=== PATIENT | female | born 1935 | race Caucasian/White ===

== ENCOUNTER 2019-07-27 13:36 | Inpatient (IN) | payer MEDICARE, SELFPAY ==
[2019-07-27] VITALS (12 sets, daily range): BP systolic 165–206; BP diastolic 65–132; PULSE 71–88; RESP 15–21; TEMP 36.8–37; O2SAT 92–98; BMI 25.7
--- NOTE | 2019-07-27 13:45 | ED_ITS ---
Entered by Chang Wells, acting as scribe for HPI - Syncope General: Chief Complaint: Syncope Stated Complaint: SYNCOPE/ FALL/ LEFT LEG PAIN Time Seen by Provider: 07/27/19 13:46 History of Present Illness: HPI narrative: 83 yo female presents with syncope and fall. Pt states that she doesn't remember what happened, just that she fell. Pt states that her left hip hurts. Pt denies neck pain. Pt states that she was getting dressed to go to her Dr's office and she passed out. Pt states that she has been having kidney issues, that is why she was going to see her PCP today. Pt states that she has some back pain, pt has a small abrasion on her mid back. Associated symptoms: Deny abdominal pain, chest pain, fever(s), headache(s), nausea or vertigo Review of Systems Const: Denies: fever, chills, body aches, fatigue, malaise or night sweats Eyes: Denies: change in vision or blurry vision ENMT: Denies: throat pain, oral sores/lesions, dental pain, nasal discharge or nasal congestion Card: Reports: syncope and shortness of breath on exertion; Denies: chest pain, palpitations, irregular heart rhythm, edema, shortness of breath when lying down or leg pain with exertion Resp: Denies: shortness of breath, productive cough, non-productive cough or wheezing GI: Denies: abdominal pain, nausea, vomiting, vomiting blood, coffee grounds in vomit, difficulty swallowing, heartburn/indigestion, diarrhea, constipation, cramping, blood in stool or black tarry stool : Denies: flank pain, painful urination, urinary frequency, urinary urgency, urinary incontinence or blood in urine Musc: Reports: back pain and extremity pain (left hip pain); Denies: neck pain, extremity swelling, joint pain or joint swelling Skin/Breast: Denies: rash, itching or redness Neuro: Denies: headache, numbness in extremities, weakness in extremities, changes in sensation, lack of coordination, difficulty walking, frequent falls, dizziness, vertigo or confusion Psych: Denies: anxiety, depression, loss of interest, visual hallucinations, auditory hallucinations, suicidal ideation or homicidal ideation Endo: Denies: excessive urination, excessive thirst, tired all the time or cold intolerance Ronnie/Lymph: Denies: easy bruising, easy bleeding, petechiae, enlarged lymph nodes or tender lymph nodes PFSH ED PFSH: Medical History Abnormal myocardial perfusion study Atypical chest pain CVA (cerebral vascular accident) Fracture of femoral neck, left GERD (gastroesophageal reflux disease) Hypertension Surgical History History of cholecystectomy Social History Smoking and tobacco status: never smoked Alcohol intake: never Substance/Drug Use: never Physical Exam Const: COMMON NORMALS: average body habitus, oriented x3 and alert GENERAL APPEARANCE: cooperative, comfortable, well kempt and well developed NUTRITIONAL APPEARANCE: not obese ORIENTATION/CONSCIOUSNESS: Yes awake, Yes oriented to person and Yes oriented to place HENMT: COMMON NORMALS: normocephalic, head/scalp atraumatic, EAC's normal, TM's normal bilaterally, external nose normal, moist oral mucous membranes and oropharynx normal HEAD & SCALP: normocephalic and atraumatic NOSE: external nose normal EXTERNAL AUDITORY CANAL: EAC's normal TYMPANIC MEMBRANE: TM's normal bilaterally MOUTH: oral and palatal mucosa normal, lip normal and tongue normal THROAT: posterior oropharynx normal and tonsils normal Eye: COMMON NORMALS: PERRL, EOMs intact bilaterally, conjunctivae normal and no scleral icterus CONJUNCTIVA: Yes conjunctivae normal PUPIL: Yes PERRL Neck/C-Spine: COMMON NORMALS: full ROM, no lymphadenopathy, supple, no meningeal signs and thyroid normal THYROID: thyroid normal and asymmetrical Lymph: LYMPHATIC: no lymphadenopathy noted Resp: COMMON NORMALS: normal respiratory effort, no retractions, no use of accessory muscles and clear to auscultation bilaterally AUSCULTATION: clear to auscultation bilaterally Cardio: COMMON NORMALS: regular rate and regular rhythm RATE: regular rate RHYTHM: regular rhythm HEART SOUNDS: no murmurs GI: COMMON NORMALS: normal to inspection, nondistended, normoactive bowel s ounds, soft to palpation and no hepatosplenomegaly PALPATION: Yes soft and Yes no hepatosplenomegaly : COMMON NORMALS: Yes no CVA tenderness BLADDER/KIDNEY EXAM: Yes no CVA tenderness Back/Pelvis: COMMON NORMALS: no CVA tenderness LUMBAR SPINE/LOWER BACK: Yes normal to inspection Extremity: NARRATIVE EXTREMITY EXAM: pt has left hip pain. Pts left leg is slightly rotated out. LEFT LOWER EXTREMITY: Yes hip joint Neuro: COMMON NORMALS: oriented x3 SENSORIUM/ORIENTATION: Yes alert, Yes oriented to person and Yes oriented to place MENINGEAL SIGNS: Yes no m eningeal signs Psych: APPEARANCE: Yes well kempt Skin: COMMON NORMALS: no rashes or lesions noted and skin turgor normal GENERAL SKIN EXAM: no rashes or lesions noted and turgor normal Course ED course: Left femoral neck fracture. In the presence of syncopal episode. We will go ahead and admit the patient is a history of diabetes hypertension. Dr. Wilder will see the patient. Vital Signs: Vital signs: Vital Signs Temperature 98 F 07/29/19 04:00 Pulse Rate 67 07/29/19 07:10 Respiratory Rate 13 07/29/19 07:10 Blood Pressure 135/62 07/29/19 08:11 Pulse Oximetry 95 07/29/19 07:10 MDM - Syncope Lab Data: Labs: Lab Results 07/27/19 07/27/19 Range/Units 14:08 14:08 WBC 15.6 H (4.0-10.0) 10^3/ uL RBC 4.28 (4.1-5.3) 10^6/u L Hgb 12.6 (11.5-15.3) g/dL Hct 39.7 (37.0-47.0) % MCV 92.8 (81-99) fL MCH 29.4 (28.0-34.0) pg MCHC 31.7 (30.0-36.0) g/dL RDW 12.5 (12.1-15.1) % Plt Count 248 (130-400) 10^3/c mm MPV 11.2 H (7.4-10.4) fL Neut % (Auto) 86.9 % Lymph % (Auto) 7.6 % Kings % (Auto) 4.0 % Eos % (Auto) 0.4 % Baso % (Auto) 0.3 % Neut # (Auto) 13.5 H (1.8-7.7) 10^3/u L Lymph # (Auto) 1.2 (0.8-4.8) 10^3/u L Kings # (Auto) 0.6 (0.2-0.9) 10^3/u L Eos # (Auto) 0.1 (0.0-0.8) 10^3/u L Baso # (Auto) 0.0 (0.0-0.1) 10^3/u L Nucleated RBC % (a uto) 0 % Nucleated RBCs # 0.0 /100WBC Sodium 138 (136-145) mmol/L Potassium 4.5 (3.5-5.1) mmol/L Chloride 103 (98-107) mmol/L Carbon Dioxide 24 (22-29) mmol/L Anion Gap 15.5 (5-19) BUN 19 (8-23) mg/dL Creatinine 1.0 H (0.5-0.9) mg/dL Glucose 186 H (65-115) mg/dL Calcium 9.5 (8.5-10.5) mg/dL Total Bilirubin 0.4 (0.15-1.2) mg/dL AST 24 (0-32) U/L ALT 21 (0-33) U/L Alkaline Phosphata se 72 (35-105) IU/L Total Protein 7.0 (6.6-8.7) g/dL Albumin 4.2 (3.5-5.2) g/dL Globulin 2.8 (1.3-4.6) g/dL Discharge Plan Discharge Patient Disposition: Admitted As Inpatient Admit Provider: Can Chowdhury Discharge Date/Time: 07/27/19 17:09 Coding Level of Care Code ED Sheet Sorter for Chg Fwd Exam Comprehensive The documentation recorded by the Russell vu Kialy, accurately reflects the service I personally performed and the decisions made by Lizbeth villavicencio Curtis L, DO Jul 27, 2019 13:36
--- NOTE | 2019-07-27 13:50 | XR_ITS ---
WS: [id number] Portable AP upright chest, 07/27/2019 Clinical Data: dyspnea/cough Comparison: None. Findings: No nodules, masses or effusions are seen. The heart is normal. The pulmonary vascularity is not increased. No pneumonia or pneumothorax is present. The aortic arch shows mild calcification. XR/XR chest 1V portable [id number] Impression: Atherosclerosis.
--- NOTE | 2019-07-27 13:51 | ECG_ITS ---
Measurements Intervals [place] Rate: 75 P: 96 CO: 176 QRS: 63 QRSD: 76 T: 70 QT: 376 QTc: 421 SINUS RHYTHM WARNING: DATA QUALITY MAY AFFECT INTERPRETATION No previous ECG available for comparison Electronically Signed On 07-27-2019 21:20:38 PUBLIC WORKS TECHNICIAN by Nilda Paez M.D. [email or web address]
--- NOTE | 2019-07-27 14:24 | XR_ITS ---
WS: [id number] Left hip, AP and frog leg, 07/27/2019 Clinical Data: pain, deformity Comparison: None. Findings: There is a fracture of the left femoral neck. The femoral head remains within the acetabulum. The left pelvis is intact. The soft tissues are nonremarkable. XR/XR hip LT 2-3V wo/w pel* [id number] Impression: Left femoral neck fracture.
[2019-07-27 14:28] LABS: Basophils % 0.3 %; Eosinophils # 0.1 10^3/uL (0.0-0.8); Eosinophils % 0.4 %; Hematocrit 39.7 % (37.0-47.0); Hemoglobin 12.6 g/dL (11.5-15.3); Lymphocytes # 1.2 10^3/uL (0.8-4.8); Lymphocytes % 7.6 %; Mean Corpuscular HGB Conc 31.7 g/dL (30.0-36.0); Mean Corpuscular Hemoglobin 29.4 pg (28.0-34.0); Mean Corpuscular Volume 92.8 fL (81-99); Mean Platelet Volume 11.2 fL (7.4-10.4); Monocytes # 0.6 10^3/uL (0.2-0.9); Neutrophils # 13.5 10^3/uL (1.8-7.7); Neutrophils % 86.9 %; Nucleated Red Blood Cells % 0 %; Platelet Count 248 10^3/cmm (130-400); Red Blood Count 4.28 10^6/uL (4.1-5.3); Red Cell Distribution Width 12.5 % (12.1-15.1); White Blood Count 15.6 10^3/uL (4.0-10.0)
--- NOTE | 2019-07-27 14:39 | PC.PHAR ---
pt states she takes a few over the counter items but doesnt remember the names or what they are for.
[2019-07-27 14:42] LABS: Alanine Aminotransferase 21 U/L (0-33); Albumin Level 4.2 g/dL (3.5-5.2); Alkaline Phosphatase 72 IU/L (35-105); Anion Gap 15.5 (5-19); Aspartate Amino Transferase 24 U/L (0-32); Blood Urea Nitrogen 19 mg/dL (8-23); Calcium 9.5 mg/dL (8.5-10.5); Carbon Dioxide 24 mmol/L (22-29); Chloride 103 mmol/L (98-107); Globulin 2.8 g/dL (1.3-4.6); Glucose 186 mg/dL (65-115); Potassium 4.5 mmol/L (3.5-5.1); Sodium 138 mmol/L (136-145); Total Bilirubin 0.4 mg/dL (0.15-1.2)
--- NOTE | 2019-07-27 16:25 | CTR_ITS ---
PROCEDURE INFORMATION: Exam: CT Head Without Contrast Exam date and time: 07/27/2019 4:48 PM Age: 83 years old Clinical indication: Syncope and collapse TECHNIQUE: Imaging protocol: Computed tomography of the head without contrast. Total DLP: 786.07 mGy-cm Radiation optimization: All CT scans at this facility use at least one of these dose optimization techniques: automated exposure control; mA and/or kV adjustment per patient size (includes targeted exams where dose is matched to clinical indication); or iterative reconstruction. COMPARISON: No relevant prior studies available. FINDINGS: Brain: Chronic infarct of the left basal ganglia. There are moderate periventricular and subcortical lucencies consistent with chronic microvascular ischemic changes. Ventricles: Normal. No ventriculomegaly. Bones/joints: Unremarkable. No acute fracture. Sinuses: Visualized sinuses are unremarkable. No fluid levels. Mastoid air cells: Visualized mastoid air cells are well aerated. Orbits: Bilateral cataract surgery. Soft tissues: Unremarkable. Vasculature: Vascular calcifications. CT/CT head wo con* [id number] IMPRESSION: No acute intracranial abnormality. Chronic microvascular ischemic changes. Radiation Dose CTDIVOL = (mGy): DLP = 786.07 (mGy-cm)
--- NOTE | 2019-07-27 16:32 | PM.HP ---
Providers/Chief Complaint Primary Care Provider: Jagjit Garcia Chief Complaint: SYNCOPE/ FALL/ LEFT LEG PAIN History of Present Illness Geneva Pizarro is a 83 year old female with a past medical history of CVA and TIAs, hypertension, hyperlipidemia, cle-lximbml-wszgnwezs type 2 diabetes mellitus, recurrent urinary tract infections, who presents to the emergency room due to syncope and fall and fracture. Patient states that she lives at [facility] by herself, is fairly independent, can perform activities of daily living on her own, states that this morning she was using the bathroom, she stated that she stooped forward, and thus the last thing she remembers, she is not sure how long she blacked out, but the next thing she remembers she was on the floor, her left hip hurt her, she crawled from the bathroom to the living room, and eventually called members, she was resting on the floor for about an hour. Patient states that 2 weeks ago she was in the bathtub, taking a shower, and again she blacked out, she is not sure how long she was in the bathtub floor, but she got up and carried on her usual business. Denies a previous history of blacking out, denies a previous history of falls, denies preceding chest pain, palpitations, lightheadedness, dizziness, nausea, vomiting, changes in her vision, headaches, blurry vision, slurring of her speech, facial droop, paralysis, paresthesias, confusion. Patient states that she has been having dysuria, she thought she might have a urinary tract infection, so she presented to her primary care physician's office this morning, was diagnosed with UTI, had not picking up the antibiotics yet, was at home, went to the bathroom and had her syncopal episode with her fall and fracture. Patient denies any significant cardiac history, denies any history of stents, he denies history of CABG, denies history of stress test, denies history of heart failure. When asked why she was on Plavix 75 mg once daily, patient is unsure she thinks she might be on it because of her history of TIAs, but her son seems to think it was due to her history of blood clot, but they are not sure where the blood clot was if it was in the legs or the lungs, but patient denies that she had a history of blood clots. She denies any stents placed in her heart. She denies any stents placed in her carotids. Denies any stents placed in her peripheral extremities. Patient family thinks she has had a blood clot, but she denies this. She does have a history of CVA and TIA, roughly 12 years ago, no residual deficits. Denies a history of lung disease, denies history of COPD, no smoking, no alcohol use, no drug use. Denies any history of issues with anesthesia was in the past. Denies any family history of hypercoagulability. Denies any significant cardiac history, no history of abnormal heart rhythms, no history of atrial fibrillation, does not have a heat transfer technician. No recent fever chills cough or URI symptoms. No recent hospitalizations. Review of Systems Const: Denies: fever, chills, fatigue or malaise Eyes: Denies: change in vision or blurry vision ENMT: Denies: nasal congestion Resp: Denies: shortness of breath, productive cough, non-productive cough or wheezing GI: Denies: abdominal pain, nausea, vomiting, vomiting blood, diarrhea, constipation, blood in stool or black tarry stool : Denies: flank pain, painful urination or urinary frequency Musc: Reports: extremity pain; Denies: neck pain or back pain Skin/Breast: Denies: rash Neuro: Denies: headache, dizziness or vertigo Psych: Denies: anxiety or depression Endo: Denies: excessive urination or excessive thirst Medications/Allergies Allergies Allergy/AdvReac Type Severity Reaction Status Date / Time Sulfa (Sulfonamide Allergy Unknown Verified 07/27/19 08:30 Antibiotics) Additional Medication Information Additional Medication Information: Amlodipine 5 mg once daily Plavix 75 mg once daily Donepezil 10 mg at bedtime Losartan 100 mg p.o. daily Metformin 500 twice daily Macrobid 100 twice daily PFSH Acute PFSH: Medical History (Updated 07/27/19 @ 16:59 by Can Chowdhury MD) CVA (cerebral vascular accident) GERD (gastroesophageal reflux disease) Hypertension Surgical History (Updated 07/27/19 @ 13:47 by Chang Wells) History of cholecystectomy Social History (Updated 07/27/19 @ 16:44 by Can Chowdhury MD) Smoking and tobacco status: never smoked Alcohol intake: never Substance/Drug Use: never Vitals/I&O/Wt Last Vital Signs Temp 98.6 F 07/27/19 13:45 Pulse 79 07/27/19 13:45 Resp 17 07/27/19 14:26 BP 168/128 07/27/19 14:25 Pulse Ox 94 07/27/19 14:25 Weight last 48 hrs Weight 74.389 kg Physical Exam Const: COMMON NORMALS: no apparent distress and oriented x3 GENERAL APPEARANCE: cooperative and comfortable HENMT: COMMON NORMALS: normocephalic HEAD & SCALP: normocephalic Eye: COMMON NORMALS: PERRL, EOMs intact bilaterally and no papilledema GENERAL EYE: normal appearance of both eyes PUPIL: Yes PERRL DIRECT OPHTHALMOSCOPY: Yes no papilledema Neck/C-Spine: COMMON NORMALS: full ROM, no lymphadenopathy, no JVD and thyroid normal THYROID: thyroid normal Lymph: LYMPHATIC: no lymphadenopathy noted Resp: COMMON NORMALS: normal respiratory effort, no retractions, no use of accessory muscles and clear to auscultation bilaterally AUSCULTATION: clear to auscultation bilaterally Cardio: COMMON NORMALS: no JVD, regular rate, regular rhythm, S1 normal heart sound, S2 normal heart sound, no gallops, no clicks and no murmurs RATE: regular rate RHYTHM: regular rhythm HEART SOUNDS: S1 normal and S2 normal GI: COMMON NORMALS: normal to inspection, nondistended, normoactive bowel sounds, soft to palpation, non-tender and no hepatosplenomegaly PALPATION: Yes soft and Yes no hepatosplenomegaly Extremity: COMMON NORMALS: normal to inspection, full ROM and no pedal edema OTHER: left hip pain, right elbow pain Neuro: COMMON NORMALS: oriented x3, CN's II-XII intact bilaterally, moves all extremities and no focal motor deficits Psych: COMMON NORMALS: mental status grossly normal, thought process normal and cooperative THOUGHT PROCESS: normal thought process Urinary Catheter Management^: Mckin[place]: Cath Placed During This Visit: yes Urethral Indwelling: Yes Reason for Continuing Indwelling Catheter: Required Immobilization for Trauma or Surgery or Anesthesia Urinary Catheter Date of Insertion: 07/27/19 Urinary Catheter Time of Insertion: 15:11 Data : 07/27/19 14:08 07/27/19 14:08 A&P Assessment and plan (1) Syncope: -Patient has had true episodes of syncope, does not seem like it is vasovagal or orthostatic -it will be difficult to assess orthostatic vitals given her left hip fracture -I am concerned for cardiac etiology -Plan is to do a cardiac echocardiogram, telemetry monitoring, serial EKGs, troponin evaluation -We will do a carotid ultrasound -We will do a CT of the head, currently neurologically intact, serial neuro exams -As for the reason why she is on Plavix, patient is unsure, possibly secondary to history of CVA? No history of stents in the heart, no history of stents in her legs or in her carotids, patient's family family thinks that she is on it because of her blood clots, but patient denies this, I have reached out to Dr. Mcneal's office to get clarity, I am waiting final operations technician back Status: Acute Code(s): R55 - Syncope and collapse (2) Chest pain: -Patient has had a couple of episodes of chest pain -Last episode was a month ago, right-sided, nonradiating, no shortness breath, no lightheaded, no dizziness, no orthostasis, no diaphoresis, lasting up to 5 minutes -Patient states that most of the episodes she feels are associated with acid reflux, she takes some baking soda and it usually resolves her acid reflux and her chest pain at times -Patient does have dementia, past patient's family have pulled me aside and advised me that she is forget more forgetful -Given her episodes of syncope I am quite concerned for cardiac etiology Plan: -We will do a cardiac stress test tomorrow morning Status: Acute Code(s): R07.9 - Chest pain, unspecified (3) Fracture of femoral neck, left: -Dr. 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 -Currently neurologic intact, no strokelike symptoms -We will do a CT of the head Status: Acute Code(s): I63.9 - Cerebral infarction, unspecified (5) Hypertension: -Hold labetalol in preparation for possible surgery -Continue Norvasc 10 mg once daily, losartan 100 mg once daily, hydralazine as needed Status: Acute Code(s): I10 - Essential (primary) hypertension (6) GERD (gastroesophageal reflux disease): Status: Acute Code(s): K21.9 - Gastro-esophageal reflux disease without esophagitis (7) UTI (urinary tract infection): Patient has frequent UTIs, has UTI symptoms burning with urination, continue Rocephin Status: Acute Code(s): N39.0 - Urinary tract infection, site not specified (8) Type 2 diabetes mellitus: -Check hemoglobin A1c, low-dose sliding scale Status: Acute Code(s): E11.9 - Type 2 diabetes mellitus without complications Attestations Medical Necessity Statement*: Patient requires inpatient admission, greater than 2 midnights, for syncope, chest pain, left hip fracture Coding Level of Care Code Acute Regional Transfer Liaison for [facility] Fwd Diagnoses Syncope R55 Chest pain R07.9 Fracture of femoral neck, left S72.002A CVA (cerebral vascular accident) I63.9 Hypertension I10 GERD (gastroesophageal reflux disease) K21.9 UTI (urinary tract infection) N39.0 Type 2 diabetes mellitus E11.9
[2019-07-27 16:58] LABS: Troponin(5th) Baseline 17 ng/mL (0-10)
--- NOTE | 2019-07-27 17:00 | ECG_ITS ---
NAME OF STUDY: LEXISCAN SESTAMIBI STRESS TEST INDICATION: Chest Pain, SYNCOPE, PROCEDURE: At the baseline, the EKG revealed normal sinus rhythm with some nonspecific T wave changes.. The baseline blood pressure was 169/62 mm Hg with a heart rate of 80 beats/min. Lexiscan was infused over a period of 20 seconds. A total of 0.4 milligrams of Lexiscan was infused. The stress phase was continued for a total of 5 minutes. Heart rate at the end of the stress phase was 90 with a blood pressure 169/58. The EKG at the peak infusion revealed nonspecific ST-T changes. Sestamibi was injected 20 seconds after the Lexiscan infusion. Blood pressure at the end of the recovery phase was 161/48 with a heart rate of 90 per minute. CONCLUSION: 1. Nonspecific EKG changes with the LexiScan infusion 2. No LexiScan induced chest pain or cardiac arrhythmia 3. Normal blood pressure and heart rate response 4. Sestamibi/sestamibi perfusion scan pending; see separate report. Electronically Signed On 07-28-2019 9:58:52 BACTERIOLOGY PROFESSOR by Nimisha Loera M.D. [email or web address]
[2019-07-27 17:05] LABS: NT Pro B Type Natriuretic Pept 1260 pg/mL (0-450)
--- NOTE | 2019-07-27 17:05 | PM.CONSULT ---
Providers/Reason For Consult Consulting Physican/Specialty*: Dr. Odilia Braswell?orthopedics Reason for Consult*: Left femoral neck fracture Requesting Physcian: Dr. Reyes to [facility]?ED, Dr. Can Chowdhury-hospitalist Attending Physician: Can Chowdhury MD Primary Care Provider: Jagjit Garcia History of Present Illness History of Present Illness Geneva Pizarro is a 83 year old female who was in her usual state of health when she suffered a fall at home resulting in a left femoral neck fracture. The patient notes that she lives alone, and she is fairly independent. This morning while using the bathroom, she leaned forward as the last thing she remembers. She feels that she blacked out and she was on the floor. She had left hip pain and crawled from the bathroom to the living room where she was on the floor for about an hour. Further history is significant and that approximately 2 weeks ago she had a similar event while in the shower and she blacked out as well. She denies any prior history of this. Additional pertinent information is that she was seen yesterday for a UTI. She had not begun her antibiotics at the point of her fall. The patient is also on Plavix. Review of Systems General: Reports: 10 or more systems reviewed and unremarkable except in HPI and below Narrative: The patient is alert and responsive. She is quite cooperative, but she is quite hard of hearing. Const: Denies: fever or chills Eyes: Denies: change in vision ENMT: Reports: change in hearing (Patient is very hard of hearing); Denies: throat pain or swelling of lips/tongue Card: Denies: chest pain or shortness of breath on exertion Resp: Denies: shortness of breath or productive cough GI: Denies: abdominal pain : Reports: other (Patient had diagnosis of a recent UTI for which she was given oral antibiotics. She had not started these at the time of her admission.) Musc: Reports: extremity pain (Left lower extremity at the hip) and limited range of motion Skin/Breast: Denies: redness or changes in skin color Neuro: Reports: other (Family notes some increase in forgetfulness recently); Denies: numbness in extremities Psych: Denies: anxiety or depression Ronnie/Lymph: Denies: easy bruising or easy bleeding Meds/Allergies Home Medications and Allergies Home Medications Medication Instructions Recorded Confirmed Type amlodipine 5 mg tablet 5 mg PO DAILY 07/27/19 07/27/19 History clopidogrel 75 mg tablet 75 mg PO DAILY 07/27/19 07/27/19 History donepezil 10 mg tablet 10 mg PO BEDTIME tab 07/27/19 07/27/19 History losartan 100 mg tablet 100 mg PO DAILY 07/27/19 07/27/19 History metformin 500 mg tablet 500 mg PO BID 07/27/19 07/27/19 History metoprolol tartrate 100 mg tablet 100 mg PO BID 07/27/19 07/27/19 History Allergies Allergy/AdvReac Type Severity Reaction Status Date / Time Sulfa (Sulfonamide Allergy Unknown Verified 07/27/19 08:30 Antibiotics) PFSH Acute PFSH: Medical History CVA (cerebral vascular accident) GERD (gastroesophageal reflux disease) Hypertension Surgical History History of cholecystectomy Social History Smoking and tobacco status: never smoked Alcohol intake: never Substance/Drug Use: never Vitals/I&O/Wt Last Vital Signs Temp 98.6 F 07/27/19 13:45 Pulse 79 07/27/19 13:45 Resp 17 07/27/19 14:26 BP 168/128 07/27/19 14:25 Pulse Ox 94 07/27/19 14:25 Weight last 48 hrs Weight 164 lb Physical Exam Narrative: EXAM NARRATIVE: Patient is quite cooperative. She has no current complaints of pain other than in her left lower extremity. Const: COMMON NORMALS: no apparent distress, average body habitus, oriented x3 and alert GENERAL APPEARANCE: cooperative and comfortable ORIENTATION/CONSCIOUSNESS: Yes awake HENMT: COMMON NORMALS: normocephalic and head/scalp atraumatic; hearing grossly not normal bilaterally (Patient is very hard of hearing) HEAD & SCALP: normocephalic and atraumatic Eye: GENERAL EYE: normal appearance of both eyes Chest: COMMONS NORMALS: inspection of chest normal Resp: COMMON NORMALS: normal respiratory effort EFFORT & INSPECTION: Yes able to speak in complete sentences and Yes symmetric chest movement Extremity: LEFT LOWER EXTREMITY: Yes hip joint Left hip: Yes inspection (No significant swelling.), Yes palpation (The leg is nontender to palpation, but there is some tenderness at the hip.), Yes ROM (Not performed secondary to hip fracture.) and Yes neurovascular exam (Intact motor and sensory function) Neuro: COMMON NORMALS: oriented x3 SENSORIUM/ORIENTATION: Yes alert Psych: COMMON NORMALS: mental status grossly normal APPEARANCE: Yes grossly normal ATTITUDE: Yes calm and Yes engaged ATTENTION/CONCENTRATION: Yes attention grossly intact Skin: COMMON NORMALS: no rashes or lesions noted GENERAL SKIN EXAM: no rashes or lesions noted Urinary Catheter Management^: Mckinley: Cath Placed During This Visit: yes Urethral Indwelling: Yes Reason for Continuing Indwelling Catheter: Required Immobilization for Trauma or Surgery or Anesthesia Urinary Catheter Date of Insertion: 07/27/19 Urinary Catheter Time of Insertion: 15:11 Data Imaging^: Left hip: I personally reviewed and interpreted this imaging study as follows: My impression: Patient has a left femoral neck fracture which is displaced. There is no evidence of other fracture or other injury. A&P Assessment and plan (1) Fracture of femoral neck, left: Discussion is undertaken with the patient that she will require a bipolar hip arthroplasty. Risks and complications are discussed. The patient understands. This will be scheduled for her tomorrow providing her studies including an echo and stress test do not preclude proceeding as soon as possible with surgery. Status: Acute Code(s): S72.002A - Fracture of unspecified part of neck of left femur, initial encounter for closed fracture (2) Type 2 diabetes mellitus: Status: Acute Code(s): E11.9 - Type 2 diabetes mellitus without complications (3) Hypertension: Status: Acute Code(s): I10 - Essential (primary) hypertension (4) UTI (urinary tract infection): Status: Acute Code(s): N39.0 - Urinary tract infection, site not specified (5) Syncope: Status: Acute Code(s): R55 - Syncope and collapse Consult Attestations Medical Necessity Statement: Patient will require inpatient services and cardiology work-up to determine appropriateness of proceeding with surgical intervention. 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
[2019-07-27 17:32] LABS: Glucose Point of Care 155 mg/dL (70-110)
--- NOTE | 2019-07-27 18:19 | ECG_ITS ---
Measurements Intervals [place] Rate: 68 P: 81 ME: 179 QRS: 44 QRSD: 84 T: 73 QT: 399 QTc: 427 SINUS RHYTHM POSSIBLE RIGHT VENTRICULAR CONDUCTION DELAY [RSR (QR) IN V1/V2] Compared to ECG 07/27/2019 18:05:01 No significant changes Electronically Signed On 07-28-2019 11:15:51 SHOE SPRAYER by Nilda Paez M.D. [id number]
[2019-07-27] MEDS: heparin 5,000 unit/mL INJ 1 mL 5000 UNIT SUBCUT (18:32)
[2019-07-27] MEDS: morphine 4 mg/mL SDV 1 mL 2 MG IVP ×2 (18:32→22:33)
[2019-07-27] MEDS: sodium chloride 0.9% 1,000 ML 75 ML IV (18:32)
[2019-07-27] MEDS: cefTRIAXone 1,000 MG in sodium chloride 0.9% (plus) 50 ML 100 MG IV (18:33)
[2019-07-27 19:13] LABS: Troponin 5 2HR 16.72 ng/mL (0-10)
[2019-07-27 19:19] LABS: Troponin 5 2HR Delta -0.28 ABS# (0-10)
[2019-07-27] MEDS: donepezil 5 MG Tablet 10 MG PO (20:48)
[2019-07-27] MEDS: acetaminophen 325 mg Tablet 650 MG PO (21:41)
--- NOTE | 2019-07-27 22:19 | ECG_ITS ---
Measurements Intervals [place] Rate: 78 P: 70 OR: 183 QRS: 42 QRSD: 81 T: 67 QT: 360 QTc: 410 SINUS RHYTHM POSSIBLE RIGHT VENTRICULAR CONDUCTION DELAY [RSR (QR) IN V1/V2] No previous ECG available for comparison Electronically Signed On 07-27-2019 21:23:54 INTEGRATION CONSULTANT by Nilda Paez M.D. [id number]
--- NOTE | 2019-07-27 22:35 | PC.NURSE ---
PT C/O 10/10 PAIN IN THE LEFT HIP. THIS NURSE GAVE THE PRN TYLENOL AND THE STOCK PATCHER NURSE GAVE 2MG MORPHINE IVP. WILL CONTINUE TO MONITOR.
[2019-07-28] VITALS (74 sets, daily range): BP systolic 139–170; BP diastolic 49–94; PULSE 67–107; RESP 10–29; TEMP 36.6; O2SAT 90–97
[2019-07-28 03:47] LABS: Basophils % 0.2 %; Eosinophils # 0.1 10^3/uL (0.0-0.8); Eosinophils % 0.8 %; Hematocrit 35.5 % (37.0-47.0); Hemoglobin 11.5 g/dL (11.5-15.3); Lymphocytes # 1.9 10^3/uL (0.8-4.8); Lymphocytes % 17.7 %; Mean Corpuscular HGB Conc 32.4 g/dL (30.0-36.0); Mean Corpuscular Hemoglobin 30.7 pg (28.0-34.0); Mean Corpuscular Volume 94.7 fL (81-99); Mean Platelet Volume 11.2 fL (7.4-10.4); Monocytes # 0.6 10^3/uL (0.2-0.9); Monocytes % 6.1 %; Neutrophils # 7.9 10^3/uL (1.8-7.7); Neutrophils % 74.9 %; Nucleated Red Blood Cells % 0 %; Platelet Count 211 10^3/cmm (130-400); Red Blood Count 3.75 10^6/uL (4.1-5.3); Red Cell Distribution Width 12.4 % (12.1-15.1); White Blood Count 10.5 10^3/uL (4.0-10.0)
[2019-07-28] MEDS: heparin 5,000 unit/mL INJ 1 mL 5000 UNIT SUBCUT (03:47)
[2019-07-28 04:08] LABS: Alanine Aminotransferase 15 U/L (0-33); Albumin Level 3.3 g/dL (3.5-5.2); Alkaline Phosphatase 56 IU/L (35-105); Anion Gap 13.1 (5-19); Aspartate Amino Transferase 18 U/L (0-32); Blood Urea Nitrogen 14 mg/dL (8-23); Calcium 8.8 mg/dL (8.5-10.5); Carbon Dioxide 24 mmol/L (22-29); Chloride 107 mmol/L (98-107); Chol HDL Ratio 4.31 mg/dL (0.0-4.40); Cholesterol 138 mg/dL (0-200); Globulin 2.9 g/dL (1.3-4.6); Glucose 113 mg/dL (65-115); HDL Cholesterol 32 mg/dL (60-100); LDL Cholesterol Calculated 63 mg/dL (50-129); LDL HDL Ratio 1.97 RATIO (0.00-3.22); Magnesium 2.1 mg/dL (1.7-2.3); Phosphorus 2.7 mg/dL (2.5-4.5); Potassium 4.1 mmol/L (3.5-5.1); Sodium 140 mmol/L (136-145); Total Bilirubin 0.5 mg/dL (0.15-1.2); Total Protein 6.2 g/dL (6.6-8.7); Triglycerides 214 mg/dL (0-150)
[2019-07-28 06:09] LABS: Estmated Average Glucose 105; Hemoglobin A1C 5.3 % (4.0-6.0)
[2019-07-28] MEDS: sodium chloride 0.9% 1,000 ML 75 ML IV (06:13)
[2019-07-28] MEDS: regadenoson 0.4 Mg/5 ml Syringe IVP (07:59)
[2019-07-28] MEDS: losartan 50 mg Tablet 100 MG PO (09:34)
[2019-07-28] MEDS: amlodipine 5 mg Tablet 10 MG PO (09:35)
[2019-07-28 09:42] LABS: Glucose Point of Care 147 mg/dL (70-110)
--- NOTE | 2019-07-28 10:15 | PC.CHAP ---
Pastoral Care Encounter/Spiritual Assessment Type of Contact [] Declined high lift mule operator visit [] Patient/Family/Request visit [] Outpatient visit [] Follow-up visit [] Physician referral [] Code/Alert [x] Routine visit [] Staff referral [] Actively dying [] Patient sleeping [x] Family support [] [] Out of room [] Palliative care [] [] Receiving care in room [] Pre-surgical visit [] Trauma [] Long length of stay [] ICU visit [] Other: Relational/Emotional Strength [] Patient feels connected with others/family/visitors/staff [] Distress [] Loneliness/isolation [] Abandonment Spirituality of Patient [x] Person of Janet [] Attends Pentecostalism of their Janet [x] Believes in Prayer [] Reads Bible or Evangelical materials [] There are Spiritual issues to be addressed Roller Mechanic Interventions [x] Prayer [] Active listening [] Non-anxious presence [] Spiritual/emotional support [] Crisis/trauma care [] Spiritual counseling [] Bereavement support [] Provided bereavement packet [] Provided Bible/devotional materials [] Provided toy/stuffed animal, coloring book to patient or family member [] Provided Communion [] Anointing/[place] [] Salvation [x] Completed spiritual assessment [] Other: Impact on Illness or Injury [] Angry [] Fearful [] Anxious [] Often cries [] Exhaustion [] Unable to work [] Unable to attend congregation [] Unable to walk/stand [] Unable to read [] Unable to drive [] Unable to eat/drink [] Unable to sleep [] Unable to be with family [] Patient intubated [] Other: Summary Patient preparing for hip surgery. Patients family present, all good spirits Time spent with patient 20min
--- NOTE | 2019-07-28 11:07 | PC.NURSE ---
pt had lexiscan this morning.concern for blockages.hip surgery postponed.possible cardiac angiogram later today
--- NOTE | 2019-07-28 11:21 | PM.CONSULT ---
Providers/Reason For Consult Consulting Physican/Specialty*: ANAHI Loera MD/cardiology Reason for Consult*: Abnormal myocardial perfusion imaging Attending Physician: Can Chowdhury MD Primary Care Provider: Jagjit Garcia History of Present Illness History of Present Illness Geneva Pizarro is a 83 year old female who is admitted to hospital with a right hip fracture that she sustained following a fall in the bathroom. She was found to have slightly elevated troponin T. She has a history of high blood pressure, diabetes, dyslipidemia and TIA. She had a myocardial perfusion imaging today which was found to be abnormal. Cardiology consult is requested for further cardiac evaluation recommendations. Patient denies any chest pain. However she has been having indigestion feeling off and on for the last several months. She has this discomfort in the epigastric area which may last for few minutes with no definite precipitating factors. Patient is somewhat vague about her complaints. She has a very poor memory. She is diagnosed with Alzheimer's disease. She has no documented history for coronary artery disease, myocardial infarction or congestive heart failure. Patient is not able to recall many of the events of the past. She had 2 episodes of passing out spell in the bathroom. She never had any warning symptoms for this. She is not able to recall the events surrounding these episodes. She has a history of recurrent UTI. History of possible TIA or than 5 years ago. Seems to be compliant with medications. She recently changed her primary care provider. Except for the right hip pain, she denies any other specific complaints at this time. Review of Systems Narrative: CONSTITUTIONAL: No fever or chills. EYES: No blurring of vision or other visual disturbances lately. ENT: No hoarseness of voice, auditory disturbances or sore throat. CARDIOVASCULAR: As mentioned above. RESPIRATORY: No significant cough. GASTROINTESTINAL: History of? GERD/heartburns GENITOURINARY: Recurrent UTI INTEGUMENTARY: No skin rashes or history of skin cancer. NEURO: History of dementia as mentioned above PSYCHIATRIC: No history of psychosis or major depression. HEMATOLOGIC: No bleeding disorders or significant anemia. ENDOCRINE: No history of polyuria or polydipsia. MUSCULOSKELETAL: As mentioned above ALLERGY/IMMUNOLOGY: As mentioned above. Meds/Allergies Home Medications and Allergies Home Medications Medication Instructions Recorded Confirmed Type amlodipine 5 mg tablet 5 mg PO DAILY 07/27/19 07/27/19 History clopidogrel 75 mg tablet 75 mg PO DAILY 07/27/19 07/27/19 History donepezil 10 mg tablet 10 mg PO BEDTIME tab 07/27/19 07/27/19 History losartan 100 mg tablet 100 mg PO DAILY 07/27/19 07/27/19 History metformin 500 mg tablet 500 mg PO BID 07/27/19 07/27/19 History metoprolol tartrate 100 mg tablet 100 mg PO BID 07/27/19 07/27/19 History Allergies Allergy/AdvReac Type Severity Reaction Status Date / Time Sulfa (Sulfonamide Allergy Unknown Verified 07/27/19 08:30 Antibiotics) Current Medications Current Medications Generic Name Dose Route Start Last Admin Trade Name Freq PRN Reason Stop Dose Admin Acetaminophen 650 mg 07/27/19 16:25 07/27/19 21:41 Tylenol PO 650 mg Q6H PRN Administration Mild/Mod Pain Or Temp >/= 101 Amlodipine Besylate 10 mg 07/28/19 09:00 07/28/19 09:35 Norvasc PO 10 mg DAILY ESTHER Administration Donepezil HCl 10 mg 07/27/19 21:00 07/27/19 20:48 Aricept PO 10 mg BEDTIME ESTHER Administration Heparin Sodium (Beef Lung) 5,000 unit 07/27/19 16:30 07/28/19 03:47 Heparin SUBCUT 5,000 unit Q12H ESTHER Administration Ceftriaxone Sodium 1,000 mg/ 50 mls @ 100 mls/hr 07/27/19 16:30 07/27/19 19:05 Sodium Chloride IV Infused Q24H ESTHER Infusion Protocol Sodium Chloride 1,000 mls @ 75 mls/hr 07/27/19 17:46 07/28/19 06:13 Sodium Chloride 0.9% IV 75 mls/hr .[id number] ESTHER Administration Insulin Aspart 0 unit 07/27/19 18:00 07/28/19 09:34 Novolog SUBCUT Not Given TIDWM ESTHER Protocol Losartan Potassium 100 mg 07/28/19 09:00 07/28/19 09:34 Cozaar PO 100 mg DAILY ESTHER Administration Morphine Sulfate 2 mg 07/27/19 16:25 07/27/19 22:33 Morphine IVP 2 mg Q4H PRN Administration SEVERE PAIN PFSH Acute PFSH: Medical History Abnormal myocardial perfusion study Atypical chest pain CVA (cerebral vascular accident) Fracture of femoral neck, left GERD (gastroesophageal reflux disease) Hypertension Surgical History History of cholecystectomy Social History Smoking and tobacco status: never smoked Alcohol intake: never Substance/Drug Use: never Vitals/I&O/Wt Last Vital Signs Temp 97.9 F 07/28/19 04:00 Pulse 91 07/28/19 08:24 Resp 23 H 07/28/19 04:00 BP 159/80 07/28/19 09:34 Pulse Ox 91 07/28/19 04:00 07/27/19 07/28/19 07/28/19 22:59 06:59 14:59 Intake Total 50 / 50 876.25 / 926.25 Output Total 1800 / 1800 Balance 50 / 50 -923.75 / -873.75 Weight last 48 hrs Weight 164 lb Physical Exam Narrative: EXAM NARRATIVE: GENERAL: The patient is alert and oriented times 3. Not in any acute distress. Seems very forgetful HEENT: No significant pallor, icterus or lymphadenopathy. The pupils are equal in size. Oral cavity: There are no mucous membrane lesions. Funduscopic examination: The disk margins appear to be sharp with no exudates or hemorrhages. NECK: Trachea appears to be central. No masses noted. No JVD or thyromegaly appreciated. No carotid bruit. RESPIRATORY: Chest is symmetrical. No intercostals muscle retraction or any accessory muscle activation. There is no chest wall tenderness. Breath sounds are heard bilaterally. No rales or rhonchi heard. No evidence of any consolidation. BREASTS: Deferred. HEART: The PMI is in the 5th left intercostals space just inside the midclavicular line. No palpable precordial events. S1 and S2 are normal. No S3 or S4 heard. No pericardial rub or any click heard. ABDOMEN: No vessel pulsations or distention. No tenderness. No organomegaly appreciated. No abdominal bruit. Bowel sounds are normally heard. : Deferred. RECTAL: Deferred. LYMPHATIC: No lymphadenopathy noted in the neck or groin. EXTREMITIES: No edema or cyanosis. No clubbing. The pulses are symmetrical bilaterally. The radial, femoral, dorsalis pedis and the posterior tibial pulses are palpated and found to be in good volume and amplitude. MUSCULOSKELETAL: The right hip is immobilized . SKIN: There are no significant scars or skin rash noted. NEUROPSYCHIATRIC: The patient is alert and oriented x3. Appears to be in a good mood. No focal motor deficits. Urinary Catheter Management^: Mckinley: Cath Placed During This Visit: yes Urethral Indwelling: Yes Reason for Continuing Indwelling Catheter: Required Immobilization for Trauma or Surgery or Anesthesia Urinary Catheter Date of Insertion: 07/27/19 Urinary Catheter Time of Insertion: 15:11 Data Labs: Other Labs: Abnormal lab results 07/27/19 07/27/19 07/27/19 Range/Units 14:08 14:08 16:33 WBC 15.6 H (4.0-10.0) 10^3/ uL RBC (4.1-5.3) 10^6/u L Hct (37.0-47.0) % MPV 11.2 H (7.4-10.4) fL Neut # (Auto) 13.5 H (1.8-7.7) 10^3/u L Creatinine 1.0 H (0.5-0.9) mg/dL Glucose 186 H (65-115) mg/dL Troponin I 6 Hour (0-10) ng/mL Troponin I Hi Sens Del (0-12) ng/L Troponin T Baselin e 17 H (0-10) ng/mL Troponin T 120 Min chicken ranch (0-10) ng/mL Delta Troponin T (0-10) ABS# NT-Pro-B Natriuret Pep (0-450) pg/mL Total Protein (6.6-8.7) g/dL Albumin (3.5-5.2) g/dL Triglycerides (0-150) mg/dL HDL Cholesterol (60-100) mg/dL 07/27/19 07/27/19 07/27/19 Range/Units 16:33 18:42 22:31 WBC (4.0-10.0) 10^3/ uL RBC (4.1-5.3) 10^6/u L Hct (37.0-47.0) % MPV (7.4-10.4) fL Neut # (Auto) (1.8-7.7) 10^3/u L Creatinine (0.5-0.9) mg/dL Glucose (65-115) mg/dL Troponin I 6 Hour 16.50 H (0-10) ng/mL Troponin I Hi Sens Del -0.50 L (0-12) ng/L Troponin T Baselin e (0-10) ng/mL Troponin T 120 Min chicken [place] 16.72 H (0-10) ng/mL Delta Troponin T -0.28 L (0-10) ABS# NT-Pro-B Natriuret Pep 1260 H (0-450) pg/mL Total Protein (6.6-8.7) g/dL Albumin (3.5-5.2) g/dL Triglycerides (0-150) mg/dL HDL Cholesterol (60-100) mg/dL 07/28/19 07/28/19 07/28/19 Range/Units 03:05 03:05 03:05 WBC 10.5 H (4.0-10.0) 10^3/ uL RBC 3.75 L (4.1-5.3) 10^6/u L Hct 35.5 L (37.0-47.0) % MPV 11.2 H (7.4-10.4) fL Neut # (Auto) 7.9 H (1.8-7.7) 10^3/u L Creatinine (0.5-0.9) mg/dL Glucose (65-115) mg/dL Troponin I 6 Hour (0-10) ng/mL Troponin I Hi Sens Del (0-12) ng/L Troponin T Baselin e (0-10) ng/mL Troponin T 120 Min chicken ranch (0-10) ng/mL Delta Troponin T (0-10) ABS# NT-Pro-B Natriuret Pep (0-450) pg/mL Total Protein 6.2 L (6.6-8.7) g/dL Albumin 3.3 L (3.5-5.2) g/dL Triglycerides 214 H (0-150) mg/dL HDL Cholesterol 32 L (60-100) mg/dL Imaging^: Myocardial perfusion imaging: My impression: #1. Myocardial perfusion imaging revealing a small area of reversible defect in the mid inferolateral region, suggestive of ischemia in the distribution of the left circumflex artery. Elevated transient ischemic dilatation index also is suggestive of endocardial ischemia. #2. Normal LV ejection fraction 76%. #3. LV wall motion analysis revealing no gross wall motion normalities. #4. Normal LV volume. CT Head: Radiologist's impression: Chronic microvascular changes. No acute intracranial pathology Xray Ortho: Radiologist's impression: X-ray of the hip/pelvis revealed fracture of the left femoral neck with no displacement. CXR: My impression: Normal cardiac silhouette with no lung infiltrate. No acute pathology noted EKG^: EKG 1: My Interpretation: The EKG revealed normal sinus rhythm with some nonspecific T wave changes. Right ventricular conduction delay. A&P Assessment and plan (1) Abnormal myocardial perfusion study: Patient's abnormal myocardial perfusion imaging is suggestive of ischemia in the distribution of the left circumflex artery.Because of her atypical chest symptoms and the dementia, it might be difficult to evaluate her symptoms. For further evaluation of her coronary status, she requires a cardiac catheterization. The risk of bleeding, hematoma, vascular injury, myocardial infarction, CVA, renal failure and other concomitant complications were explained in detail. Patient and the family understood this well and consented to proceed. Status: Acute Code(s): R94.39 - Abnormal result of other cardiovascular function study (2) Atypical chest pain: Her symptoms are atypical. She complains of indigestion/epigastric discomfort intermittently. The EKG changes are nonspecific. In view of her multiple risk factors, most likely the symptoms are related to underlying coronary ischemia, especially in view of the abnormal myocardial perfusion imaging. Based on the coronary angiogram findings, further recommendations will be made Status: Acute Code(s): R07.89 - Other chest pain (3) Hypertension: The blood pressure is a stage II at this time. The antihypertensive medications need to be optimized. Status: Acute Qualifiers: Hypertension type: essential hypertension Qualified Code(s): I10 - Essential (primary) hypertension Code(s): I10 - Essential (primary) hypertension (4) CVA (cerebral vascular accident): The CT scan of the head revealed a evidence of a chronic microvascular changes. No acute ischemic changes. Patient may continue on the current medications. If she has not had any recent carotid Doppler examination, it would be appropriate to do one Status: Acute Qualifiers: CVA mechanism: embolism Precerebral and cerebral artery: unspecified precerebral artery Qualified Code(s): I63.10 - Cerebral infarction due to embolism of unspecified precerebral artery Code(s): I63.9 - Cerebral infarction, unspecified Additional A&P Information Patient has a history of diabetes and dyslipidemia. I may hold off on the metformin today in view of the possible cardiac authorization. Patient may be carefully hydrated. She has a history of dyslipidemia. I may start her on Crestor 20 mg p.o. daily. Her anemia is unexplained. No evidence of any active bleed. She had a an echocardiogram and carotid duplex admission which will be reviewed. Based on the results of the above test and also the patient's clinical progress, further recommendations will be made. Thank you for the opportunity to evaluate this patient and make these recommendations Consult Attestations Medical Necessity Statement: Patient requires continued hospital stay for close monitoring and further management Coding Level of Care Code Acute Airport Representative for Britney Bailey Diagnoses Abnormal myocardial perfusion study R94.39 Atypical chest pain R07.89 Hypertension I10 Hypertension type: essential hypertension CVA (cerebral vascular accident) I63.10 CVA mechanism: embolism Precerebral and cerebral artery: unspecified precerebral artery
[2019-07-28 12:11] LABS: Glucose Point of Care 145 mg/dL (70-110)
--- NOTE | 2019-07-28 13:43 | XACV_ITS ---
Exam Room: [facility] Ht: 145 cm Wt: 74 kg BSA: 1.77 m2 Gender: Female : 1935 Any Known Allergies: Sulfa Exam Priority: Routine Procedure(s): Procedure Description: Diagnostic procedure Procedure Description: Left Heart Catheterization Procedure Description: Coronary Angiography Procedure Description: Pressure Wire Diagnostic Cath Status: Elective Diagnostic Findings LM is a medium caliber vessel with no significant stenotic lesion. Mid Right Coronary Artery: Moderate 50% stenosis, PAUL: 3 flow, FFR performed: ratio is 0.9. Coronary angiography shows right dominance. The left anterior descending artery is a medium caliber vessel which was found to have an eccentric narrowing of around 30% proximally. The mid artery was found to have mild diffuse disease. Minimal intimal irregularities are noted in the distal artery. The artery appears to wrap around the LV apex. The first diagonal branch was found to have around 40% tubular narrowing in the midsegment. Mild to moderate diffuse calcification was noted in the proximal segment of the arteries. The left circumflex artery was found to have mild diffuse intimal anxieties with no significant stenotic lesion. The right coronary artery was found to have around a 50 to 60% segmental narrowing in the mid segment. The PDA and the PLV branches also been found to have mild diffuse disease. Interventional Findings FFR of the mid right coronary artery is 0.9. Conclusions This is an 83-year-old white female with a multiple risk factors for coronary disease, is admitted to the hospital with a right hip fracture. She was complaining of some atypical chest symptoms. She had a myocardial perfusion imaging which revealed an area of ischemia in the distribution of the left circumflex artery. In order to further evaluate her coronary status, a cardiac catheterization was recommended. Patient underwent left heart catheterization with a left and right coronary angiogram today. She was found to have mild to moderate coronary artery disease. The right coronary artery was found to have around 50 to 60% narrowing in the midsegment. LV gram was not performed because of the frequent ventricular arrhythmia with the LV catheter. LVEDP was 9 mmHg. An FFR was done to further evaluate the functional significance of the RCA lesion. This was performed by Dr. Carranza. The FFR was 0.9. Based on this, it was decided to treat the patient medically. Recommendations Continue current medical management and risk factor modification. Diagnostic RX Recommendation: medical therapy and/or counseling LV EDP: 9 mmHg Pressures Phase:Rest AO : 111 mmHg / 54 mmHg ( 82 mmHg ) @ 10:18:00 AM 112 mmHg / 57 mmHg ( 82 mmHg ) @ 10:19:00 AM 116 mmHg / 56 mmHg ( 83 mmHg ) @ 10:25:00 AM / ( -6 mmHg ) @ 10:29:00 AM 159 mmHg / 17 mmHg ( 73 mmHg ) @ 10:31:00 AM 148 mmHg / 60 mmHg ( 86 mmHg ) @ 10:32:00 AM LV : 167 mmHg / -22 mmHg / @ 10:31:00 AM 167 mmHg / -22 mmHg / @ 10:31:00 AM Clinical Evaluation EBL: 5mL-10mL Procedural Details Procedure Consent Obtained. Pre-Procedure Time Out. Identified patient by full name and date of as verbalized by the patient/guarantor. Does the consent match the physician's order: Yes. Accurate & Complete Informed Consent: Yes. Inpatient/Outpatient History & Physical on Chart: Yes. If H&P is completed, is and addenduem needed: N/A; If yes, is the addendum complete: N/A. Visualize and Verify Site with Patient/Guarantor: N/A. Relevant Radiology Images available: Yes. Pre-op teaching completed and patient verbalized understanding. The risks, benefits, and alternatives of sedation and/or procedure were discussed by physician. The patient agrees to continue. Procedure started. PERRLA. Strong, equal hand handle finisher bilaterally. Lungs clear x 5 lobes. IV Site on Arrival: 20 gauge in the right forearm. Pre Procedural Pulses: bilateral dorsalis pedis was 2+. Pre Procedural Pulses: left posterior tibial was 2+. Pre Procedural Pulses: right posterior tibial was Doppled. Pre Procedural Pulses: bilateral radial was 2+. Oxygen started at 2liters/min via nasal canula. right groin was prepped with chloroprep then draped in the usual sterile fashion. right radial was prepped with chloroprep then draped in the usual sterile fashion. Baseline sample Acquired. HR: 89 BPM. Physician notified. Physician arrived. Physician scrubbed in. Immediate Pre-Procedure Time Out. Correct Patient: Yes; Correct Procedure: Yes; Correct Site: Yes; Correct Patient Position: Yes; Correct Supplies: Yes; Dried Flammable Prep: Yes; Blood Products Available: No;. Lidocaine 1% infiltrated to the right radial. Arterial access obtained. A 5 samoan Tj catheter in over wire. Multiple views taken of left coronary artery. Catheter redirected to the RCA. Catheter out. A 5 samoan JR4 catheter in over wire. Multiple views taken of right coronary artery. Dr. Carranza reviewing films. Catheter out. A 5 samoan Angled Pig catheter in over wire. EDP Sample taken: LV 167/-23,9; HR: 91 BPM; SpO2: 95%. Pullback taken: LV Off; AO Off; Mean: , Peak to Peak: , SEP: ; HR: 68 BPM; SpO2: 95%. Catheter out. Dr. Loera scrubbed out. Patient's family updated. Inventory is [employer] XT .[address] Guidewire. Dr. Carranza scrubbed in to perform intervention. [facility] [place] Clinical Fraility Score: 4: Vulnerable. Price Clerk Indications: Evaluation for Exercise Clearance. Price Clerk Indications: Syncope. Chest Pain Symptom Assessment: Atypical Angina. Cardiovascular Instability: No. 6 samoan JR 4 guide catheter was inserted over the wire. FFR wire inserted. An FFR value of 0.90 was obtained for a lesion located at Mid RCA. Guide catheter out. A TR Band was successful obtaining hemostatsis at the Right Radial artery insertion site. TR band placed. Hemostasis obtained. Post Procedure: Pulses reassessed and unchanged. PERRLA. Strong, equal hand handle finisher bilaterally. No VTE prophylaxis required. Medication's Wasted: Other = adenosine 68 mg. Medication's Wasted: Heparin = 1000 units. Medication's Wasted: Lidocaine 1% = 18 mL. Medication's Wasted: Nitro = 49.8 mg. Total IV fluids: 75 mL. Fractional flow reserve measurements obtained. Fluoro: 9:10. Contrast type used: Omnipaque 300 mgI/mL, 500 mL bottle. [id number]. Post-op diagnosis: chest pain. Complications: none. Estimated blood loss: 5mL-10mL. Procedure completed. Patient transferred by bed to 1st floor. Vital chart was stopped. Site: Right Radial artery Sheath Size: 6 Fr Hemostasis Method: TR Band Hemostasis Success: Successful Complication Findings: No complications occurred during the procedure. Intra/Post-Procedure Events Stroke - Undetermined: No Cardiac Arrest: No Procedure Medications Start: 4:03 PM Stop: 4:03 PM Medication: Versed Amount: 1 mg Route: I.V. Start: 4:03 PM Stop: 4:03 PM Medication: Fentanyl Amount: 50 mcg Route: I.V. Start: 4:08 PM Stop: 4:08 PM Medication: Versed Amount: 1 mg Route: I.V. Start: 4:12 PM Stop: 4:12 PM Medication: Verapamil Amount: 5 mg Route: I.A. Start: 4:12 PM Stop: 4:12 PM Medication: Nitrogylcerin Amount: 200 mcg Route: I.A. Start: 4:18 PM Stop: 4:18 PM Medication: Heparin Amount: 5000 units Route: I.V. Start: 4:46 PM Stop: 4:46 PM Medication: Fentanyl Amount: 50 mcg Route: I.V. I, the attending physician, have reviewed and verified all procedure medications. Yes, all medications given per verbal order History/Risk Factors Hypertension: Yes Dyslipidemia: Yes Diabetic Therapy: Oral Peripheral Arterial Disease (PAD): No Myocardial Infarction (IA): No Obesity: No Renal Disease: No Prior Interventions PCI: No CABG: No Valve Surgery: No Report Signatures Diagnostic Workflow - Finalized by:Dr Nimisha Loera MD [facility] on 07/28/2019 9:40:45 PM Interventional Workflow - Finalized by: Dr. Jaswinder Carranza MD on 07/28/2019 5:05:39 PM
--- NOTE | 2019-07-28 15:36 | PC.NURSE ---
pt to cardiac cathode builder via bed at this time
--- NOTE | 2019-07-28 15:58 | P.PN_ITS ---
Subjective Subjective: Interval history: Patient had no complaints overnight, no chest pain, no shortness of breath, is awaiting stress test Vitals/I&O/Wt Last Vital Signs Temp 97.9 F 07/28/19 04:00 Pulse 79 07/28/19 12:00 Resp 16 07/28/19 12:00 BP 147/69 07/28/19 12:00 Pulse Ox 91 07/28/19 12:00 07/28/19 07/28/19 07/28/19 06:59 14:59 22:59 Intake Total 876.25 / 926.25 Output Total 1800 / 1800 Balance -923.75 / -873.75 Weight last 48 hrs Weight 74.389 kg Physical Exam Const: COMMON NORMALS: no apparent distress and oriented x3 HENMT: COMMON NORMALS: normocephalic HEAD & SCALP: normocephalic Neck/C-Spine: COMMON NORMALS: no JVD Resp: COMMON NORMALS: normal respiratory effort, no retractions, no use of a ccessory muscles and clear to auscultation bilaterally AUSCULTATION: clear to auscultation bilaterally Cardio: COMMON NORMALS: no JVD, regular rate, regular rhythm, S1 normal heart sound and S2 normal heart sound RATE: regular rate RHYTHM: regular rhythm HEART SOUNDS: S1 normal and S2 normal GI: COMMON NORMALS: normal to inspection, nondistended, normoactive bowel sounds, soft to palpation, non-tender, no hepatosplenomegaly, no masses and no bruits PALPATION: Yes soft and Yes no hepatosplenomegaly Extremity: COMMON NORMALS: normal capillary refill, no clubbing, cyanosis or edema, no calf tenderness and no pedal edema Neuro: COMMON NORMALS: oriented x3 Psych: COMMON NORMALS: mental status grossly normal Urinary Catheter Management^: Mckinley: Cath Placed During This Visit: yes Urethral Indwelling: Yes Reason for Continuing Indwelling Catheter: Required Immobilization for Trauma or Surgery or Anesthesia Urinary Catheter Date of Insertion: 07/27/19 Urinary Catheter Time of Insertion: 15:11 Data : 07/28/19 03:05 07/28/19 03:05 A&P Assessment and plan (1) Syncope: -Patient has had true episodes of syncope, does not seem like it is vasovagal or orthostatic -it will be difficult to assess orthostatic vitals given her left hip fracture -I am concerned for cardiac etiology -Cardiac echocardiogram shows ejection fraction of 76%, grade 1 out of 4 diastolic dysfunction, -Carotid ultrasound shows no significant stenosis -CT shows chronic microvascular changes -I spoke to Dr. Mcneal's nurse, patient was on Plavix when she established with him many years ago, they are not sure why she is on it possibly secondary to her CVA stress test pending - Status: Acute Code(s): R55 - Syncope and collapse (2) Chest pain: -Patient has had a couple of episodes of chest pain -Last episode was a month ago, right-sided, nonradiating, no shortness breath, no lightheaded, no dizziness, no orthostasis, no diaphoresis, lasting up to 5 minutes -Patient states that most of the episodes she feels are associated with acid reflux, she takes some baking soda and it usually resolves her acid reflux and her chest pain at times -Patient does have dementia, past patient's family have pulled me aside and advised me that she is forget more forgetful -Given her episodes of syncope I am quite concerned for cardiac etiology Plan: -Cardiac stress test today Status: Acute Code(s): R07.9 - Chest pain, unspecified (3) Fracture of femoral neck, left: -Dr. 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 -Currently neurologic intact, no strokelike symptoms -We will do a CT of the head Status: Acute Qualifiers: CVA mechanism: embolism Precerebral and cerebral artery: unspecified precerebral artery Qualified Code(s): I63.10 - Cerebral infarction due to embolism of unspecified precerebral artery Code(s): I63.9 - Cerebral infarction, unspecified (5) Hypertension: -Hold labetalol in preparation for possible surgery -Continue Norvasc 10 mg once daily, losartan 100 mg once daily, hydralazine as needed Status: Acute Qualifiers: Hypertension type: essential hypertension Qualified Code(s): I10 - Essential (primary) hypertension Code(s): I10 - Essential (primary) hypertension (6) GERD (gastroesophageal reflux disease): Status: Acute Code(s): K21.9 - Gastro-esophageal reflux disease without esophagitis (7) UTI (urinary tract infection): Patient has frequent UTIs, has UTI symptoms burning with urination, contin ue Rocephin Status: Acute Code(s): N39.0 - Urinary tract infection, site not specified (8) Type 2 diabetes mellitus: -Check hemoglobin A1c, low-dose sliding scale Status: Acute Code(s): E11.9 - Type 2 diabetes mellitus without complications Attestations Medical Necessity Statement*: Cards continued hospitalization due to chest pain, syncope, left femoral neck fracture Coding Level of Care Code Acute Account Executive Sales Representative for [facility] Fwd Diagnoses Syncope R55 Chest pain R07.9 Fracture of femoral neck, left S72.002A CVA (cerebral vascular accident) I63.10 CVA mechanism: embolism Precerebral and cerebral artery: unspecified precerebral artery Hypertension I10 Hypertension type: essential hypertension GERD (gastroesophageal reflux disease) K21.9 UTI (urinary tract infection) N39.0 Type 2 diabetes mellitus E11.9
--- NOTE | 2019-07-28 16:25 | USCV_ITS ---
Geneva Pizarro Age: 83 Gender: F : 1935 Exam Date: 07/28/2019 10:16 Ordering Phys: Can Chowdhury MD Technologist: Estephania Kramer Exam Location: [facility] [place] Indication: SYNCOPE Risk Factors: Unknown Previous Vascular Surgery: Unknown Right Brachial BP: / Left Brachial BP: / Right Left Velocity (cm/s) Spectral Plaque Velocity (cm/s) Spectral Plaque Syst/Diast Broadening Syst/Diast Broadening 83.80/ 23.20 Prox CCA / 86.00/ 12.10 Mid CCA 78.90 / 7.90 56.70/ 14.00 Distal CCA 95.60 / 8.90 Hetro 73.30/ 13.00 Prox ICA 87.70 / 15.80 89.40/ 14.50 Mid ICA 70.00 / 12.80 71.80/ 18.30 Distal ICA 78.90 / 13.80 154.00 ECA 88.70 Hetro 1.04 ICA/CCA 1.11 Antegrade Vertebral Antegrade 32.30/ 7.10 cm/s 53.20/ 8.90 cm/s Bi Subclavian Bi 93.70 127.2 0 FINDINGS Mild diffuse plaques at the bifurcation and internal carotid arteries bilaterally Intimal thickening in the common carotid arteries bilaterally Antegrade flow in the vertebral arteries bilaterally Near normal Doppler flow velocities in the external carotid arteries bilaterally CONCLUSIONS Mild diffuse plaques at the bifurcation and internal carotid arteries bilaterally Intimal thickening in the common carotid arteries bilaterally. No significant stenosis, based on the above finding Dr Nimisha Loera MD [facility] (Electronically Signed) Final Date: 28 July 2019 12:59 S
--- NOTE | 2019-07-28 16:25 | USCV_ITS ---
Geneva Pizarro Age: 83 Gender: F : 1935 Exam Date: 07/28/2019 10:37 Ordering Phys: Can Chowdhury MD Technologist: Estephania Kramer Exam Location: [facility] [place] Indication: SYNCOPE BP: 159 / 80 HR: 81 Rhythm: Sinus Technical Quality: Adequate MEASUREMENTS (Male / Female) Normal Values 2D ECHO LV Diastolic Diameter PLAX 3.9 cm 4.2 - 5.9 / 3.9 - 5.3 cm LV Systolic Diameter PLAX 3.0 cm LV Chamber Size 3.5 cm IVS Diastolic Thickness 1.1 cm 0.6 - 1.0 / 0.6 - 0.9 cm IVS Systolic Thickness 1.3 cm LVPW Diastolic Thickness 1.2 cm 0.6 - 1.0 / 0.6 - 0.9 cm LVPW Systolic Thickness 1.6 cm RV Chamber Size 2.9 cm LVOT Diameter 2.0 cm LV Ejection Fraction 2D Teich 48.7 % LV Ejection Fraction MOD 2C 72.9 % LV Ejection Fraction 2C AL 73.6 % LA Diameter 4.6 cm LA Width 3.9 cm LA Height 2.8 cm RA Width 2.7 cm RA Height 3.4 cm Aorta at Sinotubular Diameter 3.2 cm M-MODE LV Diastolic Diameter MM 5.2 cm 4.2 - 5.9 / 3.9 - 5.3 cm LV Systolic Diameter MM 3.5 cm LV Ejection Fraction MM Teich 60.7 % IVS Diastolic Thickness MM 1.2 cm 0.6 - 1.0 / 0.6 - 0.9 cm IVS Systolic Thickness MM 1.6 cm LVPW Diastolic Thickness MM 0.9 cm 0.6 - 1.0 / 0.6 - 0.9 cm LVPW Systolic Thickness MM 1.4 cm RV Diastolic Diameter MM 1.2 cm Aortic Annulus Diameter 3.5 cm LA Ao Ratio MM 1.3 MV E Point Septal Separation 0.6 cm DOPPLER AV Peak Velocity 198.0 cm/s LVOT Peak Velocity 131.0 cm/s AV Area Cont Eq vti 2.3 cm squared AV Area Cont Eq pk 2.1 cm squared MV Area PHT 5.8 cm squared Mitral E to A Ratio 1.0 MV E' Velocity 10.0 cm/s Mitral E to MV E' Ratio 12.3 Mitral E to LV E' Lateral Ratio 10.9 Mitral E to LV E' Septal Ratio 14.2 TR Peak Velocity 179.8 cm/s TR Peak Gradient 12.9 mmHg TR Mean Velocity 140.0 cm/s TR Mean Gradient 8.4 mmHg TR Velocity Time Integral 43.2 cm TV Peak E Velocity 74.0 cm/s Right Atrial Pressure 3.0 mmHg Pulmonary Artery Systolic Pressu 15.9 mmHg PV Peak Velocity 111.0 cm/s RV Acceleration Time 0.2 s RV Ejection Time 0.4 s RV AcT/ET 0.6 FINDINGS Left Ventricle Normal left ventricular size and systolic function, EF 76 %. No regional wall motion abnormalities. Grade I/IV diastolic dysfunction (abnormal relaxation filling pattern), normal to mildly elevated filling pressures. Right Ventricle The right ventricle is normal in size and function. Right Atrium The right atrium is normal in size. Left Atrium Left atrium, upper limit of normal size Mitral Valve Thickened mitral valve. Aortic Valve Tricuspid valve with no significant abnormalities Tricuspid Valve Trace to mild tricuspid valve regurgitation. Estimated pulmonary artery peak systolic pressure of 16 mmHg Pulmonic Valve Trace pulmonary valve regurgitation. Pericardium Normal pericardium without effusion. Aorta Plaque seen in the ascending aorta. CONCLUSIONS Normal left ventricular size and systolic function, EF 76 %. No regional wall motion abnormalities. Grade I/IV diastolic dysfunction (abnormal relaxation filling pattern), normal to mildly elevated filling pressures. Left atrium, upper limit of normal size. Trace to mild tricuspid valve regurgitation. Estimated pulmonary artery peak systolic pressure of 16 mmHg. Trace pulmonary valve regurgitation. There is no pericardial effusion. There are no intracardiac masses. No previous study is available for comparison. Dr Nimisha Loera MD [facility]AC (Electronically Signed) Final Date: 28 July 2019 13:07 S
--- NOTE | 2019-07-28 17:04 | NMCV_ITS ---
NM marisa perf SPECT r/s* [id number] Geneva Pizarro Age: 83 Gender: F : 1935 Exam Date: 07/28/2019 06:35 Ordering Phys: Can Chowdhury MD Technologist: JIMENEZ Orourke Exam Location: [facility] Indications: Left Femoral Neck Fracture/ Chest Pain/ Syncope STRESS TEST Please see separate stress test report in [facility] for full findings IMAGE PROTOCOL Rest/Stress 1 Lexiscan Day Radiopharmaceutical Dose (mCi) Administration Site Administered by Rest: Tc-99m 10.8 IV JIMENEZ Granados Sestamibi Stress:Tc-99m 32.8 IV JIMENEZ Granados Sestamibi Rest: 28-Jul-2019 60 Discovery 630 Stress: 28-Jul-2019 30 Discovery 630 0.4mg Lexiscan. Supine position only as patient was unable to lay prone. SPECT RESULTS Technical Quality: Good Raw Data Analysis: Normal Image Corrections: No attenuation or motion correction applied Summed Stress Score: 2 Summed Rest Score: 0 Summed Difference Score: 2 PERFUSION FINDINGS There is a small area of decreased tracer uptake in the mid inferolateral region with some reversibility FUNCTIONAL RESULTS (calculated via Gated SPECT) Stress Image LV EF (%): 76 Stress EDV (mL):79 TID: 1.51 Stress ESV (mL):19 FUNCTIONAL FINDINGS: Segmental wall motion analysis revealing no gross wall motion normality IMPRESSIONS #1. Myocardial perfusion imaging revealing a small area of reversible defect in the mid inferolateral region, suggestive of ischemia in the distribution of the left circumflex artery. Elevated transient ischemic dilatation index also is suggestive of endocardial ischemia. #2. Normal LV ejection fraction 76%. #3. LV wall motion analysis revealing no gross wall motion normalities. #4. Normal LV volume. No similar previous studies are available for comparison Dr Nimisha Loera MD [facility] (Electronically Signed) Final Date: 28 July 2019 09:52 S
[2019-07-28 17:44] LABS: Glucose Point of Care 116 mg/dL (70-110)
[2019-07-28] MEDS: sodium chloride 0.9% 1,000 ML 100 ML IV (17:51)
[2019-07-28] MEDS: cefTRIAXone 1,000 MG in sodium chloride 0.9% (plus) 50 ML 100 MG IV (17:51)
--- NOTE | 2019-07-28 19:11 | PC.NURSE ---
received from cardiac clam bed laborer at 1710.report received .pt is awake but groggy.right wrist with tr band on and inflated.no hematoma noted.right hand is warm to touch and with brisk capillary refill.palpable radial pulse noted distal to tr band .instructed in activity restrictions s/p radial artery procedure...and instructed pt to notify staff for any bleeding,pain,or for any concerns at all.pt verb understanding of instructions
--- NOTE | 2019-07-28 19:18 | P.PN_ITS ---
Subjective Subjective: Interval history: The patient was initially scheduled for surgical intervention today, but secondary to her cardiac work-up, she required further cardiac services. After this was evaluated, I was advised that the patient was a candidate now for surgery. Her last Plavix was on the , and ideally, we would like a minimum of 3 days prior to proceeding with surgical intervention. Medications: Reviewed: Yes Medication Review Details: Amlodipine 5 mg once daily Plavix 75 mg once daily Donepezil 10 mg at bedtime Losartan 100 mg p.o. daily Metformin 500 twice daily Macrobid 100 twice daily Vitals/I&O/Wt Last Vital Signs Temp 97.9 F 07/28/19 04:00 Pulse 80 07/28/19 18:35 Resp 24 H 07/28/19 18:35 BP 149/74 07/28/19 18:35 Pulse Ox 97 07/28/19 17:20 07/28/19 07/28/19 07/28/19 06:59 14:59 22:59 Intake Total 876.25 / 926.25 240 / 240 Output Total 1800 / 1800 Balance -923.75 / -873.75 240 / 240 Weight last 48 hrs Weight 164 lb Physical Exam Narrative: EXAM NARRATIVE: Patient is quite cooperative. She has no current complaints of pain other than in her left lower extremity. She does seem slightly more confused today than she was yesterday at her initial evaluation. Const: COMMON NORMALS: no apparent distress, average body habitus, oriented x3 and alert GENERAL APPEARANCE: cooperative and comfortable ORIENTATION/CONSCIOUSNESS: Yes awake HENMT: COMMON NORMALS: normocephalic and head/scalp atraumatic; hearing grossly not normal bilaterally (Patient is very hard of hearing) HEAD & SCALP: normocephalic and atraumatic Eye: GENERAL EYE: normal appearance of both eyes Chest: COMMONS NORMALS: inspection of chest normal Resp: COMMON NORMALS: normal respiratory effort EFFORT & INSPECTION: Yes able to speak in complete sentences and Yes symmetric chest movement Extremity: LEFT LOWER EXTREMITY: Yes hip joint (Patient remains neurologically intact. Range of motion is not accomplished.) Neuro: COMMON NORMALS: oriented x3 SENSORIUM/ORIENTATION: Yes alert Psych: APPEARANCE: Yes grossly normal ATTITUDE: Yes calm and Yes engaged Skin: COMMON NORMALS: no rashes or lesions noted GENERAL SKIN EXAM: no rashes or lesions noted Urinary Catheter Management^: Mckinley: Cath Placed During This Visit: yes Urethral Indwelling: Yes Reason for Continuing Indwelling Catheter: Required Immobilization for Trauma or Surgery or Anesthesia Urinary Catheter Date of Insertion: 07/27/19 Urinary Catheter Time of Insertion: 15:11 Data : 07/28/19 03:05 07/28/19 03:05 A&P Assessment and plan (1) Fracture of femoral neck, left: Discussion is undertaken with the patient that she will require a bipolar hip arthroplasty. Risks and complications are discussed. The patient understands. Unfortunately, we were not able to proceed with surgical i ntervention today secondary to the patient's cardiac work-up. After discussion with the hospitalist service and anesthesia, we have elected to proceed with surgical intervention on July 29 which would give us 3 days from the patient's last Plavix dose. She has been evaluated from a cardiac perspective, and has been approved to proceed with surgery. Status: Acute Code(s): S72.002A - Fracture of unspecified part of neck of left femur, initial encounter for closed fracture (2) Type 2 diabetes mellitus: Status: Acute Code(s): E11.9 - Type 2 diabetes mellitus without complications (3) Hypertension: Status: Acute Qualifiers: Hypertension type: essential hypertension Qualified Code(s): I10 - Essential (primary) hypertension Code(s): I10 - Essential (primary) hypertension (4) UTI (urinary tract infection): Status: Acute Code(s): N39.0 - Urinary tract infection, site not specified (5) Syncope: Status: Acute Code(s): R55 - Syncope and collapse Attestations Medical Necessity Statement*: Per hospitalist service Coding Level of Care Code Acute Electronics Test Engineer for [facility] Diagnoses Fracture of femoral neck, left S72.002A Type 2 diabetes mellitus E11.9 Hypertension I10 Hypertension type: essential hypertension UTI (urinary tract infection) N39.0 Syncope R55
[2019-07-28 21:19] LABS: Glucose Point of Care 164 mg/dL (70-110)
[2019-07-28] MEDS: donepezil 5 MG Tablet 10 MG PO (21:22)
[2019-07-28] MEDS: acetaminophen 325 mg Tablet 650 MG PO (21:22)
[2019-07-29] VITALS (60 sets, daily range): BP systolic 133–166; BP diastolic 61–76; PULSE 67–91; RESP 13–33; TEMP 36.6–36.8; O2SAT 95–97
--- NOTE | 2019-07-29 04:53 | ECG_ITS ---
Measurements Intervals [place] Rate: 155 P: ME: 0 QRS: 28 QRSD: 74 T: 150 QT: 228 QTc: 366 ATRIAL FIBRILLATION WITH RAPID VENTRICULAR RESPONSE NONSPECIFIC ST & T-WAVE ABNORMALITY Compared to ECG 07/28/2019 00:10:48 T-wave abnormality now present Sinus rhythm no longer present Electronically Signed On 07-29-2019 20:24:01 STAFF ELECTRICAL ENGINEER by Nimisha Loera M.D. [id number]
--- NOTE | 2019-07-29 05:02 | PM.EVENT ---
Event Note Event Note: Called that patient had gone into A. fib with RVR. Review of home medication list shows that she has been on metoprolol 100 mg p.o. twice daily. I do not see beta-blockade ordered. It may not have been apparent at the time that the patient was admitted that she was on it given her dementia and challenging history. I have ordered 5 mg IV metoprolol now and will put on 50 mg p.o. twice daily of metoprolol. Hopefully her rate will get under control with this. Blood pressures are currently stable.
[2019-07-29] MEDS: metoprolol tartrate 1 mg/1 mL SDV 5 mL 5 MG IV ×2 (05:16→06:42)
[2019-07-29] MEDS: metoprolol tartrate 50 mg Tablet PO (05:16)
[2019-07-29 05:33] LABS: Basophils % 0.2 %; Eosinophils # 0.2 10^3/uL (0.0-0.8); Eosinophils % 2.2 %; Hematocrit 34.1 % (37.0-47.0); Hemoglobin 10.8 g/dL (11.5-15.3); Lymphocytes # 1.5 10^3/uL (0.8-4.8); Lymphocytes % 17.9 %; Mean Corpuscular HGB Conc 31.7 g/dL (30.0-36.0); Mean Corpuscular Hemoglobin 30.2 pg (28.0-34.0); Mean Corpuscular Volume 95.3 fL (81-99); Mean Platelet Volume 11.3 fL (7.4-10.4); Monocytes # 0.7 10^3/uL (0.2-0.9); Monocytes % 8.5 %; Neutrophils # 5.7 10^3/uL (1.8-7.7); Neutrophils % 70.6 %; Nucleated Red Blood Cells % 0 %; Platelet Count 197 10^3/cmm (130-400); Red Blood Count 3.58 10^6/uL (4.1-5.3); Red Cell Distribution Width 12.6 % (12.1-15.1); White Blood Count 8.1 10^3/uL (4.0-10.0)
[2019-07-29 05:44] LABS: Alanine Aminotransferase 14 U/L (0-33); Albumin Level 3.1 g/dL (3.5-5.2); Alkaline Phosphatase 52 IU/L (35-105); Anion Gap 12.6 (5-19); Aspartate Amino Transferase 15 U/L (0-32); Blood Urea Nitrogen 9 mg/dL (8-23); Calcium 8.6 mg/dL (8.5-10.5); Carbon Dioxide 24 mmol/L (22-29); Chloride 107 mmol/L (98-107); Globulin 2.8 g/dL (1.3-4.6); Glucose 110 mg/dL (65-115); Phosphorus 2.4 mg/dL (2.5-4.5); Potassium 3.6 mmol/L (3.5-5.1); Sodium 140 mmol/L (136-145); Total Bilirubin 0.5 mg/dL (0.15-1.2); Total Protein 5.9 g/dL (6.6-8.7)
[2019-07-29 06:02] LABS: Glucose Point of Care 133 mg/dL (70-110)
[2019-07-29] MEDS: losartan 50 mg Tablet 100 MG PO (08:11)
[2019-07-29] MEDS: acetaminophen 325 mg Tablet 650 MG PO ×2 (08:13→15:02)
[2019-07-29] MEDS: amlodipine 5 mg Tablet 10 MG PO (08:13)
--- NOTE | 2019-07-29 08:15 | PC.OT ---
OT Note: Patient was supposed to receive surgical services post femoral neck fx, however, due to cardiac episode, patient did not have scheduled surgery. OT evaluation order on hold until post surgical procedure.
[2019-07-29 11:20] LABS: Glucose Point of Care 242 mg/dL (70-110)
[2019-07-29] MEDS: sodium chloride 0.9% 1,000 ML 100 ML IV (11:41)
--- NOTE | 2019-07-29 13:16 | PM.PN ---
Subjective Subjective: Interval history: The patient seems improved in her mental status today. She is appropriate and alert. She is awaiting her surgical intervention tomorrow. I discussed this with the hospitalist service, and they are in agreement that we may proceed. Medications: Reviewed: Yes Medication Review Details: Amlodipine 5 mg once daily Plavix 75 mg once daily Donepezil 10 mg at bedtime Losartan 100 mg p.o. daily Metformin 500 twice daily Macrobid 100 twice daily Vitals/I&O/Wt Last Vital Signs Temp 98 F 07/29/19 04:00 Pulse 68 07/29/19 11:16 Resp 15 07/29/19 11:16 BP 151/74 07/29/19 11:16 Pulse Ox 95 07/29/19 11:16 07/28/19 07/29/19 07/29/19 22:59 06:59 14:59 Intake Total 300 / 300 1100 / 1400 360 / 360 Output Total 2300 / 2300 Balance 300 / 300 -1200 / -900 360 / 360 Weight last 48 hrs Weight 164 lb Physical Exam Narrative: EXAM NARRATIVE: Patient is quite cooperative. She has no current complaints of pain other than in her left lower extremity. Confusion has appeared to improve. She remains neurologically intact. Const: COMMON NORMALS: no apparent distress, average body habitus, oriented x3 and alert GENERAL APPEARANCE: cooperative and comfortable ORIENTATION/CONSCIOUSNESS: Yes awake HENMT: COMMON NORMALS: normocephalic and head/scalp atraumatic; hearing grossly not normal bilaterally (Patient is very hard of hearing) HEAD & SCALP: normocephalic and atraumatic Eye: GENERAL EYE: normal appearance of both eyes Chest: COMMONS NORMALS: inspection of chest normal Resp: COMMON NORMALS: normal respiratory effort EFFORT & INSPECTION: Yes able to speak in complete sentences and Yes symmetric chest movement Neuro: COMMON NORMALS: oriented x3 SENSORIUM/ORIENTATION: Yes alert Psych: COMMON NORMALS: mental status grossly normal APPEARANCE: Yes grossly normal ATTITUDE: Yes calm and Yes engaged ATTENTION/CONCENTRATION: Yes attention grossly intact Skin: COMMON NORMALS: no rashes or lesions noted GENERAL SKIN EXAM: no rashes or lesions noted Urinary Catheter Management^: Mckinley: Cath Placed During This Visit: yes Urethral Indwelling: Yes Reason for Continuing Indwelling Catheter: Accurate Measurement of Urinary Output in Critically Ill Patients Urinary Catheter Date of Insertion: 07/27/19 Urinary Catheter Time of Insertion: 15:11 Data : 07/29/19 04:20 07/29/19 04:20 A&P Assessment and plan (1) Fracture of femoral neck, left: Discussion is undertaken with the patient once again that she will require a bipolar hip arthroplasty. Risks and complications are discussed. The patient understands. I spoke with the hospitalist service today, and it appears that her syncopal episodes may be secondary to her atrial fibrillation. We will plan to proceed with surgery tomorrow morning as previously scheduled. Status: Acute Code(s): S72.002A - Fracture of unspecified part of neck of left femur, initial encounter for closed fracture (2) Type 2 diabetes mellitus: Status: Acute Code(s): E11.9 - Type 2 diabetes mellitus without complications (3) Hypertension: Status: Acute Qualifiers: Hypertension type: essential hypertension Qualified Code(s): I10 - Essential (primary) hypertension Code(s): I10 - Essential (primary) hypertension (4) UTI (urinary tract infection): Status: Acute Code(s): N39.0 - Urinary tract infection, site not specified (5) Syncope: Status: Acute Code(s): R55 - Syncope and collapse Attestations Medical Necessity Statement*: Patient will require continued inpatient status awaiting medical optimization for surgical intervention. Coding Level of Care Code Acute Firebrick Layer Helper for [facility] Diagnoses Fracture of femoral neck, left S72.002A Type 2 diabetes mellitus E11.9 Hypertension I10 Hypertension type: essential hypertension UTI (urinary tract infection) N39.0 Syncope R55
--- NOTE | 2019-07-29 14:16 | PM.PN ---
Subjective Subjective: Interval history: Patient underwent a left heart catheterization with left and right coronary angiogram yesterday. She was found to have around 50 to 60% segmental narrowing in the mid RCA. FFR of this lesion was 0.9. Based on this finding, it was decided to treat her medically. She was found to have mild diffuse disease in the other vessels. She is remaining stable with no chest pain. She was found to have episodes of atrial fibrillation with rapid ventricular rate on the telemetry. She is converted back into sinus rhythm at this point. Medications: Reviewed: Yes Medication Review Details: Current Medications Acetaminophen (Tylenol) 650 mg PO Q6H PRN PRN Reason: Mild/Mod Pain Or Temp >/= 101 Last Admin: 07/29/19 08:13 Dose: 650 mg Documented by: Amlodipine Besylate (Norvasc) 10 mg PO DAILY [facility] Last Admin: 07/29/19 08:13 Dose: 10 mg Documented by: Donepezil HCl (Aricept) 10 mg PO BEDTIME [facility] Last Admin: 07/28/19 21:22 Dose: 10 mg Documented by: Hydralazine HCl (Apresoline) 10 mg IVP Q4H PRN PRN Reason: for SBP>180, Ceftriaxone Sodium 1,000 mg/ (Sodium Chloride) 50 mls @ 100 mls/hr IV Q24H [facility]; Protocol Last Admin: 07/28/19 17:51 Dose: 100 mls/hr Documented by: Insulin Aspart (Novolog) 0 unit SUBCUT TIDWM [facility]; Protocol Last Admin: 07/29/19 11:42 Dose: 6 unit Documented by: Losartan Potassium (Cozaar) 100 mg PO DAILY [facility] Last Admin: 07/29/19 08:11 Dose: 100 mg Documented by: Metoprolol Tartrate (Lopressor) 50 mg PO Q12H [facility] Last Admin: 07/29/19 05:16 Dose: 50 mg Documented by: Morphine Sulfate (Morphine) 2 mg IVP Q4H PRN PRN Reason: SEVERE PAIN Last Admin: 07/27/19 22:33 Dose: 2 mg Documented by: Ondansetron HCl (Zofran) 4 mg IVP Q6H PRN PRN Reason: NAUSEA AND VOMITING Phenazopyridine HCl (Pyridium) 100 mg PO TID PRN PRN Reason: pain Vitals/I&O/Wt Last Vital Signs Temp 98 F 07/29/19 04:00 Pulse 68 07/29/19 11:16 Resp 15 07/29/19 11:16 BP 151/74 07/29/19 11:16 Pulse Ox 95 07/29/19 11:16 07/28/19 07/29/19 07/29/19 22:59 06:59 14:59 Intake Total 300 / 300 1100 / 1400 360 / 360 Output Total 2300 / 2300 Balance 300 / 300 -1200 / -900 360 / 360 Physical Exam Narrative: EXAM NARRATIVE: GENERAL: The patient is alert and oriented times 2. Not in any acute distress. Seems very forgetful HEENT: No significant pallor, icterus or lymphadenopathy. The pupils are equal in size. Oral cavity: There are no mucous membrane lesions. NECK: Trachea appears to be central. No masses noted. No JVD or thyromegaly appreciated. No carotid bruit. RESPIRATORY: Chest is symmetrical. No intercostals muscle retraction or any accessory muscle activation. There is no chest wall tenderness. Breath sounds are heard bilaterally. No rales or rhonchi heard. No evidence of any consolidation. BREASTS: Deferred. HEART: The PMI is in the 5th left intercostals space just inside the midclavicular line. No palpable precordial events. S1 and S2 are normal. No S3 or S4 heard. No pericardial rub or any click heard. ABDOMEN: No vessel pulsations or distention. No tenderness. No organomegaly appreciated. No abdominal bruit. Bowel sounds are normally heard. : Deferred. RECTAL: Deferred. LYMPHATIC: No lymphadenopathy noted in the neck or groin. EXTREMITIES: No edema or cyanosis. No clubbing. The pulses are symmetrical bilaterally. The radial, femoral, dorsalis pedis and the posterior tibial pulses are palpated and found to be in good volume and amplitude. MUSCULOSKELETAL: The right hip is immobilized . SKIN: There are no significant scars or skin rash noted. NEUROPSYCHIATRIC: The patient is alert and oriented x2. Appears to be in a good mood. No focal motor deficits. Urinary Catheter Management^: Mckinley: Cath Placed During This Visit: yes Urethral Indwelling: Yes Reason for Continuing Indwelling Catheter: Accurate Measurement of Urinary Output in Critically Ill Patients Urinary Catheter Date of Insertion: 07/27/19 Urinary Catheter Time of Insertion: 15:11 Data : 07/29/19 04:20 07/29/19 04:20 A&P Assessment and plan (1) Atherosclerotic heart disease of [place] coronary artery with other forms of angina pectoris: The cardiac authorization findings were once again discussed with the patient. Since she is remaining fairly stable, may not require any further interventions at this point. May continue on the current medications. Since she cannot be on Plavix, it may be appropriate to keep her on a baby aspirin. She also be started on a statin drug namely Crestor 10 mg p.o. daily, if there is no contraindication. Would be appropriate to do a lipid profile on the blood in the lab. Status: Acute Code(s): I25.118 - Atherosclerotic heart disease of [place] coronary artery with other forms of angina pectoris (2) Intermittent atrial fibrillation: It is possible that the patient may have intermittent atrial fibrillation causing TIA. She needs to be on a long-term oral anticoagulation. In anticipation of surgery, we may hold off on that. If she can be on a baby aspirin at least, would be appropriate. She is currently on a beta-christel namely metoprolol 50 mg p.o. twice daily. I may start her on Betapace 80 mg p.o. twice daily and cut back on the dose of metoprolol to 25 mg p.o. twice daily Status: Acute Code(s): I48.0 - Paroxysmal atrial fibrillation (3) CVA (cerebral vascular accident): The CT scan of the head revealed a evidence of a chronic microvascular changes. No acute ischemic changes. Patient may continue on the current medications. She has the carotid Doppler examination yesterday and was found to have mild to moderate plaques. No significant stenosis. Status: Acute Qualifiers: CVA mechanism: embolism Precerebral and cerebral artery: unspecified precerebral artery Qualified Code(s): I63.10 - Cerebral infarction due to embolism of unspecified precerebral artery Code(s): I63.9 - Cerebral infarction, unspecified (4) Hypertension: The blood pressure is a stage II at this time. The antihypertensive medications need to be optimized. Status: Acute Qualifiers: Hypertension type: essential hypertension Qualified Code(s): I10 - Essential (primary) hypertension Code(s): I10 - Essential (primary) hypertension Additional A&P Information Patient has a history of diabetes and dyslipidemia. May continue holding off on the metformin for a total of 3 days. Betapace 80 mg p.o. twice daily. Daily EKG x3. Baby aspirin daily May need to consider oral anticoagulation, once the hip surgery is finished Continue optimizing the antihypertensive medication Attestations Medical Necessity Statement*: Deferred to the primary Coding Level of Care Code Acute Inspector Optical Instrument for [facility] Diagnoses Atherosclerotic heart disease of [place] coronary artery with other forms of angina pectoris I25.118 Intermittent atrial fibrillation I48.0 CVA (cerebral vascular accident) I63.10 CVA mechanism: embolism Precerebral and cerebral artery: unspecified precerebral artery Hypertension I10 Hypertension type: essential hypertension
[2019-07-29 14:50] LABS: Chol HDL Ratio 3.91 mg/dL (0.0-4.40); Cholesterol 133 mg/dL (0-200); HDL Cholesterol 34 mg/dL (60-100); LDL Cholesterol Calculated 70 mg/dL (50-129); LDL HDL Ratio 2.06 RATIO (0.00-3.22); Triglycerides 146 mg/dL (0-150)
[2019-07-29] MEDS: heparin 5,000 unit/mL INJ 1 mL 5000 UNIT SUBCUT (15:03)
[2019-07-29 15:57] LABS: Glucose Point of Care 194 mg/dL (70-110)
--- NOTE | 2019-07-29 16:11 | PC.PT ---
PT note; patient still awaiting surgery; PT orders are for postop physical therapy
--- NOTE | 2019-07-29 16:55 | PM.PN ---
Subjective Subjective: Interval history: This morning patient was examined, family at bedside, no fevers, no chills chills, no nausea, no vomiting, no chest pain, patient did have an episode with a bit with RVR overnight, resolved with IV metoprolol, denies lightheadedness, dizziness, facial droop, slurring of her speech, left hip pain is minimal Vitals/I&O/Wt Last Vital Signs Temp 98 F 07/29/19 04:00 Pulse 76 07/29/19 15:41 Resp 20 H 07/29/19 15:41 BP 156/61 07/29/19 15:41 Pulse Ox 96 07/29/19 15:41 07/29/19 07/29/19 07/29/19 06:59 14:59 22:59 Intake Total 1100 / 1400 360 / 360 Output Total 2300 / 2300 925 / 925 Balance -1200 / -900 360 / 360 -925 / -565 Physical Exam Const: COMMON NORMALS: no apparent distress and oriented x3 HENMT: COMMON NORMALS: normocephalic HEAD & SCALP: normocephalic Neck/C-Spine: COMMON NORMALS: no JVD Resp: COMMON NORMALS: normal respiratory effort, no retractions, no use of accessory muscles and clear to auscultation bilaterally AUSCULTATION: clear to auscultation bilaterally Cardio: COMMON NORMALS: no JVD, regular rate, regular rhythm, S1 normal heart sound and S2 normal heart sound RATE: regular rate RHYTHM: regular rhythm HEART SOUNDS: S1 normal and S2 normal GI: COMMON NORMALS: normal to inspection, nondistended, normoactive bowel sounds, soft to palpation, non-tender, no hepatosplenomegaly, no masses and no bruits PALPATION: Yes soft and Yes no hepatosplenomegaly Extremity: COMMON NORMALS: normal capillary refill, no clubbing, cyanosis or edema, no calf tenderness and no pedal edema Neuro: COMMON NORMALS: oriented x3 Psych: COMMON NORMALS: mental status grossly normal Urinary Catheter Management^: Mckinley: Cath Placed During This Visit: yes Urethral Indwelling: Yes Reason for Continuing Indwelling Catheter: Accurate Measurement of Urinary Output in Critically Ill Patients Urinary Catheter Date of Insertion: 07/27/19 Urinary Catheter Time of Insertion: 15:11 Data : 07/29/19 04:20 07/29/19 04:20 A&P Assessment and plan (1) Syncope: -Patient has had true episodes of syncope, likely TIA episodes related to atrial fibrillation -Cardiac echocardiogram shows ejection fraction of 76%, grade 1 out of 4 diastolic dysfunction, -Carotid ultrasound shows no significant stenosis -CT shows chronic microvascular changes -I spoke to Dr. Mcneal's nurse, patient was on Plavix when she established with him many years ago, they are not sure why she is on it possibly secondary to her CVA -Patient had positive stress testing followed by coronary angiography yesterday by Dr. Loera which showed 50 to 60% segmental narrowing in the mid RCA, FFR of this lesion was 0.9, mild diffuse disease Status: Acute Code(s): R55 - Syncope and collapse (2) Chest pain: -Patient has had a couple of episodes of chest pain -Last episode was a month ago, right-sided, nonradiating, no shortness breath, no lightheaded, no dizziness, no orthostasis, no diaphoresis, lasting up to 5 minutes -Patient states that most of the episodes she feels are associated with acid reflux, she takes some baking soda and it usually resolves her acid reflux and her chest pain at times -Patient does have dementia, past patient's family have pulled me aside and advised me that she is forget more forgetful --Patient had positive stress testing followed by coronary angiography yesterday by Dr. Loera which showed 50 to 60% segmental narrowing in the mid RCA, FFR of this lesion was 0.9, mild diffuse disease PLAN: -Medically managed with aspirin, statin -Surgery okay with 1 dose of aspirin before surgery, will resume after Status: Acute Code(s): R07.9 - Chest pain, unspecified (3) Fracture of femoral neck, left: -Dr. Braswell has been consulted -N.p.o. 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 -Currently neurologic intact, no strokelike symptoms -Shows microvascular changes -Patient syncopal episode was likely TIA related to atrial fibrillation -Patient on aspirin, statin -Plavix is held Status: Acute Qualifiers: CVA mechanism: embolism Precerebral and cerebral artery: unspecified precerebral artery Qualified Code(s): I63.10 - Cerebral infarction due to embolism of unspecified precerebral artery Code(s): I63.9 - Cerebral infarction, unspecified (5) Hypertension: -Hold labetalol in preparation for possible surgery -Continue Norvasc 10 mg once daily, losartan 100 mg once daily, hydralazine as needed Status: Acute Qualifiers: Hypertension type: essential hypertension Qualified Code(s): I10 - Essential (primary) hypertension Code(s): I10 - Essential (primary) hypertension (6) GERD (gastroesophageal reflux disease): Status: Acute Code(s): K21.9 - Gastro-esophageal reflux disease without esophagitis (7) UTI (urinary tract infection): Patient has frequent UTIs, has UTI symptoms burning with urination, continue Rocephin Status: Acute Code(s): N39.0 - Urinary tract infection, site not specified (8) Type 2 diabetes mellitus: -Check hemoglobin A1c, low-dose sliding scale Status: Acute Code(s): E11.9 - Type 2 diabetes mellitus without complications (9) Intermittent atrial fibrillation: -Patient is on metoprolol 100 twice daily at home -I had held this medication as patient had soft blood pressures, and there was concern for possible TIA and stroke so I held the medication -Unfortunately patient overnight developed A. fib with RVR, -Patient denies a history of A. fib in the past, possibly that is why she is on metoprolol long-term -Patient's A. fib resolved with metoprolol push Plan -Continue Atripla 25 twice daily -On Betapace 80 twice daily as per cardiology -Orthopedics is okay with NOAC after surgery Status: Acute Code(s): I48.0 - Paroxysmal atrial fibrillation (10) Atherosclerotic heart disease of [place] coronary artery with other forms of angina pectoris: Status: Acute Code(s): I25.118 - Atherosclerotic heart disease of [place] coronary artery with other forms of angina pectoris Attestations Medical Necessity Statement*: Requires continued hospitalization due to left femoral neck fracture Coding Level of Care Code Acute Heater Operator Helper for [facility] Diagnoses Syncope R55 Chest pain R07.9 Fracture of femoral neck, left S72.002A CVA (cerebral vascular accident) I63.10 CVA mechanism: embolism Precerebral and cerebral artery: unspecified precerebral artery Hypertension I10 Hypertension type: essential hypertension GERD (gastroesophageal reflux disease) K21.9 UTI (urinary tract infection) N39.0 Type 2 diabetes mellitus E11.9 Intermittent atrial fibrillation I48.0 Atherosclerotic heart disease of [place] coronary artery with other forms of angina pectoris I25.118
[2019-07-29] MEDS: aspirin 81 mg EC Tablet PO (17:10)
[2019-07-29] MEDS: metoprolol tartrate 25 mg Tablet PO (17:10)
--- NOTE | 2019-07-29 19:59 | ECG_ITS ---
Measurements Intervals [place] Rate: 73 P: 78 MN: 162 QRS: 27 QRSD: 79 T: 77 QT: 371 QTc: 411 SINUS RHYTHM WITH OCCASIONAL SUPRAVENTRICULAR PREMATURE COMPLEXES NONSPECIFIC T-WAVE ABNORMALITY Compared to ECG 07/29/2019 05:03:04 Atrial fibrillation no longer present T-wave abnormality still present Electronically Signed On 07-30-2019 20:03:33 MERCHANDISE FLOW TEAM LEADER by Nimisha Loera M.D. [email or web address]
[2019-07-29 20:18] LABS: Glucose Point of Care 134 mg/dL (70-110)
[2019-07-29] MEDS: atorvastatin 40 mg Tablet 20 MG PO (21:20)
[2019-07-29] MEDS: sotalol 80 mg Tablet PO (21:20)
[2019-07-29] MEDS: donepezil 5 MG Tablet 10 MG PO (21:20)
[2019-07-30] VITALS (69 sets, daily range): BP systolic 124–181; BP diastolic 56–93; PULSE 56–70; RESP 11–185; TEMP 36.4–38.1; O2SAT 93–99
[2019-07-30] MEDS: acetaminophen 325 mg Tablet 650 MG PO (02:14)
--- NOTE | 2019-07-30 02:16 | PC.NURSE ---
Called Dr Izaguirre regarding patient's heparin ordered for 0230 and told him she had a hip repair at 0800. Asking for clarification if heparin needed to be given or not. Orders to hold this dose of heparin.
--- NOTE | 2019-07-30 04:22 | PC.NURSE ---
Clorhexidine wipe bath completed.
[2019-07-30 04:57] LABS: Basophils % 0.4 %; Eosinophils # 0.2 10^3/uL (0.0-0.8); Hematocrit 34.1 % (37.0-47.0); Hemoglobin 10.9 g/dL (11.5-15.3); Lymphocytes # 1.3 10^3/uL (0.8-4.8); Lymphocytes % 15.7 %; Mean Corpuscular Hemoglobin 29.9 pg (28.0-34.0); Mean Corpuscular Volume 93.4 fL (81-99); Mean Platelet Volume 11.8 fL (7.4-10.4); Monocytes # 0.7 10^3/uL (0.2-0.9); Monocytes % 7.9 %; Neutrophils # 6.3 10^3/uL (1.8-7.7); Neutrophils % 73.4 %; Nucleated Red Blood Cells % 0 %; Platelet Count 196 10^3/cmm (130-400); Red Blood Count 3.65 10^6/uL (4.1-5.3); Red Cell Distribution Width 12.6 % (12.1-15.1); White Blood Count 8.5 10^3/uL (4.0-10.0)
[2019-07-30 05:04] LABS: INR 1.04 (0.8-1.2)
[2019-07-30 05:20] LABS: Alanine Aminotransferase 66 U/L (0-33); Albumin Level 3.2 g/dL (3.5-5.2); Alkaline Phosphatase 55 IU/L (35-105); Anion Gap 11.8 (5-19); Aspartate Amino Transferase 66 U/L (0-32); Blood Urea Nitrogen 9 mg/dL (8-23); Calcium 8.7 mg/dL (8.5-10.5); Carbon Dioxide 25 mmol/L (22-29); Chloride 107 mmol/L (98-107); Globulin 2.8 g/dL (1.3-4.6); Glucose 151 mg/dL (65-115); Potassium 3.8 mmol/L (3.5-5.1); Sodium 140 mmol/L (136-145); Total Bilirubin 0.6 mg/dL (0.15-1.2)
[2019-07-30 05:21] LABS: Magnesium 2.1 mg/dL (1.7-2.3); Phosphorus 2.1 mg/dL (2.5-4.5)
[2019-07-30 06:05] LABS: Glucose Point of Care 139 mg/dL (70-110)
[2019-07-30] MEDS: losartan 50 mg Tablet 100 MG PO (09:48)
[2019-07-30] MEDS: metoprolol tartrate 25 mg Tablet PO ×2 (09:48→17:36)
[2019-07-30] MEDS: sotalol 80 mg Tablet PO ×2 (09:48→21:22)
[2019-07-30] MEDS: amlodipine 5 mg Tablet 10 MG PO (09:48)
--- NOTE | 2019-07-30 10:00 | ECG_ITS ---
Measurements Intervals [place] Rate: 62 P: 77 NH: 165 QRS: 27 QRSD: 84 T: 61 QT: 417 QTc: 426 SINUS RHYTHM POSSIBLE RIGHT VENTRICULAR CONDUCTION DELAY [RSR (QR) IN V1/V2] NONSPECIFIC T-WAVE ABNORMALITY Compared to ECG 07/29/2019 05:03:04 Atrial fibrillation no longer present T-wave abnormality still present Electronically Signed On 07-30-2019 20:05:32 MEDICARE COORDINATOR by Nimisha Loera M.D. [email or web address]
--- NOTE | 2019-07-30 10:01 | PC.SOCIAL ---
Pg 2 IMM Explained to pt Pg 2 IMM. Pt verbally understands & signed. Provided pt with a copy & left on pt's bedside table. Signed, dated, & timed, then placed in pt's chart.
--- NOTE | 2019-07-30 10:19 | P.PN_ITS ---
Subjective Subjective: Interval history: Patient is lying in bed this morning, has minimal pain, no chest pain overnight, no palpitations, no shortness of breath, is a bit anxious about her surgery, Vitals/I&O/Wt Last Vital Signs Temp 98.2 F 07/30/19 04:00 Pulse 68 07/30/19 07:17 Resp 17 07/30/19 07:17 BP 145/74 07/30/19 09:48 Pulse Ox 98 07/30/19 07:17 07/29/19 07/30/19 07/30/19 22:59 06:59 14:59 Intake Total 365 / 725 300 / 1025 Output Total 925 / 925 500 / 1425 Balance -560 / -200 -200 / -400 Physical Exam Const: COMMON NORMALS: no apparent distress and oriented x3 HENMT: COMMON NORMALS: normocephalic HEAD & SCALP: normocephalic Neck/C-Spine: COMMON NORMALS: no JVD Resp: COMMON NORMALS: normal respiratory effort, no retractions, no use of accessory muscles and clear to auscultation bilaterally AUSCULTATION: clear to auscultation bilaterally Cardio: COMMON NORMALS: no JVD, regular rate, regular rhythm, S1 normal heart sound and S2 normal heart sound RATE: regular rate RHYTHM: regular rhythm HEART SOUNDS: S1 normal and S2 normal GI: COMMON NORMALS: normal to inspection, nondistended, normoactive bowel sounds, soft to palpation, non-tender, no hepatosplenomegaly, no masses and no bruits PALPATION: Yes soft and Yes no hepatosplenomegaly Extremity: COMMON NORMALS: normal capillary refill, no clubbing, cyanosis or edema, no calf tenderness and no pedal edema Neuro: COMMON NORMALS: oriented x3 Psych: COMMON NORMALS: mental status grossly normal Urinary Catheter Management^: Mckinley: Cath Placed During This Visit: yes Urethral Indwelling: Yes Reason for Continuing Indwelling Catheter: Accurate Measurement of Urinary Output in Critically Ill Patients Urinary Catheter Date of Insertion: 07/27/19 Urinary Catheter Time of Insertion: 15:11 Data : 07/30/19 04:00 07/30/19 04:00 A&P Assessment and plan (1) Syncope: -Patient has had true episodes of syncope, likely TIA episodes related to atrial fibrillation -Cardiac echocardiogram shows ejection fraction of 76%, grade 1 out of 4 diastolic dysfunction, -Carotid ultrasound shows no significant stenosis -CT shows chronic microvascular changes -I spoke to Dr. Mcneal's nurse, patient was on Plavix when she established with him many years ago, they are not sure why she is on it possibly secondary to her CVA -Patient had positive stress testing followed by coronary angiography yesterday by Dr. Loera which showed 50 to 60% segmental narrowing in the mid RCA, FFR of this lesion was 0.9, mild diffuse disease Status: Acute Code(s): R55 - Syncope and collapse (2) Chest pain: -Patient has had a couple of episodes of chest pain -Last episode was a month ago, right-sided, nonradiating, no shortness breath, no lightheaded, no dizziness, no orthostasis, no diaphoresis, lasting up to 5 minutes -Patient states that most of the episodes she feels are associated with acid reflux, she takes some baking soda and it usually resolves her acid reflux and her chest pain at times -Patient does have dementia, past patient's family have pulled me aside and advised me that she is forget more forgetful --Patient had positive stress testing followed by coronary angiography yesterday by Dr. Loera which showed 50 to 60% segmental narrowing in the mid RCA, FFR of this lesion was 0.9, mild diffuse disease PLAN: -Medically managed with aspirin, statin -Surgery okay with 1 dose of aspirin before surgery, will resume after Status: Acute Code(s): R07.9 - Chest pain, unspecified (3) Fracture of femoral neck, left: -Dr. Braswell has been consulted -N.p.o. 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 -Currently neurologic intact, no strokelike symptoms -Shows microvascular changes -Patient syncopal episode was likely TIA related to atrial fibrillation -Patient on aspirin, statin -Plavix is held Status: Acute Qualifiers: CVA mechanism: embolism Precerebral and cerebral artery: unspecified precerebral artery Qualified Code(s): I63.10 - Cerebral infarction due to embolism of unspecified precerebral artery Code(s): I63.9 - Cerebral infarction, unspecified (5) Hypertension: -Hold labetalol in preparation for possible surgery -Continue Norvasc 10 mg once daily, losartan 100 mg once daily, hydralazine as needed Status: Acute Qualifiers: Hypertension type: essential hypertension Qualified Code(s): I10 - Essential (primary) hypertension Code(s): I10 - Essential (primary) hypertension (6) GERD (gastroesophageal reflux disease): Status: Acute Code(s): K21.9 - Gastro-esophageal reflux disease without esophagitis (7) UTI (urinary tract infection): Patient has frequent UTIs, has UTI symptoms burning with urination, continue Rocephin Status: Acute Code(s): N39.0 - Urinary tract infection, site not specified (8) Type 2 diabetes mellitus: -Check hemoglobin A1c, low-dose sliding scale Status: Acute Code(s): E11.9 - Type 2 diabetes mellitus without complications (9) Intermittent atrial fibrillation: -Patient is on metoprolol 100 twice daily at home -I had held this medication as patient had soft blood pressures, and there was concern for possible TIA and stroke so I held the medication -Unfortunately patient overnight developed A. fib with RVR, -Patient denies a history of A. fib in the past, possibly that is why she is on metoprolol long-term -Patient's A. fib resolved with metoprolol push Plan -Continue Atripla 25 twice daily -On Betapace 80 twice daily as per cardiology -Orthopedics is okay with NOAC after surgery Status: Acute Code(s): I48.0 - Paroxysmal atrial fibrillation (10) Atherosclerotic heart disease of [place] coronary artery with other forms of angina pectoris: Status: Acute Code(s): I25.118 - Atherosclerotic heart disease of [place] coronary artery with other forms of angina pectoris Attestations Medical Necessity Statement*: Patient requires hospitalization, for A. 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
--- NOTE | 2019-07-30 11:09 | P.ANESASSM_ITS ---
Pre-Anesthetic Assessment Pre-Anesthetic Assessment: Height/Weight: Height 1.7 m Weight 74.389 kg Temp Pulse Resp BP Pulse Ox 98.2 F 68 17 145/74 98 07/30/19 04:00 07/30/19 07:17 07/30/19 07:17 07/30/19 09:48 07/30/19 07:17 Preop Diagnosis: Left Femoral Neck Fracture Proposed Procedure: Operation Date: 07/30/19 08:00 Proposed Procedures p Hemiarthroplasty Hip(Left) - Odilia Braswell MD Operation Date: 08/01/19 09:40 Proposed Procedures p Hemiarthroplasty Hip(Left) - Odilia Braswell MD Last Intake: 23:59 Exam: Pre-Anes Outpt Exam: alert Additional Exam Findings (including area of procedure): date , [facility] CV/HEM: CV/HEM: Afib, Anemia, CAD and HTN Comments: abnormal stress, med ical mx determined p cath : : UTI Metabolic: Metabolic: DM Comments: rx'd x 12y Neuropsych: Neuropsych: CVA and TIA Comments: '08, memory difficulty Anesthetic Plan: ASA status: 3 Anesthesia: General Meds/Allergies Current Medications: Current Medications Generic Name Dose Route Start Last Admin Trade Name Freq PRN Reason Stop Dose Admin Acetaminophen 650 mg 07/27/19 16:25 07/30/19 02:14 Tylenol PO 650 mg Q6H PRN Administration Mild/Mod Pain Or Temp >/= 101 Amlodipine Besylat e 10 mg 07/28/19 09:00 07/30/19 09:48 Norvasc PO 10 mg DAILY ESTHER Administration Atorvastatin Calci um 20 mg 07/29/19 21:00 07/29/19 21:20 Lipitor PO 20 mg BEDTIME ESTHER Administration Donepezil HCl 10 mg 07/27/19 21:00 07/29/19 21:20 Aricept PO 10 mg BEDTIME ESTHER Administration Heparin Sodium (Be ef Lung) 5,000 unit 07/29/19 14:30 07/30/19 02:15 Heparin SUBCUT Not Given Q12H ESTHRE Ceftriaxone Sodium 1,000 mg/ 50 mls @ 100 mls/ hr 07/27/19 16:30 07/29/19 17:09 Sodium Chloride IV Infused Q24H ESTHER Infusion Protocol Insulin Aspart 0 unit 07/27/19 18:00 07/30/19 07:07 Novolog SUBCUT Not Given [facility] Protocol Losartan Potassium 100 mg 07/28/19 09:00 07/30/19 09:48 Cozaar PO 100 mg DAILY ESTHER Administration Metoprolol Tartrat e 25 mg 07/29/19 18:00 07/30/19 09:48 Lopressor PO 25 mg BID ESTHER Administration Morphine Sulfate 2 mg 07/27/19 16:25 07/27/19 22:33 Morphine IVP 2 mg Q4H PRN Administration SEVERE PAIN Sotalol HCl 80 mg 07/29/19 21:00 07/30/19 09:48 Betapace PO 80 mg BID@0900,2100 ESTHER Administration PFSH Anesthesia PFSH: Medical History (Updated 07/29/19 @ 14:26 by Nimisha Loera MD) Abnormal myocardial perfusion study Atherosclerotic heart disease of [place] coronary artery with other forms of angina pectoris Atypical chest pain CVA (cerebral vascular accident) Fracture of femoral neck, left GERD (gastroesophageal reflux disease) Hypertension Intermittent atrial fibrillation Surgical History History of cholecystectomy Social History Smoking and tobacco status: never smoked Alcohol intake: never Substance/Drug Use: never Data Anesthesia CBC & Chem 7: 07/30/19 04:00 07/30/19 04:00 Other Labs: Laboratory Results - last 48 hr 07/28/19 07/28/19 07/28/19 12:02 17:34 20:23 WBC RBC Hgb Hct MCV MCH MCHC RDW Plt Count MPV Neut % (Auto) Lymph % (Auto) [place] % (Auto) Eos % (Auto) Baso % (Auto) Neut # (Auto) Lymph # (Auto) [place] # (Auto) Eos # (Auto) Baso # (Auto) Nucleated RBC % (auto) Nucleated RBCs # PT INR Sodium Potassium Chloride Carbon Dioxide Anion Gap BUN Creatinine Glucose POC Glucose 145 116 164 Calcium Phosphorus Magnesium Total Bilirubin AST ALT Alkaline Phosphatase Total Protein Albumin Globulin Triglycerides Cholesterol LDL Cholesterol, Calc HDL Cholesterol LDL/HDL Ratio Cholesterol/HDL Ratio 07/29/19 07/29/19 07/29/19 04:20 04:20 04:20 WBC 8.1 RBC 3.58 L Hgb 10.8 L Hct 34.1 L MCV 95.3 MCH 30.2 MCHC 31.7 RDW 12.6 Plt Count 197 MPV 11.3 H Neut % (Auto) 70.6 Lymph % (Auto) 17.9 [place] % (Auto) 8.5 Eos % (Auto) 2.2 Baso % (Auto) 0.2 Neut # (Auto) 5.7 Lymph # (Auto) 1.5 [place] # (Auto) 0.7 Eos # (Auto) 0.2 Baso # (Auto) 0.0 Nucleated RBC % (auto) 0 Nucleated RBCs # 0.0 PT INR Sodium 140 Potassium 3.6 Chloride 107 Carbon Dioxide 24 Anion Gap 12.6 BUN 9 Creatinine 0.6 Glucose 110 POC Glucose Calcium 8.6 Phosphorus 2.4 L Magnesium 2.0 Total Bilirubin 0.5 AST 15 ALT 14 Alkaline Phosphatase 52 Total Protein 5.9 L Albumin 3.1 L Globulin 2.8 Triglycerides Cholesterol LDL Cholesterol, Calc HDL Cholesterol LDL/HDL Ratio Cholesterol/HDL Ratio 07/29/19 07/29/19 07/29/19 04:20 05:57 11:15 WBC RBC Hgb Hct MCV MCH MCHC RDW Plt Count MPV Neut % (Auto) Lymph % (Auto) [place] % (Auto) Eos % (Auto) Baso % (Auto) Neut # (Auto) Lymph # (Auto) [place] # (Auto) Eos # (Auto) Baso # (Auto) Nucleated RBC % (auto) Nucleated RBCs # PT INR Sodium Potassium Chloride Carbon Dioxide Anion Gap BUN Creatinine Glucose POC Glucose 133 242 Calcium Phosphorus Magnesium Total Bilirubin AST ALT Alkaline Phosphatase Total Protein Albumin Globulin Triglycerides 146 Cholesterol 133 LDL Cholesterol, Calc 70 HDL Cholesterol 34 L LDL/HDL Ratio 2.06 Cholesterol/HDL Ratio 3.91 07/29/19 07/29/19 07/30/19 15:40 19:47 04:00 WBC 8.5 RBC 3.65 L Hgb 10.9 L Hct 34.1 L MCV 93.4 MCH 29.9 MCHC 32.0 RDW 12.6 Plt Count 196 MPV 11.8 H Neut % (Auto) 73.4 Lymph % (Auto) 15.7 [place] % (Auto) 7.9 Eos % (Auto) 2.0 Baso % (Auto) 0.4 Neut # (Auto) 6.3 Lymph # (Auto) 1.3 [place] # (Auto) 0.7 Eos # (Auto) 0.2 Baso # (Auto) 0.0 Nucleated RBC % (auto) 0 Nucleated RBCs # 0.0 PT INR Sodium Potassium Chloride Carbon Dioxide Anion Gap BUN Creatinine Glucose POC Glucose 194 134 Calcium Phosphorus Magnesium Total Bilirubin AST ALT Alkaline Phosphatase Total Protein Albumin Globulin Triglycerides Cholesterol LDL Cholesterol, Calc HDL Cholesterol LDL/HDL Ratio Cholesterol/HDL Ratio 07/30/19 07/30/19 07/30/19 04:00 04:00 04:00 WBC RBC Hgb Hct MCV MCH MCHC RDW Plt Count MPV Neut % (Auto) Lymph % (Auto) [place] % (Auto) Eos % (Auto) Baso % (Auto) Neut # (Auto) Lymph # (Auto) [place] # (Auto) Eos # (Auto) Baso # (Auto) Nucleated RBC % (auto) Nucleated RBCs # PT 13.90 H INR 1.04 Sodium 140 Potassium 3.8 Chloride 107 Carbon Dioxide 25 Anion Gap 11.8 BUN 9 Creatinine 0.6 Glucose 151 H POC Glucose Calcium 8.7 Phosphorus 2.1 L Magnesium 2.1 Total Bilirubin 0.6 AST 66 H ALT 66 H Alkaline Phosphatase 55 Total Protein 6.0 L Albumin 3.2 L Globulin 2.8 Triglycerides Cholesterol LDL Cholesterol, Calc HDL Cholesterol LDL/HDL Ratio Cholesterol/HDL Ratio 07/30/19 06:02 WBC RBC Hgb Hct MCV MCH MCHC RDW Plt Count MPV Neut % (Auto) Lymph % (Auto) [place] % (Auto) Eos % (Auto) Baso % (Auto) Neut # (Auto) Lymph # (Auto) [place] # (Auto) Eos # (Auto) Baso # (Auto) Nucleated RBC % (auto) Nucleated RBCs # PT INR Sodium Potassium Chloride Carbon Dioxide Anion Gap BUN Creatinine Glucose POC Glucose 139 Calcium Phosphorus Magnesium Total Bilirubin AST ALT Alkaline Phosphatase Total Protein Albumin Globulin Triglycerides Cholesterol LDL Cholesterol, Calc HDL Cholesterol LDL/HDL Ratio Cholesterol/HDL Ratio Cardiac Studies: No Data to Display
[2019-07-30 11:24] LABS: Glucose Point of Care 122 mg/dL (70-110)
--- NOTE | 2019-07-30 11:27 | PC.NURSE ---
to or at this time via bed.
[2019-07-30] MEDS: sodium chloride 0.9% 1,000 ML 30 ML IV (11:50)
[2019-07-30] MEDS: ceFAZolin 1,000 mg SDV 1000 MG IRRIGATION (12:46)
[2019-07-30] MEDS: vancomycin 1,000 MG SDV 1000 MG XX (12:46)
--- NOTE | 2019-07-30 13:50 | PC.NURSE ---
pt to transfer to room 276 after surgery.report given to janice,rn
--- NOTE | 2019-07-30 14:09 | XR_ITS ---
WS: [id number] XR pelvis 1-2V* [id number] REASON FOR EXAM: Status post bipolar hip arthroplasty FINDINGS: Comparison to July 22, 2019 the basicervical fracture is been replaced with a arthropla sty satisfactory alignment. This is seen on the left side. There is no dysfunction of the stem of the prosthesis the alignment is satisfactory. XR/XR pelvis 1-2V* [id number] IMPRESSION: Left hip arthroplasty satisfactory alignment..
--- NOTE | 2019-07-30 14:29 | SUR.PHASEI ---
1404 PT TO PACU AWAKE KNOWS NAME, FOLLOWS COMMANDS, GOOD RESP NOTED PT COUGHS OCC, VSS LT HIP DRESSING D/I PULSE NOTED TO LT FOOT MARKED BILAT FOOT PUMPS ON , FIRST ICE TO LT HIP SITE ABD PILLOW IN PLACE LA TO DD STATL OCK TO RT THIGH YELLOW UINE NOTED TO TUBING, PT ON 8 L MASK 1408 PT ON 3LNC FOR COMFORT, VSS PT DENIES PAIN TAKING ICE CHIPS X RAY HERE 1430 PT RESTINE QUIETLY VSS FAMILY UPDATED BY DR RICHEY , REPORT CALLED AND FAMILY TO ROOM WAITING.
--- NOTE | 2019-07-30 14:30 | P.OP_ITS ---
Operative Report Date of procedure: July 30, 2019 Pre-op Diagnosis: Left displaced subcapital femoral neck fracture Post-op diagnosis: same Procedure Done: Leftt bipolar hip arthroplasty utilizing the [place] Accolade II hip system with a size 5 x 127 degree neck angle hip stem with a 46 mm universal bipolar head component size 48 mm outer diameter by 28 mm inner diameter and an LFIT V40 femoral head sized 28 mm with a +0 mm offset Specimens removed/disposition: Femoral head, disposed of Pathology: none sent Surgeon: Odilia [employer] Salesperson: [facility] OR technicians Anesthesia: General (Intubated) Estimated blood loss (mL): 100 IV fluids (mL): 1,000 Urine output (mL): 300 Complications: None Findings: Displaced subcapital left femoral neck fracture Condition: stable Disposition: floor Brief History: This 83-year-old woman was in her usual state of health when she had a syncopal episode and fell. The patient lives alone, but she does have family support nearby. The patient was brought to the emergency department and upon admission through department, she was found to have a displaced subcapital left femoral neck fracture, but additionally, she required cardiology work-up prior to proceeding with surgical intervention. Once we had her optimized for surgery, consents were signed. The patient was scheduled for the above procedure. The patient was seen with her family in the preop holding area. Procedure: The patient was brought to the operating theater, and after undergoing adequate general anesthesia, intubated, she was transferred to the operating room table. The patient was placed in the full lateral position and held in place with the pegboard. Patient's left lower extremity was draped free and was subsequently prepped and further draped free. A surgical pause was performed prior to commencement of the surgical procedure. During the surgical pause, we confirmed the site and side of surgery as well as availability of equipment. Additionally, we confirmed preoperative surgical markings and administration of 2 g of Ancef prophylactically. X-rays are also reviewed during this time. Following the surgical pause, an incision was made centering over the greater trochanter continuing proximally and distally as necessary to allow access to the hip joint. Dissection continues to skin and soft tissue using scalpel. Incision was obtained using electrocautery. Tensor fascia sruthi was identified and incised longitudinally. Sciatic nerve was identified and protected throughout the surgical procedure. A [place] U retractor was placed with care being taken to protect the sciatic nerve during placement. The hip was internally rotated. Piriformis muscle was then identified, tagged, and subsequently incised from the posterior aspect of the hip joint. The remaining short external rotators were also incised. These were then elevated off the capsule and the capsule was entered in a T-type fashion. Each side of the capsule was then tagged. The proximal femur was brought into an appropriate position of the femoral neck osteotomy was accomplished. This was in appropriate position for placement of the prosthetic component. Femoral head was then removed from the acetabulum utilizing a corkscrew. It was subsequently measured. The appropriate size trial was chosen. This was a size 46 mm. Size 47 mm trial was also placed into the acetabulum, but this was felt to be too large. Therefore size 46 mm was the chosen size for final implantation. Femoral burn crew member was then placed and attention was directed to the proximal femur. Initially, the proximal femur was addressed with a box chisel, and this was followed by a canal finder and subsequently broaches. The hip was broached to a size 5. Size 5 broach was noted to fit nicely and have good fit and fill. Therefore this was to be the chosen component. Trial reduction was accomplished with a 46 mm outer diameter by 28 mm inner diameter universal head bipolar component and a 28 mm femoral head with a +0 mm offset. With this, stability to external rotation as well as internal rotation with 90 degrees of flexion and 30 degrees of adduction and toe hang was accomplished. This was felt to be appropriate and therefore trial components were removed and the hip was irrigated. Acetabulum was evaluated for any loose bodies or other soft tissues requiring resection. We then prepared for implantation. The size 5 Accolade II 127 degree femoral stem was impacted into position. This was placed without difficulty. Onto this was placed the construct of the 46 mm universal bipolar head component with a 28 mm femoral head with +0 mm offset. This was placed onto the trunnion of the femoral component. It was impacted into position and pulled upon to assure that there was no dissociation. Once again the hip was irrigated and suctioned dry and was reduced. We then irrigated the hip further with 20 mL of Betadine mixed into 500 mL of normal saline. This was allowed to remain in the wound for approximately 3 minutes. It was then suctioned dry and irrigated with normal saline. This was suctioned dry again and closure was accomplished with 0 Vicryl in the capsular tissues followed by reattachment of the piriformis with 0 Vicryl. Additionally, the tensor was closed with 0 Vicryl in an interrupted fashion. Subcutaneous tissues were closed with 2-0 Monocryl. Skin was closed with 3-0 Monocryl. This was followed by Dermabond and Steri-Strips. A sterile dressing was placed consisting of Telfa and Tegaderm. An abduction pillow was placed. The patient was returned the Recovery Room in satisfactory condition. There were no complications. The patient will be discharged to the floor for postoperative rehabilitation and pain management.
--- NOTE | 2019-07-30 14:32 | PM.OP ---
Operative Report Date of procedure: July 30, 2019 Pre-op Diagnosis: Left femoral neck fracture
--- NOTE | 2019-07-30 14:37 | SUR.PHASEI ---
PT TO FLOOR PER BED ON NASAL CANNULA FROM FLOOR PT ALERT DENIES PAIN TAKING ICE CHIPS
--- NOTE | 2019-07-30 14:41 | PM.MISC ---
Miscellaneous Note Purpose of Documentation: Documentation of immediate preop evaluation Note: Patient was seen in the preop holding area with her family. The planned procedure as well as risks and complications were reviewed with the family. The patient's leg was marked. The patient was prepared for surgery. Questions were answered as appropriate.
--- NOTE | 2019-07-30 14:43 | PM.MISC ---
Miscellaneous Note Purpose of Documentation: Documentation of immediate preop visit Note: Patient was seen in the preop holding area. Her family was there and the planned procedure was gone over with the family as well as with the patient. The patient's leg was marked. Questions were answered. All agreed to the planned procedure.
--- NOTE | 2019-07-30 15:05 | SUR.PHASEI ---
1445 PT TO 2 NORTH PER BED FAMILY TO ROOM LT HIP DRESSING D/I FIRST ICE IN PLACE. JENY RN IN ROOM. BP 181/90, HR 60, RESP 22, SATS ON 3LNC 97%
[2019-07-30] MEDS: acetaminophen 500 mg Tablet 1000 MG PO ×2 (15:50→23:43)
[2019-07-30] MEDS: TRAMadol 50 mg Tablet PO (15:50)
[2019-07-30] MEDS: cefTRIAXone 1,000 MG in sodium chloride 0.9% (plus) 50 ML 100 MG IV (15:51)
--- NOTE | 2019-07-30 16:57 | PC.PT ---
PT note; patient declined attempted physical therapy evaluation per nursing at this time, states not today, will reattempt tomorrow
[2019-07-30 17:35] LABS: Glucose Point of Care 150 mg/dL (70-110)
[2019-07-30] MEDS: iron polysaccharide complex 150 mg Capsule PO (17:35)
[2019-07-30] MEDS: sennosides-docusate Tablet 2 TAB PO (17:36)
[2019-07-30] MEDS: aspirin 81 mg EC Tablet PO (17:39)
[2019-07-30] MEDS: chlorhexidine gluconate 0.12% Btl 473 mL 30 ML MUCOUS MEM ×2 (17:40→21:22)
[2019-07-30] MEDS: calcium carbonate 500 mg Chew Tablet 1000 MG PO (17:40)
[2019-07-30] MEDS: mupirocin oint 22 gm 1 APPLIC NASAL (17:41)
--- NOTE | 2019-07-30 18:36 | P.PN_ITS ---
Subjective Subjective: Interval history: Patient has intermittent atrial fibrillation. Currently remaining in sinus rhythm. She was started on Betapace. No medication side effects so far. Her QTC today is within normal limits. Had the hip surgery today. Seems to be doing okay. Medications: Reviewed: Yes Medication Review Details: Current Medications Acetaminophen (Tylenol) 1,000 mg PO Q8H [facility] Last Admin: 07/30/19 15:50 Dose: 1,000 mg Documented by: Amlodipine Besylate (Norvasc) 10 mg PO DAILY [facility] Last Admin: 07/30/19 09:48 Dose: 10 mg Documented by: Apixaban (Eliquis) 5 mg PO BID [facility] Aspirin (Aspirin Ec) 81 mg PO DAILY [facility] Last Admin: 07/30/19 17:39 Dose: 81 mg Documented by: Atorvastatin Calcium (Lipitor) 20 mg PO BEDTIME [facility] Last Admin: 07/29/19 21:20 Dose: 20 mg Documented by: Calcium Carbonate (Tums) 1,000 mg PO BID [facility] Last Admin: 07/30/19 17:40 Dose: 1,000 mg Documented by: Chlorhexidine Gluconate (Perigard) 30 ml MUCOUS MEM QID [facility] Last Admin: 07/30/19 17:40 Dose: 30 ml Documented by: Donepezil HCl (Aricept) 10 mg PO BEDTIME [facility] Last Admin: 07/29/19 21:20 Dose: 10 mg Documented by: Hydralazine HCl (Apresoline) 10 mg IVP Q4H PRN PRN Reason: for SBP>180, Ceftriaxone Sodium 1,000 mg/ (Sodium Chloride) 50 mls @ 100 mls/hr IV Q24H [facility]; Protocol Last Admin: 07/30/19 15:51 Dose: 100 mls/hr Documented by: Cefazolin Sodium/Dextrose (Kefzol) 2 gm in 50 mls @ 100 mls/hr IV Q8H [facility]; Protocol Stop: 07/31/19 12:29 Insulin Aspart (Novolog) 0 unit SUBCUT TIDWM [facility]; Protocol Last Admin: 07/30/19 11:28 Dose: Not Given Documented by: Losartan Potassium (Cozaar) 100 mg PO DAILY [facility] Last Admin: 07/30/19 09:48 Dose: 100 mg Documented by: Metoprolol Tartrate (Lopressor) 25 mg PO BID [facility] Last Admin: 07/30/19 17:36 Dose: 25 mg Documented by: Multivitamins Therapeutic (Multivitamin Tab) 1 tab PO DAILY [facility] Mupirocin (Bactroban) 1 applic NASAL BID [facility] Stop: 08/04/19 17:59 Last Admin: 07/30/19 17:41 Dose: 1 applic Documented by: Naloxone HCl (Narcan) 0.1 mg IVP Q2M PRN PRN Reason: Respiratory rate less than 8. Ondansetron HCl (Zofran) 4 mg IVP Q6H PRN PRN Reason: NAUSEA AND VOMITING Phenazopyridine HCl (Pyridium) 100 mg PO TID PRN PRN Reason: pain Polysaccharide Iron Complex (Ferrex) 150 mg PO BIDWM [facility] Last Admin: 07/30/19 17:35 Dose: 150 mg Documented by: Senna/Docusate Sodium (Senna-S) 2 tab PO BID [facility] Last Admin: 07/30/19 17:36 Dose: 2 tab Documented by: Sotalol HCl (Betapace) 80 mg PO BID@0900,2100 [facility] Last Admin: 07/30/19 09:48 Dose: 80 mg Documented by: Tramadol HCl (Ultram) 50 mg PO Q4H PRN PRN Reason: MILD TO MODERATE PAIN Last Admin: 07/30/19 15:50 Dose: 50 mg Documented by: Vitamin D (Vitamin D3) 1,000 unit PO DAILY [facility] Vitals/I&O/Wt Last Vital Signs Temp 98.1 F 07/30/19 17:45 Pulse 65 07/30/19 18:25 Resp 20 H 07/30/19 17:45 BP 124/71 07/30/19 17:45 Pulse Ox 96 07/30/19 18:25 07/30/19 07/30/19 07/30/19 06:59 14:59 22:59 Intake Total 300 / 1025 200 / 200 240 / 440 Output Total 500 / 1425 700 / 700 200 / 900 Balance -200 / -400 -500 / -500 40 / -460 Physical Exam Narrative: EXAM NARRATIVE: GENERAL: The patient is alert and oriented times 2. Not in any acute distress. Seems very forgetful HEENT: No significant pallor, icterus or lymphadenopathy. The pupils are equal in size. Oral cavity: There are no mucous membrane lesions. NECK: Trachea appears to be central. No masses noted. No JVD or thyromegaly appreciated. No carotid bruit. RESPIRATORY: Chest is symmetrical. No intercostals muscle retraction or any accessory muscle activation. There is no chest wall tenderness. Breath sounds are heard bilaterally. No rales or rhonchi heard. No evidence of any consolidation. BREASTS: Deferred. HEART: The PMI is in the 5th left intercostals space just inside the midclavicular line. No palpable precordial events. S1 and S2 are normal. No S3 or S4 heard. No pericardial rub or any click heard. ABDOMEN: No vessel pulsations or distention. No tenderness. No organomegaly appreciated. No abdominal bruit. Bowel sounds are normally heard. : Deferred. RECTAL: Deferred. LYMPHATIC: No lymphadenopathy noted in the neck or groin. EXTREMITIES: No edema or cyanosis. No clubbing. The pulses are symmetrical bilaterally. The radial, femoral, dorsalis pedis and the posterior tibial pulses are palpated and found to be in good volume and amplitude. MUSCULOSKELETAL: The right hip is immobilized . SKIN: There are no significant scars or skin rash noted. NEUROPSYCHIATRIC: The patient is alert and oriented x2. Appears to be in a good mood. No focal motor deficits. Urinary Catheter Management^: Mckinley: Cath Placed During This Visit: yes Urethral Indwelling: Yes Reason for Continuing Indwelling Catheter: Accurate Measurement of Urinary Output in Critically Ill Patients Urinary Catheter Date of Insertion: 07/27/19 Urinary Catheter Time of Insertion: 15:11 Data : 07/30/19 04:00 07/30/19 04:00 EKG 1: My Interpretation: EKG showed a normal sinus rhythm with features of right ventricular conduction delay. QTC of 417. Some nonspecific T wave changes. O therwise unremarkable. A&P Assessment and plan (1) Atherosclerotic heart disease of [place] coronary artery with other forms of angina pectoris: Mild to moderate coronary disease by angiogram. Clinically seems to be stable. Status: Acute Code(s): I25.118 - Atherosclerotic heart disease of [place] coronary artery with other forms of angina pectoris (2) Intermittent atrial fibrillation: Continue the Betapace and the metoprolol as prescribed. Repeat EKG in the morning. Status: Acute Code(s): I48.0 - Paroxysmal atrial fibrillation (3) CVA (cerebral vascular accident): The CT scan of the head revealed a evidence of a chronic microvascular changes. No acute ischemic changes. Patient may continue on the current medications. She has the carotid Doppler examination yesterday and was found to have mild to moderate plaques. No significant stenosis. Status: Acute Qualifiers: CVA mechanism: embolism Precerebral and cerebral artery: unspecified precerebral artery Qualified Code(s): I63.10 - Cerebral infarction due to embolism of unspecified precerebral artery Code(s): I63.9 - Cerebral infarction, unspecified (4) Hypertension: The blood pressure is a stage II at this time. The antihypertensive medications need to be optimized. Status: Acute Qualifiers: Hypertension type: essential hypertension Qualified Code(s): I10 - Essential (primary) hypertension Code(s): I10 - Essential (primary) hypertension Additional A&P Information May restart the metformin tomorrow. Oral anticoagulant, need to be discussed Continue on your current medications. Attestations Medical Necessity Statement*: Patient requires continued hospital stay for close monitoring and further management Coding Level of Care Code Acute [place] for Britney Bailey Diagnoses Atherosclerotic heart disease of [place] coronary artery with other forms of angina pectoris I25.118 Intermittent atrial fibrillation I48.0 CVA (cerebral vascular accident) I63.10 CVA mechanism: embolism Precerebral and cerebral artery: unspecified precerebral artery Hypertension I10 Hypertension type: essential hypertension
[2019-07-30 20:09] LABS: Glucose Point of Care 196 mg/dL (70-110)
[2019-07-30] MEDS: atorvastatin 40 mg Tablet 20 MG PO (21:23)
[2019-07-30] MEDS: donepezil 5 MG Tablet 10 MG PO (21:23)
--- NOTE | 2019-07-30 23:30 | ECG_ITS ---
Measurements Intervals [place] Rate: 65 P: 88 AK: 171 QRS: 26 QRSD: 78 T: 94 QT: 378 QTc: 394 SINUS RHYTHM WITH OCCASIONAL SUPRAVENTRICULAR PREMATURE COMPLEXES POSSIBLE RIGHT VENTRICULAR CONDUCTION DELAY [RSR (QR) IN V1/V2] ST DEVIATION AND MODERATE T-WAVE ABNORMALITY, CONSIDER ANTERIOR ISCHEMIA [-0.1+ Compared to ECG 07/30/2019 10:27:18 Possible ischemia now present T-wave abnormality still present Electronically Signed On 07-31-2019 20:21:34 GRAIN MILLER HELPER by Nimisha Loera M.D. [email or web address]
[2019-07-31] VITALS (8 sets, daily range): BP systolic 108–149; BP diastolic 50–78; PULSE 52–68; RESP 14–18; TEMP 36.4–37.3; O2SAT 93–98
--- NOTE | 2019-07-31 01:49 | PC.NURSE ---
noted patient taking sotolol as newer medication, had ekg ran q 2 hours after administration. QT 378 QTc 394. patient resting comfortably this night after her hip fx surgery but complained earlier this evening for couple hours that her eye hurt. yonis casas washed her eye out at shift change but patient still complains of it, thinks she scratched it.
[2019-07-31] MEDS: apixaban 5 mg Tablet PO ×3 (02:21→18:07)
[2019-07-31 06:07] LABS: Basophils % 0.2 %; Eosinophils # 0.1 10^3/uL (0.0-0.8); Eosinophils % 0.9 %; Hematocrit 34.4 % (37.0-47.0); Hemoglobin 10.5 g/dL (11.5-15.3); Lymphocytes # 1.5 10^3/uL (0.8-4.8); Lymphocytes % 15.4 %; Mean Corpuscular HGB Conc 30.5 g/dL (30.0-36.0); Mean Corpuscular Hemoglobin 30.8 pg (28.0-34.0); Mean Corpuscular Volume 100.9 fL (81-99); Mean Platelet Volume 11.6 fL (7.4-10.4); Monocytes # 1.1 10^3/uL (0.2-0.9); Monocytes % 11.1 %; Neutrophils # 6.9 10^3/uL (1.8-7.7); Neutrophils % 71.9 %; Nucleated Red Blood Cells % 0 %; Platelet Count 190 10^3/cmm (130-400); Red Blood Count 3.41 10^6/uL (4.1-5.3); Red Cell Distribution Width 12.7 % (12.1-15.1); White Blood Count 9.6 10^3/uL (4.0-10.0)
[2019-07-31 06:37] LABS: Glucose Point of Care 133 mg/dL (70-110)
[2019-07-31] MEDS: acetaminophen 500 mg Tablet 1000 MG PO ×2 (07:57→18:06)
[2019-07-31] MEDS: iron polysaccharide complex 150 mg Capsule PO ×2 (07:58→18:06)
[2019-07-31 08:07] LABS: Alanine Aminotransferase 36 U/L (0-33); Albumin Level 2.7 g/dL (3.5-5.2); Alkaline Phosphatase 49 IU/L (35-105); Aspartate Amino Transferase 26 U/L (0-32); Blood Urea Nitrogen 16 mg/dL (8-23); Calcium 8.5 mg/dL (8.5-10.5); Carbon Dioxide 24 mmol/L (22-29); Chloride 108 mmol/L (98-107); Globulin 2.6 g/dL (1.3-4.6); Glucose 143 mg/dL (65-115); Magnesium 2.1 mg/dL (1.7-2.3); Phosphorus 2.1 mg/dL (2.5-4.5); Sodium 141 mmol/L (136-145); Total Bilirubin 0.3 mg/dL (0.15-1.2); Total Protein 5.3 g/dL (6.6-8.7)
--- NOTE | 2019-07-31 08:16 | ANE.PACU2 ---
 Inpatient post-anesthesia follow up: Airway intact: Yes Vital signs: Temperature 97.6 F Pulse Rate [Apical ] 79 Pulse Rate 61 Respiratory Rate 16 Blood Pressure [Ri ght Arm] 133/68 Blood Pressure 149/62 Pulse Oximetry 96 Oxygen Delivery Me thod [ Nasal Cannula Current Rate & Del dillan] Oxygen Delivery Me thod Nasal Cannula Oxygen Flow Rate [ Current Rate 2 & Delivery] Oxygen Flow Rate 3 Fraction of Inspir ed Oxygen Hydration adequate: Yes Nausea and vomiting: No Pain level: 2 Mental status: Baseline
[2019-07-31] MEDS: chlorhexidine gluconate 0.12% Btl 473 mL 30 ML MUCOUS MEM ×4 (08:56→21:25)
[2019-07-31] MEDS: mupirocin oint 22 gm 1 APPLIC NASAL ×2 (08:56→18:07)
[2019-07-31] MEDS: cholecalciferol (vitamin D3) 1,000 unit Tablet 1000 UNIT PO (08:56)
[2019-07-31] MEDS: multivitamin therapeutic Tablet 1 TAB PO (08:56)
[2019-07-31] MEDS: losartan 50 mg Tablet 100 MG PO (08:57)
[2019-07-31] MEDS: aspirin 81 mg EC Tablet PO (08:57)
[2019-07-31] MEDS: sennosides-docusate Tablet 2 TAB PO ×2 (08:57→18:06)
[2019-07-31] MEDS: metoprolol tartrate 25 mg Tablet PO ×2 (08:57→18:07)
[2019-07-31] MEDS: calcium carbonate 500 mg Chew Tablet 1000 MG PO ×2 (08:57→18:06)
[2019-07-31] MEDS: amlodipine 5 mg Tablet 10 MG PO (08:57)
[2019-07-31] MEDS: sotalol 80 mg Tablet PO ×2 (09:01→21:25)
--- NOTE | 2019-07-31 11:00 | ECG_ITS ---
Measurements Intervals [place] Rate: 50 P: 62 TX: 162 QRS: 4 QRSD: 84 T: 25 QT: 440 QTc: 405 SINUS BRADYCARDIA WITH MARKED SINUS ARRHYTHMIA POSSIBLE RIGHT VENTRICULAR CONDUCTION DELAY [RSR (QR) IN V1/V2] MODERATE T-WAVE ABNORMALITY, CONSIDER ANTEROLATERAL ISCHEMIA [-0.1+ mV T WAVE ININTERPRETATION BASED ON A DEFAULT AGE OF 40 YEARS Compared to ECG 07/30/2019 10:27:18 Possible ischemia now present Sinus rhythm no longer present T-wave abnormality still present Electronically Signed On 07-31-2019 20:28:59 NEONATAL PEDIATRIC NURSE by Nimisha Loera M.D. [email or web address]
[2019-07-31] MEDS: TRAMadol 50 mg Tablet PO ×2 (11:22→21:23)
--- NOTE | 2019-07-31 13:31 | PM.PN ---
Subjective Subjective: Interval history: Patient is doing well. She is alert and ready for discharge to correction when medically appropriate. She has no significant complaints today. Medications: Reviewed: Yes Medication Review Details: Current Medications Acetaminophen (Tylenol) 1,000 mg PO Q8H [facility] Last Admin: 07/30/19 15:50 Dose: 1,000 mg Documented by: Amlodipine Besylate (Norvasc) 10 mg PO DAILY [facility] Last Admin: 07/30/19 09:48 Dose: 10 mg Documented by: Apixaban (Eliquis) 5 mg PO BID [facility] Aspirin (Aspirin Ec) 81 mg PO DAILY [facility] Last Admin: 07/30/19 17:39 Dose: 81 mg Documented by: Atorvastatin Calcium (Lipitor) 20 mg PO BEDTIME [facility] Last Admin: 07/29/19 21:20 Dose: 20 mg Documented by: Calcium Carbonate (Tums) 1,000 mg PO BID [facility] Last Admin: 07/30/19 17:40 Dose: 1,000 mg Documented by: Chlorhexidine Gluconate (Perigard) 30 ml MUCOUS MEM QID [facility] Last Admin: 07/30/19 17:40 Dose: 30 ml Documented by: Donepezil HCl (Aricept) 10 mg PO BEDTIME [facility] Last Admin: 07/29/19 21:20 Dose: 10 mg Documented by: Hydralazine HCl (Apresoline) 10 mg IVP Q4H PRN PRN Reason: for SBP>180, Ceftriaxone Sodium 1,000 mg/ (Sodium Chloride) 50 mls @ 100 mls/hr IV Q24H [facility]; Protocol Last Admin: 07/30/19 15:51 Dose: 100 mls/hr Documented by: Cefazolin Sodium/Dextrose (Kefzol) 2 gm in 50 mls @ 100 mls/hr IV Q8H [facility]; Protocol Stop: 07/31/19 12:29 Insulin Aspart (Novolog) 0 unit SUBCUT TIDWM [facility]; Protocol Last Admin: 07/30/19 11:28 Dose: Not Given Documented by: Losartan Potassium (Cozaar) 100 mg PO DAILY [facility] Last Admin: 07/30/19 09:48 Dose: 100 mg Documented by: Metoprolol Tartrate (Lopressor) 25 mg PO BID [facility] Last Admin: 07/30/19 17:36 Dose: 25 mg Documented by: Multivitamins Therapeutic (Multivitamin Tab) 1 tab PO DAILY [facility] Mupirocin (Bactroban) 1 applic NASAL BID [facility] Stop: 08/04/19 17:59 Last Admin: 07/30/19 17:41 Dose: 1 applic Documented by: Naloxone HCl (Narcan) 0.1 mg IVP Q2M PRN PRN Reason: Respiratory rate less than 8. Ondansetron HCl (Zofran) 4 mg IVP Q6H PRN PRN Reason: NAUSEA AND VOMITING Phenazopyridine HCl (Pyridium) 100 mg PO TID PRN PRN Reason: pain Polysaccharide Iron Complex (Ferrex) 150 mg PO BIDWM [facility] Last Admin: 07/30/19 17:35 Dose: 150 mg Documented by: Senna/Docusate Sodium (Senna-S) 2 tab PO BID [facility] Last Admin: 07/30/19 17:36 Dose: 2 tab Documented by: Sotalol HCl (Betapace) 80 mg PO BID@0900,2100 [facility] Last Admin: 07/30/19 09:48 Dose: 80 mg Documented by: Tramadol HCl (Ultram) 50 mg PO Q4H PRN PRN Reason: MILD TO MODERATE PAIN Last Admin: 07/30/19 15:50 Dose: 50 mg Documented by: Vitamin D (Vitamin D3) 1,000 unit PO DAILY [facility] Vitals/I&O/Wt Last Vital Signs Temp 98.2 F 07/31/19 11:24 Pulse 52 L 07/31/19 11:24 Resp 14 07/31/19 11:24 BP 121/69 07/31/19 11:24 Pulse Ox 93 07/31/19 11:24 07/30/19 07/31/19 07/31/19 22:59 06:59 14:59 Intake Total 290 / 490 50 / 540 480 / 480 Output Total 200 / 900 300 / 1200 Balance 90 / -410 -250 / -660 480 / 480 Physical Exam Narrative: EXAM NARRATIVE: Patient is quite cooperative. She is alert and oriented today. She has no significant complaints. Her extremity demonstrates no sign of DVT or infection. There is no drainage. There is no significant swelling. She is neurologically intact. Dressings are dry and intact. Const: COMMON NORMALS: no apparent distress, average body habitus, oriented x3 and alert GENERAL APPEARANCE: cooperative and comfortable ORIENTATION/CONSCIOUSNESS: Yes awake HENMT: COMMON NORMALS: normocephalic and head/scalp atraumatic; hearing grossly not normal bilaterally (Patient is very hard of hearing) HEAD & SCALP: normocephalic and atraumatic Eye: GENERAL EYE: normal appearance of both eyes Chest: COMMONS NORMALS: inspection of chest normal Resp: COMMON NORMALS: normal respiratory effort EFFORT & INSPECTION: Yes able to speak in complete sentences and Yes symmetric chest movement Neuro: COMMON NORMALS: oriented x3 SENSORIUM/ORIENTATION: Yes alert Psych: COMMON NORMALS: mental status grossly normal APPEARANCE: Yes grossly normal ATTITUDE: Yes calm and Yes engaged ATTENTION/CONCENTRATION: Yes attention grossly intact Skin: COMMON NORMALS: no rashes or lesions noted GENERAL SKIN EXAM: no rashes or lesions noted Urinary Catheter Management^: Mckinley: Cath Placed During This Visit: yes Urethral Indwelling: Yes Reason for Continuing Indwelling Catheter: Perioperative Use in Selected Surgeries Urinary Catheter Date of Insertion: 07/27/19 Urinary Catheter Time of Insertion: 15:11 Data : 07/31/19 05:57 07/31/19 07:45 A&P Assessment and plan (1) Fracture of femoral neck, left: The patient had an uneventful bipolar hip arthroplasty yesterday. She tolerated the procedure well. Her DVT prophylaxis will include Eliquis as this will also treat her intermittent atrial fib diagnosed at the time of this visit. The patient will be discharged to correction when felt to be medically appropriate. She is to follow posterior hip precautions. She will follow-up with me in the office in approximately 2 to 3 weeks. Status: Acute Code(s): S72.002A - Fracture of unspecified part of neck of left femur, initial encounter for closed fracture (2) Type 2 diabetes mellitus: Status: Acute Code(s): E11.9 - Type 2 diabetes mellitus without complications (3) Hypertension: Status: Acute Qualifiers: Hypertension type: essential hypertension Qualified Code(s): I10 - Essential (primary) hypertension Code(s): I10 - Essential (primary) hypertension (4) UTI (urinary tract infection): Status: Acute Code(s): N39.0 - Urinary tract infection, site not specified (5) Syncope: Status: Acute Code(s): R55 - Syncope and collapse Attestations Medical Necessity Statement*: Patient is ready for discharge from an orthopedic perspective to correction. Coding Level of Care Code Acute Sharepoint Architect for Britney Bailey Diagnoses Fracture of femoral neck, left S72.002A Type 2 diabetes mellitus E11.9 Hypertension I10 Hypertension type: essential hypertension UTI (urinary tract infection) N39.0 Syncope R55
[2019-07-31 17:05] LABS: Glucose Point of Care 201 mg/dL (70-110)
--- NOTE | 2019-07-31 17:05 | PM.PN ---
Subjective Subjective: Interval history: This morning patient sitting up into a chair, postop day 0, doing well, no fevers, no chills, is requiring 2 L oxygen, no shortness of breath, chest pain, states that her pain is well controlled, still has a Mckinley catheter in place, has not had a bowel movement yet, is passing gas, on a clear liquid diet, is awaiting half-way placement Vitals/I&O/Wt Last Vital Signs Temp 98.0 F 07/31/19 15:24 Pulse 62 07/31/19 15:24 Resp 16 07/31/19 15:24 BP 108/50 07/31/19 15:24 Pulse Ox 94 07/31/19 15:24 07/31/19 07/31/19 07/31/19 06:59 14:59 22:59 Intake Total 50 / 540 960 / 960 Output Total 300 / 1200 Balance -250 / -660 960 / 960 Physical Exam Const: COMMON NORMALS: no apparent distress and oriented x3 GENERAL APPEARANCE: cooperative and comfortable HENMT: COMMON NORMALS: normocephalic HEAD & SCALP: normocephalic Eye: COMMON NORMALS: PERRL, EOMs intact bilaterally and no papilledema GENERAL EYE: normal appearance of both eyes PUPIL: Yes PERRL DIRECT OPHTHALMOSCOPY: Yes no papilledema Neck/C-Spine: COMMON NORMALS: no JVD and thyroid normal THYROID: thyroid normal Lymph: LYMPHATIC: no lymphadenopathy noted Resp: COMMON NORMALS: normal respiratory effort, no retractions, no use of accessory muscles and clear to auscultation bilaterally AUSCULTATION: clear to auscultation bilaterally Cardio: COMMON NORMALS: no JVD, regular rate, regular rhythm, S1 normal heart sound and S2 normal heart sound RATE: regular rate RHYTHM: regular rhythm HEART SOUNDS: S1 normal and S2 normal GI: COMMON NORMALS: normal to inspection, nondistended, normoactive bowel sounds, soft to palpation, non-tender, no hepatosplenomegaly, no masses and no bruits PALPATION: Yes soft and Yes no hepatosplenomegaly Extremity: COMMON NORMALS: normal capillary refill, no clubbing, cyanosis or edema, no calf tenderness and no pedal edema OTHER: left hip pain, right elbow pain Neuro: COMMON NORMALS: oriented x3 Psych: COMMON NORMALS: mental status grossly normal and thought process normal THOUGHT PROCESS: normal thought process Urinary Catheter Management^: Mckinley: Cath Placed During This Visit: yes Urethral Indwelling: Yes Reason for Continuing Indwelling Catheter: Perioperative Use in Selected Surgeries Urinary Catheter Date of Insertion: 07/27/19 Urinary Catheter Time of Insertion: 15:11 Data : 07/31/19 05:57 07/31/19 07:45 A&P Assessment and plan (1) Syncope: -Patient has had true episodes of syncope, likely TIA episodes related to atrial fibrillation -Cardiac echocardiogram shows ejection fraction of 76%, grade 1 out of 4 diastolic dysfunction, -Carotid ultrasound shows no significant stenosis -CT shows chronic microvascular changes -I spoke to Dr. Mcneal's nurse, patient was on Plavix when she established with him many years ago, they are not sure why she is on it possibly secondary to her CVA -Patient had positive stress testing followed by coronary angiography yesterday by Dr. Loera which showed 50 to 60% segmental narrowing in the mid RCA, FFR of this lesion was 0.9, mild diffuse disease Status: Acute Code(s): R55 - Syncope and collapse (2) Chest pain: -Patient has had a couple of episodes of chest pain -Last episode was a month ago, right-sided, nonradiating, no shortness breath, no lightheaded, no dizziness, no orthostasis, no diaphoresis, lasting up to 5 minutes -Patient states that most of the episodes she feels are associated with acid reflux, she takes some baking soda and it usually resolves her acid reflux and her chest pain at times -Patient does have dementia, past patient's family have pulled me aside and advised me that she is forget more forgetful --Patient had positive stress testing followed by coronary angiography yesterday by Dr. Loera which showed 50 to 60% segmental narrowing in the mid RCA, FFR of this lesion was 0.9, mild diffuse disease PLAN: -Medically managed with aspirin, statin Status: Acute Code(s): R07.9 - Chest pain, unspecified (3) Fracture of femoral neck, left: -Status post bipolar hip arthroplasty by Dr. Braswell postop day #1 -Mckinley catheter in place -Pain control as per orthopedic team -Anticoagulation on Eliquis 5 mg p.o. 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 -Currently neurologic intact, no strokelike symptoms -Shows microvascular changes -Patient syncopal episode was likely TIA related to atrial fibrillation -Patient on aspirin, statin -Plavix is held Status: Acute Qualifiers: CVA mechanism: embolism Precerebral and cerebral artery: unspecified precerebral artery Qualified Code(s): I63.10 - Cerebral infarction due to embolism of unspecified precerebral artery Code(s): I63.9 - Cerebral infarction, unspecified (5) Hypertension: -Hold labetalol in preparation for possible surgery -Continue Norvasc 10 mg once daily, losartan 100 mg once daily, hydralazine as needed Status: Acute Qualifiers: Hypertension type: essential hypertension Qualified Code(s): I10 - Essential (primary) hypertension Code(s): I10 - Essential (primary) hypertension (6) GERD (gastroesophageal reflux disease): Status: Acute Code(s): K21.9 - Gastro-esophageal reflux disease without esophagitis (7) UTI (urinary tract infection): Patient has frequent UTIs, has UTI symptoms burning with urination, continue Rocephin Status: Acute Code(s): N39.0 - Urinary tract infection, site not specified (8) Type 2 diabetes mellitus: -Check hemoglobin A1c, low-dose sliding scale Status: Acute Code(s): E11.9 - Type 2 diabetes mellitus without complications (9) Intermittent atrial fibrillation: -Patient is on metoprolol 100 twice daily at home -I had held this medication as patient had soft blood pressures, and there was concern for possible TIA and stroke so I held the medication -Unfortunately patient overnight developed A. fib with RVR, -Patient denies a history of A. fib in the past, possibly that is why she is on metoprolol long-term -Patient's A. fib resolved with metoprolol push -Currently tolerating Betapace and metoprolol well Plan -Continue metoprolol 25 twice daily -On Betapace 80 twice daily as per cardiology -Orthopedics is okay with NOAC after surgery, according to patient's age and weight and creatinine, Eliquis 5 mg p.o. twice daily is a reasonable dose Status: Acute Code(s): I48.0 - Paroxysmal atrial fibrillation (10) Atherosclerotic heart disease of [place] coronary artery with other forms of angina pectoris: Status: Acute Code(s): I25.118 - Atherosclerotic heart disease of [place] coronary artery with other forms of angina pectoris Attestations Medical Necessity Statement*: Patient requires hospitalization, for syncope, fall status post surgery, requiring half-way placement Coding Level of Care Code Acute Pharmacy Customer Care Specialist for [facility] Diagnoses Syncope R55 Chest pain R07.9 Fracture of femoral neck, left S72.002A CVA (cerebral vascular accident) I63.10 CVA mechanism: embolism Precerebral and cerebral artery: unspecified precerebral artery Hypertension I10 Hypertension type: essential hypertension GERD (gastroesophageal reflux disease) K21.9 UTI (urinary tract infection) N39.0 Type 2 diabetes mellitus E11.9 Intermittent atrial fibrillation I48.0 Atherosclerotic heart disease of [place] coronary artery with other forms of angina pectoris I25.118
[2019-07-31] MEDS: cefTRIAXone 1,000 MG in sodium chloride 0.9% (plus) 50 ML 100 MG IV (18:08)
--- NOTE | 2019-07-31 18:18 | PM.PN ---
Subjective Subjective: Interval history: Seems to be tolerating the Betapace so far well. No recurrence of atrial fibrillation. Patient had an EKG today. The QTC is within normal limits. Medications: Reviewed: Yes Medication Review Details: Current Medications Acetaminophen (Tylenol) 1,000 mg PO Q8H [facility] Last Admin: 07/31/19 07:57 Dose: 1,000 mg Documented by: Amlodipine Besylate (Norvasc) 10 mg PO DAILY [facility] Last Admin: 07/31/19 08:57 Dose: 10 mg Documented by: Apixaban (Eliquis) 5 mg PO BID [facility] Last Admin: 07/31/19 08:57 Dose: 5 mg Documented by: Aspirin (Aspirin Ec) 81 mg PO DAILY [facility] Last Admin: 07/31/19 08:57 Dose: 81 mg Documented by: Atorvastatin Calcium (Lipitor) 20 mg PO BEDTIME [facility] Last Admin: 07/30/19 21:23 Dose: 20 mg Documented by: Calcium Carbonate (Tums) 1,000 mg PO BID [facility] Last Admin: 07/31/19 08:57 Dose: 1,000 mg Documented by: Chlorhexidine Gluconate (Perigard) 30 ml MUCOUS MEM QID [facility] Last Admin: 07/31/19 13:16 Dose: 30 ml Documented by: Donepezil HCl (Aricept) 10 mg PO BEDTIME [facility] Last Admin: 07/30/19 21:23 Dose: 10 mg Documented by: Hydralazine HCl (Apresoline) 10 mg IVP Q4H PRN PRN Reason: for SBP>180, Ceftriaxone Sodium 1,000 mg/ (Sodium Chloride) 50 mls @ 100 mls/hr IV Q24H [facility]; Protocol Last Admin: 07/30/19 15:51 Dose: 100 mls/hr Documented by: Insulin Aspart (Novolog) 0 unit SUBCUT TIDWM [facility]; Protocol Last Admin: 07/31/19 11:25 Dose: 8 unit Documented by: Losartan Potassium (Cozaar) 100 mg PO DAILY [facility] Last Admin: 07/31/19 08:57 Dose: 100 mg Documented by: Metoprolol Tartrate (Lopressor) 25 mg PO BID [facility] Last Admin: 07/31/19 08:57 Dose: 25 mg Documented by: Multivitamins Therapeutic (Multivitamin Tab) 1 tab PO DAILY [facility] Last Admin: 03/02/20 08:56 Dose: 1 tab Documented by: Mupirocin (Bactroban) 1 applic NASAL BID [facility] Stop: 08/04/19 17:59 Last Admin: 07/31/19 08:56 Dose: 1 applic Documented by: Naloxone HCl (Narcan) 0.1 mg IVP Q2M PRN PRN Reason: Respiratory rate less than 8. Ondansetron HCl (Zofran) 4 mg IVP Q6H PRN PRN Reason: NAUSEA AND VOMITING Phenazopyridine HCl (Pyridium) 100 mg PO TID PRN PRN Reason: pain Polysaccharide Iron Complex (Ferrex) 150 mg PO BIDWM [facility] Last Admin: 07/31/19 07:58 Dose: 150 mg Documented by: Senna/Docusate Sodium (Senna-S) 2 tab PO BID [facility] Last Admin: 07/31/19 08:57 Dose: 2 tab Documented by: Sotalol HCl (Betapace) 80 mg PO BID@0900,2100 [facility] Last Admin: 07/31/19 09:01 Dose: 80 mg Documented by: Tramadol HCl (Ultram) 50 mg PO Q4H PRN PRN Reason: MILD TO MODERATE PAIN Last Admin: 07/31/19 11:22 Dose: 50 mg Documented by: Vitamin D (Vitamin D3) 1,000 unit PO DAILY [facility] Last Admin: 07/31/19 08:56 Dose: 1,000 unit Documented by: Vitals/I&O/Wt Last Vital Signs Temp 98.0 F 07/31/19 16:00 Pulse 62 07/31/19 16:00 Resp 16 07/31/19 16:00 BP 108/50 07/31/19 16:00 Pulse Ox 94 07/31/19 15:24 07/31/19 07/31/19 07/31/19 06:59 14:59 22:59 Intake Total 50 / 540 960 / 960 240 / 1200 Output Total 300 / 1200 Balance -250 / -660 960 / 960 240 / 1200 Physical Exam Narrative: EXAM NARRATIVE: GENERAL: The patient is alert and oriented times 2. Not in any acute distress. Seems very forgetful HEENT: The HEENT is unremarkable NECK: Trachea appears to be central. No masses noted. No JVD or thyromegaly appreciated. No carotid bruit. RESPIRATORY: Chest is symmetrical. No intercostals muscle retraction or any accessory muscle activation. There is no chest wall tenderness. Breath sounds are heard bilaterally. No rales or rhonchi heard. No evidence of any consolidation. BREASTS: Deferred. HEART: The heart sounds are normal with no S3 or S4. Short systolic murmur in the left sternal border. No diastolic murmurs. No pericardial rub. ABDOMEN: No vessel pulsations or distention. No tenderness. No organomegaly appreciated. No abdominal bruit. Bowel sounds are normally heard. : Deferred. RECTAL: Deferred. LYMPHATIC: No lymphadenopathy noted in the neck. EXTREMITIES: No edema or cyanosis. MUSCULOSKELETAL: The right hip is partially immobilized . SKIN: There are no significant skin rashes NEUROPSYCHIATRIC: The patient is alert and oriented x2. Appears to be in a good mood. No focal motor deficits. Urinary Catheter Management^: Mckinley: Cath Placed During This Visit: yes Urethral Indwelling: Yes Reason for Continuing Indwelling Catheter: Perioperative Use in Selected Surgeries Urinary Catheter Date of Insertion: 07/27/19 Urinary Catheter Time of Insertion: 15:11 Data : 07/31/19 05:57 07/31/19 07:45 A&P Assessment and plan (1) Atherosclerotic heart disease of [place] coronary artery with other forms of angina pectoris: Mild to moderate coronary disease by angiogram. Clinically seems to be stable. Since the patient has no specific symptoms of coronary insufficiency, may not require any further interventions at this time. May continue on the current medications. Status: Acute Code(s): I25.118 - Atherosclerotic heart disease of [place] coronary artery with other forms of angina pectoris (2) Intermittent atrial fibrillation: Continue the Betapace and the metoprolol as prescribed. Repeat EKG in the morning. The EKG from today was reviewed. The QTC is still within normal limits. Patient was started on the Eliquis. The aspirin may be discontinued Status: Acute Code(s): I48.0 - Paroxysmal atrial fibrillation (3) CVA (cerebral vascular accident): The CT scan of the head revealed a evidence of a chronic microvascular changes. No acute ischemic changes. Patient may continue on the current medications. She has the carotid Doppler examination yesterday and was found to have mild to moderate plaques. No significant stenosis. Status: Acute Qualifiers: CVA mechanism: embolism Precerebral and cerebral artery: unspecified precerebral artery Qualified Code(s): I63.10 - Cerebral infarction due to embolism of unspecified precerebral artery Code(s): I63.9 - Cerebral infarction, unspecified (4) Hypertension: The blood pressure seems to be under control now. May continue on the current medications Status: Acute Qualifiers: Hypertension type: essential hypertension Qualified Code(s): I10 - Essential (primary) hypertension Code(s): I10 - Essential (primary) hypertension Additional A&P Information EKG in the morning. Continue close telemetry. Attestations Medical Necessity Statement*: Patient requires continued hospital stay for close monitoring and further management Coding Level of Care Code Acute Hemodialysis Technician for [facility] Diagnoses Atherosclerotic heart disease of [place] coronary artery with other forms of angina pectoris I25.118 Intermittent atrial fibrillation I48.0 CVA (cerebral vascular accident) I63.10 CVA mechanism: embolism Precerebral and cerebral artery: unspecified precerebral artery Hypertension I10 Hypertension type: essential hypertension
[2019-07-31 19:47] LABS: Glucose Point of Care 299 mg/dL (70-110)
[2019-07-31 19:55] LABS: Glucose Point of Care 191 mg/dL (70-110)
[2019-07-31] MEDS: atorvastatin 40 mg Tablet 20 MG PO (21:25)
[2019-07-31] MEDS: donepezil 5 MG Tablet 10 MG PO (21:25)
[2019-08-01] VITALS (7 sets, daily range): BP systolic 113–128; BP diastolic 60–69; PULSE 56–65; RESP 16–18; TEMP 36.4–37.3; O2SAT 93–96
[2019-08-01 05:45] LABS: Basophils % 0.2 %; Eosinophils # 0.1 10^3/uL (0.0-0.8); Eosinophils % 0.7 %; Hematocrit 32.8 % (37.0-47.0); Hemoglobin 10.1 g/dL (11.5-15.3); Lymphocytes # 1.8 10^3/uL (0.8-4.8); Mean Corpuscular HGB Conc 30.8 g/dL (30.0-36.0); Mean Corpuscular Hemoglobin 30.6 pg (28.0-34.0); Mean Corpuscular Volume 99.4 fL (81-99); Mean Platelet Volume 11.6 fL (7.4-10.4); Monocytes # 1.1 10^3/uL (0.2-0.9); Monocytes % 10.6 %; Neutrophils # 7.5 10^3/uL (1.8-7.7); Neutrophils % 70.9 %; Nucleated Red Blood Cells % 0 %; Platelet Count 188 10^3/cmm (130-400); Red Cell Distribution Width 12.7 % (12.1-15.1); White Blood Count 10.6 10^3/uL (4.0-10.0)
[2019-08-01 06:21] LABS: Alanine Aminotransferase 15 U/L (0-33); Albumin Level 2.7 g/dL (3.5-5.2); Alkaline Phosphatase 50 IU/L (35-105); Anion Gap 14.7 (5-19); Aspartate Amino Transferase 21 U/L (0-32); Blood Urea Nitrogen 22 mg/dL (8-23); Calcium 8.9 mg/dL (8.5-10.5); Carbon Dioxide 25 mmol/L (22-29); Chloride 104 mmol/L (98-107); Globulin 2.9 g/dL (1.3-4.6); Glucose 117 mg/dL (65-115); Potassium 3.7 mmol/L (3.5-5.1); Sodium 140 mmol/L (136-145); Total Bilirubin 0.3 mg/dL (0.15-1.2); Total Protein 5.6 g/dL (6.6-8.7)
[2019-08-01] MEDS: acetaminophen 500 mg Tablet 1000 MG PO (06:27)
[2019-08-01 06:35] LABS: Magnesium 2.2 mg/dL (1.7-2.3); Phosphorus 2.3 mg/dL (2.5-4.5)
[2019-08-01 06:39] LABS: Glucose Point of Care 127 mg/dL (70-110)
[2019-08-01] MEDS: amlodipine 5 mg Tablet 10 MG PO (09:51)
[2019-08-01] MEDS: calcium carbonate 500 mg Chew Tablet 1000 MG PO (09:52)
[2019-08-01] MEDS: losartan 50 mg Tablet 100 MG PO (09:52)
[2019-08-01] MEDS: metoprolol tartrate 25 mg Tablet PO (09:52)
[2019-08-01] MEDS: multivitamin therapeutic Tablet 1 TAB PO (09:52)
[2019-08-01] MEDS: apixaban 5 mg Tablet PO (09:53)
[2019-08-01] MEDS: iron polysaccharide complex 150 mg Capsule PO (09:53)
[2019-08-01] MEDS: sennosides-docusate Tablet 2 TAB PO (09:53)
[2019-08-01] MEDS: cholecalciferol (vitamin D3) 1,000 unit Tablet 1000 UNIT PO (09:53)
--- NOTE | 2019-08-01 10:00 | P.PN_ITS ---
Subjective Subjective: Interval history: Patient denies any specific complaints. Telemetry shows sinus bradycardia. No chest pain or shortness of breath. EKG from today is pending Medications: Reviewed: Yes Medication Review Details: Current Medications Acetaminophen (Tylenol) 1,000 mg PO Q8H [facility] Last Admin: 08/01/19 06:27 Dose: 1,000 mg Documented by: Amlodipine Besylate (Norvasc) 10 mg PO DAILY [facility] Last Admin: 08/01/19 09:51 Dose: 10 mg Documented by: Apixaban (Eliquis) 5 mg PO BID [facility] Last Admin: 08/01/19 09:53 Dose: 5 mg Documented by: Atorvastatin Calcium (Lipitor) 20 mg PO BEDTIME [facility] Last Admin: 07/31/19 21:25 Dose: 20 mg Documented by: Calcium Carbonate (Tums) 1,000 mg PO BID [facility] Last Admin: 08/01/19 09:52 Dose: 1,000 mg Documented by: Chlorhexidine Gluconate (Perigard) 30 ml MUCOUS MEM QID [facility] Last Admin: 07/31/19 21:25 Dose: 30 ml Documented by: Donepezil HCl (Aricept) 10 mg PO BEDTIME [facility] Last Admin: 07/31/19 21:25 Dose: 10 mg Documented by: Hydralazine HCl (Apresoline) 10 mg IVP Q4H PRN PRN Reason: for SBP>180, Ceftriaxone Sodium 1,000 mg/ (Sodium Chloride) 50 mls @ 100 mls/hr IV Q24H [facility]; Protocol Last Admin: 07/31/19 18:08 Dose: 100 mls/hr Documented by: Insulin Aspart (Novolog) 0 unit SUBCUT TIDWM [facility]; Protocol Last Admin: 08/01/19 09:44 Dose: Not Given Documented by: Losartan Potassium (Cozaar) 100 mg PO DAILY [facility] Last Admin: 08/01/19 09:52 Dose: 100 mg Documented by: Metoprolol Tartrate (Lopressor) 25 mg PO BID [facility] Last Admin: 08/01/19 09:52 Dose: 25 mg Documented by: Multivitamins Therapeutic (Multivitamin Tab) 1 tab PO DAILY [facility] Last Admin: 08/01/19 09:52 Dose: 1 tab Documented by: Mupirocin (Bactroban) 1 applic NASAL BID [facility] Stop: 08/04/19 17:59 Last Admin: 07/31/19 18:07 Dose: 1 applic Documented by: Naloxone HCl (Narcan) 0.1 mg IVP Q2M PRN PRN Reason: Respiratory rate less than 8. Ondansetron HCl (Zofran) 4 mg IVP Q6H PRN PRN Reason: NAUSEA AND VOMITING Phenazopyridine HCl (Pyridium) 100 mg PO TID PRN PRN Reason: pain Polysaccharide Iron Complex (Ferrex) 150 mg PO BIDWM [facility] Last Admin: 08/01/19 09:53 Dose: 150 mg Documented by: Senna/Docusate Sodium (Senna-S) 2 tab PO BID [facility] Last Admin: 08/01/19 09:53 Dose: 2 tab Documented by: Sotalol HCl (Betapace) 80 mg PO BID@0900,2100 [facility] Last Admin: 07/31/19 21:25 Dose: 80 mg Documented by: Tramadol HCl (Ultram) 50 mg PO Q4H PRN PRN Reason: MILD TO MODERATE PAIN Last Admin: 07/31/19 21:23 Dose: 50 mg Documented by: Vitamin D (Vitamin D3) 1,000 unit PO DAILY [facility] Last Admin: 08/01/19 09:53 Dose: 1,000 unit Documented by: Vitals/I&O/Wt Last Vital Signs Temp 98.3 F 08/01/19 08:00 Pulse 57 L 08/01/19 08:00 Resp 16 08/01/19 08:00 BP 113/65 08/01/19 09:52 Pulse Ox 96 08/01/19 08:00 07/31/19 08/01/19 08/01/19 22:59 06:59 14:59 Intake Total 390 / 1350 Output Total 250 / 250 600 / 600 Balance 390 / 1350 -250 / 1100 -600 / -600 Physical Exam Narrative: EXAM NARRATIVE: GENERAL: The patient is alert and oriented times 2. Not in any acute distress. Seems very forgetful HEENT: The HEENT is unremarkable NECK: Trachea appears to be central. No masses noted. No JVD or thyromegaly appreciated. No carotid bruit. RESPIRATORY: Chest is symmetrical. No intercostals muscle retraction or any accessory muscle activation. There is no chest wall tenderness. Breath sounds are heard bilaterally. No rales or rhonchi heard. No evidence of any consolidation. BREASTS: Deferred. HEART: The heart sounds are normal with no S3 or S4. Short systolic murmur in the left sternal border. No diastolic murmurs. No pericardial rub. ABDOMEN: No vessel pulsations or distention. No tenderness. No organomegaly appreciated. No abdominal bruit. Bowel sounds are normally heard. : Deferred. RECTAL: Deferred. LYMPHATIC: No lymphadenopathy noted in the neck. EXTREMITIES: No edema or cyanosis. MUSCULOSKELETAL: The right hip is partially immobilized . SKIN: There are no significant skin rashes NEUROPSYCHIATRIC: The patient is alert and oriented x2. Appears to be in a good mood. No focal motor deficits. Urinary Catheter Management^: Mckinley: Cath Placed During This Visit: yes, but has since been removed by the nurse Urethral Indwelling: Yes Reason for Continuing Indwelling Catheter: Required Immobilization for Trauma or Surgery or Anesthesia Urinary Catheter Date of Insertion: 07/27/19 Urinary Catheter Time of Insertion: 15:11 Date Urinary Catheter Removed: 08/01/19 Time Urinary Catheter Discontinued: 05:30 Data : 08/01/19 04:23 08/01/19 04:23 A&P Assessment and plan (1) Bradycardia: Most likely iatrogenic. I may discontinue the metoprolol. Continue the Betapace. EKG this morning Status: Acute Code(s): R00.1 - Bradycardia, unspecified (2) Atherosclerotic heart disease of [place] coronary artery with other forms of angina pectoris: Mild to moderate coronary disease by angiogram. Clinically seems to be stable. Since the patient has no specific symptoms of coronary insufficiency, may not require any further interventions at this time. May continue on the current medications. Status: Acute Code(s): I25.118 - Atherosclerotic heart disease of [place] coronary artery with other forms of angina pectoris (3) Intermittent atrial fibrillation: Continue the Betapace and the metoprolol as prescribed. Repeat EKG from today is pending. Status: Acute Code(s): I48.0 - Paroxysmal atrial fibrillation (4) CVA (cerebral vascular accident): The CT scan of the head revealed a evidence of a chronic microvascular changes. No acute ischemic changes. Patient may continue on the current medications. She has the carotid Doppler examination yesterday and was found to have mild to moderate plaques. No significant stenosis. Status: Acute Qualifiers: CVA mechanism: embolism Precerebral and cerebral artery: unspecified precerebral artery Qualified Code(s): I63.10 - Cerebral infarction due to embolism of unspecified precerebral artery Code(s): I63.9 - Cerebral infarction, unspecified (5) Hypertension: The blood pressure seems to be under control now. May continue on the current medications Status: Acute Qualifiers: Hypertension type: essential hypertension Qualified Code(s): I10 - Essential (primary) hypertension Code(s): I10 - Essential (primary) hypertension Additional A&P Information If the EKG shows normal QTC, patient may not require any further intervention at this time. I will discontinue the metoprolol Attestations Medical Necessity Statement*: Disposition as per the primary Coding Level of Care Code Acute Curtain Stitcher for [facility] Fwd Diagnoses Bradycardia R00.1 Atherosclerotic heart disease of [place] coronary artery with other forms of angina pectoris I25.118 Intermittent atrial fibrillation I48.0 CVA (cerebral vascular accident) I63.10 CVA mechanism: embolism Precerebral and cerebral artery: unspecified precerebral artery Hypertension I10 Hypertension type: essential hypertension
--- NOTE | 2019-08-01 10:00 | ECG_ITS ---
Measurements Intervals [place] Rate: 58 P: 89 UT: 160 QRS: 29 QRSD: 86 T: 68 QT: 395 QTc: 389 SINUS BRADYCARDIA WITH OCCASIONAL SUPRAVENTRICULAR PREMATURE COMPLEXES POSSIBLE RIGHT VENTRICULAR CONDUCTION DELAY [RSR (QR) IN V1/V2] NONSPECIFIC T-WAVE ABNORMALITY Compared to ECG 07/31/2019 11:08:29 Sinus arrhythmia no longer present Possible ischemia no longer present T-wave abnormality still present Electronically Signed On 08-01-2019 13:23:15 COMPENSATION AND BENEFITS ADMINISTRATOR by Nilda Paez M.D. [email or web address]
--- NOTE | 2019-08-01 11:15 | PC.SOCIAL ---
IMM Page 2 of [facility] updated and [facility] to [facility]. She verbalizes understanding. Initialed, dated, and timed and placed in chart. Copy provided to patient.
[2019-08-01] MEDS: sotalol 80 mg Tablet PO (11:38)
[2019-08-01] MEDS: chlorhexidine gluconate 0.12% Btl 473 mL 30 ML MUCOUS MEM (12:01)
[2019-08-01] MEDS: mupirocin oint 22 gm 1 APPLIC NASAL (12:01)
--- NOTE | 2019-08-01 15:08 | P.DS_ITS ---
Discharge Providers Date of Admission: 07/27/19 15:40 Date of Discharge: August 01, 2019 Attending Provider at Admission: Can Chowdhury MD Attending Provider at Discharge: Can Chowdhury MD Primary Care Provider: Jagjit Garcia Diagnoses at Discharge Discharge Diagnosis (1) Bradycardia: Status: Acute (2) Atherosclerotic heart disease of [place] coronary artery with other forms of angina pectoris: Status: Acute (3) Intermittent atrial fibrillation: Status: Acute (4) CVA (cerebral vascular accident): Status: Acute Qualifiers: CVA mechanism: embolism Precerebral and cerebral artery: unspecified precerebral artery Qualified Code(s): I63.10 - Cerebral infarction due to embolism of unspecified precerebral artery (5) Hypertension: Status: Acute Qualifiers: Hypertension type: essential hypertension Qualified Code(s): I10 - Essential (primary) hypertension Reason for Visit Reason for Visit: Reason For Visit: L femoral neck fracture / chest pain / syncope Hospital Course Discharge Summary: Geneva Pizarro is a 83 year old female with a past medical history of CVA and TIAs, hypertension, hyperlipidemia, jps-anjkzho-cokcuyeyo type 2 diabetes mellitus, recurrent urinary tract infections, who presents to the emergency room due to syncope and fall and fracture. For patient's fall, she sustained a fracture of the left femoral neck, had a bipolar hip arthroplasty by Dr. Braswell, tolerated the surgical procedure well, was discharged to the alf, with physical therapy, with a follow-up with Dr. Lewis as outpatient. For patient's syncopal episodes, patient's echocardiogram showed ejection fraction 76%, grade 1 out of 4 diastolic dysfunction, carotid ultrasound showed no significant stenosis, CT of the head showed chronic microvascular changes, we could never figure out why exactly patient was on Plavix but was possibly secondary to her previous history of CVA of the lower darell, old basal ganglia on MRI March 2009. Patient was neurologically intact, no focal neurologic deficits. Patient was found to have atrial fibrillation during her hospitalization, thus likely patient had transient ischemic attack causing syncope related to paroxysmal atrial fibrillation, she remained asymptomatic, her neurologic checks were unremarkable, she was discharged on a statin, and Eliquis for anticoagulation (for her atrial fibrillation and stroke, as she has a high bleed risk) For patient's atrial fibrillation, she was discharged on sotalol 80 twice daily, her QTC remained within normal limits, Eliquis 5 twice daily, with close follow- up with Gracie Aragon in 1 week, and a follow-up with Dr. Loera in 1 month. Patient had chest pain on presentation, she had a positive cardiac stress test followed by a coronary angiogram which showed 50 to 60% segmental narrowing in the mid RCA, FFR was 0.9, mild diffuse disease, medically managed, remained symptom-free. Physical Exam Const: COMMON NORMALS: no apparent distress and oriented x3 GENERAL APPEARANCE: cooperative and comfortable HENMT: COMMON NORMALS: normocephalic HEAD & SCALP: normocephalic Eye: COMMON NORMALS: PERRL, EOMs intact bilaterally and no papilledema GENERAL EYE: normal appearance of both eyes PUPIL: Yes PERRL DIRECT OPHTHALMOSCOPY: Yes no papilledema Neck/C-Spine: COMMON NORMALS: full ROM, no lymphadenopathy, no JVD and thyroid normal THYROID: thyroid normal Lymph: LYMPHATIC: no lymphadenopathy noted Resp: COMMON NORMALS: normal respiratory effort, no retractions, no use of accessory muscles and clear to auscultation bilaterally AUSCULTATION: clear to auscultation bilaterally Cardio: COMMON NORMALS: no JVD, regular rate, regular rhythm, S1 normal heart sound, S2 normal heart sound, no gallops, no clicks and no murmurs RATE: regular rate RHYTHM: regular rhythm HEART SOUNDS: S1 normal and S2 normal GI: COMMON NORMALS: normal to inspection, nondistended, normoactive bowel sounds, soft to palpation, non-tender and no hepatosplenomegaly PALPATION: Yes soft and Yes no hepatosplenomegaly Extremity: COMMON NORMALS: normal to inspection, full ROM and no pedal edema Neuro: COMMON NORMALS: oriented x3, CN's II-XII intact bilaterally, moves all extremities and no focal motor deficits Psych: COMMON NORMALS: mental status grossly normal, thought process normal and cooperative THOUGHT PROCESS: normal thought process Urinary Catheter Management^: Mckinley: Cath Placed During This Visit: yes, but has since been removed by the nurse Urethral Indwelling: Yes Reason for Continuing Indwelling Catheter: Required Immobilization for Trauma or Surgery or Anesthesia Urinary Catheter Date of Insertion: 07/27/19 Urinary Catheter Time of Insertion: 15:11 Date Urinary Catheter Removed: 08/01/19 Time Urinary Catheter Discontinued: 05:30 Discharge Data Data Completed and Pending: Completed Studies During Hospitalization Category Date Time Status CT head wo con* [id number] Urgent Cat Scan 07/27/19 16:25 Completed 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 HELPER 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 for 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 Routin e Exams 07/28/19 13:43 Completed Sestamibi Stress Test Request Routi ne Exams 07/27/19 17:00 Completed XR chest 1V jimbo ble [id number] Stat Exams 07/27/19 13:50 Completed XR hip LT 2-3V wo /w pel* [id number] Stat Exams 07/27/19 14:24 Completed XR pelvis 1-2V* [id number] Stat Exams 07/30/19 14:09 Completed NM marisa perf SPECT r/s* [id number] Routin e Nuc Med 07/28/19 17:04 Completed CV carotid duplex BI* [id number] Urgent Ultrasound 07/28/19 16:25 Completed CV echo complete* [id number] Urgent Ultrasound 07/28/19 16:25 Completed Pending at discharge Category Date Time Status Complete Blood Co unt w/Auto AM LABS Lab 08/02/19 04:00 Ordered Comprehensive Met abolic Panel AM LA BS Lab 08/02/19 04:00 Ordered Comprehensive Met abolic Panel AM LA BS Lab 08/03/19 04:00 Ordered Magnesium AM LABS Lab 08/02/19 04:00 Ordered Phosphorus AM LAB S Lab 08/02/19 04:00 Ordered Labs from last 24 hours 08/01/19 08/01/19 08/01/19 06:36 04:23 04:23 WBC RBC Hgb Hct MCV MCH MCHC RDW Plt Count MPV Neut % (Auto) Lymph % (Auto) [place] % (Auto) Eos % (Auto) Baso % (Auto) Neut # (Auto) Lymph # (Auto) [place] # (Auto) Eos # (Auto) Baso # (Auto) Nucleated RBC % (a uto) Nucleated RBCs # Sodium 140 Potassium 3.7 Chloride 104 Carbon Dioxide 25 Anion Gap 14.7 BUN 22 Creatinine 1.0 H Glucose 117 H POC Glucose 127 Calcium 8.9 Phosphorus 2.3 L Magnesium 2.2 Total Bilirubin 0.3 AST 21 ALT 15 Alkaline Phosphata se 50 Total Protein 5.6 L Albumin 2.7 L Globulin 2.9 08/01/19 07/31/19 07/31/19 04:23 19:46 17:02 WBC 10.6 H RBC 3.30 L Hgb 10.1 L Hct 32.8 L MCV 99.4 H MCH 30.6 MCHC 30.8 RDW 12.7 Plt Count 188 MPV 11.6 H Neut % (Auto) 70.9 Lymph % (Auto) 17.0 [place] % (Auto) 10.6 Eos % (Auto) 0.7 Baso % (Auto) 0.2 Neut # (Auto) 7.5 Lymph # (Auto) 1.8 [place] # (Auto) 1.1 H Eos # (Auto) 0.1 Baso # (Auto) 0.0 Nucleated RBC % (a uto) 0 Nucleated RBCs # 0.0 Sodium Potassium Chloride Carbon Dioxide Anion Gap BUN Creatinine Glucose POC Glucose 191 201 Calcium Phosphorus Magnesium Total Bilirubin AST ALT Alkaline Phosphata se Total Protein Albumin Globulin 07/31/19 11:21 WBC RBC Hgb Hct MCV MCH MCHC RDW Plt Count MPV Neut % (Auto) Lymph % (Auto) [place] % (Auto) Eos % (Auto) Baso % (Auto) Neut # (Auto) Lymph # (Auto) [place] # (Auto) Eos # (Auto) Baso # (Auto) Nucleated RBC % (a uto) Nucleated RBCs # Sodium Potassium Chloride Carbon Dioxide Anion Gap BUN Creatinine Glucose POC Glucose 299 Calcium Phosphorus Magnesium Total Bilirubin AST ALT Alkaline Phosphata se Total Protein Albumin Globulin Vitals: Last Vital Signs Temp 97.6 F 08/01/19 11:50 Pulse 56 L 08/01/19 11:50 Resp 16 08/01/19 11:50 BP 121/69 08/01/19 11:50 Pulse Ox 94 08/01/19 11:50 Discharge Plan Discharge Patient Disposition: Xfer SNF Condition: Stable Prescriptions: New tramadol 50 mg Tablet 50 mg PO Q4H PRN (Reason: Mild To Moderate Pain) Qty: 40 RF: 0 acetaminophen 500 mg Tablet 1,000 mg PO Q8H 15 Days Qty: 90 RF: 0 atorvastatin 40 mg Tablet 20 mg PO BEDTIME 30 Days Qty: 30 RF: 0 sotalol 80 mg Tablet 80 mg PO BID@0900,2100 30 Days Qty: 60 RF: 0 calcium carbonate 200 mg calcium (500 mg) Tablet,Chewable 1,000 mg PO BID 30 Days Qty: 60 RF: 0 Vitamin D3 25 mcg (1,000 unit) Tablet 1,000 unit PO DAILY 30 Days Qty: 30 RF: 0 Thera 400 mcg Tablet 1 tab PO DAILY 30 Days Qty: 30 RF: 0 Eliquis 5 mg Tablet 5 mg PO BID 30 Days Qty: 60 RF: 0 Keflex 500 mg capsule 500 mg PO Q6H 1 Days Qty: 4 RF: 0 Continued amlodipine 5 mg tablet 5 mg PO DAILY RF: 0 donepezil 10 mg tablet 10 mg PO BEDTIME RF: 0 losartan 100 mg tablet 100 mg PO DAILY RF: 0 metformin 500 mg tablet 500 mg PO BID RF: 0 phenazopyridine [Pyridium] 100 mg tablet 100 mg PO TID PRN (Reason: pain) Qty: 20 RF: 0 Discontinued metoprolol tartrate 100 mg tablet 100 mg PO BID RF: 0 clopidogrel [Plavix] 75 mg tablet 75 mg PO DAILY RF: 0 nitrofurantoin macrocrystal 100 mg capsule 100 mg PO BID Qty: 20 RF: 0 Discharge Orders: Discharge Order (Routine); Ordered 07/31/19 Ordered By: Odilia Braswell Other Ambulatory Orders: Complete Blood Count w/Auto (Routine) Timeframe: 1 Day Location: Determined by Patient Ordered By: Can Chowdhury Comprehensive Metabolic Panel (Routine) Timeframe: 1 Day Facility: [facility] - Location: Lab - Main Lab Ordered By: Can Chowdhury Referrals: [facility] [Outside] Nimisha Loera MD [Physician] - 1 month Odilia Braswell MD [Physician] - 08/09/19 8:45 am Gracie Aragon FNP [Nurse Practitioner] - 1 week Discharge Diet: Cardiac Discharge Activity: Limit activity as instructed, Use walker/crutches as instructed, Wheelchair as instructed and As per PT/OT instructions Patient Instructions: Bradycardia, Cephalexin (By mouth), Acetaminophen (By mouth), Tramadol (By mouth), Atorvastatin (By mouth), Sotalol (By mouth), Vitamin D (By mouth), Apixaban (By mouth), Atrial Fibrillation (DC) Activity Restrictions/Additional Instructions: Posterior hip precautions. Work with physical therapy for range of motion and strengthening. Ambulation and gait training as well. Dressing changes as needed. Discharge Attestations Time Spent in Discharge Care*: less than 30 min Quality Metrics Clinical Quality Measures During this hospital stay, did patient experience: Stroke Contraindication to Antithrombotic: Other (High risk of bleeding as she is on Eliquis 5 twice daily) Contraindication to Anticoagulation: Anticoagulation prescribed Contraindication to Statin: Statin prescribed and None Coding Level of Care Code Acute Dental Hygienist for g Fwd Diagnoses Bradycardia R00.1 Atherosclerotic heart disease of [place] coronary artery with other forms of angina pectoris I25.118 Intermittent atrial fibrillation I48.0 CVA (cerebral vascular accident) I63.10 CVA mechanism: embolism Precerebral and cerebral artery: unspecified precerebral artery Hypertension I10 Hypertension type: essential hypertension
--- NOTE | 2019-08-01 16:34 | P.PN_ITS ---
Subjective Subjective: Interval history: Patient continues to do well. She and her family are ready for her discharge to [facility]. She will continue weightbearing as tolerated on her left lower extremity with posterior hip precautions. Medications: Reviewed: Yes Medication Review Details: Current Medications Acetaminophen (Tylenol) 1,000 mg PO Q8H [facility] Last Admin: 08/01/19 06:27 Dose: 1,000 mg Documented by: Amlodipine Besylate (Norvasc) 10 mg PO DAILY [facility] Last Admin: 08/01/19 09:51 Dose: 10 mg Documented by: Apixaban (Eliquis) 5 mg PO BID [facility] Last Admin: 08/01/19 09:53 Dose: 5 mg Documented by: Atorvastatin Calcium (Lipitor) 20 mg PO BEDTIME [facility] Last Admin: 07/31/19 21:25 Dose: 20 mg Documented by: Calcium Carbonate (Tums) 1,000 mg PO BID [facility] Last Admin: 08/01/19 09:52 Dose: 1,000 mg Documented by: Chlorhexidine Gluconate (Perigard) 30 ml MUCOUS MEM QID [facility] Last Admin: 07/31/19 21:25 Dose: 30 ml Documented by: Donepezil HCl (Aricept) 10 mg PO BEDTIME [facility] Last Admin: 07/31/19 21:25 Dose: 10 mg Documented by: Hydralazine HCl (Apresoline) 10 mg IVP Q4H PRN PRN Reason: for SBP>180, Ceftriaxone Sodium 1,000 mg/ (Sodium Chloride) 50 mls @ 100 mls/hr IV Q24H [facility]; Protocol Last Admin: 07/31/19 18:08 Dose: 100 mls/hr Documented by: Insulin Aspart (Novolog) 0 unit SUBCUT TIDWM [facility]; Protocol Last Admin: 08/01/19 09:44 Dose: Not Given Documented by: Losartan Potassium (Cozaar) 100 mg PO DAILY [facility] Last Admin: 08/01/19 09:52 Dose: 100 mg Documented by: Metoprolol Tartrate (Lopressor) 25 mg PO BID [facility] Last Admin: 08/01/19 09:52 Dose: 25 mg Documented by: Multivitamins Therapeutic (Multivitamin Tab) 1 tab PO DAILY [facility] Last Admin: 08/01/19 09:52 Dose: 1 tab Documented by: Mupirocin (Bactroban) 1 applic NASAL BID [facility] Stop: 08/04/19 17:59 Last Admin: 07/31/19 18:07 Dose: 1 applic Documented by: Naloxone HCl (Narcan) 0.1 mg IVP Q2M PRN PRN Reason: Respiratory rate less than 8. Ondansetron HCl (Zofran) 4 mg IVP Q6H PRN PRN Reason: NAUSEA AND VOMITING Phenazopyridine HCl (Pyridium) 100 mg PO TID PRN PRN Reason: pain Polysaccharide Iron Complex (Ferrex) 150 mg PO BIDWM [facility] Last Admin: 08/01/19 09:53 Dose: 150 mg Documented by: Senna/Docusate Sodium (Senna-S) 2 tab PO BID [facility] Last Admin: 08/01/19 09:53 Dose: 2 tab Documented by: Sotalol HCl (Betapace) 80 mg PO BID@0900,2100 [facility] Last Admin: 07/31/19 21:25 Dose: 80 mg Documented by: Tramadol HCl (Ultram) 50 mg PO Q4H PRN PRN Reason: MILD TO MODERATE PAIN Last Admin: 07/31/19 21:23 Dose: 50 mg Documented by: Vitamin D (Vitamin D3) 1,000 unit PO DAILY [facility] Last Admin: 08/01/19 09:53 Dose: 1,000 unit Documented by: Vitals/I&O/Wt Last Vital Signs Temp 98.4 F 08/01/19 16:00 Pulse 65 08/01/19 16:00 Resp 18 08/01/19 16:00 BP 127/69 08/01/19 16:00 Pulse Ox 95 08/01/19 16:00 08/01/19 08/01/19 08/01/19 06:59 14:59 22:59 Intake Total 360 / 360 Output Total 250 / 250 600 / 600 Balance -250 / 1100 -240 / -240 Physical Exam Narrative: EXAM NARRATIVE: Patient is quite cooperative, and she is seen with her family. She is alert and oriented today. She has no significant complaints. Her extremity demonstrates no sign of DVT or infection. There is no drainage. There is no significant swelling. She is neurologically intact. Dressings are dry and intact. Const: COMMON NORMALS: no apparent distress, average body habitus, oriented x3 and alert GENERAL APPEARANCE: cooperative and comfortable ORIENTATION/CONSCIOUSNESS: Yes awake HENMT: COMMON NORMALS: normocephalic and head/scalp atraumatic; hearing grossly not normal bilaterally (Patient is very hard of hearing) HEAD & SCALP: normocephalic and atraumatic Eye: GENERAL EYE: normal appearance of both eyes Chest: COMMONS NORMALS: inspection of chest normal Resp: COMMON NORMALS: normal respiratory effort EFFORT & INSPECTION: Yes able to speak in complete sentences and Yes symmetric chest movement Neuro: COMMON NORMALS: oriented x3 SENSORIUM/ORIENTATION: Yes alert Psych: COMMON NORMALS: mental status grossly normal APPEARANCE: Yes grossly normal ATTITUDE: Yes calm and Yes engaged ATTENTION/CONCENTRATION: Yes attention grossly intact Skin: COMMON NORMALS: no rashes or lesions noted GENERAL SKIN EXAM: no ra shes or lesions noted Urinary Catheter Management^: Mckinley: Cath Placed During This Visit: yes, but has since been removed by the nurse Urethral Indwelling: Yes Reason for Continuing Indwelling Catheter: Required Immobilization for Trauma or Surgery or Anesthesia Urinary Catheter Date of Insertion: 07/27/19 Urinary Catheter Time of Insertion: 15:11 Date Urinary Catheter Removed: 08/01/19 Time Urinary Catheter Discontinued: 05:30 Data : 08/01/19 04:23 08/01/19 04:23 A&P Assessment and plan (1) Fracture of femoral neck, left: The patient had an uneventful bipolar hip arthroplasty 2 days ago. She tolerated the procedure well. Her DVT prophylaxis will include Eliquis as this will also treat her intermittent atrial fib diagnosed at the time of this visit. The patient will be discharged to prison today. She is to follow posterior hip precautions. She will follow-up with me in the office in approximately 2 to 3 weeks. Status: Acute Code(s): S72.002A - Fracture of unspecified part of neck of left femur, initial encounter for closed fracture (2) Type 2 diabetes mellitus: Status: Acute Code(s): E11.9 - Type 2 diabetes mellitus without complications (3) Hypertension: Status: Acute Qualifiers: Hypertension type: essential hypertension Qualified Code(s): I10 - Essential (primary) hypertension Code(s): I10 - Essential (primary) hypertension (4) UTI (urinary tract infection): Status: Acute Code(s): N39.0 - Urinary tract infection, site not specified (5) Syncope: Status: Acute Code(s): R55 - Syncope and collapse Attestations Medical Necessity Statement*: Plans are for discharge to prison today. Coding Level of Care Code Acute Payroll Machine Operator for Chg Fwd Diagnoses Fracture of femoral neck, left S72.002A Type 2 diabetes mellitus E11.9 Hypertension I10 Hypertension type: essential hypertension UTI (urinary tract infection) N39.0 Syncope R55
[2019-08-01 16:37] LABS: Glucose Point of Care 154 mg/dL (70-110)
[2019-08-02 06:14] LABS: Glucose Point of Care 162 mg/dL (70-110)
== END 2019-08-01 17:05 | disposition skilled nursing facility (03) | DRG 516 ==
LOC: ER 14:11 → CSU 17:03 → MEDSURG 07-30 14:31
PROVIDERS: Internal Medicine Cardiovascular Disease; Specialist; Admitting Provider Family Medicine; Emergency Provider Family Medicine; Family Provider Family Medicine; PCP Family Medicine; Visit Provider Family Medicine
PROC: 4A023N7 Measurement of Cardiac Sampling and Pressure, Left Heart, Percutaneous Approach (ICD-10-PCS; 2019-07-28 12:00)
PROC: 0QU Lower Bones, Supplement (ICD-10-PCS; CPT 27125; principal; 2019-07-30 08:00)
DX: S72.002A Fracture of unspecified part of neck of left femur, initial encounter for closed fracture (principal); N39.0 Urinary tract infection, site not specified; F31.9 Bipolar disorder, unspecified; R55 Syncope and collapse; I48.0 Paroxysmal atrial fibrillation; W18.30XA Fall on same level, unspecified, initial encounter; I10 Essential (primary) hypertension; K21.9 Gastro-esophageal reflux disease without esophagitis; E11.9 Type 2 diabetes mellitus without complications; G30.9 Alzheimer's disease, unspecified; F02.80 Dementia in other diseases classified elsewhere, unspecified severity, without behavioral disturbance, psychotic disturbance, mood disturbance, and anxiety; R94.39 Abnormal result of other cardiovascular function study; E78.5 Hyperlipidemia, unspecified; D64.9 Anemia, unspecified; I25.118 Atherosclerotic heart disease of native coronary artery with other forms of angina pectoris; Y92.012 Bathroom of single-family (private) house as the place of occurrence of the external cause; Z86.73 Personal history of transient ischemic attack (TIA), and cerebral infarction without residual deficits; Z79.82 Long term (current) use of aspirin; Z79.83 Long term (current) use of bisphosphonates; Z79.84 Long term (current) use of oral hypoglycemic drugs; Z79.899 Other long term (current) drug therapy
CPT/HCPCS: 12345; 36415; 36416; 51702; 70450; 71045; 72170; 73502; 78452; 80053; 80061; 82962; 83036; 83735; 83880; 84100; 84484; 85025; 85610; 87077; 87086; 87186; 93005; 93017; 93306; 93452; 93571; 93880; 96372; 97110; 97116; 97162; 97166; 97530; 97535; 99283; A9500; C1769; C1776; C1887; C1894; J0131; J0153; J0690; J0696; J1644; J1815; J2001; J2250; J2270; J2405; J2704; J2785; J3010; J3370; J3490; J7030; Q9967

== ENCOUNTER → 2019-08-09 08:47 | Outpatient (BNVA) | payer MEDICARE, SELFPAY | PROVIDERS: Family Provider Family Medicine; PCP Family Medicine; Visit Provider Specialist | DX: Z96.642 Presence of left artificial hip joint (principal) | CPT/HCPCS: 73502 ==

== ENCOUNTER → 2019-09-20 12:09 | Outpatient (BNVA) | payer MEDICARE, SELFPAY | PROVIDERS: Family Provider Family Medicine; PCP Family Medicine; Visit Provider Specialist | DX: Z47.1 Aftercare following joint replacement surgery (principal); Z96.642 Presence of left artificial hip joint; M16.11 Unilateral primary osteoarthritis, right hip | CPT/HCPCS: 73502 ==

== ENCOUNTER → 2019-10-09 11:55 | Outpatient (BNVA) | payer MEDICARE, SELFPAY | PROVIDERS: Family Provider Family Medicine; PCP Family Medicine; Visit Provider Family Medicine | DX: Z09 Encounter for follow-up examination after completed treatment for conditions other than malignant neoplasm; R35.0 Frequency of micturition; N30.90 Cystitis, unspecified without hematuria | CPT/HCPCS: 80053; 81003 ==

== ENCOUNTER → 2019-11-22 10:43 | Outpatient (BNVA) | payer MEDICARE, SELFPAY | PROVIDERS: Family Provider Family Medicine; PCP Family Medicine; Visit Provider Specialist | DX: S72.002D Fracture of unspecified part of neck of left femur, subsequent encounter for closed fracture with routine healing (principal); Z98.890 Other specified postprocedural states; W19.XXXD Unspecified fall, subsequent encounter | CPT/HCPCS: 73502 ==

== ENCOUNTER → 2020-09-10 11:40 | Outpatient (BNVA) | payer MEDICARE, SELFPAY | PROVIDERS: Family Provider Family Medicine; PCP Radiology Neuroradiology; Visit Provider Internal Medicine Cardiovascular Disease | DX: R06.02 Shortness of breath (principal); R60.9 Edema, unspecified; I50.33 Acute on chronic diastolic (congestive) heart failure; R07.9 Chest pain, unspecified | CPT/HCPCS: 80048; 83880 ==

== ENCOUNTER → 2020-09-23 09:15 | Outpatient (BNVA) | payer MEDICARE, SELFPAY | PROVIDERS: Family Provider Family Medicine; PCP Radiology Neuroradiology; Visit Provider Internal Medicine Cardiovascular Disease | DX: E11.9 Type 2 diabetes mellitus without complications (principal); I25.118 Atherosclerotic heart disease of native coronary artery with other forms of angina pectoris; R60.9 Edema, unspecified; I63.10 Cerebral infarction due to embolism of unspecified precerebral artery | CPT/HCPCS: 80048; 83880 ==

== ENCOUNTER 2021-08-19 16:23 | Observation (INO) | payer MEDICARE, SELFPAY ==
[2021-08-19] VITALS (7 sets, daily range): BP systolic 94–135; BP diastolic 43–83; PULSE 15–64; RESP 15–22; TEMP 36.6; O2SAT 97–100; BMI 25.8
--- NOTE | 2021-08-19 16:25 | CTR_ITS ---
PROCEDURE INFORMATION: Exam: CT Cervical Spine Without Contrast Exam date and time: 08/19/2021 4:51 PM Age: 85 years old Clinical indication: Injury or trauma; Fall; Blunt trauma TECHNIQUE: Imaging protocol: Computed tomography images of the cervical spine without contrast. Radiation optimization: All CT scans at this facility use at least one of these dose optimization techniques: automated exposure control; mA and/or kV adjustment per patient size (includes targeted exams where dose is matched to clinical indication); or iterative reconstruction. COMPARISON: CT head wo con* [id number] 08/19/2021 4:48 PM RADIATION DOSE METRICS: Total DLP (mGy-cm): 653.05 FINDINGS: Bones/joints: Mild multilevel spine degenerative changes including degenerative disc disease, spondylosis and facet degenerative changes. Discs/Spinal canal/Neural foramina: Multilevel bilateral foraminal stenosis. Thyroid: Heterogeneous thyroid glands most consistent with multinodular goiter. Lymph nodes: Calcified right hilar nodes and/or mediastinal nodes and/or lung granulomas consistent with old granulomatous disease. Lungs: 1.2 cm pneumatocele in the medial left lung apex. Soft tissues: Unremarkable. CT/CT cervical spin wo con* [id number] IMPRESSION: No acute C-spine findings.
--- NOTE | 2021-08-19 16:26 | CTR_ITS ---
PROCEDURE INFORMATION: Exam: CT Head Without Contrast Exam date and time: 08/19/2021 4:48 PM Age: 85 years old Clinical indication: Injury or trauma; Fall; Blunt trauma (contusions or hematomas) TECHNIQUE: Imaging protocol: Computed tomography of the head without contrast. Radiation optimization: All CT scans at this facility use at least one of these dose optimization techniques: automated exposure control; mA and/or kV adjustment per patient size (includes targeted exams where dose is matched to clinical indication); or iterative reconstruction. COMPARISON: CT head wo con* [id number] 07/27/2019 5:18 PM RADIATION DOSE METRICS: Total DLP (mGy-cm): 982.57 FINDINGS: Brain: Normal. No hemorrhage. Unremarkable white matter. No mass effect. Cerebral ventricles: No ventriculomegaly. Paranasal sinuses: Visualized sinuses are unremarkable. No fluid levels. Mastoid air cells: Visualized mastoid air cells are well aerated. Vasculature: Severe calcified intracranial atherosclerotic vessel disease. Bones/joints: Unremarkable. No acute fracture. Soft tissues: Large 5.5 x 5.1 x 3.6 cm left parietal scalp hematoma with associated soft tissue emphysema and scalp laceration.. CT/CT head wo con* [id number] IMPRESSION: 1. Large 5.5 x 5.1 x 3.6 cm left parietal scalp hematoma with associated soft tissue emphysema and scalp laceration.. 2. No acute intracranial findings.
--- NOTE | 2021-08-19 16:27 | ECG_ITS ---
[facility] Test Date: 2021-08-19 Pat Name: Geneva Pizarro Department: Room: Gender: Female Pedodontist: : 1935 Requested By: Eric Sethi Order Number: [id number] Nalini MD: Nilda Paez M.D. Measurements Intervals [place] Rate: 56 P: 84 DC: 163 QRS: 46 QRSD: 107 T: 30 QT: 451 QTc: 438 Interpretive Statements SINUS BRADYCARDIA INCOMPLETE RIGHT BUNDLE BRANCH BLOCK MODERATE T-WAVE ABNORMALITY, CONSIDER ANTERIOR ISCHEMIA Compared to ECG 08/01/2019 10:31:49 Incomplete right bundle-branch block now present Possible ischemia now present T-wave abnormality still present Electronically Signed On 08-19-2021 16:38:08 CDT by Nilda Paez M.D. [id number]
--- NOTE | 2021-08-19 16:27 | XRR_ITS ---
PROCEDURE INFORMATION: Exam: XR Chest Exam date and time: 08/19/2021 4:26 PM Age: 85 years old Clinical indication: Injury or trauma; Fall; Cough and dyspnea; Blunt trauma (contusions or hematomas); Additional info: Dyspnea/cough TECHNIQUE: Imaging protocol: XR of the chest. Views: 1 view. COMPARISON: CR XR chest 1V portable [id number] 07/27/2019 2:23 PM FINDINGS: Lungs: Unremarkable. No consolidation. Pleural spaces: Unremarkable. No pleural effusion. No pneumothorax. Heart/Mediastinum: Unremarkable. No cardiomegaly. Bones/joints: No emergent findings identified. XR/XR chest 1V portable [id number] IMPRESSION: 1. No acute findings.
--- NOTE | 2021-08-19 16:35 | W.ED.FALL ---
Documented by User: Eric Nieves DO 08/30/21 07:21 HPI - Fall General: Chief Complaint: ER Hold Stated Complaint: DIZZY,FALL Time Seen by Provider: 08/19/21 16:25 Source: patient Mode of arrival: EMS Limitations: no limitations History of Present Illness: 85-year-old female. Head on the fireplace she has a laceration that has been oozing left occipital region. She is alert on arrival here. She denies any chest pain or any shortness of breath she stumbled and lightheaded dizzy. Family at the bedside is concerned she may have had a UTI. She frequently in the past has had urinary tract infections associated with her falls. MD complaint: fall Onset (ago): hour(s) Fall from: standing Fall witnessed: no Place fall occurred: home Loss of consciousness: Unsure Prolonged down time: yes and hour(s) (7) Symptoms prior to fall: lightheadedness Location of injury: head Associated symptoms-after fall: Denies abdominal pain, chest pain, confusion, difficulty walking, headache(s), hematuria, lightheadedness, neck pain, numbness, short of breath, vertigo or weakness Review of Systems Const: Denies: fever(s), chills, body aches, change in appetite, fatigue or malaise ENMT: Denies: throat pain, ear or mastoid pain, nasal discharge or nasal congestion Card: Denies: chest pain or lightheadedness Resp: Denies: dyspnea, productive cough or non-productive cough GI: Denies: abdominal pain : Denies: hematuria Musc: Denies: neck pain Skin/Breast: Denies: rash or pruritus Neuro: Denies: headache(s), difficulty walking, vertigo or confusion PFS ED PFSH: Medical History Abnormal myocardial perfusion study Atherosclerotic heart disease of [place] coronary artery with other forms of angina pectoris Atypical chest pain CVA (cerebral vascular accident) Fracture of femoral neck, left GERD (gastroesophageal reflux disease) Hypertension Intermittent atrial fibrillation Surgical History History of cataract extraction History of cholecystectomy History of partial hysterectomy Family History Father Cancer Sister Cancer Stroke Family/Other Diabetes Denies family history of CAD (coronary artery disease) Clotting disorder Dementia Chronic kidney disease (CKD) Suicide Anesthesia complication Bleeding disorder Lung disease Social History Smoking and tobacco status: never smoked Alcohol intake: never Lives independently: Yes Marital status: / Physical Exam Const: GENERAL APPEARANCE: cooperative and comfortable ORIENTATION/CONSCIOUSNESS: Yes awake HENMT: HEAD & SCALP: hematoma left occipital and laceration left occipital Neck/C-Spine: COMMON NORMALS: no JVD Resp: COMMON NORMALS: normal respiratory effort, No retractions, No use of accessory muscles and clear to auscultation bilaterally AUSCULTATION: clear to auscultation bilaterally Cardio: COMMON NORMALS: no JVD, regular rate, regular rhythm and No murmurs present (Cardio) RATE: regular rate RHYTHM: regular rhythm GI: COMMON NORMALS: Soft to palpation and No hepatosplenomegaly present AUSCULTATION: Yes normoactive bowel sounds PALPATION: Yes Soft to palpation, No Tenderness to palpation present (GI), No Guarding due to palpation present (GI) and Yes No hepatosplenomegaly present Extremity: COMMON NORMALS: normal to inspection, capillary refill normal, no clubbing, cyanosis or edema, no calf tenderness and no pedal edema Skin: COMMON NORMALS: no rashes or lesions noted GENERAL SKIN EXAM: no rashes or lesions noted Course Vital Signs: Vital signs: Vital Signs Temperature 97.9 F 08/19/21 16:25 Pulse Rate 73 08/20/21 16:56 Respiratory Rate 18 08/20/21 16:56 Blood Pressure 151/54 08/20/21 16:56 Pulse Oximetry 96 08/20/21 16:56 MDM - Fall Medical Decision Making Care signed out to Dr. Butt at change of shift. See final notes for diagnosis and disposition. Patient presents here with some generalized weakness along with a fall. She does have a head laceration from the fall no signs of intracranial injuries. She does have a urinary tract infection with a leukocytosis spoke to hospitalist who will admit. Lab Data : 08/20/21 03:25 08/20/21 03:25 Radiology Impressions Cervical Spine CT 08/19/21 16:25 IMPRESSION: No acute C-spine findings. Head CT 08/19/21 16:26 IMPRESSION: 1. Large 5.5 x 5.1 x 3.6 cm left parietal scalp hematoma with associated soft tissue emphysema and scalp laceration.. 2. No acute intracranial findings. Chest X-Ray 08/19/21 16:27 IMPRESSION: 1. No acute findings. Renal Ultrasound 08/19/21 23:01 IMPRESSION: 1. Technically very limited evaluation of the kidneys due to body habitus. 2. No hydronephrosis. Low normal size kidneys. It would be difficult to exclude solid mass. Laboratory Results WBC 15.6 10^3/uL (4.0-10.0) H 08/19/21 17:05 RBC 2.92 10^6/uL (4.1-5.3) L 08/19/21 17:05 Hgb 8.9 g/dL (11.5-15.3) L 08/19/21 17:05 Hct 28.4 % (37.0-47.0) L 08/19/21 17:05 MCV 97.3 fl (81-99) 08/19/21 17:05 MCH 30.5 pg (28.0-34.0) 08/19/21 17:05 MCHC 31.3 g/dL (30.0-36.0) 08/19/21 17:05 RDW 11.9 % (12.1-15.1) L 08/19/21 17:05 Plt Count 206 10^3/cmm (130-400) 08/19/21 17:05 MPV 11.4 fL (7.4-10.4) H 08/19/21 17:05 Neut % (Auto) 85.5 % 08/19/21 17:05 Lymph % (Auto) 8.5 % 08/19/21 17:05 [place] % (Auto) 5.1 % 08/19/21 17:05 Eos % (Auto) 0.0 % 08/19/21 17:05 Baso % (Auto) 0.3 % 08/19/21 17:05 Neut # (Auto) 13.33 10^3/uL (1.8-7.7) H 08/19/21 17:05 Lymph # (Auto) 1.3 10^3/uL (0.8-4.8) 08/19/21 17:05 [place] # (Auto) 0.8 10^3/uL (0.2-0.9) 08/19/21 17:05 Eos # (Auto) 0.0 10^3/uL (0.0-0.8) 08/19/21 17:05 Baso # (Auto) 0.0 10^3/uL (0.0-0.1) 08/19/21 17:05 Nucleated RBC % (auto) 0 % 08/19/21 17:05 Nucleated RBCs # 0.0 /100WBC 08/19/21 17:05 PT 15.50 SECONDS (12.1-14.9) H 08/19/21 21:59 INR 1.19 (0.8-1.2) 08/19/21 21:59 Specimen Type Arterial 08/19/21 18:23 Sample Site Radial, right 08/19/21 18:23 ABG pH 7.38 (7.35-7.45) 08/19/21 18: ABG pCO2 34.7 mmHg (35-45) L 08/19/21 18:23 ABG pO2 81.5 mmHg (80.0-100.0) 08/19/21 18: ABG HCO3 20.3 mmol/L (22-26) L 08/19/21 18: ABG Base Excess -4.4 mmol/L (-2.0-2.0) L 08/19/21 18:23 Eduard Test Pos 08/19/21 18:23 Hematocrit 28.4 % (37-47) L 08/19/21 18:23 O2 Delivery Device Room air 08/19/21 18:23 FiO2 21.0 % 08/19/21 18:23 Consultant Education ID [email or web address] 08/19/21 18:23 Sodium 138 mmol/L (136-145) 08/19/21 17:05 Potassium 4.6 mmol/L (3.5-5.1) 08/19/21 17:05 Chloride 106 mmol/L (98-107) 08/19/21 17:05 Carbon Dioxide 15 mmol/L (22-29) L 08/19/21 17:05 Anion Gap 21.6 (5-19) H 08/19/21 17:05 BUN 16 mg/dL (8-23) 08/19/21 17:05 Creatinine 0.9 mg/dL (0.5-0.9) 08/19/21 17:05 GFR Calculation Not Reportable 08/19/21 17:05 Glucose 198 mg/dL (65-115) H 08/19/21 17:05 Estimat Average Glucose 163 08/19/21 17:05 Hemoglobin A1c 7.3 % (4.0-6.0) H 08/19/21 17:05 Calculated Osmolality 293 mOsm/kg (285-295) 08/19/21 17:05 Lactic Acid 4.0 mmol/L (0.5-2.2) H 08/19/21 18:05 Lactic Acid (Sepsis) 2.2 mmol/L (0.5-2.2) 08/19/21 20:40 Calcium 8.3 mg/dL (8.5-10.5) L 08/19/21 17:05 Iron 61 ug/dL (37-145) 08/19/21 17:05 TIBC 147 mcg/dl 08/19/21 17:05 % Saturation 41.4 % (20-50) 08/19/21 17:05 Unsat Iron Binding 86 ug/dL (112-347) L 08/19/21 17:05 Ferritin 61 ng/mL (15-150) 08/19/21 17:05 Total Bilirubin 0.5 mg/dL (0.15-1.2) 08/19/21 17:05 AST 14 U/L (0-32) 08/19/21 17:05 ALT 11 U/L (0-33) 08/19/21 17:05 Alkaline Phosphatase 43 IU/L (35-105) 08/19/21 17:05 Creatine Kinase 126 U/L (26-192) 08/19/21 17:05 Troponin T Baseline 24 ng/L (0-10) H 08/19/21 21:59 NT-Pro-B Natriuret Pep 1956 pg/mL (0-450) H 08/19/21 17:05 Total Protein 4.4 g/dL (6.6-8.7) L 08/19/21 17:05 Albumin 2.7 g/dL (3.5-5.2) L 08/19/21 17:05 Globulin 1.7 g/dL (1.3-4.6) 08/19/21 17:05 Lipase 11 U/L (13-60) L 08/19/21 17:05 Procalcitonin 0.14 ng/mL (0-0.5) 08/19/21 21:59 TSH 2.05 uIU/mL (0.27-4.20) 08/19/21 17:05 Urine Color Yellow (Yellow) 08/19/21 17:20 Urine Appearance Clear (CLEAR) 08/19/21 17:20 Urine pH 5 (5-7) 08/19/21 17:20 Ur Specific [place] 1.020 (1.005-1.030) 08/19/21 17:20 Urine Protein 1+ (Negative) H 08/19/21 17:20 Urine Glucose (UA) Norm (Normal) 08/19/21 17:20 Urine Ketones Negative (Negative) 08/19/21 17:20 Urine Blood 2+ (Negative) H 08/19/21 17:20 Urine Nitrate Negative (Negative) 08/19/21 17:20 Urine Bilirubin Neg (Negative) 08/19/21 17:20 Urine Urobilinogen Norm mg/dL (Negative) 08/19/21 17:20 Ur Leukocyte Esterase 2+ (Negative) H 08/19/21 17:20 Urine RBC 0-4 /hpf (0-2) H 08/19/21 17:20 Urine WBC 55-80 /hpf (0-5) H 08/19/21 17:20 Ur Squamous Epith Cells 0-4 /hpf (0-5) H 08/19/21 17:20 Amorphous Sediment Not Reportable 08/19/21 17:20 Urine Bacteria 2+ /hpf (NONE) H 08/19/21 17:20 Discharge Plan Discharge Patient Disposition: Admitted As Inpatient Admit Provider: Can Chowdhury Clinical Impression: Intermittent atrial fibrillation, Type 2 diabetes mellitus, Recurrent falls, Hypertension, CVA (cerebral vascular accident) Condition: Stable Discharge Diet: Diabetic Discharge Activity: Resume usual activity Coding Level of Care Code ED Director [employer] for Chg Fwd Exam Comprehensive Documented by User: Cesar Butt MD 08/19/21 20:55 HPI - Fall General: Chief Complaint: ER Hold Stated Complaint: DIZZY,FALL Time Seen by Provider: 08/19/21 16:25 History of Present Illness: . PFS ED PFSH: Medical History Abnormal myocardial perfusion study Atherosclerotic heart disease of [place] coronary artery with other forms of angina pectoris Atypical chest pain CVA (cerebral vascular accident) Fracture of femoral neck, left GERD (gastroesophageal reflux disease) Hypertension Intermittent atrial fibrillation Surgical History History of cataract extraction History of cholecystectomy History of partial hysterectomy Family History Father Cancer Sister Cancer Stroke Family/Other Diabetes Denies family history of CAD (coronary artery disease) Clotting disorder Dementia Chronic kidney disease (CKD) Suicide Anesthesia complication Bleeding disorder Lung disease Social History Smoking and tobacco status: never smoked Alcohol intake: never Lives independently: Yes Marital status: / Procedures Laceration Laceration 1: Site: scalp Size (cm): 9 Description: linear Depth: simple, single layer Local Anesthetic: lidocaine 1% Amount of anesthesia used (mL): 15 Size (cm): other (francisco j) Number of sutures: 9 Technique: simple, interrupted Course Vital Signs: Vital signs: Vital Signs Temperature 97.9 F 08/19/21 16:25 Pulse Rate 73 08/20/21 16:56 Respiratory Rate 18 08/20/21 16:56 Blood Pressure 151/54 08/20/21 16:56 Pulse Oximetry 96 08/20/21 16:56 MDM - Fall Medical Decision Making Patient presents here with some generalized weakness along with a fall. She does have a head laceration from the fall no signs of intracranial injuries. She does have a urinary tract infection with a leukocytosis spoke to hospitalist who will admit. Lab Data : 08/20/21 03:25 08/20/21 03:25 Radiology Impressions Cervical Spine CT 08/19/21 16:25 IMPRESSION: No acute C-spine findings. Head CT 08/19/21 16:26 IMPRESSION: 1. Large 5.5 x 5.1 x 3.6 cm left parietal scalp hematoma with associated soft tissue emphysema and scalp laceration.. 2. No acute intracranial findings. Chest X-Ray 08/19/21 16:27 IMPRESSION: 1. No acute findings. Renal Ultrasound 08/19/21 23:01 IMPRESSION: 1. Technically very limited evaluation of the kidneys due to body habitus. 2. No hydronephrosis. Low normal size kidneys. It would be difficult to exclude solid mass. Laboratory Results WBC 15.6 10^3/uL (4.0-10.0) H 08/19/21 17:05 RBC 2.92 10^6/uL (4.1-5.3) L 08/19/21 17:05 Hgb 8.9 g/dL (11.5-15.3) L 08/19/21 17:05 Hct 28.4 % (37.0-47.0) L 08/19/21 17:05 MCV 97.3 fl (81-99) 08/19/21 17:05 MCH 30.5 pg (28.0-34.0) 08/19/21 17:05 MCHC 31.3 g/dL (30.0-36.0) 08/19/21 17:05 RDW 11.9 % (12.1-15.1) L 08/19/21 17:05 Plt Count 206 10^3/cmm (130-400) 08/19/21 17:05 MPV 11.4 fL (7.4-10.4) H 08/19/21 17:05 Neut % (Auto) 85.5 % 08/19/21 17:05 Lymph % (Auto) 8.5 % 08/19/21 17:05 Nobles % (Auto) 5.1 % 08/19/21 17:05 Eos % (Auto) 0.0 % 08/19/21 17:05 Baso % (Auto) 0.3 % 08/19/21 17:05 Neut # (Auto) 13.33 10^3/uL (1.8-7.7) H 08/19/21 17:05 Lymph # (Auto) 1.3 10^3/uL (0.8-4.8) 08/19/21 17:05 [place] # (Auto) 0.8 10^3/uL (0.2-0.9) 08/19/21 17:05 Eos # (Auto) 0.0 10^3/uL (0.0-0.8) 08/19/21 17:05 Baso # (Auto) 0.0 10^3/uL (0.0-0.1) 08/19/21 17:05 Nucleated RBC % (auto) 0 % 08/19/21 17:05 Nucleated RBCs # 0.0 /100WBC 08/19/21 17:05 PT 15.50 SECONDS (12.1-14.9) H 08/19/21 21:59 INR 1.19 (0.8-1.2) 08/19/21 21:59 Specimen Type Arterial 08/19/21 18:23 Sample Site Radial, right 08/19/21 18:23 ABG pH 7.38 (7.35-7.45) 08/19/21 18: ABG pCO2 34.7 mmHg (35-45) L 08/19/21 18:23 ABG pO2 81.5 mmHg (80.0-100.0) 08/19/21 18: ABG HCO3 20.3 mmol/L (22-26) L 08/19/21 18:23 ABG Base Excess -4.4 mmol/L (-2.0-2.0) L 08/19/21 18:23 Eduard Test Pos 08/19/21 18:23 Hematocrit 28.4 % (37-47) L 08/19/21 18:23 O2 Delivery Device Room air 08/19/21 18:23 FiO2 21.0 % 08/19/21 18:23 Consultant Education ID glc 08/19/21 18:23 Sodium 138 mmol/L (136-145) 08/19/21 17:05 Potassium 4.6 mmol/L (3.5-5.1) 08/19/21 17:05 Chloride 106 mmol/L (98-107) 08/19/21 17:05 Carbon Dioxide 15 mmol/L (22-29) L 08/19/21 17:05 Anion Gap 21.6 (5-19) H 08/19/21 17:05 BUN 16 mg/dL (8-23) 08/19/21 17:05 Creatinine 0.9 mg/dL (0.5-0.9) 08/19/21 17:05 GFR Calculation Not Reportable 08/19/21 17:05 Glucose 198 mg/dL (65-115) H 08/19/21 17:05 Estimat Average Glucose 163 08/19/21 17:05 Hemoglobin A1c 7.3 % (4.0-6.0) H 08/19/21 17:05 Calculated Osmolality 293 mOsm/kg (285-295) 08/19/21 17:05 Lactic Acid 4.0 mmol/L (0.5-2.2) H 08/19/21 18:05 Lactic Acid (Sepsis) 2.2 mmol/L (0.5-2.2) 08/19/21 20:40 Calcium 8.3 mg/dL (8.5-10.5) L 08/19/21 17:05 Iron 61 ug/dL (37-145) 08/19/21 17:05 TIBC 147 mcg/dl 08/19/21 17:05 % Saturation 41.4 % (20-50) 08/19/21 17:05 Unsat Iron Binding 86 ug/dL (112-347) L 08/19/21 17:05 Ferritin 61 ng/mL (15-150) 08/19/21 17:05 Total Bilirubin 0.5 mg/dL (0.15-1.2) 08/19/21 17:05 AST 14 U/L (0-32) 08/19/21 17:05 ALT 11 U/L (0-33) 08/19/21 17:05 Alkaline Phosphatase 43 IU/L (35-105) 08/19/21 17:05 Creatine Kinase 126 U/L (26-192) 08/19/21 17:05 Troponin T Baseline 24 ng/L (0-10) H 08/19/21 21:59 NT-Pro-B Natriuret Pep 1956 pg/mL (0-450) H 08/19/21 17:05 Total Protein 4.4 g/dL (6.6-8.7) L 08/19/21 17:05 Albumin 2.7 g/dL (3.5-5.2) L 08/19/21 17:05 Globulin 1.7 g/dL (1.3-4.6) 08/19/21 17:05 Lipase 11 U/L (13-60) L 08/19/21 17:05 Procalcitonin 0.14 ng/mL (0-0.5) 08/19/21 21:59 TSH 2.05 uIU/mL (0.27-4.20) 08/19/21 17:05 Urine Color Yellow (Yellow) 08/19/21 17:20 Urine Appearance Clear (CLEAR) 08/19/21 17:20 Urine pH 5 (5-7) 08/19/21 17:20 Ur Specific [place] 1.020 (1.005-1.030) 08/19/21 17:20 Urine Protein 1+ (Negative) H 08/19/21 17:20 Urine Glucose (UA) Norm (Normal) 08/19/21 17:20 Urine Ketones Negative (Negative) 08/19/21 17:20 Urine Blood 2+ (Negative) H 08/19/21 17:20 Urine Nitrate Negative (Negative) 08/19/21 17:20 Urine Bilirubin Neg (Negative) 08/19/21 17:20 Urine Urobilinogen Norm mg/dL (Negative) 08/19/21 17:20 Ur Leukocyte Esterase 2+ (Negative) H 08/19/21 17:20 Urine RBC 0-4 /hpf (0-2) H 08/19/21 17:20 Urine WBC 55-80 /hpf (0-5) H 08/19/21 17:20 Ur Squamous Epith Cells 0-4 /hpf (0-5) H 08/19/21 17:20 Amorphous Sediment Not Reportable 08/19/21 17:20 Urine Bacteria 2+ /hpf (NONE) H 08/19/21 17:20 Discharge Plan Discharge Patient Disposition: Admitted As Inpatient Admit Provider: Can Chowdhury Clinical Impression: Intermittent atrial fibrillation, Type 2 diabetes mellitus, Recurrent falls, Hypertension, CVA (cerebral vascular accident) Condition: Stable Discharge Diet: Diabetic Discharge Activity: Resume usual activity Coding Level of Care Code ED Director [employer] for Chg Fwd Exam Comprehensive
[2021-08-19] MEDS: ondansetron 2 mg/ML SDV 2 mL 4 MG IVP (17:13)
[2021-08-19 17:19] LABS: Basophils % 0.3 %; Hematocrit 28.4 % (37.0-47.0); Hemoglobin 8.9 g/dL (11.5-15.3); Lymphocytes # 1.3 10^3/uL (0.8-4.8); Lymphocytes % 8.5 %; Mean Corpuscular HGB Conc 31.3 g/dL (30.0-36.0); Mean Corpuscular Hemoglobin 30.5 pg (28.0-34.0); Mean Corpuscular Volume 97.3 fl (81-99); Mean Platelet Volume 11.4 fL (7.4-10.4); Monocytes # 0.8 10^3/uL (0.2-0.9); Monocytes % 5.1 %; Neutrophils # 13.33 10^3/uL (1.8-7.7); Neutrophils % 85.5 %; Nucleated Red Blood Cells % 0 %; Platelet Count 206 10^3/cmm (130-400); Red Blood Count 2.92 10^6/uL (4.1-5.3); Red Cell Distribution Width 11.9 % (12.1-15.1); White Blood Count 15.6 10^3/uL (4.0-10.0)
[2021-08-19 17:53] LABS: Alanine Aminotransferase 11 U/L (0-33); Albumin Level 2.7 g/dL (3.5-5.2); Alkaline Phosphatase 43 IU/L (35-105); Blood Urea Nitrogen 16 mg/dL (8-23); Calcium 8.3 mg/dL (8.5-10.5); Carbon Dioxide 15 mmol/L (22-29); Chloride 106 mmol/L (98-107); Creatine Phosphokinase 126 U/L (26-192); Creatinine Clr Calc Pharmacy 49.1405; Globulin 1.7 g/dL (1.3-4.6); Glucose 198 mg/dL (65-115); Lipase 11 U/L (13-60); Osmolality Calculated 293 mOsm/kg (285-295); Sodium 138 mmol/L (136-145); Total Bilirubin 0.5 mg/dL (0.15-1.2); Total Protein 4.4 g/dL (6.6-8.7)
[2021-08-19 17:54] LABS: Anion Gap 21.6 (5-19); Aspartate Amino Transferase 14 U/L (0-32); Potassium 4.6 mmol/L (3.5-5.1)
[2021-08-19] MEDS: tetanus-dipt-pertussis 0.5 mL SDV IM (18:00)
[2021-08-19 18:08] LABS: Add Urine Culture? Yes; Add Urine Microscopic? YES; Bacteria Urine 2+ /hpf; Bilirubin Urine Neg (Negative); Blood Urine 2+ (Negative); Glucose Urine UA Norm (Normal); Ketones Urine Negative (Negative); Leukocyte Esterase Urine 2+ (Negative); Nitrate Urine Negative (Negative); Protein Urine 1+ (Negative); RBC Urine 0-4 /hpf (0-2); Squamous Epithelial Cell Urine 0-4 /hpf (0-5); Urine Appearance Clear (CLEAR); Urine Color Yellow (Yellow); Urobilinogen Urine Norm (Negative); WBC Urine 55-80 /hpf (0-5); pH Urine 5 (5-7)
[2021-08-19] MEDS: sodium chloride 0.9% 1,000 ML 999 ML IV ×2 (18:30→19:23)
[2021-08-19 18:33] LABS: ABG PCO2 34.7 mmHg (35-45); ABG PH Result 7.38 (7.35-7.45); Arterial Blood Gas Hematocrit 28.4 % (37-47); Base Excess ABG -4.4 mmol/L (-2.0-2.0); Blood Gas Allen Test Pos; Blood Gas Operator Identificat glc; Blood Gas Sample Site Radial, right; Blood Gas Sample Type Arterial; HCO3 ABG 20.3 mmol/L (22-26); Oxygen Device ROOM AIR; PO2 ABG 81.5 mmHg (80.0-100.0)
[2021-08-19] MEDS: cefTRIAXone 1,000 MG in sodium chloride 0.9% (plus) 50 ML 100 MG IV (19:02)
[2021-08-19 19:05] LABS: Reflex Lactate Order REFLEX LACTIC ORDERD
[2021-08-19 20:12] LABS: Reflex Lactate Order REFLEX LACTIC ORDERD
[2021-08-19 21:01] LABS: Lactic Acid level (Lactate) 2.2 mmol/L (0.5-2.2)
--- NOTE | 2021-08-19 21:30 | PM.HP ---
Providers/Chief Complaint Admitting Physician: Can Chowdhury MD Primary Care Provider: Yuri Jerome MD Chief Complaint: DIZZY,FALL History of Present Illness Geneva Pizarro is a 85 year old female with a past medical history of intermittent atrial fibrillation, history of CVA and TIA, has been taken off anticoagulation for presumable falls? History of falls, history of recurrent UTIs, history of syncope, history of bilateral from edema, history of noninsulin-dependent type 2 diabetes mellitus, history of CAD on Plavix, hypertension, who presents [facility] for a fall. Currently patient is alert to person, to place, not to time, she does follow commands, but is a bit confused. She tells me that she lives in [facility] by herself, she cooks and cleans for herself she drives, she tells me that she falls all the time, she is not exactly sure why but she thinks is because of recurrent UTIs. She does tell me that she has had a history of syncope, but she tells me that this time she just fell she is not exactly sure why, denies passing out, no preceding chest pain, no palpitations, no strokelike symptoms. She also reports that recently she has been having increased urination, with dysuria. Here at [facility] she was found to have a large left scalp hematoma, status post stapling. She was found to have a UTI, elevated white count, on room air, afebrile, normotensive, hospitalist team was called for admission. She is also anemic, denies bloody or black stools. Denies any chest pain. Review of Systems Const: Denies: fever(s), chills, fatigue or malaise Eyes: Denies: change in vision or blurry vision ENMT: Denies: nasal congestion Resp: Denies: dyspnea, productive cough, non-productive cough or wheezing GI: Denies: abdominal pain, nausea, vomiting, hematemesis, diarrhea, constipation, hematochezia or melena Musc: Denies: neck pain or back pain Skin/Breast: Denies: rash Neuro: Denies: headache(s), dizziness or vertigo Psych: Denies: anxiety or depression Endo: Denies: polyuria or polydipsia Medications/Allergies Home Medications Medication Instructions Recorded Confirmed Last Taken Type amlodipine 5 mg tablet 5 mg PO DAILY 07/27/19 09/10/20 07/27/19 History losartan 100 mg tablet 100 mg PO DAILY 07/27/19 09/10/20 07/27/19 History donepezil 10 mg tablet 10 mg PO BEDTIME #90 tab 08/18/19 09/10/20 Unknown Rx sotalol 80 mg tablet 80 mg PO BID@0900,2100 #180 tab 08/18/19 09/10/20 Unknown Rx acetaminophen 325 mg capsule 325 mg PO QID PRN 10/02/19 09/10/20 Unknown History blood-glucose meter #1 each 10/13/19 09/12/20 Unknown Rx atorvastatin 20 mg tablet 20 mg PO DAILY tab 09/10/20 09/10/20 Unknown History clopidogrel 75 mg tablet 75 mg PO DAILY tab 09/10/20 09/10/20 Unknown History fluticasone propionate 50 1 spray INTRANASAL DAILY g 09/10/20 09/10/20 Unknown History mcg/actuation nasal spray,suspension furosemide 20 mg tablet (Lasix) 20 mg PO DAILY 30 Days #30 tab 09/10/20 09/10/20 Unknown Rx metoprolol tartrate 100 mg tablet 100 mg PO BID tab 09/10/20 09/10/20 Unknown History oxybutynin chloride 5 mg tablet 5 mg PO DAILY tab 09/10/20 09/10/20 Unknown History potassium chloride 8 mEq 8 meq PO DAILY 30 Days #30 cap 09/10/20 09/10/20 Unknown Rx capsule,extended release Allergies Allergy/AdvReac Type Severity Reaction Status Date / Time Sulfa (Sulfonamide Allergy Unknown Verified 09/10/20 08:16 Antibiotics) PFSH Acute PFSH: Medical History (Updated 08/19/21 @ 21:42 by Can Chowdhury MD) Abnormal myocardial perfusion study Atherosclerotic heart disease of [place] coronary artery with other forms of angina pectoris Atypical chest pain CVA (cerebral vascular accident) Fracture of femoral neck, left GERD (gastroesophageal reflux disease) Hypertension Intermittent atrial fibrillation Surgical History (Updated 08/19/21 @ 21:42 by Can Chowdhury MD) History of cataract extraction History of cholecystectomy History of partial hysterectomy Family History Father Cancer Sister Cancer Stroke Family/Other Diabetes Denies family history of CAD (coronary artery disease) Clotting disorder Dementia Chronic kidney disease (CKD) Suicide Anesthesia complication Bleeding disorder Lung disease Social History Smoking and tobacco status: never smoked Alcohol intake: never Lives independently: Yes Marital status: / Vitals/I&O/Wt Last Vital Signs Temp 97.9 F 08/19/21 16:25 Pulse 61 08/19/21 20:16 Resp 16 08/19/21 20:16 BP 110/78 08/19/21 20:16 Pulse Ox 98 08/19/21 20:16 Weight last 48 hrs Weight 74.843 kg Physical Exam Const: COMMON NORMALS: no acute distress and patient oriented x3 HENMT: OTHER: Left scalp hematoma, francisco j in place, hair is bloodsoaked Eye: COMMON NORMALS: Equal, round and reactive pupils present Neck/C-Spine: COMMON NORMALS: no JVD Resp: COMMON NORMALS: normal respiratory effort, No retractions, No use of accessory muscles and clear to auscultation bilaterally AUSCULTATION: clear to auscultation bilaterally Cardio: COMMON NORMALS: regular rate, regular rhythm, S1 normal heart sound present and S2 normal heart sound present RATE: regular rate RHYTHM: regular rhythm HEART SOUNDS: S1 normal heart sound present and S2 normal heart sound present GI: COMMON NORMALS: Normal to inspection, nondistended, normoactive bowel sounds present, Soft to palpation, non-tender, No hepatosplenomegaly present, no masses and no bruits PALPATION: Yes Soft to palpation and Yes No hepatosplenomegaly present Extremity: COMMON NORMALS: capillary refill normal, no clubbing, cyanosis or edema, no calf tenderness and no pedal edema Neuro: COMMON NORMALS: patient oriented x3 Psych: COMMON NORMALS: mental status grossly normal Data : 08/19/21 17:05 08/19/21 17:05 Micro: Microbiology 08/19/21 18:05 Blood Culture - Preliminary Blood SPECIMEN COLLECTED 08/19/21 18:15 Blood Culture - Preliminary Blood SPECIMEN COLLECTED A&P Assessment and plan (1) History of arthroplasty of left hip: Status: Acute (2) Intermittent atrial fibrillation: Status: Acute (3) Type 2 diabetes mellitus: Status: Acute Qualifiers: Diabetes mellitus snf insulin use: without intermediate manager use Diabetes mellitus complication status: without complication Qualified Code(s): E11.9 - Type 2 diabetes mellitus without complications (4) Hypertension: Status: Acute Qualifiers: Hypertension type: essential hypertension Qualified Code(s): I10 - Essential (primary) hypertension (5) GERD (gastroesophageal reflux disease): Status: Acute (6) CVA (cerebral vascular accident): Status: Acute Qualifiers: CVA mechanism: embolism Precerebral and cerebral artery: unspecified precerebral artery Qualified Code(s): I63.10 - Cerebral infarction due to embolism of unspecified precerebral artery (7) UTI (urinary tract infection): Status: Acute (8) Syncope: Status: Acute (9) Recurrent falls: Status: Acute (10) Acute anemia: Status: Acute Plan Altered mental status -Secondary to fall, UTI -Neurochecks, aspiration precautions, NIH stroke scale -No focal neurologic deficits on exam Left scalp hematoma -Status post staple line -Hold off on anticoagulation, hold Plavix -Continue to monitor History of recurrent falls -In the past this was secondary to UTI -Secondary to deconditioning -Has a history of syncopal episodes, etiology unclear -Also had a fracture of left femoral neck roughly a year ago secondary to a fall -We will place on antibiotics follow urine culture -Telemetry monitoring -Orthostatic vitals -gentle IV hydration -Hold metoprolol -Hold Aricept -Hold amlodipine, hold losartan -PT OT History of syncope -Etiology along with falls currently unclear, possible multifactorial from UTI, deconditioning, orthostatic syncope, acute anemia? 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 on MRI in April 11 1009 -On Plavix, Plavix currently on hold -Continue statin -Possible embolic events History of intermittent atrial fibrillation -Continue sotalol -Hold metoprolol due to syncopal episodes, recurrent falls -Not on anticoagulation presumably due to recurrent falls -Hold Plavix UTI, continue Rocephin, follow urine cultures, follow renal ultrasound Acute anemia, patient's hemoglobin is 8.9, denies bloody or black stools, is on Plavix, has been on Eliquis in the past, -Iron studies -Hemoccult stool -Monitor hemoglobin -Monitor hemodynamics -Hold anticoagulation -Protonix, Carafate Type 2 diabetes mellitus check A1c, low-dose sliding scale Hypertension, hold medications as above DNR/DNI SCDs for DVT prophylaxis, anticoagulation contraindicated given scalp hematoma, acute anemia Attestations Medical Necessity Statement*: Patient requires hospitalization, inpatient, greater than 2 midnights, for multiple falls, deconditioning, syncope, UTI, anemia, scalp hematoma Coding Level of Care Code Acute Reagent Tender for Chg Fwd Diagnoses History of arthroplasty of left hip Z98.890 Intermittent atrial fibrillation I48.0 Type 2 diabetes mellitus E11.9 Diabetes mellitus snf insulin use: without intermediate manager use Diabetes mellitus complication status: without complication Hypertension I10 Hypertension type: essential hypertension GERD (gastroesophageal reflux disease) K21.9 CVA (cerebral vascular accident) I63.10 CVA mechanism: embolism Precerebral and cerebral artery: unspecified precerebral artery UTI (urinary tract infection) N39.0 Syncope R55 Recurrent falls R29.6 Acute anemia D64.9
[2021-08-19 22:16] LABS: INR 1.19 (0.8-1.2)
[2021-08-19 22:31] LABS: Troponin(5th) Baseline 24 ng/L (0-10)
[2021-08-19 22:40] LABS: Procalcitonin 0.14 ng/mL (0-0.5)
--- NOTE | 2021-08-19 23:01 | US_ITS ---
WS: [id number] RENAL ULTRASOUND HISTORY: renal stone COMPARISON: None available. TECHNIQUE: 2-D and color Doppler imaging of the kidney submitted. Technically very difficult evaluation of the kidneys due to body habitus. Right kidney: 9.1 cm x 4.7 cm x 6.1 cm. Low normal size kidney. Cortex is lobulated. No hydronephrosis. Solid mass would be difficult to excl ude. Left kidney: 8.9 cm x 4.4 cm x 3.3 cm. Low normal size kidney. Lobulated renal cortex. No hydronephrosis. Solid mass but difficult to exclud e. Aorta: Not imaged. Urinary Bladder: Minimally distended. US/US renal BI* [id number] IMPRESSION: 1. Technically very limited evaluation of the kidneys due to body habitus. 2. No hydronephrosis. Low normal size kidneys. It would be difficult to exclud e solid mass.
[2021-08-19 23:19] LABS: Estmated Average Glucose 163; Hemoglobin A1C 7.3 % (4.0-6.0)
--- NOTE | 2021-08-19 23:23 | ECG_ITS ---
[facility] Test Date: 2021-08-20 Pat Name: Geneva Pizarro Department: Room: EDIP Gender: Female Memory Care Director: : 1935 Requested By: Can Chowdhury Order Number: [id number] Nalini MD: Nimisha Loera M.D. Measurements Intervals [place] Rate: 63 P: 88 TX: 173 QRS: 83 QRSD: 111 T: 61 QT: 447 QTc: 459 Interpretive Statements SINUS RHYTHM INCOMPLETE RIGHT BUNDLE BRANCH BLOCK [90+ ms QRS DURATION, TERMINAL R IN V1/V2, 40+ ms S IN I/aVL/V4/V5/V6] POSSIBLE RIGHT VENTRICULAR HYPERTROPHY [SOME/ALL OF: PROMINENT R IN V1, LATE TRANSITION, RAD, ZOILA, SSS] MODERATE T-WAVE ABNORMALITY, CONSIDER ANTEROLATERAL ISCHEMIA [-0.1+ mV T-WAVE IN V3-V6] Compared to ECG 08/19/2021 16:36:07 Atrial abnormality now present Sinus bradycardia no longer present T-wave abnormality still present Possible ischemia still present Electronically Signed On 08-20-2021 19:28:02 CDT by Nimisha Loera M.D. [id number]
[2021-08-20] VITALS (9 sets, daily range): BP systolic 104–151; BP diastolic 50–84; PULSE 60–91; RESP 15–21; O2SAT 94–98
[2021-08-20 00:43] LABS: Troponin 5 2HR 22.89 ng/L (0-10)
[2021-08-20 00:44] LABS: Troponin 5 2HR Delta -1.11 ABS# (0-10)
[2021-08-20] MEDS: pantoprazole 40 mg SDV IVP ×2 (00:59→13:25)
[2021-08-20] MEDS: sucralfate 1 gm Tablet PO ×2 (00:59→13:24)
[2021-08-20] MEDS: sodium chloride 0.9% 1,000 ML 50 ML IV (01:12)
--- NOTE | 2021-08-20 01:43 | PC.NURSE ---
While doing orthostatic vital signs on pt. she was able to stand and walk in the room without assistance.
[2021-08-20 02:22] LABS: Ferritin 61 ng/mL (15-150); Iron 61 ug/dL (37-145); NT Pro B Type Natriuretic Pept 1956 pg/mL (0-450); Percent Saturation 41.4 % (20-50); Thyroid Stimulating Hormone 2.05 uIU/mL (0.27-4.20); Total Iron Binding Capacity 147 mcg/dl; Unsaturated Iron Binding 86 ug/dL (112-347)
--- NOTE | 2021-08-20 03:23 | ECG_ITS ---
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 Measurements Intervals [place] Rate: 62 P: 84 [place]: 173 QRS: 75 QRSD: 115 T: 52 QT: 436 QTc: 443 Interpretive Statements SINUS RHYTHM INCOMPLETE RIGHT BUNDLE BRANCH BLOCK [90+ ms QRS DURATION, TERMINAL R IN V1/V2, 40+ ms S IN I/aVL/V4/V5/V6] ST DEVIATION AND MODERATE T-WAVE ABNORMALITY, CONSIDER ANTEROLATERAL ISCHEMIA [-0.1+ mV T-WAVE IN V3-V6] Compared to ECG 08/19/2021 16:36:07 Sinus bradycardia no longer present T-wave abnormality still present Possible ischemia still present Electronically Signed On 08-20-2021 19:28:10 CDT by Nimisha Loera M.D. [id number]
[2021-08-20 03:31] LABS: Basophils % 0.1 %; Eosinophils % 0.1 %; Hemoglobin 7.5 g/dL (11.5-15.3); Lymphocytes # 1.8 10^3/uL (0.8-4.8); Lymphocytes % 13.5 %; Mean Corpuscular HGB Conc 32.6 g/dL (30.0-36.0); Mean Corpuscular Hemoglobin 30.7 pg (28.0-34.0); Mean Corpuscular Volume 94.3 fl (81-99); Mean Platelet Volume 11.1 fL (7.4-10.4); Monocytes # 0.9 10^3/uL (0.2-0.9); Monocytes % 6.7 %; Neutrophils # 10.46 10^3/uL (1.8-7.7); Neutrophils % 79.3 %; Nucleated Red Blood Cells % 0 %; Platelet Count 160 10^3/cmm (130-400); Red Blood Count 2.44 10^6/uL (4.1-5.3); Red Cell Distribution Width 12.2 % (12.1-15.1); White Blood Count 13.2 10^3/uL (4.0-10.0)
[2021-08-20 03:49] LABS: Lactic Sepsis W/Reflex 2.4 mmol/L (0.5-2.2)
[2021-08-20 03:53] LABS: Troponin 5 6HR 26.14 ng/L (0-10)
[2021-08-20 03:54] LABS: Alanine Aminotransferase 11 U/L (0-33); Albumin Level 2.7 g/dL (3.5-5.2); Alkaline Phosphatase 43 IU/L (35-105); Anion Gap 12.7 (5-19); Aspartate Amino Transferase 12 U/L (0-32); Blood Urea Nitrogen 20 mg/dL (8-23); Calcium 8.2 mg/dL (8.5-10.5); Carbon Dioxide 20 mmol/L (22-29); Chloride 109 mmol/L (98-107); Globulin 1.8 g/dL (1.3-4.6); Glucose 240 mg/dL (65-115); Magnesium 1.5 mg/dL (1.7-2.3); Osmolality Calculated 296 mOsm/kg (285-295); Phosphorus 2.3 mg/dL (2.5-4.5); Potassium 3.7 mmol/L (3.5-5.1); Sodium 138 mmol/L (136-145); Total Bilirubin 0.2 mg/dL (0.15-1.2); Total Protein 4.5 g/dL (6.6-8.7)
[2021-08-20 04:00] LABS: Troponin 5 6HR Delta 2.14 ng/L (0-12)
[2021-08-20 05:18] LABS: Reflex Lactate Order REFLEX LACTIC ORDERD
[2021-08-20 06:20] LABS: Lactic Acid level (Lactate) 1.9 mmol/L (0.5-2.2)
[2021-08-20 09:44] LABS: Glucose Point of Care 178 mg/dL (70-110)
[2021-08-20] MEDS: insulin lispro 100 unit/1 mL SUBCUT ×2 (10:01→13:24)
[2021-08-20] MEDS: atorvastatin 40 mg Tablet 20 MG PO (10:02)
[2021-08-20] MEDS: sotalol 80 mg Tablet PO (10:03)
--- NOTE | 2021-08-20 10:29 | PC.CHAP ---
Pastoral Care Encounter/Spiritual Assessment Type of Contact [] Declined air tank assembler visit [] Patient/Family/Request visit [] Outpatient visit [] Follow-up visit [] Physician referral [] Code/Alert [xx] Routine visit [] Staff referral [] Actively dying [] Patient sleeping [] Family support [] [] Out of room [] Palliative care [] [x] Receiving care in room [] Pre-surgical visit [] Trauma [] Long length of stay [] ICU visit [] Other: Relational/Emotional Strength [] Patient feels connected with others/family/visitors/staff [] Distress [] Loneliness/isolation [] Abandonment Spirituality of Patient [] Person of Janet [] Attends Adventism of their Janet [] Believes in Prayer [] Reads Bible or Jewish materials [] There are Spiritual issues to be addressed Box Repairer Interventions [] Prayer [] Active listening [] Non-anxious presence [] Spiritual/emotional support [] Crisis/trauma care [] Spiritual counseling [] Bereavement support [] Provided bereavement packet [] Provided Bible/devotional materials [] Provided toy/stuffed animal, coloring book to patient or family member [] Provided Communion [] Anointing/[place] [] Salvation [] Completed spiritual assessment [] Other: Impact on Illness or Injury [] Angry [] Fearful [] Anxious [] Often cries [] Exhaustion [] Unable to work [] Unable to attend catholic [] Unable to walk/stand [] Unable to read [] Unable to drive [] Unable to eat/drink [] Unable to sleep [] Unable to be with family [] Patient intubated [] Other: Summary Time spent with patient
[2021-08-20 10:51] LABS: Glucose Point of Care 264 mg/dL (70-110)
--- NOTE | 2021-08-20 10:54 | PC.PHAR ---
pts son steve states the pt takes care of her own medications-steve nurse at states he doesnt have an updated med list for the pt since [id number] entered are meds the pt states she takes and what meds were on ext med history-notes are made in the pharmacy comments
--- NOTE | 2021-08-20 11:02 | P.DS_ITS ---
Discharge Providers Date of Admission: 08/19/21 23:01 Date of Discharge: August 20, 2021 Attending Provider at Admission: Can Chowdhury MD Attending Provider at Discharge: Nadeem Colon MD Primary Care Provider: Yuri Jerome MD Diagnoses at Discharge Discharge Diagnosis (1) History of arthroplasty of left hip: Status: Acute (2) Intermittent atrial fibrillation: Status: Acute (3) Type 2 diabetes mellitus: Status: Acute Qualifiers: Diabetes mellitus complication status: without complication Diabetes mellitus termite renewal inspector insulin use: without skilled nursing use Qualified Code(s): E11.9 - Type 2 diabetes mellitus without complications (4) Hypertension: Status: Acute Qualifiers: Hypertension type: essential hypertension Qualified Code(s): I10 - Essential (primary) hypertension (5) GERD (gastroesophageal reflux disease): Status: Acute (6) CVA (cerebral vascular accident): Status: Acute Qualifiers: CVA mechanism: embolism Precerebral and cerebral artery: unspecified precerebral artery Qualified Code(s): I63.10 - Cerebral infarction due to embolism of unspecified precerebral artery (7) UTI (urinary tract infection): Status: Acute (8) Syncope: Status: Acute (9) Recurrent falls: Status: Acute (10) Acute anemia: Status: Acute Reason for Visit Reason for Visit: DIZZY,FALL Hospital Course Hospital Course HPI : Geneva Pizarro is a 85 year old female with a past medical history of intermittent atrial fibrillation, history of CVA and TIA, has been taken off anticoagulation for presumable falls?? History of falls, history of recurrent UTIs, history of syncope, history of bilateral from edema, history of noninsulin-dependent type 2 diabetes mellitus, history of CAD on Plavix, hypertension, who presents [facility] for a fall.? Currently patient is alert to person, to place, not to time, she does follow commands, but is a bit confused.? She tells me that she lives in [facility] by herself, she cooks and cleans for herself she drives, she tells me that she falls all the time, she is not exactly sure why but she thinks is because of recurrent UTIs.? She does tell me that she has had a history of syncope, but she tells me that this time she just fell she is not exactly sure why, denies passing out, no preceding chest pain, no palpitations, no strokelike symptoms.? She also reports that recently she has been having increased urination, with dysuria.? Here at [facility] she was found to have a large left scalp hematoma, status post stapling.? She was found to have a UTI, elevated white count, on room air, afebrile, normotensive, hospitalist team was called for admission.? She is also anemic, denies bloody or black stools.? Denies any chest pain. Hospital Course :She was admitted for the management of AMS, UTI, Fall, lt scalp hematoma. When I examine dthe patient in the morning she was AO*3,she was complaining of headache 2/2 to scalp hematoma,deinied any lightheadedness,chest pain,dizziness.She described the circumstances under which she fell and hear her out it was clearly what appears to be a mechanical fall,post fall she denied any loss of consciousness,seizure like activity. C.T Head done during the hospital stay showed :Large 5.5 x 5.1 x 3.6 cm left parietal scalp hematoma with associated soft tissue emphysema and scalp laceration. No acute intracranial findings.CT cervical spin wo con: No acute C-spine findings.EKG : S.R With incomplete RBBB, no acute event on telemetry, orthostatic vital signs were negative, she worked well with physical therapy and did well with walker. she was also diagnosed with UTI for which she was kept on abxs and was discharged on levofloxacin.Patient family was interested her in going to longterm,given her age and recurrent episodes of fall,possibility of her going to longterm was discussed with her but she was strongly against it.According to her she is a very independent person and can take good care of herself, which did tried to explain to her that will she conider going to longterm for a short period of time, she said no. Prior to discharge her plavix was held till 09/02,she will follow up with her pcp and once the scalp hematoma has resolved and h&h remain stable she can resume it.She responded well to above medical management and is being discharge in stable condition to home. Physical Exam Const: COMMON NORMALS: patient oriented x3 HENMT: COMMON NORMALS: normocephalic and atraumatic HEAD & SCALP: normocephalic and atraumatic Chest: COMMONS NORMALS: normal inspection of the chest and normal palpation of entire chest wall CHEST: Yes Symmetrical chest wall rise Resp: COMMON NORMALS: normal respiratory effort, No retractions, No use of accessory muscles and clear to auscultation bilaterally EFFORT & INSPECTION: Yes symmetric chest movement AUSCULTATION: clear to auscultation bilaterally Cardio: COMMON NORMALS: regular rate, regular rhythm, S1 normal heart sound present, S2 normal heart sound present, No gallops present (Cardio), No murmurs present (Cardio), No rub (Cardio) and Peripheral pulses 2+ throughout RATE: regular rate RHYTHM: regular rhythm HEART SOUNDS: S1 normal heart sound present and S2 normal heart sound present PERIPHERAL PULSES: Peripheral pulses 2+ throughout GI: COMMON NORMALS: Normal to inspection, nondistended, normoactive bowel sounds present, Soft to palpation, non-tender, No hepatosplenomegaly present and no masses AUSCULTATION: Yes normoactive bowel sounds PALPATION: Yes Soft to palpation and Yes No hepatosplenomegaly present RECTAL EXAM: deferred Extremity: COMMON NORMALS: no clubbing, cyanosis or edema and no pedal edema Neuro: COMMON NORMALS: patient oriented x3 Discharge Data Studies Completed and Pending Completed Studies During Hospitalization Category Date Time Status CT cervical spin wo con* [id number] Stat Cat Scan 08/19/21 16:[address] head wo con* [id number] Stat Cat Scan 08/19/21 16:26 Completed XR chest 1V portable [id number] Stat Exams 08/19/21 16:27 Completed US renal BI* [id number] Routine Ultrasound 08/19/21 23:01 Completed Pending at discharge Category Date Time Status Blood Culture Stat Lab 08/19/21 18:15 Results Complete Blood Count w/Auto AM LABS Lab 08/21/21 04:00 Ordered Complete Blood Count w/Auto AM LABS Lab 08/22/21 04:00 Ordered Comprehensive Metabolic Panel AM LABS Lab 08/21/21 04:00 Ordered Comprehensive Metabolic Panel AM LABS Lab 08/22/21 04:00 Ordered Magnesium AM LABS Lab 08/21/21 04:00 Ordered Magnesium AM LABS Lab 08/22/21 04:00 Ordered Phosphorus AM LABS Lab 08/21/21 04:00 Ordered Phosphorus AM LABS Lab 08/22/21 04:00 Ordered Urine Culture Stat Lab 08/19/21 17:20 Received Radiology Impressions Cervical Spine CT 08/19/21 16:25 IMPRESSION: No acute C-spine findings. Head CT 08/19/21 16:26 IMPRESSION: 1. Large 5.5 x 5.1 x 3.6 cm left parietal scalp hematoma with associated soft tissue emphysema and scalp laceration.. 2. No acute intracranial findings. Chest X-Ray 08/19/21 16:27 IMPRESSION: 1. No acute findings. Renal Ultrasound 08/19/21 23:01 IMPRESSION: 1. Technically very limited evaluation of the kidneys due to body habitus. 2. No hydronephrosis. Low normal size kidneys. It would be difficult to exclude solid mass. Laboratory Results WBC 13.2 10^3/uL (4.0-10.0) H 08/20/21 03:25 RBC 2.44 10^6/uL (4.1-5.3) L 08/20/21 03:25 Hgb 7.5 g/dL (11.5-15.3) L 08/20/21 03:25 Hct 23.0 % (37.0-47.0) L 08/20/21 03:25 MCV 94.3 fl (81-99) 08/20/21 03:25 MCH 30.7 pg (28.0-34.0) 08/20/21 03:25 MCHC 32.6 g/dL (30.0-36.0) 08/20/21 03:25 RDW 12.2 % (12.1-15.1) 08/20/21 03:25 Plt Count 160 10^3/cmm (130-400) 08/20/21 03:25 MPV 11.1 fL (7.4-10.4) H 08/20/21 03:25 Neut % (Auto) 79.3 % 08/20/21 03:25 Lymph % (Auto) 13.5 % 08/20/21 03:25 Gaines % (Auto) 6.7 % 08/20/21 03:25 Eos % (Auto) 0.1 % 08/20/21 03:25 Baso % (Auto) 0.1 % 08/20/21 03:25 Neut # (Auto) 10.46 10^3/uL (1.8-7.7) H 08/20/21 03:25 Lymph # (Auto) 1.8 10^3/uL (0.8-4.8) 08/20/21 03:25 Gaines # (Auto) 0.9 10^3/uL (0.2-0.9) 08/20/21 03:25 Eos # (Auto) 0.0 10^3/uL (0.0-0.8) 08/20/21 03:25 Baso # (Auto) 0.0 10^3/uL (0.0-0.1) 08/20/21 03:25 Nucleated RBC % (auto) 0 % 08/20/21 03:25 Nucleated RBCs # 0.0 /100WBC 08/20/21 03:25 PT 15.50 SECONDS (12.1-14.9) H 08/19/21 21:59 INR 1.19 (0.8-1.2) 08/19/21 21:59 Specimen Type Arterial 08/19/21 18:23 Sample Site Radial, right 08/19/21 18:23 ABG pH 7.38 (7.35-7.45) 08/19/21 18: ABG pCO2 34.7 mmHg (35-45) L 08/19/21 18:23 ABG pO2 81.5 mmHg (80.0-100.0) 08/19/21 18:23 ABG HCO3 20.3 mmol/L (22-26) L 08/19/21 18:23 ABG Base Excess -4.4 mmol/L (-2.0-2.0) L 08/19/21 18:23 Eduard Test Pos 08/19/21 18:23 Hematocrit 28.4 % (37-47) L 08/19/21 18:23 O2 Delivery Device Room air 08/19/21 18:23 FiO2 21.0 % 08/19/21 18:23 Compounder Flavorings ID glc 08/19/21 18:23 Sodium 138 mmol/L (136-145) 08/20/21 03:25 Potassium 3.7 mmol/L (3.5-5.1) 08/20/21 03:25 Chloride 109 mmol/L (98-107) H 08/20/21 03:25 Carbon Dioxide 20 mmol/L (22-29) L 08/20/21 03:25 Anion Gap 12.7 (5-19) 08/20/21 03:25 BUN 20 mg/dL (8-23) 08/20/21 03:25 Creatinine 1.0 mg/dL (0.5-0.9) H 08/20/21 03:25 GFR Calculation Not Reportable 08/20/21 03:25 Glucose 240 mg/dL (65-115) H 08/20/21 03:25 POC Glucose 264 mg/dL (70-110) H 08/20/21 10:34 Estimat Average Glucose 163 08/19/21 17:05 Hemoglobin A1c 7.3 % (4.0-6.0) H 08/19/21 17:05 Calculated Osmolality 296 mOsm/kg (285-295) H 08/20/21 03:25 Lactic Acid 2.4 mmol/L (0.5-2.2) H 08/20/21 03:25 Lactic Acid (Sepsis) 1.9 mmol/L (0.5-2.2) 08/20/21 05:57 Calcium 8.2 mg/dL (8.5-10.5) L 08/20/21 03:25 Phosphorus 2.3 mg/dL (2.5-4.5) L 08/20/21 03:25 Magnesium 1.5 mg/dL (1.7-2.3) L 08/20/21 03:25 Iron 61 ug/dL (37-145) 08/19/21 17:05 TIBC 147 mcg/dl 08/19/21 17:05 % Saturation 41.4 % (20-50) 08/19/21 17:05 Unsat Iron Binding 86 ug/dL (112-347) L 08/19/21 17:05 Ferritin 61 ng/mL (15-150) 08/19/21 17:05 Total Bilirubin 0.2 mg/dL (0.15-1.2) 08/20/21 03:25 AST 12 U/L (0-32) 08/20/21 03:25 ALT 11 U/L (0-33) 08/20/21 03:25 Alkaline Phosphatase 43 IU/L (35-105) 08/20/21 03:25 Creatine Kinase 126 U/L (26-192) 08/19/21 17:05 Troponin T Baseline 24 ng/L (0-10) H 08/19/21 21:59 Troponin T 120 Minute 22.89 ng/L (0-10) H 08/20/21 00:11 Delta Troponin T -1.11 ABS# (0-10) L 08/20/21 00:11 Troponin T Hi Sens 6Hr 26.14 ng/L (0-10) H 08/20/21 03:25 Troponin T Hi Sens 6Hr Delta 2.14 ng/L (0-12) 08/20/21 03:25 NT-Pro-B Natriuret Pep 1956 pg/mL (0-450) H 08/19/21 17:05 Total Protein 4.5 g/dL (6.6-8.7) L 08/20/21 03:25 Albumin 2.7 g/dL (3.5-5.2) L 08/20/21 03:25 Globulin 1.8 g/dL (1.3-4.6) 08/20/21 03:25 Lipase 11 U/L (13-60) L 08/19/21 17:05 Procalcitonin 0.14 ng/mL (0-0.5) 08/19/21 21:59 TSH 2.05 uIU/mL (0.27-4.20) 08/19/21 17:05 Urine Color Yellow (Yellow) 08/19/21 17:20 Urine Appearance Clear (CLEAR) 08/19/21 17:20 Urine pH 5 (5-7) 08/19/21 17:20 Ur Specific [place] 1.020 (1.005-1.030) 08/19/21 17:20 Urine Protein 1+ (Negative) H 08/19/21 17:20 Urine Glucose (UA) Norm (Normal) 08/19/21 17:20 Urine Ketones Negative (Negative) 08/19/21 17:20 Urine Blood 2+ (Negative) H 08/19/21 17:20 Urine Nitrate Negative (Negative) 08/19/21 17:20 Urine Bilirubin Neg (Negative) 08/19/21 17:20 Urine Urobilinogen Norm mg/dL (Negative) 08/19/21 17:20 Ur Leukocyte Esterase 2+ (Negative) H 08/19/21 17:20 Urine RBC 0-4 /hpf (0-2) H 08/19/21 17:20 Urine WBC 55-80 /hpf (0-5) H 08/19/21 17:20 Ur Squamous Epith Cells 0-4 /hpf (0-5) H 08/19/21 17:20 Amorphous Sediment Not Reportable 08/19/21 17:20 Urine Bacteria 2+ /hpf (NONE) H 08/19/21 17:20 Vitals Last Vital Signs Temp 97.9 F 08/19/21 16:25 Pulse 61 08/20/21 08:00 Resp 18 08/20/21 08:00 BP 130/64 08/20/21 08:00 Pulse Ox 98 08/20/21 08:00 Discharge Plan Discharge Patient Disposition: Home Condition: Stable Prescriptions: New levofloxacin 750 mg tablet 750 mg PO DAILY 7 Days Qty: 7 0RF Continued amlodipine 5 mg tablet 5 mg PO DAILY 0RF losartan 100 mg tablet 100 mg PO DAILY 0RF metoprolol tartrate 100 mg tablet 100 mg PO BID 0RF fluticasone propionate 50 mcg/actuation spray,suspension 1 spray intranasal DAILY PRN (Reason: Allergy Symptoms) 0RF donepezil 10 mg tablet 10 mg PO BEDTIME Qty: 90 0RF sotalol 80 mg tablet 80 mg PO BID@0900,2100 Qty: 180 0RF (DME) blood-glucose meter Kit See Rx Instructions .ROUTE .MEDSUPPLY Qty: 1 0RF Rx Instructions: As directed atorvastatin 40 mg tablet 40 mg PO DAILY 0RF potassium chloride 8 mEq tablet extended release 8 meq PO DAILY PRN (Reason: takes with lasix) 0RF furosemide 20 mg tablet 20 mg PO DAILY PRN (Reason: Edema) 0RF Held clopidogrel 75 mg tablet 75 mg PO DAILY 0RF Hold Instructions: Resume on 09/03/21. Discharge Orders: Discharge Order (Routine); Ordered 08/20/21 Ordered By: Nadeem Cooln Other Ambulatory Orders: MCT/Event Monitor 21 Days (Routine) Timeframe: 3 Weeks Facility: [facility] - Location: Radiology Ordered By: Nadeem Colon Referrals: Jagjit Garcia MD [Referring] - (Called and left message with clinic to call you with appointment time. ) Discharge Diet: Diabetic Discharge Activity: Resume usual activity Patient Instructions: Anemia, Atrial Fibrillation, Levofloxacin (By mouth), Fall Prevention for Older Adults (DC), Opioid Safety Activity Restrictions/Additional Instructions: APPOINTMENT AT HEART CARE CLINIC ON WednesdayAUGUST 21 AT 14:00 call heart care clinic at [phone] Discharge Attestations Time Spent in Discharge Care*: greater than 30 min Quality Metrics Clinical Quality Measures [ No reported AMI, CVA or VTE this stay] Coding Level of Care Code Acute Chg FW IL note Diagnoses History of arthroplasty of left hip Z98.890 Intermittent atrial fibrillation I48.0 Type 2 diabetes mellitus E11.9 Diabetes mellitus complication status: without complication Diabetes mellitus termite renewal inspector insulin use: without termite renewal inspector use Hypertension I10 Hypertension type: essential hypertension GERD (gastroesophageal reflux disease) K21.9 CVA (cerebral vascular accident) I63.10 CVA mechanism: embolism Precerebral and cerebral artery: unspecified precerebral artery UTI (urinary tract infection) N39.0 Syncope R55 Recurrent falls R29.6 Acute anemia D64.9
--- NOTE | 2021-08-20 14:20 | PC.NURSE ---
Unable to reach Dr. Garcia's office to make a follow up appointment for patient, message left for clinic to call patient with appointment information.
--- NOTE | 2021-08-20 15:25 | PC.NURSE ---
[facility] COULD DO HEART MONITOR AFTER DISCHARGE BEFORE 3 PM IF NOT DISCHARED BEFORE 3 THEN HAS APPOINTMENT TOMORROW AUGUST 21 AT 14:00 FOR MONITOR.
== END 2021-08-20 16:57 | disposition home or self-care (01) ==
LOC: ER 20:13 → ER IP 23:05 → MEDSURG 08-20 07:04 → ER IP 08-25 13:58
PROVIDERS: Family Medicine; Admitting Provider Family Medicine; Emergency Provider Emergency Medicine; PCP Radiology Neuroradiology; Visit Provider Internal Medicine
DX: R55 Syncope and collapse (principal); R29.6 Repeated falls; D64.9 Anemia, unspecified; Z98.890 Other specified postprocedural states; Z96.642 Presence of left artificial hip joint; I48.0 Paroxysmal atrial fibrillation; E11.9 Type 2 diabetes mellitus without complications; I10 Essential (primary) hypertension; K21.9 Gastro-esophageal reflux disease without esophagitis; N39.0 Urinary tract infection, site not specified; Z86.73 Personal history of transient ischemic attack (TIA), and cerebral infarction without residual deficits; I25.10 Atherosclerotic heart disease of native coronary artery without angina pectoris; Z79.02 Long term (current) use of antithrombotics/antiplatelets; Z79.01 Long term (current) use of anticoagulants; S00.03XA Contusion of scalp, initial encounter; W19.XXXA Unspecified fall, initial encounter
CPT/HCPCS: 12004; 36415; 36416; 36600; 70450; 71045; 72125; 76770; 80053; 81001; 82274; 82550; 82728; 82803; 82962; 83036; 83540; 83550; 83605; 83690; 83735; 83880; 84100; 84145; 84443; 84484; 85025; 85610; 87040; 87077; 87086; 87186; 90471; 90715; 93005; 94664; 96372; 97161; 97165; 97530; 99285; C9113; G0378; J0696; J1815; J2405; J7030

== ENCOUNTER → 2021-09-02 13:33 | Outpatient (BNVA) | payer MEDICARE, SELFPAY | PROVIDERS: PCP Radiology Neuroradiology; Visit Provider Internal Medicine Cardiovascular Disease | DX: R55 Syncope and collapse (principal); R00.1 Bradycardia, unspecified | CPT/HCPCS: 93270 ==

== ENCOUNTER → 2023-02-26 11:17 | Outpatient (BNVA) | payer MEDICARE, SELFPAY | PROVIDERS: PCP Radiology Neuroradiology; Visit Provider Nurse Practitioner Family | DX: E11.9 Type 2 diabetes mellitus without complications (principal) | CPT/HCPCS: 83036 ==

== ENCOUNTER 2023-03-25 15:08 | Inpatient (IN) | payer MEDICARE, SELFPAY ==
[2023-03-25] VITALS (13 sets, daily range): BP systolic 136–213; BP diastolic 59–132; PULSE 55–64; RESP 12–20; TEMP 36.6–37.2; O2SAT 92–96; BMI 25.8
--- NOTE | 2023-03-25 15:22 | XR_ITS ---
WS: [id number] Exam: XR chest 1V portable [id number] Date/Time of Exam: 03/25/2023 3:22 PM Reason For Exam: fall Comparison 08/19/2021. The lungs are clear and fully expanded. Normal cardiomediastinal silhouette. No pleural effusions. [place] structures are intact. There may be a RIGHT C7 cervical rib. IMPRESSION: 1. No acute cardiopulmonary process identified.
--- NOTE | 2023-03-25 15:22 | CT_ITS ---
WS: [id number] CT HEAD NONCONTRAST HISTORY: hematoma TECHNIQUE: Contiguous axial imaging performed through the brain in 2.5 mm imaging. Bone and soft tiss ue windows. Sagittal and coronal reformats reviewed. All CT scans at [facility] use at least one of these dose optimization techniques: automated exposure control; mA and/or kV adjustment per pa tient size (includes targeted exams where dose is matched to clinical indication); or iterative recon struction. DLP: 1926.45 mGy.cm COMPARISON: 08/19/2021 Acute small RIGHT subdural hematoma measuring 4.3 mm in diameter. Hematoma extends over the RIGHT cer ebral and extends over the frontal, temporal and parietal lobes. Acute subdural extends along the pos terior parietal lobe to the midline. There is also a small component of subarachnoid blood in the pos terior RIGHT frontal sulcus. Suspicious for tiny amount of blood in the supratentorial LEFT frontal s ulcus. There is mild cerebral edema and loss of the rausch-white matter differentiation. Approximately 7 mm of midline shift to the LEFT with mild effacement of the lateral ventricle. There is also an area of decreased attenuation which appears to be a chronic epidural hematoma center ed along the posterior RIGHT parietal lobe. There is mass effect upon the parietal lobe. No intravent ricular blood. Moderate atrophy and small vessel ischemic disease. Ventricles: No intraventricular blood. Slight effacement of the RIGHT lateral ventricle. Paranasal sinuses: As visualized are clear. Mastoid air cells: Well pneumatized. Calvarium and scalp: No fracture. There is a large acute hematoma centered over the RIGHT facial bone s. Hematoma extends over the orbit and globe. No fractures in the visualized osseous structures. IMPRESSION: 1. Acute RIGHT subdural hematoma with a maximum diameter of 4.3 mm. There is acute additional subarac hnoid blood along the posterior RIGHT frontal sulci. Additional tiny amount of subarachnoid blood not ed along the LEFT frontal sulci. 2. 7 mm of midline shift to the LEFT. 3. Additional epidural hematoma along the posterior RIGHT parietal lobe with low attenuation is proba filemon a chronic epidural. There is slight mass effect upon the parietal lobe. New since 08/19/2021. 4. No fractures. 5. Large soft tissue hematoma centered over the RIGHT facial bones. Notified Edison Chaparro MD at 03/25/2023 4:11 PM.
--- NOTE | 2023-03-25 15:22 | CT_ITS ---
WS: [id number] CT CERVICAL SPINE HISTORY: unwitnessed fall, dementia, cannot clear c spine clinically TECHNIQUE: Contiguous 2.0 mm axial imaging performed through the entire cervical spine. Sagittal and coronal reformats also performed. All CT scans at [facility] use at least one of these dose o ptimization techniques: automated exposure control; mA and/or kV adjustment per patient size (include s targeted exams where dose is matched to clinical indication); or iterative reconstruction. DLP: 1926.45 mGy.cm COMPARISON: 08/19/2021 Cervical alignment is normal. Mild disc space narrowing at osteophytosis. Facet joints are normally a ligned. Lateral masses of C1 and C2 are aligned. The odontoid is intact. Normal craniocervical juncti on. No high-grade stenosis. Mild bilateral foraminal stenosis at C5-6 and C6-7. Lung apices are clear. RIGHT thyroid nodule 2.5 x 1.5 cm. IMPRESSION: 1. No acute cervical spine fracture. 2. Normal facet alignment.
--- NOTE | 2023-03-25 15:22 | CT_ITS ---
WS: [id number] CT FACIAL BONES HISTORY: trauma, right orbit TECHNIQUE: Images obtained from the supraorbital location through the mandible. Soft tissue and bone windows are reviewed. Coronal and sagittal reformats have also been submitted. DLP: 1926.[address] scans at [facility] use at least one of these dose optimization techniques: automated e xposure control; mA and/or kV adjustment per patient size (includes targeted exams where dose is matc hed to clinical indication); or iterative reconstruction. COMPARISON: None available. Nasal bones and the zygomatic arches are intact. No orbit fracture. Mandible and the condyles are nor mal. There is a large acute soft tissue hematoma centered over the RIGHT facial bones. There are no air-fl uid levels within the sinuses. No post septal hematoma. Visualized cervical spine is negative. IMPRESSION: 1. No acute facial bone fracture. 2. Large acute soft tissue hematoma centered over the RIGHT facial bones.
--- NOTE | 2023-03-25 15:52 | W.ED.FALL ---
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 patient lives alone. One of her neighbors checks on her. She fell today. She does not remember why. Neighbors estimated it was around noon. Patient has bruising and swelling to the right side of her face and orbit. We are unable to open her right eyelids due to the amount of swelling. I also found a hematoma on the top of her head. The bruising looks as if it could be subacute rather than hyperacute. patient lives alone. Her closest family is nowhere near her house. Neighbors are concerned that she is unsafe to be there by herself. She has fallen before and even suffered a hip fracture. Patient denies any pain. She does not even seem to register any pain around her right orbit or face where she is very swollen and bruised. She does know that it is February but it takes her quite a long time to think of this. She cannot think of the year. Her blood pressure is quite elevated and she does not recall whether she is taking her blood pressure medicine or not. Review of Systems Narrative: Patient endorses a fall and she endorses her legs feeling weak. She has a mild pain around her eye. Otherwise she denies all complaints. Is unclear how accurate her review of systems is because she does have a little bit of dementia and she does not seem to register pain very well. [facility] ED PFSH: Medical History Abnormal myocardial perfusion study Acute anemia Atherosclerotic heart disease of [place] coronary artery with other forms of angina pectoris Atypical chest pain CVA (cerebral vascular accident) Fracture of femoral neck, left GERD (gastroesophageal reflux disease) Hypertension Intermittent atrial fibrillation Recurrent falls Syncope Type 2 diabetes mellitus UTI (urinary tract infection) Surgical History History of arthroplasty of left hip History of cataract extraction History of cholecystectomy History of partial hysterectomy Family History Father Cancer Sister Cancer Stroke Family/Other Diabetes Denies family history of CAD (coronary artery disease) Clotting disorder Dementia Chronic kidney disease (CKD) Suicide Anesthesia complication Bleeding disorder Lung disease Social History Smoking and tobacco/nicotine status: never used tobacco/nicotine Alcohol intake: never Substance/Drug Use: never Lives independently: Yes Marital status: / Physical Exam Narrative: EXAM NARRATIVE: notable physical exam findings include: Elderly deconditioned patient with significant bruising and swelling on the right side of the face and around the right orbit. She also has a hematoma on the top of her head. The bruising looks like it could have been there for more than 6 hours. Range of motion of all of her extremities as well as palpation of long bones and pelvis did not reveal any pain or limitation. She knows her name, location, month. She could not immediately recall the year. She does know that her medications have the dates and come in blister packs. She does not have very clear recent memory. Her chest wall and abdomen are soft and nontender. I cannot look at her right pupil because her lids are swollen closed. The left pupil appears normal and reactive. Const: COMMON NORMALS: alert and well nourished HENMT: COMMON NORMALS: external ears normal EXTERNAL EAR: Yes external ears normal MOUTH: no muffled voice Neck/C-Spine: COMMON NORMALS: no JVD GENERAL: Yes normal visual inspection and Yes trachea midline Resp: COMMON NORMALS: normal respiratory effort, No use of accessory muscles and clear to auscultation bilaterally AUSCULTATION: clear to auscultation bilaterally Cardio: COMMON NORMALS: no JVD, regular rate and regular rhythm RATE: regular rate RHYTHM: regular rhythm GI: COMMON NORMALS: Soft to palpation and non-tender PALPATION: Yes Soft to palpation and No Guarding due to palpation present (GI) Extremity: COMMON NORMALS: normal to inspection Neuro: COMMON NORMALS: moves all extremities, no focal motor deficits and no sensory deficits noted SENSORIUM/ORIENTATION: Yes alert SPEECH: speech normal Psych: COMMON NORMALS: normal affect and speech normal SPEECH: Yes normal speech Skin: COMMON NORMALS: turgor normal and no jaundice GENERAL SKIN EXAM: turgor normal Course Vital Signs: Vital signs: Vital Signs Temperature 98.5 F 03/25/23 15:08 Pulse Rate 62 03/25/23 15:08 Respiratory Rate 17 03/25/23 17:33 Blood Pressure 152/86 03/25/23 16:05 Pulse Oximetry 95 03/25/23 15:08 Oxygen Delivery Me thod Room Air 03/25/23 15:08 MDM - Fall Medical Decision Making 87-year-old female with unwitnessed fall. Uncertain of timing. She is quite hypertensive today. She has significant trauma around the right orbit and right face. I am not sure how significant the underlying injury is but the hematoma that is associated with the trauma is impressive. She needs to have a CT scan of her head, face, neck. I will also start working her up for causes of weakness. She does have significant hypertension but as noted we do not think she is taking her medications. I have gone ahead and ordered her home oral meds. Update 1620: Patient has some subarachnoid blood, small subdural, and a chronic appearing epidural. There is some midline shift. I discussed these findings with the radiologist. I discussed findings with the patient in a simplified manner. I explained to her that she had blood on the brain and in the brain. I told her that if the bleeding got worse it could cause her to . I explained that the standard of care is to ship her where she can receive care by a neuro surgeon. Patient tells me that she would not want to have neurosurgery even if it caused her to . She tells me that if her heart were to stop she would not want CPR. I had her verbalize her understanding back to me. Despite her history of dementia she was able to convincingly communicate her understanding and her clear wishes not to have a neurosurgical procedure even if it were to cost her her life. Therefore, we will not plan on transfer. patient has a UTI. Urine culture sent. Rocephin ordered. This may be why she got weak and fell. Krysta Discussed case with Dr. Chowdhury (hospitalist) and Dr Bacon (neurosurgery, [facility]). Dr. Chowdhury also talked with the patient and confirmed that she does not want to have neurosurgical evaluation or surgery. Dr. Bacon was nice enough to give recommendations over the phone. Firstly he advised transfer and neurosurgical consult but if the patient refuses then he would advise: Since the patient is on Plavix he would recommend giving 2 packs of platelets. He would recommend repeating a CT scan in 6 hours to show the trajectory of the bleed. He would recommend Keppra for seizure prophylaxis. Blood pressure to maintain less than 160 systolic. Pt admitted to ICU. Lab Data 03/25/23 16:32 03/25/23 16:32 Laboratory Results WBC 12.70 10^3/uL (3.29-11.43) H 03/25/23 16: RBC 4.43 10^6/uL (3.85-5.65) 03/25/23 16:32 Hgb 13.60 g/dL (11.27-16.99) 03/25/23 16: Hct 43.0 % (36-47) 03/25/23 16: MCV 97.1 fl (85-98) 03/25/23 16: MCH 30.7 pg (27-33) 03/25/23 16: MCHC 31.6 g/dL (30-55) 03/25/23 16: RDW 12.4 % (12.1-15.1) 03/25/23 16:32 Plt Count 204 10^3/cmm (157-399) 03/25/23 16: MPV 11.5 fL (7.4-10.4) H 03/25/23 16: Neut % (Auto) 81.0 % 03/25/23 16: Lymph % (Auto) 12.6 % 03/25/23 16: [place] % (Auto) 5.3 % 03/25/23 16: Eos % (Auto) 0.3 % 03/25/23: Baso % (Auto) 0.2 % 03/25/23: Neut # (Auto) 10.28 10^3/uL (1.8-7.7) H 03/25/23 16: Lymph # (Auto) 1.6 10^3/uL (0.8-4.8) 03/25/23 16: [place] # (Auto) 0.7 10^3/uL (0.2-0.9) 03/25/23 16: Eos # (Auto) 0.0 10^3/uL (0.0-0.8) 03/25/23 16: Baso # (Auto) 0.0 10^3/uL (0.0-0.1) 03/25/23 16:32 Nucleated RBC % (auto) 0 % 03/25/23 16:32 Nucleated RBCs # 0.0 /100WBC 03/25/23 16:32 Sodium 139 mmol/L (136-145) 03/25/23 16:32 Potassium 5.6 mmol/L (3.5-5.1) H 03/25/23 16:32 Chloride 107 mmol/L (98-107) 03/25/23 16:32 Carbon Dioxide 21 mmol/L (22-29) L 03/25/23 16:32 Anion Gap 16.6 (5-19) 03/25/23 16:32 BUN 17 mg/dL (8-23) 03/25/23 16:32 Creatinine 0.8 mg/dL (0.5-0.9) 03/25/23 16:32 GFR Calculation Not Reportable 03/25/23 16:32 Glucose 161 mg/dL (65-115) H 03/25/23 16:32 Calculated Osmolality 293 mOsm/kg (285-295) 03/25/23 16:32 Calcium 9.4 mg/dL (8.5-10.5) 03/25/23 16:32 Total Bilirubin 0.5 mg/dL (0.15-1.2) 03/25/23 16:32 AST 29 U/L (0-32) 03/25/23 16:32 ALT 30 U/L (0-33) 03/25/23 16:32 Alkaline Phosphatase 88 U/L (35-105) 03/25/23 16:32 Total Protein 6.6 g/dL (6.6-8.7) 03/25/23 16:32 Albumin 4.2 g/dL (3.5-5.2) 03/25/23 16:32 Globulin 2.4 g/dL (1.3-4.6) 03/25/23 16:32 Urine Color Yellow (Yellow) 03/25/23 15:43 Urine Appearance Hazy (CLEAR) A 03/25/23 15:43 Urine pH 5 (5-7) 03/25/23 15:43 Ur Specific [place] 1.015 (1.005-1.030) 03/25/23 15:43 Urine Protein 1+ (Negative) H 03/25/23 15:43 Urine Glucose (UA) Norm (Normal) 03/25/23 15:43 Urine Ketones Negative (Negative) 03/25/23 15:43 Urine Blood 3+ (Negative) H 03/25/23 15:43 Urine Nitrate Positive (Negative) H 03/25/23 15:43 Urine Bilirubin Neg (Negative) 03/25/23 15:43 Urine Urobilinogen Norm mg/dL (Negative) 03/25/23 15:43 Ur Leukocyte Esterase 2+ (Negative) H 03/25/23 15:43 Urine RBC 5-10 /hpf (0-2) H 03/25/23 15:43 Urine WBC >100 /hpf (0-5) H 03/25/23 15:43 Ur Squamous Epith Cells 0-4 /hpf (0-5) H 03/25/23 15:43 Amorphous Sediment Not Reportable 03/25/23 15:43 Urine Bacteria 3+ /hpf (NONE) H 03/25/23 15:43 All radiology interpretation(s) finalized by discharge Discharge Plan Discharge Patient Disposition: Admitted As Inpatient Admit Provider: Can Chowdhury Clinical Impression: Acute UTI, Fall from standing, Facial hematoma, SDH (subdural hematoma), Subarachnoid bleed, Closed head injury Condition: Stable Coding Level of Care Code ED Editorial Cartoonist for Britney Bailey
[2023-03-25] MEDS: amlodipine 5 mg Tablet PO (16:05)
[2023-03-25] MEDS: sotalol 80 mg Tablet PO ×2 (16:05→18:40)
[2023-03-25] MEDS: losartan 50 mg Tablet 100 MG PO (16:05)
[2023-03-25] MEDS: sodium chloride 0.9% 1,000 ML 999 ML IV (16:07)
[2023-03-25 16:38] LABS: Bilirubin Urine Neg (Negative); Blood Urine 3+ (Negative); Glucose Urine UA Norm (Normal); Ketones Urine Negative (Negative); Nitrate Urine Positive (Negative); Protein Urine 1+ (Negative); Specific Gravity, Urine 1.015 (1.005-1.030); Urine Appearance Hazy (CLEAR); Urine Color Yellow (Yellow); Urobilinogen Urine Norm (Negative); pH Urine 5 (5-7)
[2023-03-25 16:39] LABS: Add Urine Culture? Yes; Add Urine Microscopic? YES; Bacteria Urine 3+ /hpf; Leukocyte Esterase Urine 2+ (Negative); Squamous Epithelial Cell Urine 0-4 /hpf (0-5); WBC Urine >100 /hpf (0-5)
[2023-03-25 16:57] LABS: Basophils % 0.2 %; Eosinophils % 0.3 %; Lymphocytes # 1.6 10^3/uL (0.8-4.8); Lymphocytes % 12.6 %; Mean Corpuscular HGB Conc 31.6 g/dL (30-55); Mean Corpuscular Hemoglobin 30.7 pg (27-33); Mean Corpuscular Volume 97.1 fl (85-98); Mean Platelet Volume 11.5 fL (7.4-10.4); Monocytes # 0.7 10^3/uL (0.2-0.9); Monocytes % 5.3 %; Neutrophils # 10.28 10^3/uL (1.8-7.7); Nucleated Red Blood Cells % 0 %; Platelet Count 204 10^3/cmm (157-399); Red Blood Count 4.43 10^6/uL (3.85-5.65); Red Cell Distribution Width 12.4 % (12.1-15.1)
[2023-03-25 17:16] LABS: Albumin Level 4.2 g/dL (3.5-5.2); Alkaline Phosphatase 88 U/L (35-105); Blood Urea Nitrogen 17 mg/dL (8-23); Calcium 9.4 mg/dL (8.5-10.5); Carbon Dioxide 21 mmol/L (22-29); Chloride 107 mmol/L (98-107); Creatinine Clr Calc Pharmacy 53.3087; Globulin 2.4 g/dL (1.3-4.6); Glucose 161 mg/dL (65-115); Osmolality Calculated 293 mOsm/kg (285-295); Sodium 139 mmol/L (136-145); Total Bilirubin 0.5 mg/dL (0.15-1.2); Total Protein 6.6 g/dL (6.6-8.7)
[2023-03-25 17:18] LABS: Anion Gap 16.6 (5-19); Potassium 5.6 mmol/L (3.5-5.1)
[2023-03-25 17:19] LABS: Alanine Aminotransferase 30 U/L (0-33); Aspartate Amino Transferase 29 U/L (0-32)
[2023-03-25] MEDS: morphine 4 mg/mL SDV 1 mL 2 MG IVP ×2 (17:33→22:04)
[2023-03-25] MEDS: cefTRIAXone 1,000 MG in sodium chloride 0.9% (plus) 50 ML 100 MG IV (17:35)
--- NOTE | 2023-03-25 17:42 | P.HP_ITS ---
Providers/Chief Complaint Primary Care Provider: Yuri Jerome MD Chief Complaint: fall History of Present Illness Geneva Pizarro is a 87 year old female with a past medical history of atrial fibrillation not on anticoagulation due to risk of falls on Plavix, history of chronic anemia, history of CAD, history of prior CVA, history of recurrent falls, history of syncope, history of type 2 diabetes mellitus, history of UTIs, who presents to [facility] for follow-up. Currently patient is alert and oriented x3, follows commands, her biggest complaint is a severe headache. Patient tells me that she has a history of recurrent falls, she lives at home by herself, she lives at the big home, built in the , her many years ago, she tells me that she does have 2 sons here in town, but they never speak, they never check up on her, and she has issues with one of her sons wives. She tells me that she fell sometime this morning, but she does not remember when, she thinks that she slipped in the bathroom, she thinks she lost consciousness, but she does not exactly remember when or for how long, does report a crushing headache when she woke up, she tells me that the worst headache she has ever had, and continues to have this headache, no focal weakness, no slurring of her words, just feels weak all over, no trouble swallowing, no blurry vision, she cannot see out of her right eye as it was s leonard, her closest neighbor, was concerned as they did not hear from her, so they checked up on her and she was found on the ground. She tells me that she has had a hip fracture, from the her fall in the past. She was found to have large hematoma, right orbit, face, right scalp, eye is swollen shut, no lip or tongue swelling, she is on Plavix, hemoglobin is 315.6, INR is pending she does have a UTI, concerning is on her head CT she was found to have acute right subdural hematoma 4.3 mm, with subarachnoid blood, with several millimeters midline shift to the left, she is complaining of severe headaches currently. She also has an epidural hematoma along the posterior right parietal lobe which appears chronic in nature, ER physician had an extensive discussion with patient about transferring to tertiary level center for neurology and neurosurgery evaluation, however patient refuses to be evaluated, refuses any surgery, refuses to be transferred, she denies any pain anywhere else, no hip pain, no back pain,, no leg pain, -The following discussion was made with patient, in front of nursing staff -I had extensive discussion with patient -about the morbidity mortality associated with Her current condition -I highly recommend for her to be transferred to tertiary level center for ne urology and neurosurgery evaluation, and consultation -Even if they offer no significant surgical intervention, their expertise in managing subdural hematoma subarachnoid bleeding is important, for her clinical outcome, headache and the difference between life and , and it can mean the difference between significant complications -I advised her that I am not a neurosurgeon nor I am a neurologist, and I personally do not feel comfortable managing her here at [facility], I would recommend for her to be transferred to [facility] -I am worried about the morbidity and mortality associated with her condition, I am worried about complications, and nor do I have the expertise in managing these complications, let alone the expertise to manage her clinical condition currently -I advised her that it takes highly skilled team of physicians and nurses, that have managed her current clinical conditions, would mean the difference between a good clinical outcome, would mean the difference between life and -However patient refuses to be transferred -She refuses to have neurosurgical evaluation, or neurology evaluation -She refuses any significant interventions -She tells me that she is ready to , and if she gets worse, she is ready to pass away -She tells me that she lives at home by herself, she does not have a good quality of life, there is no one to come to check up on her, she has no close family members, is not close with her sons, she tells me she is ready to -She denies any suicidal ideation, denies any homicidal ideation, denies feeling down or depressed or sad, -She tells me she does not have a good quality of life, -I advised her that transferring up to [place] for neurology and neurosurgical evaluation, could give her back: Potentially, could avoid complications such as including but not limited to brain swelling, seizures, and paralysis, headaches, visual deficits, and ultimately life and -However she tells me that she is okay with all those complications, she is okay with any complications, at that point she tells me she would just want to be on hospice, she would just want to be comfortable for us to ease her pain and ease her suffering and allow her to pass away comfortably -Again I implored her to be transferred, to be evaluated by specialist, that she could have the life that she had before her fall, and potentially a better life based upon interventions that they could offer her however she has declined ag ain -I have concurred this with the ER physician, that this is her wishes and that the wishes that she has voiced to him -ER physician did speak to neurosurgery, who again have recommended for her to be transferred as a standard of care however if patient refuses, they recommended blood pressure management if systolic less than 140, 2 units of platelets, repeat head CT in 6 hours, and seizure medication prophylaxis -I went over this in detail with patient -She again wants to remain here at [facility], does not want to have aggressive inventions, but is okay with medical interventions -She understands the morbidity and mortality associate with her condition, she understands we do not have the expertise to manage her here, she accepts the risks of staying here at [facility] without having the expertise to manage her, without having neurology and neurosurgery, or the expertise to manage intracranial hemorrhage, and subdural bleeds, she accepts the complications -After discussing the risk and benefits, she voiced understanding of all questions answered, she adamant that she wants to stay here, she accepts complications, she has accepts risks, she has sepsis and morbidity and mortality -We will do for her is here is give her 2 units of platelets, monitor her very closely in the ICU monitor neurologic status, aim for systolic blood pressure less than 140, stop all blood thinners, will consider mannitol based on her repeat head CT, she does have severe headaches, likely from subarachnoid bleeding, we will try to control her headaches, placed on seizure prophylaxis, Review of Systems Const: Denies: fever(s) Eyes: Reports: blurry vision; Denies: change in vision Card: Reports: chest pain Resp: Denies: dyspnea GI: Denies: abdominal pain : Denies: flank pain Musc: Reports: neck pain and back pain Neuro: Reports: headache(s) and weakness in extremities; Denies: numbness in extremities, Slurred speech present or seizure-like activity Psych: Denies: anxiety, depression, sleeping more, irritability, visual hallucinations, auditory hallucinations or tactile hallucinations Medications/Allergies Home Medications Medication Instructions Recorded Confirmed Last Taken Type clopidogrel 75 mg tablet (Plavix) 75 mg PO DAILY 90 days #90 tabs 02/25/23 03/25/23 03/24/23 Rx losartan 100 mg tablet 100 mg PO DAILY 90 days #90 tabs 02/25/23 03/25/23 03/24/23 Rx sotalol 80 mg tablet 80 mg PO BID 90 days #180 tabs 02/25/23 03/25/23 03/24/23 Rx amlodipine 5 mg tablet 5 mg PO DAILY 90 days #90 tabs 02/26/23 03/25/23 03/24/23 Rx donepezil 10 mg tablet 10 mg PO BEDTIME 90 days #90 tabs 02/26/23 03/25/23 03/24/23 Rx metoprolol tartrate 50 mg tablet 50 mg PO BID 03/25/23 03/25/23 03/24/23 History potassium chloride 8 mEq 16 meq PO DAILY 03/25/23 03/25/23 03/24/23 History tablet,extended release Allergies Allergy/AdvReac Type Severity Reaction Status Date / Time Sulfa (Sulfonamide Allergy Unknown Verified 03/25/23 16:08 Antibiotics) PFSH Acute PFSH: Medical History Abnormal myocardial perfusion study Acute anemia Atherosclerotic heart disease of [place] coronary artery with other forms of angina pectoris Atypical chest pain CVA (cerebral vascular accident) Fracture of femoral neck, left GERD (gastroesophageal reflux disease) Hypertension Intermittent atrial fibrillation Recurrent falls Syncope Type 2 diabetes mellitus UTI (urinary tract infection) Surgical History History of arthroplasty of left hip History of cataract extraction History of cholecystectomy History of partial hysterectomy Family History Father Cancer Sister Cancer Stroke Family/Other Diabetes Denies family history of CAD (coronary artery disease) Clotting disorder Dementia Chronic kidney disease (CKD) Suicide Anesthesia complication Bleeding disorder Lung disease Social History Smoking and tobacco/nicotine status: never used tobacco/nicotine Alcohol intake: never Substance/Drug Use: never Lives independently: Yes Marital status: / Vitals/I&O/Wt Last Vital Signs Temp 98.5 F 03/25/23 15:08 Pulse 62 03/25/23 15:08 Resp 17 03/25/23 17:33 BP 152/86 03/25/23 16:05 Pulse Ox 95 03/25/23 15:08 O2 Del Method Room Air 03/25/23 15:08 Weight last 48 hrs Weight 74.843 kg Physical Exam Const: COMMON NORMALS: no acute distress and patient oriented x3 HENMT: OTHER: Large right scalp hematoma, hematoma over right orbit, unable to open right eye, due to significant hematoma, right facial hematoma Eye: OTHER: Left pupil equal round reactive to light Resp: COMMON NORMALS: normal respiratory effort, No retractions, No use of accessory muscles and clear to auscultation bilaterally AUSCULTATION: clear to auscultation bilaterally Cardio: COMMON NORMALS: regular rate, regular rhythm, S1 normal heart sound present and S2 normal heart sound present RATE: regular rate RHYTHM: regular rhythm HEART SOUNDS: S1 normal heart sound present and S2 normal heart sound present GI: COMMON NORMALS: Normal to inspection, nondistended, normoactive bowel sounds present, Soft to palpation and non-tender : COMMON NORMALS: Yes no CVA tenderness Extremity: COMMON NORMALS: no pedal edema Neuro: COMMON NORMALS: patient oriented x3, CN's II-XII intact bilaterally, moves all extremities and no focal motor deficits Psych: COMMON NORMALS: mental status grossly normal Data 03/25/23 16:32 03/25/23 16:32 A&P Assessment and plan (1) Acute UTI: (2) Facial hematoma: (3) SDH (subdural hematoma): (4) Subarachnoid bleed: (5) Closed head injury: (6) Dementia: (7) Hypertension: (8) Type 2 diabetes mellitus: (9) Traumatic hematoma of face: (10) Midline shift of brain: (11) Goals of care, counseling/discussion: (12) Subarachnoid hemorrhage following injury with moderate (1-24 hours) loss of consciousness: Plan Acute right subdural hematoma, maximum diameter 4.3 mm, 7 mm midline shift to the left -Will admit to ICU -Neurochecks every hour -Avoid all blood thinners -2 units platelets -Aim for systolic blood pressure less than 140 -Start Keppra 1000 mg IV every 12 hours for seizure prophylaxis -Repeat CT head in 6 hours, if any worsening midline shift, or worsening headaches, or changes in her mentation, will consider mannitol -IV fluids -Head of bed elevation -Continue home blood pressure medications Subarachnoid bleed/hemorrhage -As above Large soft tissue hematoma right facial bone, right orbit -Continue to conservatively manage Has epidural hematoma MPRESSION: 1. Acute RIGHT subdural hematoma with a maximum diameter of 4.3 mm. There is acute additional subarachnoid blood along the posterior RIGHT frontal sulci. Additional tiny amount of subarachnoid blood noted along the LEFT frontal sulci. 2. 7 mm of midline shift to the LEFT. 3. Additional epidural hematoma along the posterior RIGHT parietal lobe with low attenuation is probably a chronic epidural. There is slight mass effect upon the parietal lobe. New since 08/19/2021. 4. No fractures. 5. Large soft tissue hematoma centered over the RIGHT facial bones. -Likely chronic, monitor UTI -Rocephin We will order troponin series Has no other complaints, no other pain complaints Goals of care discussion -Patient is adamant that she is DNR/DNI, she does not want to have life- sustaining measures -If her clinical condition does start to deteriorate, such that she has intractable headaches that are uncontrolled, she starts to develop intractable seizures, or starts to develop irreversible complications or complications that affect her quality of life, then she just wants to be left comfortable for us to ease her pain and ease her suffering and allow her to pass away comfortably -I have gone over this in detail with patient, she voices understanding, all questions answered, agreed to proceed -We will place her on morphine as needed, Ativan as needed, atropine as needed Attestations Medical Necessity Statement*: Patient requires hospitalization, inpatient, greater than 2 midnights, for subdural hematoma, subarachnoid hemorrhage, subarachnoid bleed, traumatic fall, UTI, Coding Level of Care Code Critical Care >/= 30 minutes Critical care time (in minutes): 45 The high probability of a clinically significant, sudden or life threatening deterioration, as referenced in this documentation, required my full and direct attention, intervention and personal management. The critical care time shown is in addition to time spent performing any reported separately billable procedures and includes the following: [x] Data and vital sign review and interpretation [x ] Patient assessment, examination and intervention [x] Medication orders and management [x] Patient/Family updates as able [x] Care Coordination and Documentation. Diagnoses Acute UTI N39.0 Facial hematoma S00.83XA SDH (subdural hematoma) S06.5XAA Subarachnoid bleed I60.9 Closed head injury S09.90XA Dementia F03.90 Hypertension I10 Type 2 diabetes mellitus E11.9 Traumatic hematoma of face S00.83XA Midline shift of brain R90.89 Goals of care, counseling/discussion Z71.89 Subarachnoid hemorrhage following injury with moderate (1-24 hours) loss of consciousness S06.6X9A
[2023-03-25] MEDS: sodium chloride 0.9% 1,000 ML 75 ML IV (18:40)
[2023-03-25] MEDS: insulin lispro 100 unit/1 mL SUBCUT (18:41)
[2023-03-25 19:09] LABS: Glucose Point of Care 166 mg/dL (70-110)
--- NOTE | 2023-03-25 19:13 | PC.NURSE ---
Patient arrived to ICU at approximately 1825. Patient right arm IV infiltrated,redness and warmth,denies pain, IV removed, intact. Right knee abrasion and bruise patient states from fall at home. Right eye with large hemotoma and unable to open eye. Right face and nose bruising. Patient states from fall at home. Left eye pupil 3mm and reactive. All four limbs appropriate strength. Patient is AOX4. No other skin problems noted at this time.
[2023-03-25 19:29] LABS: INR 0.91 (0.8-1.2)
[2023-03-25 19:30] LABS: Partial Thromboplastin Time 19.4 SECONDS (23.9-36.7)
[2023-03-25] MEDS: labetalol 5 mg/mL SDV 20mL 10 MG IVP (19:38)
[2023-03-25] MEDS: metoprolol tartrate 50 mg Tablet PO (19:39)
[2023-03-25] MEDS: pantoprazole 40 mg SDV IVP (19:39)
[2023-03-25] MEDS: donepezil 5 MG Tablet 10 MG PO (19:39)
[2023-03-25 19:42] LABS: Thyroid Stimulating Hormone 1.96 uIU/mL (0.27-4.20)
[2023-03-25 19:43] LABS: Procalcitonin 0.02 ng/mL (0-0.5)
--- NOTE | 2023-03-25 19:43 | PC.NURSE ---
Report given to Cara RN at bedside, Patient AOX4, unable to asses right eye at this time due to injury, left 3mm reactive. See wound assessment. Patient on room air, BP elevated, HOB at 30 degrees, patient complains of leg cramps 7/10, Potassium at 5.6. Night nurse aware. See MAR for medication administration.
[2023-03-25 20:07] LABS: Glucose Point of Care 157 mg/dL (70-110)
--- NOTE | 2023-03-25 20:41 | PC.NURSE ---
Patient states she does not have a medical power of assistant district attorney. Manpreet Pizarro- teofilo is who patient verbalizes that she would want to make decisions if she became unable to make decisions.
--- NOTE | 2023-03-25 20:47 | PC.NURSE ---
Dr. Watt notified of potassium of 5.6.
[2023-03-25] MEDS: LORazepam 2 mg/mL INJ 1 mL 1 MG IVP (21:04)
[2023-03-25] MEDS: hyDRALAzine 20 mg/mL INJ 1 mL 5 MG IVP (23:01)
--- NOTE | 2023-03-25 23:03 | PC.NURSE ---
Dr. Watt notified of blood pressure with systolic greater than 140. It is not time for PRN Labetalol and heart rate is less than 60. PRN Hydralazine ordered.
--- NOTE | 2023-03-25 23:09 | PC.NURSE ---
Dr. Watt notified of CT changes on patient and also notified of change in patient's orientation status. Patient was oriented x4 at beginning of shift and is now oriented x1.
--- NOTE | 2023-03-25 23:11 | W.PM.EVENTAC ---
Event Note Event Note: Subdural hematoma noted worsened on repeat CT. Discussed with her son. Blood pressure is better, however, still noted 153/63. Heart rate 55, discussed instead of labetalol additional hydralazine dose at this time. Continue to target SBP goal. Previously on Plavix, she has received platelets. Discussed risks, possible benefit of desmopressin, alternative, son is agreeable with proceeding. Does not want anything more aggressive. In case of deterioration we may update him, but if she is worsening may consider comfort care alone. Does report mother has history of dementia.
--- NOTE | 2023-03-25 23:30 | CTR_ITS ---
PROCEDURE INFORMATION: Exam: CT Head Without Contrast Exam date and time: 03/25/2023 10:37 PM Age: 87 years old Clinical indication: Patient HX: Six hour f/u for RT subdural/subarachnoid hemorrhage. ; Additional info: Subdural, subarachnoid blled, to be done at 2200 for 6 hour follow up TECHNIQUE: Imaging protocol: Computed tomography of the head without contrast. Radiation optimization: All CT scans at this facility use at least one of these dose optimization techniques: automated exposure control; mA and/or kV adjustment per patient size (includes targeted exams where dose is matched to clinical indication); or iterative reconstruction. REPORTING DATA: Count of CT and Cardiac NM exams in prior 12 months: This patient has received 0 known CTs and 0 known cardiac nuclear medicine studies in the 12 months prior to the current study. COMPARISON: CT head wo contrast * 03/25/2023 3:48 PM RADIATION DOSE METRICS: Total DLP (mGy-cm): 1049.58 FINDINGS: Brain: Interval increase in size of acute right subdural hematoma, now measuring 7 mm in maximal thickness, as compared to 4 mm on the earlier exam. Unchanged small amount of acute subarachnoid hemorrhage noted over the right cerebral convexity. Stable biconvex extra-axial fluid collection overlying the right superior cerebral convexity, measuring up to 13 mm in thickness on coronal imaging. No new hemorrhage identified. Increased leftward midline shift of about 8 mm, compared to 4-5 mm on the prior study. Extensive chronic white matter changes, likely secondary to chronic small-vessel ischemic changes. Old lacunar infarcts in the basal ganglia and right cerebellum. Cerebral ventricles: Mild mass effect upon the right lateral ventricle. No enlargement to suggest hydrocephalus. Paranasal sinuses: Visualized sinuses are unremarkable. No fluid levels. Mastoid air cells: Visualized mastoid air cells are well aerated. Bones/joints: Unremarkable. No acute fracture. Soft tissues: Large right periorbital soft tissue hematoma and right-sided facial swelling, similar to prior study. CT/CT head wo con* [id number] IMPRESSION: 1. Interval increase in size of acute right subdural hematoma, now measuring 7 mm in maximal thickness, as compared to 4 mm on the earlier exam. 2. Increased leftward midline shift of about 8 mm, compared to 4-5 mm on the prior study. 3. Unchanged small amount of acute subarachnoid hemorrhage noted over the right cerebral convexity. 4. Stable biconvex extra-axial fluid collection overlying the right superior cerebral convexity, measuring up to 13 mm in thickness on coronal imaging. Could represent a chronic extra-axial hematoma, possibly a loculated subdural versus epidural. 5. Large right periorbital soft tissue hematoma and right-sided facial swelling, similar to prior study.
[2023-03-26] VITALS (38 sets, daily range): BP systolic 74–175; BP diastolic 45–111; PULSE 52–85; RESP 12–24; TEMP 37.1–37.6; O2SAT 90–98
[2023-03-26] MEDS: morphine 4 mg/mL SDV 1 mL 2 MG IVP (00:24)
[2023-03-26 06:30] LABS: Glucose Point of Care 158 mg/dL (70-110)
[2023-03-26] MEDS: labetalol 5 mg/mL SDV 20mL 10 MG IVP ×4 (06:33→23:46)
[2023-03-26 06:36] LABS: Basophils % 0.3 %; Eosinophils % 0.1 %; Hematocrit 33.1 % (36-47); Lymphocytes # 1.4 10^3/uL (0.8-4.8); Lymphocytes % 18.7 %; Mean Corpuscular HGB Conc 31.7 g/dL (30-55); Mean Corpuscular Volume 97.6 fl (85-98); Mean Platelet Volume 10.2 fL (7.4-10.4); Monocytes # 0.6 10^3/uL (0.2-0.9); Monocytes % 8.1 %; Neutrophils # 5.46 10^3/uL (1.8-7.7); Neutrophils % 72.4 %; Nucleated Red Blood Cells % 0 %; Platelet Count 216 10^3/cmm (157-399); Red Blood Count 3.39 10^6/uL (3.85-5.65); Red Cell Distribution Width 12.6 % (12.1-15.1); White Blood Count 7.54 10^3/uL (3.29-11.43)
[2023-03-26 06:50] LABS: Alanine Aminotransferase 62 U/L (0-33); Albumin Level 3.5 g/dL (3.5-5.2); Alkaline Phosphatase 79 U/L (35-105); Anion Gap 13.6 (5-19); Aspartate Amino Transferase 69 U/L (0-32); Blood Urea Nitrogen 14 mg/dL (8-23); Calcium 8.7 mg/dL (8.5-10.5); Carbon Dioxide 22 mmol/L (22-29); Chloride 111 mmol/L (98-107); Creatinine Clr Calc Pharmacy 53.3087; Globulin 1.9 g/dL (1.3-4.6); Glucose 167 mg/dL (65-115); Magnesium 1.9 mg/dL (1.7-2.3); Osmolality Calculated 298 mOsm/kg (285-295); Phosphorus 2.6 mg/dL (2.5-4.5); Potassium 4.6 mmol/L (3.5-5.1); Sodium 142 mmol/L (136-145); Total Bilirubin 0.5 mg/dL (0.15-1.2); Total Protein 5.4 g/dL (6.6-8.7)
[2023-03-26 07:53] LABS: Glucose Point of Care 134 mg/dL (70-110)
--- NOTE | 2023-03-26 08:00 | CT_ITS ---
WS: [id number] CT HEAD NONCONTRAST HISTORY: ich TECHNIQUE: Contiguous axial imaging performed through the brain in 2.5 mm imaging. Bone and soft tiss ue windows. Sagittal and coronal reformats reviewed. All CT scans at [facility] use at least one of these dose optimization techniques: automated exposure control; mA and/or kV adjustment per pa tient size (includes targeted exams where dose is matched to clinical indication); or iterative recon struction. DLP: 1073.28 mGy.cm COMPARISON: CTs from 03/25/2023. RIGHT subdural acute hematoma is reidentified extending over the superior convexity. Hematoma measure s up to 9 mm in diameter which is similar to the most recent examination. The subdural has increased in size since the initial examination on 03/25/2023. Subarachnoid blood in the posterior cerebral con vexity is similar to the prior study. Reidentified is the low-attenuation biconvex collection which m ay be loculated of subdural from prior hemorrhages or remote epidural bleed. There is no acute blood products within this separate collection and it is unchanged. There is mass effect upon the cerebrum. Loss of the rausch-white matter differentiation with cerebral edema throughout the RIGHT brain. Midline shift is 6.5 mm. Slight mass effect continuous on the RIGHT lateral ventricle. Otherwise atrophy and chronic microvascular ischemic disease. No intraventricular blood is identified . Remote lacunar infarcts basal ganglia and RIGHT cerebellum. Paranasal sinuses: As visualized are clear. Mastoid air cells: Well pneumatized. Calvarium and scalp: Large acute soft tissue hematoma centered over the RIGHT face, orbit and globe. Not increasing in size. IMPRESSION: 1. No significant change of the RIGHT subdural acute hematoma measuring up to 9 mm towards the vertex . 2. Stable RIGHT subarachnoid blood. 3. Biconvex low-attenuation collection over the RIGHT cerebral convexity is stable. This is probably a remote extra-axial fluid collection. 4. RIGHT cerebral edema with 6.5 mm of midline shift to the LEFT. Similar to the most recent study fr 03/25/2023. 5. Mild improvement in the RIGHT facial hematoma.
[2023-03-26] MEDS: sotalol 80 mg Tablet PO ×2 (08:12→17:36)
[2023-03-26] MEDS: metoprolol tartrate 50 mg Tablet PO ×2 (08:12→20:58)
[2023-03-26] MEDS: losartan 50 mg Tablet 100 MG PO (08:12)
[2023-03-26] MEDS: amlodipine 5 mg Tablet PO (08:13)
[2023-03-26] MEDS: sodium chloride 0.9% 1,000 ML 75 ML IV (08:41)
[2023-03-26] MEDS: pantoprazole 40 mg SDV IVP ×2 (08:41→19:51)
[2023-03-26 11:22] LABS: Glucose Point of Care 153 mg/dL (70-110)
[2023-03-26] MEDS: insulin lispro 100 unit/1 mL SUBCUT (11:22)
[2023-03-26] MEDS: acetaminophen 325 mg Tablet 650 MG PO ×2 (11:22→23:50)
--- NOTE | 2023-03-26 11:52 | PM.PN ---
Subjective Subjective: - Patient was examined multiple times throughout the morning, with multiple family meetings -Early this morning, she is alert to person, to place, not to time she was a bit drowsy, has good strength in upper and bilateral lower extremities, can follow commands, left pupil equal round reactive to light, -She was reexamined in the later part of the morning, she is much more alert and awake, she had received morphine -I concurred with her that her plan is to continue medical interventions, she does not want to be transferred, if her condition starts to deteriorate and she is agreeable to go to the comfort care -I had extensive meeting with patient's 2 sons, and patient's grandson, family meeting for at least 30 minutes -I discussed patient's clinical condition with her subarachnoid bleed, subdural hematoma and patient's wishes to not be transferred, not be considered for any surgical intervention, that she wanted to be kept here, to be medically manage, and if her condition were to deteriorate, she would just want to be comfortable and be managed on comfort care, she accepted the complications of staying here at [facility], and if she were to have complications that decreased her quality of life she was just want to be made comfortable -I answered all her questions, they voiced understanding, all questions answered -Discussed with patient about trying mannitol as her repeat CT of her head has shown interval increase in the subdural hematoma and midline shift, repeat head CT this morning is pending, we will try mannitol, she is agreeable we will continue to monitor closely, -She does tell me her headache has improved to some degree lingers -I also discussed with her I am worried about increased intraocular pressure in the right eye she might lose vision in the right eye she voiced an understanding, all questions answered, however she does not want to have any surgical intervention or any significant interventions she tells me that if it is her time to go she is ready to Vitals/I&O/Wt Last Vital Signs Temp 98.4 F 03/25/23 22:23 Pulse 69 03/26/23 10:00 Resp 15 03/26/23 10:00 BP 145/85 03/26/23 10:00 Pulse Ox 94 03/26/23 09:05 O2 Del Method Room Air 03/26/23 07:20 03/25/23 03/26/23 03/26/23 22:59 06:59 14:59 Intake Total 469 / 469 57.5 / 526.5 1077.5 / 1077.5 Output Total 500 / 500 Balance 469 / 469 -442.5 / 26.5 1077.5 / 1077.5 Weight last 48 hrs Weight 74.843 kg Physical Exam Const: COMMON NORMALS: no acute distress OTHER: Right eye hematoma, right facial, right neck, also extending to the left eye Resp: COMMON NORMALS: normal respiratory effort, No retractions, No use of accessory muscles and clear to auscultation bilaterally AUSCULTATION: clear to auscultation bilaterally Cardio: COMMON NORMALS: regular rate, regular rhythm, S1 normal heart sound present and S2 normal heart sound present RATE: regular rate RHYTHM: regular rhythm HEART SOUNDS: S1 normal heart sound present and S2 normal heart sound present GI: COMMON NORMALS: Normal to inspection, nondistended, normoactive bowel sounds present and non-tender Extremity: COMMON NORMALS: no calf tenderness and no pedal edema Psych: COMMON NORMALS: mental status grossly normal Urinary Catheter Management: Mckinley: Cath Placed During This Visit: yes Reason for Continuing Indwelling Catheter: Required Immobilization for Trauma or Surgery or Anesthesia Urinary Catheter Date of Insertion: 03/25/23 Urinary Catheter Time of Insertion: 21:35 Data 03/26/23 06:02 03/26/23 06:02 A&P Assessment and plan (1) Acute UTI: (2) Facial hematoma: (3) SDH (subdural hematoma): (4) Subarachnoid bleed: (5) Closed head injury: (6) Dementia: (7) Hypertension: (8) Type 2 diabetes mellitus: (9) Traumatic hematoma of face: (10) Midline shift of brain: (11) Goals of care, counseling/discussion: (12) Subarachnoid hemorrhage following injury with moderate (1-24 hours) loss of consciousness: Plan Acute right subdural hematoma, Repeat head CT IMPRESSION: 1. No significant change of the RIGHT subdural acute hematoma measuring up to 9 mm towards the vertex. 2. Stable RIGHT subarachnoid blood. 3. Biconvex low-attenuation collection over the RIGHT cerebral convexity is stable. This is probably a remote extra-axial fluid collection. 4. RIGHT cerebral edema with 6.5 mm of midline shift to the LEFT. Similar to the most recent study from 03/25/2023. 5. Mild improvement in the RIGHT facial hematoma. -Will admit to ICU -Neurochecks every hour -Avoid all blood thinners - status post 2 units platelets -Aim for systolic blood pressure less than 140 - Keppra 1000 mg IV every 12 hours for seizure prophylaxis -Repeat CT head at 6 PM, and in the morning -Has received mannitol, mentation and symptomatology have seemed to improved, after receiving mannitol, will place on scheduled dose every 12 hours, monitor closely -IV fluids -Head of bed elevation -Continue home blood pressure medications Subarachnoid bleed/hemorrhage -As above Large soft tissue hematoma right facial bone, right orbit -Continue to conservatively manage Has epidural hematoma IMPRESSION: 1. No significant change of the RIGHT subdural acute hematoma measuring up to 9 mm towards the vertex. 2. Stable RIGHT subarachnoid blood. 3. Biconvex low-attenuation collection over the RIGHT cerebral convexity is stable. This is probably a remote extra-axial fluid collection. 4. RIGHT cerebral edema with 6.5 mm of midline shift to the LEFT. Similar to the most recent study from 03/25/2023. 5. Mild improvement in the RIGHT facial hematoma. UTI -Rocephin We will order troponin series Has no other complaints, no other pain complaints Goals of care discussion -Patient is adamant that she is DNR/DNI, she does not want to have life-sustaining measures -If her clinical condition does start to deteriorate, such that she has intractable headaches that are uncontrolled, she starts to develop intractable seizures, or starts to develop irreversible complications or complications that affect her quality of life, then she just wants to be left comfortable for us to ease her pain and ease her suffering and allow her to pass away comfortably -I have gone over this in detail with patient, she voices understanding, all questions answered, agreed to proceed -We will place her on morphine as needed, Ativan as needed, atropine as needed As patient is receiving mannitol we will have to monitor serum electrolytes, serum osmolality, osmole gap, sodium, urine output, cardiac function Attestations Medical Necessity Statement*: Patient requires hospitalization for subdural hematoma, subarachnoid bleed, UTI Coding Level of Care Code Critical Care >/= 30 minutes Critical care time (in minutes): 50 The high probability of a clinically significant, sudden or life threatening deterioration, as referenced in this documentation, required my full and direct attention, intervention and personal management. The critical care time shown is in addition to time spent performing any reported separately billable procedures and includes the following: [x] Data and vital sign review and interpretation [x] Patient assessment, examination and intervention [x] Medication orders and management [x] Patient/Family updates as able [x] Care Coordination and Documentation. Diagnoses Acute UTI N39.0 Facial hematoma S00.83XA SDH (subdural hematoma) S06.5XAA Subarachnoid bleed I60.9 Closed head injury S09.90XA Dementia F03.90 Hypertension I10 Type 2 diabetes mellitus E11.9 Traumatic hematoma of face S00.83XA Midline shift of brain R90.89 Goals of care, counseling/discussion Z71.89 Subarachnoid hemorrhage following injury with moderate (1-24 hours) loss of consciousness S06.6X9A
[2023-03-26 14:45] LABS: Blood Urea Nitrogen 12 mg/dL (8-23); Calcium 8.5 mg/dL (8.5-10.5); Carbon Dioxide 15 mmol/L (22-29); Chloride 109 mmol/L (98-107); Creatinine Clr Calc Pharmacy 53.3087; Glucose 118 mg/dL (65-115); Osmolality Calculated 289 mOsm/kg (285-295); Sodium 139 mmol/L (136-145)
[2023-03-26 14:53] LABS: Anion Gap 18.9 (5-19); Potassium 3.9 mmol/L (3.5-5.1)
[2023-03-26] MEDS: cefTRIAXone 1,000 MG in sodium chloride 0.9% (plus) 50 ML 100 MG IV (17:35)
[2023-03-26 17:37] LABS: Glucose Point of Care 116 mg/dL (70-110)
--- NOTE | 2023-03-26 18:00 | CTR_ITS ---
PROCEDURE INFORMATION: Exam: CT Head Without Contrast Exam date and time: 03/26/2023 7:15 PM Age: 87 years old Clinical indication: Injury or trauma; Fall; Bleeding/hemorrhage; Injury date: 03/25/2023; Injury details: Follow up brain bleed; Additional info: Ich TECHNIQUE: Imaging protocol: Computed tomography of the head without contrast. Radiation optimization: All CT scans at this facility use at least one of these dose optimization techniques: automated exposure control; mA and/or kV adjustment per patient size (includes targeted exams where dose is matched to clinical indication); or iterative reconstruction. REPORTING DATA: Count of CT and Cardiac NM exams in prior 12 months: This patient has received 4 known CTs and 0 known cardiac nuclear medicine studies in the 12 months prior to the current study. COMPARISON: CT head wo con* [id number] 03/26/2023 8:25 AM RADIATION DOSE METRICS: Total DLP (mGy-cm): 1078.08 FINDINGS: Brain: No significant interval change in the acute right hemispheric subdural hematoma measuring up to 9 mm throughout the convexity. Stable biconvex water density collection in the right cerebral convexity. The right subarachnoid hematoma has not changed in the interim. Loss of the rausch-white matter and cerebral edema in the right hemisphere shows some interval improvement but midline shift remains stable at approximately 6 mm. Cerebral ventricles: The ventricles and sulci are appropriate for the patient's age. There is midline shift to the left of 6 mm at the level of the septum pellucidum. Paranasal sinuses: There are no air-fluid levels. Mastoid air cells: The visualized mastoid air cells are well aerated. Bones/joints: No acute fracture. Soft tissues: Unremarkable. CT/CT head wo con* [id number] IMPRESSION: 1. Stable acute right subdural and subarachnoid hemorrhage. 2. Some interval improvement in right hemispheric cerebral edema with stable midline shift to the left of 6 mm. 3. Biconvex low-density collection of the right convexity consistent with a remote extra-axial hygroma.
[2023-03-26] MEDS: donepezil 5 MG Tablet 10 MG PO (20:58)
[2023-03-26 21:51] LABS: Blood Urea Nitrogen 11 mg/dL (8-23); Calcium 8.4 mg/dL (8.5-10.5); Carbon Dioxide 19 mmol/L (22-29); Chloride 108 mmol/L (98-107); Creatinine Clr Calc Pharmacy 53.3087; Glucose 121 mg/dL (65-115); Osmolality Calculated 285 mOsm/kg (285-295); Sodium 137 mmol/L (136-145)
[2023-03-26 21:52] LABS: Anion Gap 14.9 (5-19); Potassium 4.9 mmol/L (3.5-5.1)
[2023-03-26] MEDS: hyDRALAzine 20 mg/mL INJ 1 mL 5 MG IVP (22:44)
[2023-03-26 23:30] LABS: Glucose Point of Care 125 mg/dL (70-110)
[2023-03-27] VITALS (49 sets, daily range): BP systolic 132–171; BP diastolic 51–109; PULSE 57–87; RESP 16–26; TEMP 36.9–37.7; O2SAT 85–98
--- NOTE | 2023-03-27 01:51 | PC.NURSE ---
Increased BP: Notified Dr. Watt of increased BP, HR, and times of PRN BP medications @2373.
[2023-03-27] MEDS: hyDRALAzine 20 mg/mL INJ 1 mL 5 MG IVP ×3 (01:58→12:53)
[2023-03-27] MEDS: sodium chloride 0.9% 1,000 ML 50 ML IV (03:06)
[2023-03-27 04:38] LABS: Basophils % 0.2 %; Eosinophils % 0.4 %; Hematocrit 33.9 % (36-47); Lymphocytes # 1.5 10^3/uL (0.8-4.8); Lymphocytes % 17.9 %; Mean Corpuscular HGB Conc 31.6 g/dL (30-55); Mean Corpuscular Volume 98.3 fl (85-98); Mean Platelet Volume 10.8 fL (7.4-10.4); Monocytes # 0.5 10^3/uL (0.2-0.9); Monocytes % 6.2 %; Neutrophils # 6.04 10^3/uL (1.8-7.7); Neutrophils % 74.6 %; Nucleated Red Blood Cells % 0 %; Platelet Count 197 10^3/cmm (157-399); Red Blood Count 3.45 10^6/uL (3.85-5.65); Red Cell Distribution Width 12.9 % (12.1-15.1)
[2023-03-27 05:02] LABS: Alanine Aminotransferase 47 U/L (0-33); Albumin Level 3.4 g/dL (3.5-5.2); Alkaline Phosphatase 79 U/L (35-105); Anion Gap 11.8 (5-19); Aspartate Amino Transferase 35 U/L (0-32); Blood Urea Nitrogen 11 mg/dL (8-23); Calcium 8.4 mg/dL (8.5-10.5); Carbon Dioxide 25 mmol/L (22-29); Chloride 107 mmol/L (98-107); Creatinine Clr Calc Pharmacy 53.3087; Globulin 2.3 g/dL (1.3-4.6); Glucose 114 mg/dL (65-115); Magnesium 1.8 mg/dL (1.7-2.3); Osmolality Calculated 290 mOsm/kg (285-295); Phosphorus 2.8 mg/dL (2.5-4.5); Potassium 3.8 mmol/L (3.5-5.1); Sodium 140 mmol/L (136-145); Total Bilirubin 0.6 mg/dL (0.15-1.2); Total Protein 5.7 g/dL (6.6-8.7)
[2023-03-27] MEDS: labetalol 5 mg/mL SDV 20mL 10 MG IVP ×2 (05:24→11:28)
--- NOTE | 2023-03-27 05:29 | PC.NURSE ---
Neuro Check: Dr. Watt notified of change in neuro assessment @0635. Pt now has aphasic speech and is not answering questions appropriately. Pt does has equal ct technologist and symmetrical facial features. No new orders at this time.
[2023-03-27 07:24] LABS: Glucose Point of Care 124 mg/dL (70-110)
[2023-03-27] MEDS: pantoprazole 40 mg SDV IVP ×2 (07:31→21:02)
[2023-03-27] MEDS: sotalol 80 mg Tablet PO ×2 (08:20→18:11)
[2023-03-27] MEDS: losartan 50 mg Tablet 100 MG PO (08:20)
[2023-03-27] MEDS: metoprolol tartrate 50 mg Tablet PO ×2 (08:20→20:04)
[2023-03-27] MEDS: amlodipine 10 mg Tablet PO (08:21)
[2023-03-27] MEDS: hyDRALAzine 10 mg Tablet PO ×2 (08:24→14:32)
[2023-03-27 11:49] LABS: Glucose Point of Care 151 mg/dL (70-110)
[2023-03-27] MEDS: insulin lispro 100 unit/1 mL SUBCUT ×2 (11:50→18:12)
--- NOTE | 2023-03-27 12:44 | PC.OT ---
OT orders received to evaluate and treat. Per nursing, though patient is on bedrest, OT still to evaluate and treat just not aggressively. Pt. covered in multiple blankest and c/o being cold. Pt. touched her head when asked to touch therapist's hand. Confusion noted. If appropriate, evaluation to be completed at a later date secondary to confusion and difficulty following directions.
--- NOTE | 2023-03-27 15:03 | PC.NURSE ---
Report called to MS nurse, patient transferred to room 256-2 via bed accompanied by MAYO Gilman and nursing home administrator. Patient belongings placed at bedside, and son notified of transfer of care.
--- NOTE | 2023-03-27 16:39 | CTR_ITS ---
PROCEDURE INFORMATION: Exam: CT Head Without Contrast Exam date and time: 03/27/2023 9:50 PM Age: 87 years old Clinical indication: Other: F/u hemorrhage; Patient HX: F/u day 3 for RT subdural/subarachnoid hemorrhage. ; Additional info: Ich TECHNIQUE: Imaging protocol: Computed tomography of the head without contrast. Radiation optimization: All CT scans at this facility use at least one of these dose optimization techniques: automated exposure control; mA and/or kV adjustment per patient size (includes targeted exams where dose is matched to clinical indication); or iterative reconstruction. REPORTING DATA: Count of CT and Cardiac NM exams in prior 12 months: This patient has received 6 known CTs and 0 known cardiac nuclear medicine studies in the 12 months prior to the current study. COMPARISON: CT head wo con* [id number] 03/26/2023 7:15 PM RADIATION DOSE METRICS: Total DLP (mGy-cm): 2026.3 FINDINGS: Brain: Redemonstration of evolving acute / subacute right hemispheric subdural hematoma measuring up to 9 mm in diameter along with similar appearing biconvex CSF attenuating fluid collection overlying the right cerebral convexity on series 20, image 9. Small amount of subarachnoid hemorrhage on series 18, image 50 and series 19, image 22 also appears similar to the prior exam. Redemonstration of up to approximately 6 mm of right to left midline shift, not significantly changed when compared with the prior exam. No new intracranial hemorrhage. [id number] periventricular and subcortical white matter hypodensities compatible with changes of zyli-lf-qcxrkphb burden chronic small-vessel disease. Cerebral ventricles: Redemonstration of similar-appearing mild mass effect on the right lateral ventricles and midline shift as described above. The remainder of the ventricular system is within normal limits of variation for the patient's age. Paranasal sinuses: Visualized paranasal sinuses are grossly unremarkable. No air fluid levels. Mastoid air cells: Visualized mastoid air cells are well aerated. Bones/joints: No acute fracture. Soft tissues: Moderate right forehead scalp hematoma is again noted. Vasculature: Atheromatous changes are seen within the bilateral carotid siphons and V4 segments of the bilateral vertebral arteries. CT/CT head wo con* [id number] IMPRESSION: 1. Redemonstration of similar-appearing evolving acute/subacute right hemispheric subdural and subarachnoid hemorrhages with associated mass effect on the underlying parenchyma as described above. 2. Similar-appearing CSF density overlying the right cerebral convexity on series 20, image 19, finding is somewhat nonspecific, differential includes subdural hygroma, arachnoid cyst, and chronic subdural hemorrhage. 3. Other chronic/incidental findings as described above.
--- NOTE | 2023-03-27 16:40 | P.PN_ITS ---
Subjective Subjective: Overnight patient had episodes of aphasia, confusion, this morning she is encephalopathic at times, but can answer most questions appropriately, alert to person, to place, not to time, she does not recognize me, I am able to jog her memory, I was able to jog her memory about the events of the last 48 hours, she knows her address, she knows her son's names, she can follow commands she has equal strength bilateral upper extremity, equal strength bilateral lower extremities, can follow commands, denies any headache, no nausea, no vomiting, Vitals/I&O/Wt Last Vital Signs Temp 99.3 F 03/27/23 15:56 Pulse 70 03/27/23 15:56 Resp 19 H 03/27/23 15:56 BP 164/73 03/27/23 15:56 Pulse Ox 87 L 03/27/23 15:56 O2 Del Method Nasal Cannula 03/27/23 08:15 O2 Flow Rate 1 03/27/23 08:15 03/27/23 03/27/23 03/27/23 06:59 14:59 22:59 Intake Total 486.25 / 2867.50 235 / 235 Output Total 800 / 1525 Balance -313.75 / 1342.50 235 / 235 Physical Exam Const: COMMON NORMALS: no acute distress ORIENTATION/CONSCIOUSNESS: Yes awake, Yes oriented to person and Yes oriented to place; not oriented to time OTHER: Right brow, right orbit, significant swelling, erythema, right pupil is visible, does have conjunctival erythema, pupil is equal round reactive to light, including left Resp: COMMON NORMALS: normal respiratory effort, No retractions, No use of accessory muscles and clear to auscultation bilaterally AUSCULTATION: clear to auscultation bilaterally Cardio: COMMON NORMALS: regular rate, regular rhythm, S1 normal heart sound present and S2 normal heart sound present RATE: regular rate RHYTHM: regular rhythm HEART SOUNDS: S1 normal heart sound present and S2 normal heart sound present GI: COMMON NORMALS: Normal to inspection, nondistended, normoactive bowel sounds present, non-tender and no bruits Extremity: COMMON NORMALS: no pedal edema Neuro: SENSORIUM/ORIENTATION: Yes oriented to person, Yes oriented to place and No oriented to time Psych: COMMON NORMALS: mental status grossly normal Urinary Catheter Management: Mckinley: Cath Placed During This Visit: yes Reason for Continuing Indwelling Catheter: Accurate Measurement of Urinary Out put in Critically Ill Patients Urinary Catheter Date of Insertion: 03/25/23 Urinary Catheter Time of Insertion: 21:35 Data 03/27/23 03:59 03/27/23 03:59 Micro: Microbiology 03/25/23 15:43 Urine Culture - Preliminary Urine,Clean Catch Gram Negative Rods A&P Assessment and plan (1) Acute UTI: (2) Facial hematoma: (3) SDH (subdural hematoma): (4) Subarachnoid bleed: (5) Closed head injury: (6) Dementia: (7) Hypertension: (8) Type 2 diabetes mellitus: (9) Traumatic hematoma of face: (10) Midline shift of brain: (11) Goals of care, counseling/discussion: (12) Subarachnoid hemorrhage following injury with moderate (1-24 hours) loss of consciousness: Plan Acute right subdural hematoma, CT/CT head wo con* [id number] IMPRESSION: 1. ? Stable acute right subdural and subarachnoid hemorrhage. 2. ? Some interval improvement in right hemispheric cerebral edema with stable midline shift to the left of 6 mm. 3. ? Biconvex low-density collection of the right convexity consistent with a remote extra-axial hygroma. -Will admit to ICU -Neurochecks every hour -Avoid all blood thinners - status post 2 units platelets -We will receive 1 dose of mannitol this evening we will consider repeat doses based upon CT head this afternoon -Aim for systolic blood pressure less than 140, systolics are in the 150s add on hydralazine 10 every 6 hours - Keppra 1000 mg IV every 12 hours for seizure prophylaxis -Repeat CT head at 6 PM, and in the morning -Has received mannitol, mentation and symptomatology have seemed to improved, after receiving mannitol, will place on scheduled dose every 12 hours, monitor closely -IV fluids -Head of bed elevation -Continue home blood pressure medications Subarachnoid bleed/hemorrhage -As above Large soft tissue hematoma right facial bone, right orbit -Continue to conservatively manage Has epidural hematoma IMPRESSION: 1. No significant change of the RIGHT subdural acute hematoma measuring up to 9 mm towards the vertex. 2. Stable RIGHT subarachnoid blood. 3. Biconvex low-attenuation collection over the RIGHT cerebral convexity is stable. This is probably a remote extra-axial fluid collection. 4. RIGHT cerebral edema with 6.5 mm of midline shift to the LEFT. Similar to the most recent study from 03/25/2023. 5. Mild improvement in the RIGHT facial hematoma. UTI -Rocephin We will order troponin series Has no other complaints, no other pain complaints Goals of care discussion -Patient is adamant that she is DNR/DNI, she does not want to have life-s ustaining measures -If her clinical condition does start to deteriorate, such that she has intractable headaches that are uncontrolled, she starts to develop intractable seizures, or starts to develop irreversible complications or complications that affect her quality of life, then she just wants to be left comfortable for us to ease her pain and ease her suffering and allow her to pass away comfortably -I have gone over this in detail with patient, she voices understanding, all questions answered, agreed to proceed -We will place her on morphine as needed, Ativan as needed, atropine as needed As patient is receiving mannitol we will have to monitor serum electrolytes, serum osmolality, osmole gap, sodium, urine output, cardiac function Plan for today continue mannitol monitor blood pressures closely added hydralazine, repeat CT of the head, PT OT, will move to general medical floors, monitor hemodynamics, monitor mentation closely, treat for pain Attestations Medical Necessity Statement*: Patient requires hospitalization, inpatient for subarachnoid hemorrhage, with subdural hematoma, now with encephalopathy and High MDM includes number and complexity of problems actively addressed during encounter, amount and/or complexity of data reviewed/ordered and described risk of complication, morbidity or mortality of management as documented Diagnoses Acute UTI N39.0 Facial hematoma S00.83XA SDH (subdural hematoma) S06.5XAA Subarachnoid bleed I60.9 Closed head injury S09.90XA Dementia F03.90 Hypertension I10 Type 2 diabetes mellitus E11.9 Traumatic hematoma of face S00.83XA Midline shift of brain R90.89 Goals of care, counseling/discussion Z71.89 Subarachnoid hemorrhage following injury with moderate (1-24 hours) loss of consciousness S06.6X9A
[2023-03-27 17:16] LABS: Glucose Point of Care 143 mg/dL (70-110)
[2023-03-27] MEDS: cefTRIAXone 1,000 MG in sodium chloride 0.9% (plus) 50 ML 100 MG IV (18:11)
[2023-03-27] MEDS: donepezil 5 MG Tablet 10 MG PO (20:04)
[2023-03-27] MEDS: hyDRALAzine 25 mg Tablet PO (20:04)
[2023-03-27 21:20] LABS: Glucose Point of Care 129 mg/dL (70-110)
[2023-03-28] VITALS (26 sets, daily range): BP systolic 145–154; BP diastolic 64–74; PULSE 57–72; RESP 1–25; TEMP 36.4–37.2; O2SAT 91–98
[2023-03-28] MEDS: hyDRALAzine 20 mg/mL INJ 1 mL 5 MG IVP ×3 (00:43→21:55)
[2023-03-28] MEDS: acetaminophen 325 mg Tablet 650 MG PO (01:14)
[2023-03-28 04:24] LABS: Basophils % 0.2 %; Lymphocytes # 1.5 10^3/uL (0.8-4.8); Lymphocytes % 10.8 %; Mean Corpuscular HGB Conc 31.8 g/dL (30-55); Mean Corpuscular Hemoglobin 30.5 pg (27-33); Mean Corpuscular Volume 95.9 fl (85-98); Mean Platelet Volume 11.2 fL (7.4-10.4); Monocytes # 0.7 10^3/uL (0.2-0.9); Monocytes % 4.8 %; Neutrophils # 11.88 10^3/uL (1.8-7.7); Neutrophils % 83.2 %; Nucleated Red Blood Cells % 0 %; Platelet Count 194 10^3/cmm (157-399); Red Blood Count 3.44 10^6/uL (3.85-5.65); Red Cell Distribution Width 13.1 % (12.1-15.1); White Blood Count 14.29 10^3/uL (3.29-11.43)
[2023-03-28 04:46] LABS: Alanine Aminotransferase 32 U/L (0-33); Albumin Level 3.1 g/dL (3.5-5.2); Alkaline Phosphatase 78 U/L (35-105); Anion Gap 12.5 (5-19); Aspartate Amino Transferase 22 U/L (0-32); Blood Urea Nitrogen 13 mg/dL (8-23); Calcium 8.5 mg/dL (8.5-10.5); Carbon Dioxide 24 mmol/L (22-29); Chloride 107 mmol/L (98-107); Creatinine Clr Calc Pharmacy 53.3087; Globulin 2.3 g/dL (1.3-4.6); Glucose 162 mg/dL (65-115); Magnesium 1.9 mg/dL (1.7-2.3); Osmolality Calculated 294 mOsm/kg (285-295); Phosphorus 2.7 mg/dL (2.5-4.5); Potassium 3.5 mmol/L (3.5-5.1); Sodium 140 mmol/L (136-145); Total Bilirubin 0.6 mg/dL (0.15-1.2); Total Protein 5.4 g/dL (6.6-8.7)
[2023-03-28] MEDS: hyDRALAzine 25 mg Tablet PO ×3 (04:49→20:36)
[2023-03-28 06:47] LABS: Glucose Point of Care 123 mg/dL (70-110)
[2023-03-28] MEDS: pantoprazole 40 mg SDV IVP ×2 (08:37→20:48)
[2023-03-28] MEDS: losartan 50 mg Tablet 100 MG PO (08:37)
[2023-03-28] MEDS: sotalol 80 mg Tablet PO ×2 (08:37→17:52)
[2023-03-28] MEDS: metoprolol tartrate 50 mg Tablet PO ×2 (08:38→20:36)
[2023-03-28] MEDS: amlodipine 10 mg Tablet PO (08:38)
--- NOTE | 2023-03-28 09:00 | CTR_ITS ---
PROCEDURE INFORMATION: Exam: CT Head Without Contrast Exam date and time: 03/28/2023 9:57 AM Age: 87 years old Clinical indication: Condition or disease; Other: F/u intercranial hemorrhage; Additional info: Ich TECHNIQUE: Imaging protocol: Computed tomography of the head without contrast. Radiation optimization: All CT scans at this facility use at least one of these dose optimization techniques: automated exposure control; mA and/or kV adjustment per patient size (includes targeted exams where dose is matched to clinical indication); or iterative reconstruction. REPORTING DATA: Count of CT and Cardiac NM exams in prior 12 months: This patient has received 7 known CTs and 0 known cardiac nuclear medicine studies in the 12 months prior to the current study. COMPARISON: CT head wo con* [id number] 03/27/2023 9:50 PM RADIATION DOSE METRICS: Total DLP (mGy-cm): 1063.28 FINDINGS: Brain: Stable right perirolandic subarachnoid hemorrhage. Stable hyperattenuating anterolateral right cerebral convexity subdural hematoma maximally measuring 9 mm thickness. Stable chronic hypoattenuating superolateral right frontoparietal convexity subdural fluid collection. Small chronic left caudate body lacunar infarction. Chronic left anterior limb internal capsule lacunar infarction. Chronic right cerebellar lacunar infarction. Moderate hypoattenuating foci are noted in the central cerebral, posterior superior periatrial and anterior lateral ventricular periventricular white matter bilaterally. Stable mild leftward shift of midline structures at the level of the septum pellucidum. No mass or acute cortical infarction identified. No acute infarction. No mass. Ventricles: Stable partial effacement right lateral ventricle. No hydrocephalus. Prominence of the ventricular system and subarachnoid spaces is otherwise consistent with the patient's age of 87 years. Paranasal sinuses: Visualized sinuses are unremarkable. No fluid levels. Mastoid air cells: Visualized mastoid air cells are well aerated. Orbital cavities: Bilateral prior cataract surgery with lens replacements. Bones/joints: No acute abnormality. No acute fracture. Soft tissues: Stable subcutaneous hematoma superficial to the right zygomatical frontal arch. Vasculature: Atherosclerotic calcifications are present involving the carotid artery siphons and vertebral arteries bilaterally. CT/CT head wo con* [id number] IMPRESSION: 1. Stable right perirolandic subarachnoid hemorrhage. 2. Stable acute anterolateral right cerebral convexity subdural hematoma. 3. Stable chronic subdural fluid collection superolateral right frontoparietal convexity. 4. Small chronic left caudate body lacunar infarction. 5. Chronic left anterior limb internal capsule lacunar infarction. 6. Chronic right cerebellar lacunar infarction. 7. Age appropriate supratentorial and infratentorial atrophy. 8. Moderate chronic white matter microvascular ischemic disease.
--- NOTE | 2023-03-28 09:24 | XRR_ITS ---
PROCEDURE INFORMATION: Exam: XR Lumbosacral Spine Exam date and time: 03/28/2023 10:05 AM Age: 87 years old Clinical indication: Injury or trauma; Fall; Blunt trauma (contusions or hematomas); Additional info: Fall/ruleout fracture TECHNIQUE: Imaging protocol: Radiologic exam of the lumbosacral spine. Views: 3 views. Other technique: AP, lateral and spot lateral views of the lumbar spine are submitted. COMPARISON: CR XR hip LT 2-3V wo/w pel* [id number] 11/22/2019 10:48 AM FINDINGS: Bones/joints: No fracture. No malalignment. No destructive bony process identified. Mild leftward lumbar spinal curvature. Left severe L4-L5, right moderate L3-L4 degenerative disc narrowing. 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 Lumbar spine vertebral body marginal osteophytes are noted at multiple levels. Diffuse osteopenia. Soft tissues: Unremarkable. XR/XR lumbar spine 2-3V* [id number] IMPRESSION: 1. Degenerative changes as above. 2. No acute lumbar spinal bony injury identified.
--- NOTE | 2023-03-28 09:24 | XRR_ITS ---
PROCEDURE INFORMATION: Exam: XR Bilateral Hips Exam date and time: 03/28/2023 10:05 AM Age: 87 years old Clinical indication: Injury or trauma; Fall; Blunt trauma (contusions or hematomas); Bilateral; Prior surgery; Surgery date: 6+ months; Surgery type: Lt hip; Additional info: Fall/ruleout fracture TECHNIQUE: Imaging protocol: Radiologic exam of the bilateral hips. Views: AP neutral and frogleg coned images of the bilateral hips, 4 views. 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 No evidence of loosening. Lateral right acetabular articular marginal lipping. No fracture. No malalignment. No destructive bony process identified. Soft tissues: Unremarkable. XR/XR hip BI 2V wo/w pel [id number] IMPRESSION: 1. Postoperative changes left hip as above. 2. Mild right hip primary osteoarthritis.
--- NOTE | 2023-03-28 09:25 | XRR_ITS ---
PROCEDURE INFORMATION: Exam: XR Right Knee Exam date and time: 03/28/2023 10:05 AM Age: 87 years old Clinical indication: Injury or trauma; Fall; Blunt trauma; Knee; Right; Additional info: Fall/ruleout fracture TECHNIQUE: Imaging protocol: Radiologic exam of the right knee. Views: Frontal and lateral, 2 views. COMPARISON: No relevant prior studies available. FINDINGS: Bones/joints: Medial tibial plateau medial articular marginal lipping. Minor hypertrophy of the tibial lateral intercondylar eminence. No fracture. No malalignment. No destructive bony process identified. Soft tissues: Normal. XR/XR knee RT 1-2V [id number] IMPRESSION: 1. Mild degenerative changes as above. 2. No acute bony injury identified.
[2023-03-28 12:10] LABS: Glucose Point of Care 262 mg/dL (70-110)
[2023-03-28] MEDS: insulin lispro 100 unit/1 mL SUBCUT (12:29)
--- NOTE | 2023-03-28 16:31 | P.PN_ITS ---
Subjective Subjective: Patient was seen this morning, she is much more alert and awake, to person, to place, not to time, she follows all commands, sitting up into a chair with nursing staff at bedside, she knows her name she knows her birthdate, she recognizes me, she knows why she is here in the hospital, I discussed her long- term prognosis, will have to watch her closely here in the hospital, but she might have episodes of forgetfulness, confusion, which could be related to subarachnoid hemorrhage and subdural hematoma, she is absolutely declined surgical intervention and she continues to emphasize she does not want to have any surgery or any surgical intervention, on repeat CT scans the subdural hematoma looks stable in size, I advised her to not get up out of bed, as I am worried about her risk of falls, worsening of her hematoma, will continue to hold blood thinner she is agreeable, she is agreeable to go to halfway facility Vitals/I&O/Wt Last Vital Signs Temp 97.9 F 03/28/23 16:00 Pulse 60 03/28/23 16:00 Resp 17 03/28/23 16:00 BP 150/74 03/28/23 16:00 Pulse Ox 92 03/28/23 16:00 O2 Del Method Room Air 03/28/23 16:00 O2 Flow Rate 2 03/28/23 13:19 03/28/23 03/28/23 03/28/23 06:59 14:59 22:59 Intake Total 1070 / 1070 Output Total 400 / 1200 400 / 400 Balance -400 / 124.167 670 / 670 Physical Exam Const: COMMON NORMALS: no acute distress ORIENTATION/CONSCIOUSNESS: Yes awake and Yes oriented to person; not oriented to place and not oriented to time Resp: COMMON NORMALS: normal respiratory effort, No retractions, No use of accessory muscles and clear to auscultation bilaterally AUSCULTATION: clear to auscultation bilaterally Cardio: COMMON NORMALS: regular rate, regular rhythm, S1 normal heart sound present and S2 normal heart sound present RATE: regular rate RHYTHM: regular rhythm HEART SOUNDS: S1 normal heart sound present and S2 normal heart sound present GI: COMMON NORMALS: Normal to inspection, nondistended, normoactive bowel sounds present and non-tender Extremity: COMMON NORMALS: no pedal edema Neuro: SENSORIUM/ORIENTATION: Yes oriented to person, No oriented to place and No oriented to time Urinary Catheter Management: Mckinley: Cath Placed During This Visit: yes Reason for Continuing Indwelling Catheter: Accurate Measurement of Urinary Output in Critically Ill Patients Urinary Catheter Date of Insertion: 03/25/23 Urinary Catheter Time of Insertion: 21:35 Data 03/28/23 03:37 03/28/23 03:37 Micro: Microbiology 03/25/23 15:43 Urine Culture - Final Urine,Clean Catch Escherichia coli A&P Assessment and plan (1) Acute UTI: (2) Facial hematoma: (3) SDH (subdural hematoma): (4) Subarachnoid bleed: (5) Closed head injury: (6) Dementia: (7) Hypertension: (8) Type 2 diabetes mellitus: (9) Traumatic hematoma of face: (10) Midline shift of brain: (11) Goals of care, counseling/discussion: (12) Subarachnoid hemorrhage following injury with moderate (1-24 hours) loss of consciousness: Plan Acute right subdural hematoma, CT/CT head wo con* [id number] IMPRESSION: 1. ? Stable right perirolandic subarachnoid hemorrhage. 2. ? Stable acute anterolateral right cerebral convexity subdural hematoma.? 3. ? Stable chronic subdural fluid collection superolateral right frontoparietal convexity. 4. ? Small chronic left caudate body lacunar infarction. 5. ? Chronic left anterior limb internal capsule lacunar infarction. 6. ? Chronic right cerebellar lacunar infarction. 7. ? Age appropriate supratentorial and infratentorial atrophy. 8. ? Moderate chronic white matter microvascular ischemic disease. -Current on medical floors -Neurochecks every hour -Avoid all blood thinners - status post 2 units platelets -Status post 4 doses of mannitol, as subdural hematoma and subarachnoid bleed look stable, on repeat CT scans will hold off on further doses, clinically she denies any headache, blurry vision, -Aim for systolic blood pressure less than 140, systolics are in the 150s add on hydralazine 10 every 6 hours - Keppra 1000 mg IV every 12 hours for seizure prophylaxis -Repeat CT head tomorrow morning -Monitor right orbital hematoma, right pupil equal round reactive to light, more visible, -Stop IV fluids -Head of bed elevation -Continue home blood pressure medications Subarachnoid bleed/hemorrhage -As above Large soft tissue hematoma right facial bone, right orbit -Continue to conservatively manage Has epidural hematoma IMPRESSION: 1. No significant change of the RIGHT subdural acute hematoma measuring up to 9 mm towards the vertex. 2. Stable RIGHT subarachnoid blood. 3. Biconvex low-attenuation collection over the RIGHT cerebral convexity is stable. This is probably a remote extra-axial fluid collection. 4. RIGHT cerebral edema with 6.5 mm of midline shift to the LEFT. Similar to the most recent study from 03/25/2023. 5. Mild improvement in the RIGHT facial hematoma. UTI -Rocephin We will order troponin series Has no other complaints, no other pain complaints Goals of care discussion -Patient is adamant that she is DNR/DNI, she does not want to have life- sustaining measures -If her clinical condition does start to deteriorate, such that she has intractable headaches that are uncontrolled, she starts to develop intractable seizures, or starts to develop irreversible complications or complications that affect her quality of life, then she just wants to be left comfortable for us to ease her pain and ease her suffering and allow her to pass away comfortably -I have gone over this in detail with patient, she voices understanding, all questions answered, agreed to proceed -We will place her on morphine as needed, Ativan as needed, atropine as needed As patient is receiving mannitol we will have to monitor serum electrolytes, serum osmolality, osmole gap, sodium, urine output, cardiac function Plan for today transition diet, PT OT, repeat CT head in the morning, monitor blood pressures closely, continue seizure prophylaxis, will consider further mannitol based on clinical progress, will consider discussing with neurosurgery about long-term outcome, patient is agreeable to go to halfway facility if needed, will continue to monitor hold all blood thinners, blood pressure management Attestations Medical Necessity Statement*: Patient requires hospitalization for subarachnoid bleed, with subdural hematoma Diagnoses Acute UTI N39.0 Facial hematoma S00.83XA SDH (subdural hematoma) S06.5XAA Subarachnoid bleed I60.9 Closed head injury S09.90XA Dementia F03.90 Hypertension I10 Type 2 diabetes mellitus E11.9 Traumatic hematoma of face S00.83XA Midline shift of brain R90.89 Goals of care, counseling/discussion Z71.89 Subarachnoid hemorrhage following injury with moderate (1-24 hours) loss of c onsciousness S06.6X9A
[2023-03-28] MEDS: cefTRIAXone 1,000 MG in sodium chloride 0.9% (plus) 50 ML 100 MG IV (17:52)
[2023-03-28 18:02] LABS: Glucose Point of Care 88 mg/dL (70-110)
[2023-03-28] MEDS: donepezil 5 MG Tablet 10 MG PO (20:36)
[2023-03-28 21:07] LABS: Glucose Point of Care 132 mg/dL (70-110)
[2023-03-28] MEDS: labetalol 5 mg/mL SDV 20mL 10 MG IVP (23:30)
[2023-03-29] VITALS (51 sets, daily range): BP systolic 98–153; BP diastolic 50–85; PULSE 41–151; RESP 0–24; TEMP 36.5–36.7; O2SAT 86–95
[2023-03-29] MEDS: hyDRALAzine 25 mg Tablet PO ×3 (04:52→21:34)
[2023-03-29 05:21] LABS: Basophils % 0.3 %; Eosinophils # 0.2 10^3/uL (0.0-0.8); Eosinophils % 1.7 %; Hematocrit 33.7 % (36-47); Lymphocytes # 1.6 10^3/uL (0.8-4.8); Mean Corpuscular HGB Conc 31.5 g/dL (30-55); Mean Corpuscular Volume 95.5 fl (85-98); Monocytes # 0.6 10^3/uL (0.2-0.9); Monocytes % 6.6 %; Neutrophils # 6.57 10^3/uL (1.8-7.7); Neutrophils % 72.4 %; Nucleated Red Blood Cells % 0 %; Platelet Count 188 10^3/cmm (157-399); Red Blood Count 3.53 10^6/uL (3.85-5.65); Red Cell Distribution Width 13.1 % (12.1-15.1); White Blood Count 9.07 10^3/uL (3.29-11.43)
[2023-03-29 05:50] LABS: Alanine Aminotransferase 27 U/L (0-33); Albumin Level 3.1 g/dL (3.5-5.2); Alkaline Phosphatase 67 U/L (35-105); Anion Gap 12.5 (5-19); Aspartate Amino Transferase 18 U/L (0-32); Blood Urea Nitrogen 17 mg/dL (8-23); Calcium 8.5 mg/dL (8.5-10.5); Carbon Dioxide 25 mmol/L (22-29); Chloride 109 mmol/L (98-107); Creatinine Clr Calc Pharmacy 53.3087; Globulin 2.5 g/dL (1.3-4.6); Glucose 121 mg/dL (65-115); Osmolality Calculated 299 mOsm/kg (285-295); Potassium 3.5 mmol/L (3.5-5.1); Sodium 143 mmol/L (136-145); Total Bilirubin 0.6 mg/dL (0.15-1.2); Total Protein 5.6 g/dL (6.6-8.7)
[2023-03-29 06:45] LABS: Glucose Point of Care 128 mg/dL (70-110)
[2023-03-29] MEDS: pantoprazole 40 mg SDV IVP ×2 (08:51→21:24)
[2023-03-29] MEDS: losartan 50 mg Tablet 100 MG PO (08:51)
[2023-03-29] MEDS: sotalol 80 mg Tablet PO ×2 (08:52→17:45)
[2023-03-29] MEDS: metoprolol tartrate 50 mg Tablet PO ×2 (08:52→21:34)
[2023-03-29] MEDS: amlodipine 10 mg Tablet PO (08:52)
--- NOTE | 2023-03-29 09:00 | CTR_ITS ---
PROCEDURE INFORMATION: Exam: CT Head Without Contrast Exam date and time: 03/29/2023 8:18 PM Age: 87 years old Clinical indication: Other: F/u subdural/subarachnoid hemorrhage; Patient HX: F/u day five for RT subdural/subarachnoid hemorrhage. ; Additional info: Ich TECHNIQUE: Imaging protocol: Computed tomography of the head without contrast. Radiation optimization: All CT scans at this facility use at least one of these dose optimization techniques: automated exposure control; mA and/or kV adjustment per patient size (includes targeted exams where dose is matched to clinical indication); or iterative reconstruction. REPORTING DATA: Count of CT and Cardiac NM exams in prior 12 months: This patient has received 8 known CTs and 0 known cardiac nuclear medicine studies in the 12 months prior to the current study. COMPARISON: CT head wo con* [id number] 03/28/2023 9:57 AM RADIATION DOSE METRICS: Total DLP (mGy-cm): 1085.44 FINDINGS: Brain: Stable right perirolandic subarachnoid hemorrhage. Right-sided cerebral convexity acute on chronic subdural hemorrhage measuring up to 9 mm is unchanged with stable mild mass effect. No new hemorrhage. Chronic left corpus striatum lacunar type infarct is unchanged. Chronic lacunar type infarct right cerebellum is unchanged. Involutional changes of the brain are stable. Midline shift to the left of 5 mm is unchanged. No acute ischemia. Minimal anterior parafalcine subdural blood products extension is not significantly changed and likely from redistribution. Cerebral ventricles: No ventriculomegaly. Paranasal sinuses: No significant inflammation. No fluid levels. Mastoid air cells: Visualized mastoid air cells are well aerated. Bones/joints: Unremarkable. No acute fracture. Soft tissues: Right periorbital soft tissue hematoma is unchanged. CT/CT head wo con* [id number] IMPRESSION: Stable exam. Stable right cerebral convexity acute on chronic subdural hematoma. Stable right perirolandic subarachnoid hemorrhage.
--- NOTE | 2023-03-29 09:09 | ECG_ITS ---
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 Measurements Intervals [place] Rate: 135 P: 0 NC: 0 QRS: 18 QRSD: 109 T: -1 QT: 322 QTc: 483 Interpretive Statements ATRIAL FIBRILLATION WITH RAPID VENTRICULAR RESPONSE INDETERMINATE AXIS INCOMPLETE RIGHT BUNDLE BRANCH BLOCK [90+ ms QRS DURATION, TERMINAL R IN V1/V2, 40+ ms S IN I/aVL/V4/V5/V6] MODERATE ST DEPRESSION [0.05+ mV ST DEPRESSION] Compared to ECG 08/20/2021 00:08:33 Indeterminate axis now present ST (T wave) deviation now present Sinus rhythm no longer present T-wave abnormality no longer present Possible ischemia no longer present Electronically Signed On 03-29-2023 11:10:31 CDT by Titi Motley M.D. [id number]
[2023-03-29] MEDS: metoprolol tartrate 1 mg/1 mL SDV 5 mL 5 MG IVP ×2 (09:58→10:50)
[2023-03-29] MEDS: dilTIAZem 100 MG in sodium chloride 0.9% (add-van) 100 ML IV (12:45)
--- NOTE | 2023-03-29 13:52 | PC.SOCIAL ---
PG 2 IMM Explained to pt Pg 2 IMM. No questions voiced. Provided pt a copy. Initialed, dated, & timed a copy & placed in chart.
--- NOTE | 2023-03-29 14:17 | PC.NURSE ---
notified Dr in regards to pt cardizem drip titration and ct head order received telephone order to hold the ct head today until pt HR is stable. Pt cardizem drip is titrated up to 15 mcg now. BP monitored.
--- NOTE | 2023-03-29 16:24 | PM.PN ---
Subjective Subjective: Patient was seen this morning, her family is at bedside -I had extensive discussion with patient and her family -Patient tells me -She is alert to person place and time, she recognizes me, she knows that she is in the hospital because she had a brain bleed after a fall ? She understands that she is going to have to go to a residential, she knows that she cannot go home, she knows that she is not safe at home ? I again had a discussion about her subarachnoid bleed, and her subdural hematoma it has not changed in size, if her mentation does change, or she starts to clinically deteriorate I did discuss with her options, she still is adamant about not being transferred, adamant she does not want to have any surgery, did declines any bur hole procedure ? We did discuss if she starts to clinically deteriorate, she starts to become confused, or the size of the subarachnoid bleed or subdural hematoma worsens, she would just want to be made comfortable to ease her pain and ease her suffering allow to pass away comfortably, this is also when she leaves the hospital she wants his wishes to be honored ? Patient voices in front of all family members, and in front of nursing staff, she does not want to have any surgery, she does not want to be transferred, she does not want to have any further interventions for her intracranial bleed or subdural hematoma if she were to deteriorate she just wants to be comfortable, and she was at about about this multiple times, and throughout her hospitalization and on admission she was adamant about this, she understands morbidity and mortality associated, and she has sepsis, ? She tells me that she wants her grandson to be her DPOA, she does not want any over to sounds to know anything about her medical history, or any updates, Herbert and Selvin done -Will reach out to neurosurgery, future directives ? She was in A-fib with RVR this morning, heart rates in the 150s, she denies any chest pain, no palpitation she was given 5 mg IV push metoprolol in addition to a few metoprolol however heart rates to improve she was given another 5 mg IV metoprolol heart rate still remained in the 120s, she was moved down to the CSU placed on a Cardizem drip Vitals/I&O/Wt Last Vital Signs Temp 97.7 F 03/29/23 08:00 Pulse 60 03/29/23 08:00 Resp 17 03/29/23 08:00 BP 128/76 03/29/23 10:44 Pulse Ox 95 03/29/23 08:00 O2 Del Method Room Air 03/29/23 08:00 O2 Flow Rate 2 03/28/23 13:19 03/29/23 03/29/23 03/29/23 06:59 14:59 22:59 Intake Total 478.917 / 478.917 Output Total 350 / 750 100 / 100 Balance -350 / 720 378.917 / 378.917 Physical Exam Const: COMMON NORMALS: no acute distress and patient oriented x3 Resp: COMMON NORMALS: normal respiratory effort, No retractions, No use of accessory muscles and clear to auscultation bilaterally AUSCULTATION: clear to auscultation bilaterally Cardio: COMMON NORMALS: regular rate, regular rhythm, S1 normal heart sound present and S2 normal heart sound present RATE: regular rate RHYTHM: regular rhythm HEART SOUNDS: S1 normal heart sound present and S2 normal heart sound present GI: COMMON NORMALS: Normal to inspection, nondistended, normoactive bowel sounds present and non-tender Extremity: COMMON NORMALS: no pedal edema Neuro: COMMON NORMALS: patient oriented x3, CN's II-XII intact bilaterally, moves all extremities and no focal motor deficits Psych: COMMON NORMALS: mental status grossly normal Urinary Catheter Management: Mckinley: Cath Placed During This Visit: yes Reason for Continuing Indwelling Catheter: Other Urinary Catheter Date of Insertion: 03/25/23 Urinary Catheter Time of Insertion: 21:35 Data 03/29/23 05:13 03/29/23 05:13 A&P Assessment and plan (1) Acute UTI: (2) Facial hematoma: (3) SDH (subdural hematoma): (4) Subarachnoid bleed: (5) Closed head injury: (6) Dementia: (7) Hypertension: (8) Type 2 diabetes mellitus: (9) Traumatic hematoma of face: (10) Midline shift of brain: (11) Goals of care, counseling/discussion: (12) Subarachnoid hemorrhage following injury with moderate (1-24 hours) loss of consciousness: Plan Atrial fibrillation with rapid ventricular response -Did not respond to metoprolol 5 mg IV push x2 ? We will move down to CSU start Cardizem drip ? No anticoagulation Acute right subdural hematoma, with subarachnoid hemorrhage CT/CT head wo con* [id number] IMPRESSION: 1. ? Stable right perirolandic subarachnoid hemorrhage. 2. ? Stable acute anterolateral right cerebral convexity subdural hematoma.? 3. ? Stable chronic subdural fluid collection superolateral right frontoparietal convexity. 4. ? Small chronic left caudate body lacunar infarction. 5. ? Chronic left anterior limb internal capsule lacunar infarction. 6. ? Chronic right cerebellar lacunar infarction. 7. ? Age appropriate supratentorial and infratentorial atrophy. 8. ? Moderate chronic white matter microvascular ischemic disease. -Current on medical floors -Neurochecks every hour -Avoid all blood thinners - status post 2 units platelets -Status post 4 doses of mannitol, as subdural hematoma and subarachnoid bleed look stable, on repeat CT scans will hold off on further doses, clinically she denies any headache, blurry vision, -Aim for systolic blood pressure less than 140, systolics are in the 150s add on hydralazine 10 every 6 hours - Keppra 1000 mg IV every 12 hours for seizure prophylaxis -Repeat CT head tomorrow morning -Monitor right orbital hematoma, right pupil equal round reactive to light, more visible, -Head of bed elevation -Continue home blood pressure medications Subarachnoid bleed/hemorrhage -As above Large soft tissue hematoma right facial bone, right orbit -Continue to conservatively manage Has epidural hematoma IMPRESSION: 1. No significant change of the RIGHT subdural acute hematoma measuring up to 9 mm towards the vertex. 2. Stable RIGHT subarachnoid blood. 3. Biconvex low-attenuation collection over the RIGHT cerebral convexity is stable. This is probably a remote extra-axial fluid collection. 4. RIGHT cerebral edema with 6.5 mm of midline shift to the LEFT. Similar to the most recent study from 03/25/2023. 5. Mild improvement in the RIGHT facial hematoma. UTI -Rocephin We will order troponin series Has no other complaints, no other pain complaints Goals of care discussion -Patient is adamant that she is DNR/DNI, she does not want to have life-sustaining measures -If her clinical condition does start to deteriorate, such that she has intractable headaches that are uncontrolled, she starts to develop intractable seizures, or starts to develop irreversible complications or complications that affect her quality of life, then she just wants to be left comfortable for us to ease her pain and ease her suffering and allow her to pass away comfortably -I have gone over this in detail with patient, she voices understanding, all questions answered, agreed to proceed -We will place her on morphine as needed, Ativan as needed, atropine as needed As patient is receiving mannitol we will have to monitor serum electrolytes, serum osmolality, osmole gap, sodium, urine output, cardiac function Plan for today transition diet, repeat goals of care discussion, patient wants to remain a DNR/DNI, does not want to have any surgical intervention, does not want to have bur hole procedure, does not want to be transferred, if she starts to clinically deteriorate she just wants to be comfortable for us to ease her pain and ease her suffering allow to pass away comfortably, will reach out to neurosurgery about future directives, A-fib with RVR moved down to CSU started on a Cardizem drip did not respond to IV metoprolol Attestations Medical Necessity Statement*: Patient requires hospitalization for A-fib with RVR, intracranial hemorrhage, subdural hemorrhage, subarachnoid hemorrhage, Diagnoses Acute UTI N39.0 Facial hematoma S00.83XA SDH (subdural hematoma) S06.5XAA Subarachnoid bleed I60.9 Closed head injury S09.90XA Dementia F03.90 Hypertension I10 Type 2 diabetes mellitus E11.9 Traumatic hematoma of face S00.83XA Midline shift of brain R90.89 Goals of care, counseling/discussion Z71.89 Subarachnoid hemorrhage following injury with moderate (1-24 hours) loss of consciousness S06.6X9A
[2023-03-29 16:45] LABS: Osmolality Serum 287 mOsm/kg (278-305)
[2023-03-29 16:45] LABS: Osmolality Serum 289 mOsm/kg (278-305)
[2023-03-29 17:29] LABS: Glucose Point of Care 145 mg/dL (70-110)
[2023-03-29] MEDS: cefTRIAXone 1,000 MG in sodium chloride 0.9% (plus) 50 ML 100 MG IV (17:45)
[2023-03-29] MEDS: dilTIAZem 60 mg Tablet PO ×2 (17:45→21:34)
[2023-03-29 18:35] LABS: Osmolality Urine 544 mOsm/kg (50-1200)
[2023-03-29] MEDS: dilTIAZem 100 MG in sodium chloride 0.9% (add-van) 100 ML 15 MG IV (19:26)
[2023-03-29] MEDS: donepezil 5 MG Tablet 10 MG PO (21:34)
[2023-03-29] MEDS: acetaminophen 325 mg Tablet 650 MG PO (22:01)
[2023-03-29 22:08] LABS: Glucose Point of Care 142 mg/dL (70-110)
--- NOTE | 2023-03-29 22:10 | PC.NURSE ---
Called and spoke with regarding patients HR dropping into 30s after converting from aFIB to SB. The patient had just received PO doses of metoprolol and diltiazem and diltiazem gtt had just been shut off. The patient was asymptomatic with the bradycardia in the 40s and BP 115/50 at the time. said to continue to monitor for now and hold further doses of metoprolol and Cardizem until HR is above 80.
--- NOTE | 2023-03-29 22:20 | ECG_ITS ---
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 Measurements Intervals [place] Rate: 45 P: 97 IN: 184 QRS: 21 QRSD: 114 T: 113 QT: 464 QTc: 402 Interpretive Statements SINUS BRADYCARDIA WITH SINUS ARRHYTHMIA RIGHT BUNDLE BRANCH BLOCK [120+ ms QRS DURATION, UPRIGHT V1, 40+ ms S IN I/aVL/V4/V5/V6] MODERATE T-WAVE ABNORMALITY, CONSIDER LATERAL ISCHEMIA [-0.1+ mV T-WAVE IN I/aVL/V5/V6] Compared to ECG 03/29/2023 09:28:56 Right bundle-branch block now present T-wave abnormality now present Possible ischemia now present Atrial fibrillation no longer present Indeterminate axis no longer present Incomplete right bundle-branch block no longer present ST (T wave) deviation no longer present Electronically Signed On 03-29-2023 23:31:08 CDT by Titi Motley M.D. [id number]
[2023-03-29] MEDS: ondansetron 2 mg/ML SDV 2 mL 4 MG IVP (23:46)
[2023-03-30] VITALS (65 sets, daily range): BP systolic 97–138; BP diastolic 41–93; PULSE 38–145; RESP 7–25; O2SAT 84–99
[2023-03-30] MEDS: atropine 0.1 mg/mL Syr 10 mL 0.5 MG IVP ×2 (00:42→01:37)
--- NOTE | 2023-03-30 00:55 | ECG_ITS ---
[facility] Test Date: 2023-03-30 Pat Name: Geneva Pizarro Department: Room: 102 Gender: Female Rn Call Center: : 1935 Requested By: Ketty Reardon Order Number: [id number] Nalini MD: Nilda Paez M.D. Measurements Intervals [place] Rate: 50 P: 83 TN: 187 QRS: 34 QRSD: 113 T: 154 QT: 502 QTc: 459 Interpretive Statements SINUS BRADYCARDIA RIGHT BUNDLE BRANCH BLOCK [120+ ms QRS DURATION, UPRIGHT V1, 40+ ms S IN I/aVL/V4/V5/V6] MODERATE T-WAVE ABNORMALITY, CONSIDER LATERAL ISCHEMIA [-0.1+ mV T-WAVE IN I/aVL/V5/V6] Compared to ECG 03/29/2023 22:20:15 Sinus arrhythmia no longer present T-wave abnormality still present Possible ischemia still present Electronically Signed On 03-30-2023 8:27:00 CDT by Nilda Paez M.D. [id number]
--- NOTE | 2023-03-30 01:45 | PC.NURSE ---
Spoke with regarding patients HR dropping again, and having long pauses. ordered another dose of IV Atropine 0.5mg be given.
[2023-03-30] MEDS: DOPamine drip 400 MG/250 ML PREMIX 8.42 MG IV (02:01)
--- NOTE | 2023-03-30 02:05 | PC.NURSE ---
Spoke with again regarding the patient having pauses, longest being 7.6sec. wants patient transfered to ICU for titratable dopamine. Start dopamine at fixed rate on CSU while waiting to transfer patient.
--- NOTE | 2023-03-30 04:45 | PC.NURSE ---
Report called to Reagan HUBER in ICU. Patient transported in bed with all belongings and chart. Settled in ICU 5.
[2023-03-30] MEDS: DOPamine drip 400 MG/250 ML PREMIX 14.03 MG IV (04:56)
[2023-03-30 05:14] LABS: Basophils % 0.4 %; Eosinophils # 0.2 10^3/uL (0.0-0.8); Hematocrit 36.2 % (36-47); Lymphocytes # 1.5 10^3/uL (0.8-4.8); Lymphocytes % 14.5 %; Mean Corpuscular HGB Conc 31.2 g/dL (30-55); Mean Corpuscular Hemoglobin 30.5 pg (27-33); Mean Corpuscular Volume 97.6 fl (85-98); Mean Platelet Volume 11.5 fL (7.4-10.4); Monocytes # 0.7 10^3/uL (0.2-0.9); Monocytes % 6.5 %; Neutrophils # 7.88 10^3/uL (1.8-7.7); Neutrophils % 75.5 %; Nucleated Red Blood Cells % 0 %; Platelet Count 234 10^3/cmm (157-399); Red Blood Count 3.71 10^6/uL (3.85-5.65); Red Cell Distribution Width 12.8 % (12.1-15.1); White Blood Count 10.44 10^3/uL (3.29-11.43)
[2023-03-30] MEDS: ondansetron 2 mg/ML SDV 2 mL 4 MG IVP (05:21)
[2023-03-30 05:38] LABS: Alanine Aminotransferase 24 U/L (0-33); Albumin Level 3.3 g/dL (3.5-5.2); Alkaline Phosphatase 70 U/L (35-105); Aspartate Amino Transferase 18 U/L (0-32); Blood Urea Nitrogen 23 mg/dL (8-23); Calcium 8.4 mg/dL (8.5-10.5); Carbon Dioxide 23 mmol/L (22-29); Chloride 108 mmol/L (98-107); Globulin 2.1 g/dL (1.3-4.6); Glucose 188 mg/dL (65-115); Magnesium 2.2 mg/dL (1.7-2.3); Osmolality Calculated 301 mOsm/kg (285-295); Phosphorus 2.6 mg/dL (2.5-4.5); Sodium 141 mmol/L (136-145); Total Bilirubin 0.6 mg/dL (0.15-1.2); Total Protein 5.4 g/dL (6.6-8.7)
[2023-03-30 05:39] LABS: Anion Gap 13.9 (5-19); Potassium 3.9 mmol/L (3.5-5.1)
--- NOTE | 2023-03-30 06:20 | PC.NURSE ---
Nausea Patient nauseous and dry heaving despite zofran administration. Dr. Reardon contacted and order received for 5 mg reglan IVP Q6H PRN. See MAR for details.
[2023-03-30] MEDS: promethazine 25 mg/mL SDV 1 mL 12.5 MG IM (06:22)
--- NOTE | 2023-03-30 06:30 | PC.NURSE ---
Called and made patients grandson, Manpreet Pizarro aware of patients transfer to ICU due to low heart rate. Stated he will be in to see her today.
[2023-03-30 07:51] LABS: Glucose Point of Care 220 mg/dL (70-110)
[2023-03-30] MEDS: insulin lispro 100 unit/1 mL SUBCUT ×2 (08:10→18:40)
[2023-03-30] MEDS: pantoprazole 40 mg SDV IVP ×2 (08:11→20:16)
--- NOTE | 2023-03-30 09:00 | CT_ITS ---
WS: [id number] CT HEAD TECHNIQUE: Noncontrast CT of the head obtained from the skullbase to the vertex. CLINICAL INFORMATION: ich, subdural COMPARISON: 03/29/2023 and multiple recent examinations. DLP: 1143.[address] scans at [facility] use at least one of these dose optimization techniques: automated e xposure control; mA and/or kV adjustment per patient size (includes targeted exams where dose is matc hed to clinical indication); or iterative reconstruction. FINDINGS: Stable RIGHT frontal parietal and temporal subdural hematoma with increased attenuation blood product s. This is unchanged since 03/29/2023. No evidence of progression. Maximum transverse dimension overl scott the frontal lobe measures 7.3 mm unchanged. Small amount of stable subarachnoid hemorrhage at th e frontoparietal junction. Mild mass effect on the underlying frontal and temporal lobes. Mild RIGHT to LEFT midline shift appears stable measuring 5 mm. Mild effacement RIGHT lateral ventricle. No hydr ocephalus. Stable low-attenuation RIGHT parietal extra-axial fluid collection near the vertex. Moderate small vessel changes with moderate parenchymal volume loss. Chronic lacunar infarcts bilater al caudate, LEFT basal ganglia, and RIGHT cerebellum. Vascular calcification. Soft tissue hematoma ov erlying the RIGHT orbit. Paranasal sinuses and mastoid air cells are well aerated. Normal posterior n asopharynx. IMPRESSION: 1. No evidence of new or progressed hemorrhage. 2. Stable RIGHT frontal parietal temporal subdural hematoma with acute and chronic components 3. Stable RIGHT frontoparietal junction subarachnoid hemorrhage 4. Stable RIGHT to LEFT midline shift measuring 5 mm. 5. No hydrocephalus.
[2023-03-30 11:48] LABS: Glucose Point of Care 131 mg/dL (70-110)
--- NOTE | 2023-03-30 13:33 | PC.OT ---
OT TREATMENT ATTEMPTED. PATIENT HR IS BETWEEN 108-136. HOLD OT AT THIS TIME
[2023-03-30] MEDS: metoprolol tartrate 25 mg Tablet 12.5 MG PO (14:18)
--- NOTE | 2023-03-30 15:14 | P.PN_ITS ---
Subjective Subjective: Patient was seen this morning multiple times with family members at bedside, ? Early in the morning she was examined, she is alert oriented x3, follows all commands, denies any pains, ? I discussed with her the events of last night and this morning, she had A-fib with RVR, was not controlled with Tylenol, Betapace, so she was placed on Cardizem drip ? She developed bradycardia with sinus pauses, pauses longest 7 seconds, ? She was moved to the ICU placed on dopamine drip, she has now gone back into A-fib, heart rates in the 110s, ? I had a detailed discussion about her goals of care, she is adamant she does not want any surgery, she does not want to have a pacemaker ? She tells me that if her heart does stop she just wants us to let her pass away comfortably, ? She tells me that she wants to continue medical intervention for long as possible but if she starts to deteriorate, or starts to suffer then she wants to be on full comfort care ? We had a discussion about her going to alf my worry is is that if she goes to alf she has a complication from medication such as A-fib with RVR or sinus pauses or worsening of her intracranial bleed or confusion that would result in recurrent hospitalization and aggressive interventions which are clearly since the beginning of her hospitalization against her wishes ? I just had a long discussion about her long-term prognosis, she is agreeable to go to [facility] facility on hospice, but is agreeable to continue medic ations for now ? Above all she tells me that she is 87 she is ready to , she has lived a long life, and she does not want to have aggressive interventions, ? Discussed monitoring in ICU, trying p.o. medications to control her heart rate and slowly titrating, she is agreeable ? Also spoke to patient's family members at bedside in the afternoon, about patient's goals of care, they concur that Geneva has always voiced that these wishes, and they want to abide by her wishes, they want to try to get her off to [facility] facility potentially on hospice as per her wishes, spoke to patient's grandson, and his ? The other option is for her to go home with hospice, and family numbers can be with her, that is another reasonable option, as long as she has help at home, I would recommend against her going home without enough help at home, without 24- hour supervision, without being on hospice as she has a high risk of morbidity and mortality and suffering if she goes home without appropriate supervision and help, as I am worried about a recurrent fall or complications, they voiced und erstanding Vitals/I&O/Wt Last Vital Signs Temp 98.0 F 03/29/23 20:30 Pulse 137 H 03/30/23 14:30 Resp 22 H 03/30/23 14:30 BP 119/65 03/30/23 14:30 Pulse Ox 94 03/30/23 14:30 O2 Del Method Nasal Cannula 03/30/23 14:30 O2 Flow Rate 2 03/30/23 14:30 03/30/23 03/30/23 03/30/23 06:59 14:59 22:59 Intake Total 21.279 / 1103.779 486.146 / 486.146 Output Total 100 / 100 Balance 21.279 / 653.779 386.146 / 386.146 Physical Exam Const: COMMON NORMALS: no acute distress and patient oriented x3 OTHER: Bruising, over the right orbit, significantly improving, right face, right neck Resp: COMMON NORMALS: normal respiratory effort, No retractions, No use of accessory muscles and clear to auscultation bilaterally AUSCULTATION: clear to auscultation bilaterally Cardio: COMMON NORMALS: regular rate, regular rhythm, S1 normal heart sound present and S2 normal heart sound present RATE: regular rate RHYTHM: regular rhythm HEART SOUNDS: S1 normal heart sound present and S2 normal heart sound present GI: COMMON NORMALS: Normal to inspection, nondistended, normoactive bowel sounds present and non-tender Extremity: COMMON NORMALS: no pedal edema Neuro: COMMON NORMALS: patient oriented x3 Psych: COMMON NORMALS: mental status grossly normal Urinary Catheter Management: Mckinley: Cath Placed During This Visit: yes Reason for Continuing Indwelling Catheter: Accurate Measurement of Urinary Output in Critically Ill Patients Urinary Catheter Date of Insertion: 03/25/23 Urinary Catheter Time of Insertion: 21:35 Data 03/30/23 04:29 03/30/23 04:29 A&P Assessment and plan (1) Acute UTI: (2) Facial hematoma: (3) SDH (subdural hematoma): (4) Subarachnoid bleed: (5) Closed head injury: (6) Dementia: (7) Hypertension: (8) Type 2 diabetes mellitus: (9) Traumatic hematoma of face: (10) Midline shift of brain: (11) Goals of care, counseling/discussion: (12) Subarachnoid hemorrhage following injury with moderate (1-24 hours) loss of consciousness: (13) Sinus pause: Plan Difficult to control atrial fibrillation with rapid ventricular response, with 7-second sinus pauses -Patient declines aggressive interventions, is a DNR/DNI, does not want to be externally paced, nor does she want to have a pacemaker, she tells me that if her heart stops, let me go ? Is off dopamine drip -Back in A-fib heart rates as high as 130s ?We will start her off on low-dose metoprolol, watch her heart rates ? No anticoagulation Acute right subdural hematoma, with subarachnoid hemorrhage MPRESSION: 1.? No evidence of new or progressed hemorrhage. 2.? Stable RIGHT frontal parietal temporal subdural hematoma with acute and chronic components 3.? Stable RIGHT frontoparietal junction subarachnoid hemorrhage 4.? Stable RIGHT to LEFT midline shift measuring 5 mm. 5.? No hydrocephalus. -Neurochecks every hour -Avoid all blood thinners - status post 2 units platelets -Status post 4 doses of mannitol, as subdural hematoma and subarachnoid bleed look stable, on repeat CT scans will hold off on further doses, clinically she denies any headache, blurry vision, -Aim for systolic blood pressure less than 140, systolics are in the 150s add on hydralazine 10 every 6 hours - Keppra 1000 mg IV every 12 hours for seizure prophylaxis -Monitor right orbital hematoma, right pupil equal round reactive to light, more visible, -Head of bed elevation -Continue home blood pressure medications Subarachnoid bleed/hemorrhage -As above Large soft tissue hematoma right facial bone, right orbit -Continue to conservatively manage Has epidural hematoma I UTI -Rocephin We will order troponin series Has no other complaints, no other pain complaints Goals of care discussion -Patient is adamant that she is DNR/DNI, she does not want to have life- sustaining measures -Does not want to have pacemaker, or externally paced -Agreeable to hospice at [facility] facility, pain control here above all, agreeable to medical interventions that are nonaggressive Attestations Medical Necessity Statement*: Patient requires hospitalization for subarachnoid hemorrhage, subdural hematoma, sinus pauses as long as 7 seconds, A-fib with RVR Diagnoses Acute UTI N39.0 Facial hematoma S00.83XA SDH (subdural hematoma) S06.5XAA Subarachnoid bleed I60.9 Closed head injury S09.90XA Dementia F03.90 Hypertension I10 Type 2 diabetes mellitus E11.9 Traumatic hematoma of face S00.83XA Midline shift of brain R90.89 Goals of care, counseling/discussion Z71.89 Subarachnoid hemorrhage following injury with moderate (1-24 hours) loss of consciousness S06.6X9A Sinus pause I45.5
[2023-03-30 17:08] LABS: Glucose Point of Care 240 mg/dL (70-110)
[2023-03-30] MEDS: cefTRIAXone 1,000 MG in sodium chloride 0.9% (plus) 50 ML 100 MG IV (18:39)
[2023-03-30] MEDS: donepezil 5 MG Tablet 10 MG PO (20:14)
[2023-03-31] VITALS (37 sets, daily range): BP systolic 96–143; BP diastolic 55–93; PULSE 79–157; RESP 7–27; TEMP 36.4; O2SAT 86–99
--- NOTE | 2023-03-31 03:51 | ECG_ITS ---
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 Measurements Intervals [place] Rate: 160 P: 0 [place]: 0 QRS: 55 QRSD: 118 T: -46 QT: 281 QTc: 459 Interpretive Statements ATRIAL FLUTTER WITH RAPID VENTRICULAR RESPONSE INCOMPLETE RIGHT BUNDLE BRANCH BLOCK [90+ ms QRS DURATION, TERMINAL R IN V1/V2, 40+ ms S IN I/aVL/V4/V5/V6] ST DEVIATION AND MODERATE T-WAVE ABNORMALITY, CONSIDER ANTEROLATERAL ISCHEMIA [-0.1+ mV T-WAVE IN V3-V6] ST DEVIATION AND MODERATE T-WAVE ABNORMALITY, CONSIDER INFERIOR ISCHEMIA [-0.1+ mV T-WAVE IN II/aVF] CRITICAL TEST RESULT Compared to ECG 03/30/2023 01:01:57 Incomplete right bundle-branch block now present Sinus bradycardia no longer present Right bundle-branch block no longer present T-wave abnormality still present Possible ischemia still present Electronically Signed On 03-31-2023 11:54:55 CDT by Titi Motley M.D. [id number]
[2023-03-31] MEDS: metoprolol tartrate 1 mg/1 mL SDV 5 mL 5 MG IVP (04:07)
[2023-03-31] MEDS: metoprolol tartrate 25 mg Tablet 12.5 MG PO (04:38)
--- NOTE | 2023-03-31 04:47 | PC.NURSE ---
Patient heart rate increased to 160. Dr Reardon notified. New orders given.
[2023-03-31 05:52] LABS: Basophils % 0.2 %; Eosinophils # 0.3 10^3/uL (0.0-0.8); Eosinophils % 3.2 %; Hematocrit 35.3 % (36-47); Lymphocytes # 1.7 10^3/uL (0.8-4.8); Lymphocytes % 21.1 %; Mean Corpuscular HGB Conc 30.9 g/dL (30-55); Mean Corpuscular Hemoglobin 30.4 pg (27-33); Mean Corpuscular Volume 98.6 fl (85-98); Mean Platelet Volume 10.7 fL (7.4-10.4); Monocytes # 0.6 10^3/uL (0.2-0.9); Monocytes % 7.8 %; Neutrophils # 5.38 10^3/uL (1.8-7.7); Nucleated Red Blood Cells % 0 %; Platelet Count 199 10^3/cmm (157-399); Red Blood Count 3.58 10^6/uL (3.85-5.65); Red Cell Distribution Width 12.7 % (12.1-15.1); White Blood Count 8.05 10^3/uL (3.29-11.43)
[2023-03-31 06:19] LABS: Alanine Aminotransferase 19 U/L (0-33); Albumin Level 2.7 g/dL (3.5-5.2); Alkaline Phosphatase 57 U/L (35-105); Anion Gap 11.5 (5-19); Aspartate Amino Transferase 14 U/L (0-32); Blood Urea Nitrogen 20 mg/dL (8-23); Calcium 8.1 mg/dL (8.5-10.5); Carbon Dioxide 24 mmol/L (22-29); Chloride 112 mmol/L (98-107); Globulin 2.6 g/dL (1.3-4.6); Glucose 125 mg/dL (65-115); Magnesium 2.2 mg/dL (1.7-2.3); Osmolality Calculated 302 mOsm/kg (285-295); Phosphorus 2.6 mg/dL (2.5-4.5); Potassium 3.5 mmol/L (3.5-5.1); Sodium 144 mmol/L (136-145); Total Bilirubin 0.4 mg/dL (0.15-1.2); Total Protein 5.3 g/dL (6.6-8.7)
[2023-03-31 07:41] LABS: Glucose Point of Care 121 mg/dL (70-110)
[2023-03-31] MEDS: pantoprazole 40 mg SDV IVP ×2 (08:24→20:55)
[2023-03-31] MEDS: amiodarone 200 mg Tablet PO ×2 (08:53→10:07)
[2023-03-31] MEDS: insulin lispro 100 unit/1 mL SUBCUT ×2 (11:25→17:07)
[2023-03-31 11:43] LABS: Glucose Point of Care 220 mg/dL (70-110)
--- NOTE | 2023-03-31 12:40 | PC.SOCIAL ---
IMM Updated Updated pt on IMM. No questions voiced. Provided pt a copy. Initialed, dated, & timed copy in chart.
[2023-03-31 16:29] LABS: Glucose Point of Care 188 mg/dL (70-110)
--- NOTE | 2023-03-31 16:34 | P.PN_ITS ---
Subjective Subjective: Patient was seen this morning, and attentive afternoon multiple times, early in the morning, she is in A-fib with RVR, heart rates in the 130s, we discussed trying amiodarone, she is agreeable, as his risk of sinus pause, the risk of morbidity and mortality, but she is agreeable, she is DNR/DNI she does not want any surgery she is on have a pacemaker placed, is agreeable to medical therapy, she is agreeable to go on hospice, she does complain of her poor breakfast Vitals/I&O/Wt Last Vital Signs Temp 97.6 F 03/31/23 13:00 Pulse 120 H 03/31/23 14:00 Resp 17 03/31/23 13:00 BP 141/70 03/31/23 12:00 Pulse Ox 94 03/31/23 12:00 O2 Del Method Room Air 03/31/23 08:00 O2 Flow Rate 2 03/30/23 18:00 03/31/23 03/31/23 03/31/23 06:59 14:59 22:59 Intake Total 200 / 1106.146 200 / 200 Output Total 600 / 700 Balance -400 / 406.146 200 / 200 Physical Exam Const: COMMON NORMALS: no acute distress and patient oriented x3 Resp: COMMON NORMALS: normal respiratory effort, No retractions, No use of accessory muscles and clear to auscultation bilaterally AUSCULTATION: clear to auscultation bilaterally Cardio: COMMON NORMALS: S1 normal heart sound present and S2 normal heart sound present RATE: tachycardic RHYTHM: abnormal rhythm irregularly irreg ular HEART SOUNDS: S1 normal heart sound present and S2 normal heart sound present GI: COMMON NORMALS: Normal to inspection, nondistended, normoactive bowel sounds present and non-tender Extremity: COMMON NORMALS: no pedal edema Neuro: COMMON NORMALS: patient oriented x3 Psych: COMMON NORMALS: mental status grossly normal Urinary Catheter Management: Mckinley: Cath Placed During This Visit: yes Reason for Continuing Indwelling Catheter: Accurate Measurement of Urinary Outpu t in Critically Ill Patients Urinary Catheter Date of Insertion: 03/25/23 Urinary Catheter Time of Insertion: 21:35 Data 03/31/23 05:40 03/31/23 05:40 A&P Assessment and plan (1) Acute UTI: (2) Facial hematoma: (3) SDH (subdural hematoma): (4) Subarachnoid bleed: (5) Closed head injury: (6) Dementia: (7) Hypertension: (8) Type 2 diabetes mellitus: (9) Traumatic hematoma of face: (10) Midline shift of brain: (11) Goals of care, counseling/discussion: (12) Subarachnoid hemorrhage following injury with moderate (1-24 hours) loss of consciousness: (13) Sinus pause: Plan Difficult to control atrial fibrillation with rapid ventricular response, with 7-second sinus pauses -Patient declines aggressive interventions, is a DNR/DNI, does not want to be externally paced, nor does she want to have a pacemaker, she tells me that if her heart stops, let me go ? Is off dopamine drip -Back in A-fib heart rates as high as 130s ? We will try amiodarone 400 mg twice daily, Toprol 25 twice daily ? No anticoagulation Acute right subdural hematoma, with subarachnoid hemorrhage MPRESSION: 1.? No evidence of new or progressed hemorrhage. 2.? Stable RIGHT frontal parietal temporal subdural hematoma with acute and chronic components 3.? Stable RIGHT frontoparietal junction subarachnoid hemorrhage 4.? Stable RIGHT to LEFT midline shift measuring 5 mm. 5.? No hydrocephalus. -Neurochecks every hour -Avoid all blood thinners - status post 2 units platelets -Status post 4 doses of mannitol, as subdural hematoma and subarachnoid bleed look stable, on repeat CT scans will hold off on further doses, clinically she denies any headache, blurry vision, -Aim for systolic blood pressure less than 140, systolics are in the 150s add on hydralazine 10 every 6 hours - Keppra 1000 mg IV every 12 hours for seizure prophylaxis -Monitor right orbital hematoma, right pupil equal round reactive to light, more visible, -Head of bed elevation -Continue home blood pressure medications Subarachnoid bleed/hemorrhage -As above Large soft tissue hematoma right facial bone, right orbit -Continue to conservatively manage Has epidural hematoma I UTI -Rocephin We will order troponin series Has no other complaints, no other pain complaints Goals of care discussion -Patient is adamant that she is DNR/DNI, she does not want to have life- sustaining measures -Does not want to have pacemaker, or externally paced -Agreeable to hospice at [facility] facility, pain control here above all, agreeable to medical interventions that are nonaggressive Attestations Medical Necessity Statement*: Patient has hospitalization for subarachnoid bleed, subdural hematoma, A-fib with RVR Diagnoses Acute UTI N39.0 Facial hematoma S00.83XA SDH (subdural hematoma) S06.5XAA Subarachnoid bleed I60.9 Closed head injury S09.90XA Dementia F03.90 Hypertension I10 Type 2 diabetes mellitus E11.9 Traumatic hematoma of face S00.83XA Midline shift of brain R90.89 Goals of care, counseling/discussion Z71.89 Subarachnoid hemorrhage following injury with moderate (1-24 hours) loss of consciousness S06.6X9A Sinus pause I45.5
[2023-03-31] MEDS: amiodarone 200 mg Tablet 400 MG PO (17:06)
[2023-03-31] MEDS: cefTRIAXone 1,000 MG in sodium chloride 0.9% (plus) 50 ML 100 MG IV (17:08)
[2023-03-31] MEDS: metoprolol tartrate 25 mg Tablet PO (17:17)
--- NOTE | 2023-03-31 17:45 | ECG_ITS ---
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 Measurements Intervals [place] Rate: 109 P: 0 [place]: 0 QRS: 12 QRSD: 118 T: 24 QT: 338 QTc: 456 Interpretive Statements ATRIAL FIBRILLATION WITH RAPID VENTRICULAR RESPONSE INCOMPLETE RIGHT BUNDLE BRANCH BLOCK [90+ ms QRS DURATION, TERMINAL R IN V1/V2, 40+ ms S IN I/aVL/V4/V5/V6] ST DEVIATION AND MODERATE T-WAVE ABNORMALITY, CONSIDER ANTERIOR ISCHEMIA [-0.1+ mV T-WAVE IN V3/V4] Compared to ECG 03/31/2023 03:54:49 Atrial flutter no longer present T-wave abnormality still present Possible ischemia still present Electronically Signed On 04-01-2023 6:25:22 CDT by Titi Motley M.D. [id number]
[2023-03-31] MEDS: donepezil 5 MG Tablet 10 MG PO (20:55)
[2023-03-31] MEDS: levETIRAcetam 500 mg Tablet PO (20:55)
[2023-04-01] VITALS (22 sets, daily range): BP systolic 98–176; BP diastolic 57–113; PULSE 78–169; RESP 13–29; TEMP 36.7; O2SAT 90–99
[2023-04-01] MEDS: metoprolol tartrate 25 mg Tablet PO ×2 (04:17→13:41)
[2023-04-01 05:20] LABS: Basophils % 0.3 %; Eosinophils # 0.3 10^3/uL (0.0-0.8); Eosinophils % 3.3 %; Hematocrit 36.6 % (36-47); Lymphocytes # 1.8 10^3/uL (0.8-4.8); Mean Corpuscular HGB Conc 30.1 g/dL (30-55); Mean Corpuscular Hemoglobin 30.1 pg (27-33); Mean Platelet Volume 10.9 fL (7.4-10.4); Monocytes # 0.7 10^3/uL (0.2-0.9); Monocytes % 8.7 %; Neutrophils # 5.08 10^3/uL (1.8-7.7); Neutrophils % 63.9 %; Nucleated Red Blood Cells % 0 %; Platelet Count 211 10^3/cmm (157-399); Red Blood Count 3.66 10^6/uL (3.85-5.65); Red Cell Distribution Width 12.6 % (12.1-15.1); White Blood Count 7.94 10^3/uL (3.29-11.43)
[2023-04-01 05:37] LABS: Alanine Aminotransferase 21 U/L (0-33); Albumin Level 2.8 g/dL (3.5-5.2); Alkaline Phosphatase 62 U/L (35-105); Aspartate Amino Transferase 16 U/L (0-32); Blood Urea Nitrogen 18 mg/dL (8-23); Calcium 8.4 mg/dL (8.5-10.5); Carbon Dioxide 24 mmol/L (22-29); Chloride 108 mmol/L (98-107); Creatinine Clr Calc Pharmacy 53.3087; Globulin 2.5 g/dL (1.3-4.6); Glucose 153 mg/dL (65-115); Magnesium 2.2 mg/dL (1.7-2.3); Osmolality Calculated 295 mOsm/kg (285-295); Phosphorus 2.5 mg/dL (2.5-4.5); Sodium 140 mmol/L (136-145); Total Bilirubin 0.3 mg/dL (0.15-1.2); Total Protein 5.3 g/dL (6.6-8.7)
[2023-04-01 05:40] LABS: Anion Gap 11.5 (5-19); Potassium 3.5 mmol/L (3.5-5.1)
[2023-04-01 08:09] LABS: Glucose Point of Care 148 mg/dL (70-110)
[2023-04-01] MEDS: insulin lispro 100 unit/1 mL SUBCUT ×3 (08:20→17:57)
[2023-04-01] MEDS: levETIRAcetam 500 mg Tablet PO ×2 (08:20→20:10)
[2023-04-01] MEDS: amiodarone 200 mg Tablet 400 MG PO ×2 (08:20→17:57)
[2023-04-01] MEDS: pantoprazole 40 mg SDV IVP ×2 (08:21→20:11)
[2023-04-01 11:29] LABS: Glucose Point of Care 288 mg/dL (70-110)
--- NOTE | 2023-04-01 14:26 | PM.PN ---
Subjective Subjective: Patient was seen this morning, she is in A-fib, heart rates in the 120s, she is alert and awake, we had extensive discussion about her goals of care, she still wants to be DNR/DNI she does not want any surgical invention she does not want a pacemaker, I discussed with her that we are having issues getting her to a longterm facility on hospice, as she does not have the finances to go to nursing on hospice, we also discussed her going home on hospice she does not unfortunately does not have family numbers at home to watch her for to help her at home, we also discussed going to longterm facility, receiving longterm care, as an option, after discussing the risk and benefits of all options, she voiced understanding, cancer, she agreed to go to longterm facility, to have skilled therapy, currently she remains in A-fib we will have to improve her heart rate before transferring her to a assisted, she was examined multiple times throughout the morning in the afternoon, her heart rates are still in the 150s when getting up from [facility], will increase her metoprolol to 50 twice daily, Vitals/I&O/Wt Last Vital Signs Temp 97.6 F 03/31/23 16:00 Pulse 148 H 04/01/23 12:00 Resp 16 04/01/23 12:00 BP 113/77 04/01/23 12:00 Pulse Ox 95 04/01/23 12:00 O2 Del Method Nasal Cannula 04/01/23 08:00 O2 Flow Rate 2 04/01/23 08:00 03/31/23 04/01/23 04/01/23 22:59 06:59 14:59 Intake Total 990 / 1300 0 / 1300 450 / 450 Output Total 400 / 400 200 / 600 Balance 590 / 900 -200 / 700 450 / 450 Physical Exam Const: COMMON NORMALS: no acute distress and patient oriented x3 Resp: COMMON NORMALS: normal respiratory effort, No retractions, No use of accessory muscles and clear to auscultation bilaterally AUSCULTATION: clear to auscultation bilaterally Cardio: COMMON NORMALS: regular rate, regular rhythm, S1 normal heart sound present and S2 normal heart sound present RATE: regular rate RHYTHM: regular rhythm HEART SOUNDS: S1 normal heart sound present and S2 normal heart sound present GI: COMMON NORMALS: Normal to inspection, nondistended, normoactive bowel sounds present and non-tender Extremity: COMMON NORMALS: no pedal edema Neuro: COMMON NORMALS: patient oriented x3 Psych: COMMON NORMALS: mental status grossly normal Urinary Catheter Management: Mckinley: Cath Placed During This Visit: yes Reason for Continuing Indwelling Catheter: Accurate Measurement of Urinary Output in Critically Ill Patients Urinary Catheter Date of Insertion: 03/25/23 Urinary Catheter Time of Insertion: 21:35 Data 04/01/23 04:25 04/01/23 04:25 A&P Assessment and plan (1) Acute UTI: (2) Facial hematoma: (3) SDH (subdural hematoma): (4) Subarachnoid bleed: (5) Closed head injury: (6) Dementia: (7) Hypertension: (8) Type 2 diabetes mellitus: (9) Traumatic hematoma of face: (10) Midline shift of brain: (11) Goals of care, counseling/discussion: (12) Subarachnoid hemorrhage following injury with moderate (1-24 hours) loss of consciousness: (13) Sinus pause: Plan Difficult to control atrial fibrillation with rapid ventricular response, with 7-second sinus pauses -Patient declines aggressive interventions, is a DNR/DNI, does not want to be externally paced, nor does she want to have a pacemaker, she tells me that if her heart stops, let me go ? Is off dopamine drip -Back in A-fib heart rates as high as 130s ? Continue amiodarone 400 mg twice daily, increase metoprolol to 50 ? No anticoagulation Acute right subdural hematoma, with subarachnoid hemorrhage MPRESSION: 1.? No evidence of new or progressed hemorrhage. 2.? Stable RIGHT frontal parietal temporal subdural hematoma with acute and chronic components 3.? Stable RIGHT frontoparietal junction subarachnoid hemorrhage 4.? Stable RIGHT to LEFT midline shift measuring 5 mm. 5.? No hydrocephalus. -Neurochecks every hour -Avoid all blood thinners - status post 2 units platelets -Status post 4 doses of mannitol, as subdural hematoma and subarachnoid bleed look stable, on repeat CT scans will hold off on further doses, clinically she denies any headache, blurry vision, -Aim for systolic blood pressure less than 140, systolics are in the 150s add on hydralazine 10 every 6 hours - Keppra 1000 mg IV every 12 hours for seizure prophylaxis -Monitor right orbital hematoma, right pupil equal round reactive to light, more visible, -Head of bed elevation -Continue home blood pressure medications Subarachnoid bleed/hemorrhage -As above Large soft tissue hematoma right facial bone, right orbit -Continue to conservatively manage Has epidural hematoma I UTI -Rocephin We will order troponin series Has no other complaints, no other pain complaints Goals of care discussion -Patient is adamant that she is DNR/DNI, she does not want to have life-sustaining measures -Does not want to have pacemaker, or externally paced -Agreeable to hospice at longterm facility, pain control here above all, agreeable to medical interventions that are nonaggressive Attestations Medical Necessity Statement*: Patient requires hospitalization for A-fib with RVR, subdural hematoma, intracranial hemorrhage, trying to control heart rate she did have significant sinus pauses, is only 7 seconds Diagnoses Acute UTI N39.0 Facial hematoma S00.83XA SDH (subdural hematoma) S06.5XAA Subarachnoid bleed I60.9 Closed head injury S09.90XA Dementia F03.90 Hypertension I10 Type 2 diabetes mellitus E11.9 Traumatic hematoma of face S00.83XA Midline shift of brain R90.89 Goals of care, counseling/discussion Z71.89 Subarachnoid hemorrhage following injury with moderate (1-24 hours) loss of consciousness S06.6X9A Sinus pause I45.5
[2023-04-01 17:52] LABS: Glucose Point of Care 158 mg/dL (70-110)
[2023-04-01] MEDS: metoprolol tartrate 25 mg Tablet 50 MG PO (17:57)
[2023-04-01] MEDS: cefTRIAXone 1,000 MG in sodium chloride 0.9% (plus) 50 ML 100 MG IV (18:02)
[2023-04-01] MEDS: donepezil 5 MG Tablet 10 MG PO (20:10)
[2023-04-01 22:31] LABS: Glucose Point of Care 215 mg/dL (70-110)
[2023-04-02] VITALS (23 sets, daily range): BP systolic 111–158; BP diastolic 57–96; PULSE 69–132; RESP 16–27; O2SAT 92–98
[2023-04-02 04:35] LABS: Basophils % 0.3 %; Eosinophils # 0.1 10^3/uL (0.0-0.8); Eosinophils % 1.5 %; Hematocrit 35.7 % (36-47); Lymphocytes % 20.6 %; Mean Corpuscular HGB Conc 30.3 g/dL (30-55); Mean Corpuscular Hemoglobin 30.4 pg (27-33); Mean Corpuscular Volume 100.6 fl (85-98); Mean Platelet Volume 10.7 fL (7.4-10.4); Monocytes # 0.8 10^3/uL (0.2-0.9); Monocytes % 8.3 %; Neutrophils # 6.46 10^3/uL (1.8-7.7); Neutrophils % 68.3 %; Nucleated Red Blood Cells % 0 %; Platelet Count 205 10^3/cmm (157-399); Red Blood Count 3.55 10^6/uL (3.85-5.65); Red Cell Distribution Width 12.7 % (12.1-15.1); White Blood Count 9.45 10^3/uL (3.29-11.43)
[2023-04-02 05:00] LABS: Alanine Aminotransferase 25 U/L (0-33); Albumin Level 2.9 g/dL (3.5-5.2); Alkaline Phosphatase 63 U/L (35-105); Anion Gap 12.6 (5-19); Aspartate Amino Transferase 18 U/L (0-32); Blood Urea Nitrogen 16 mg/dL (8-23); Calcium 8.6 mg/dL (8.5-10.5); Carbon Dioxide 25 mmol/L (22-29); Chloride 109 mmol/L (98-107); Creatinine Clr Calc Pharmacy 53.3087; Globulin 2.5 g/dL (1.3-4.6); Glucose 168 mg/dL (65-115); Magnesium 2.1 mg/dL (1.7-2.3); Osmolality Calculated 301 mOsm/kg (285-295); Phosphorus 2.4 mg/dL (2.5-4.5); Potassium 3.6 mmol/L (3.5-5.1); Sodium 143 mmol/L (136-145); Total Bilirubin 0.3 mg/dL (0.15-1.2); Total Protein 5.4 g/dL (6.6-8.7)
[2023-04-02] MEDS: metoprolol tartrate 25 mg Tablet 50 MG PO ×2 (05:38→17:19)
[2023-04-02 08:22] LABS: Glucose Point of Care 180 mg/dL (70-110)
[2023-04-02] MEDS: amiodarone 200 mg Tablet 400 MG PO ×2 (08:55→17:18)
[2023-04-02] MEDS: levETIRAcetam 500 mg Tablet PO ×2 (08:56→20:42)
[2023-04-02] MEDS: insulin lispro 100 unit/1 mL SUBCUT ×3 (08:57→17:20)
[2023-04-02] MEDS: pantoprazole 40 mg SDV IVP ×2 (08:59→20:41)
[2023-04-02 10:57] LABS: Glucose Point of Care 232 mg/dL (70-110)
--- NOTE | 2023-04-02 11:47 | PC.SOCIAL ---
IMM Update pg 2 of IMM updated and reviewed w/ patient. Copy provided and Copy dated, initialed and placed in chart.
--- NOTE | 2023-04-02 12:56 | PC.NURSE ---
Bed bath given to patient at 1230 by this nurse tech. Pt tolerated well.
--- NOTE | 2023-04-02 15:09 | PM.PN ---
Subjective Subjective: Patient was seen this morning, she is alert and awake, following all commands, she denies any headache, no blurry vision, her heart rates are controlled,but does have intermittent episodes of heart rates into the 120s with exertion, Vitals/I&O/Wt Last Vital Signs Temp 98.0 F 04/01/23 21:00 Pulse 101 H 04/02/23 14:00 Resp 22 H 04/02/23 12:00 BP 132/57 04/02/23 12:00 Pulse Ox 95 04/02/23 12:00 O2 Del Method Nasal Cannula 04/02/23 08:00 O2 Flow Rate 2 04/02/23 08:00 04/02/23 04/02/23 04/02/23 06:59 14:59 22:59 Intake Total 350 / 350 Output Total 200 / 750 Balance -200 / 380 350 / 350 Physical Exam Const: COMMON NORMALS: no acute distress and patient oriented x3 Resp: COMMON NORMALS: normal respiratory effort, No retractions, No use of accessory muscles and clear to auscultation bilaterally AUSCULTATION: clear to auscultation bilaterally Cardio: COMMON NORMALS: regular rate, S1 normal heart sound present and S2 normal heart sound present RATE: regular rate RHYTHM: abnormal rhythm HEART SOUNDS: S1 normal heart sound present and S2 normal heart sound present GI: COMMON NORMALS: Normal to inspection, nondistended, normoactive bowel sounds present and non-tender Extremity: COMMON NORMALS: no pedal edema Neuro: COMMON NORMALS: patient oriented x3 Psych: COMMON NORMALS: mental status grossly normal Urinary Catheter Management: Mckinley: Cath Placed During This Visit: yes Reason for Continuing Indwelling Catheter: Accurate Measurement of Urinary Output in Critically Ill Patients Urinary Catheter Date of Insertion: 03/25/23 Urinary Catheter Time of Insertion: 21:35 Data 04/02/23 04:00 04/02/23 04:00 A&P Assessment and plan (1) Acute UTI: (2) Facial hematoma: (3) SDH (subdural hematoma): (4) Subarachnoid bleed: (5) Closed head injury: (6) Dementia: (7) Hypertension: (8) Type 2 diabetes mellitus: (9) Traumatic hematoma of face: (10) Midline shift of brain: (11) Goals of care, counseling/discussion: (12) Subarachnoid hemorrhage following injury with moderate (1-24 hours) loss of consciousness: (13) Sinus pause: Plan Difficult to control atrial fibrillation with rapid ventricular response, with 7-second sinus pauses -Patient declines aggressive interventions, is a DNR/DNI, does not want to be externally paced, nor does she want to have a pacemaker, she tells me that if her heart stops, let me go ? Is off dopamine drip ? Continue amiodarone 400 mg twice daily, increase metoprolol to 50 ? No anticoagulation Acute right subdural hematoma, with subarachnoid hemorrhage MPRESSION: 1.? No evidence of new or progressed hemorrhage. 2.? Stable RIGHT frontal parietal temporal subdural hematoma with acute and chronic components 3.? Stable RIGHT frontoparietal junction subarachnoid hemorrhage 4.? Stable RIGHT to LEFT midline shift measuring 5 mm. 5.? No hydrocephalus. -Neurochecks every hour -Avoid all blood thinners - status post 2 units platelets -Status post 4 doses of mannitol, as subdural hematoma and subarachnoid bleed look stable, on repeat CT scans will hold off on further doses, clinically she denies any headache, blurry vision, -Aim for systolic blood pressure less than 140, systolics are in the 150s add on hydralazine 10 every 6 hours - Keppra 1000 mg IV every 12 hours for seizure prophylaxis -Monitor right orbital hematoma, right pupil equal round reactive to light, more visible, -Head of bed elevation -Continue home blood pressure medications Subarachnoid bleed/hemorrhage -As above Large soft tissue hematoma right facial bone, right orbit -Continue to conservatively manage Has epidural hematoma I UTI -Rocephin We will order troponin series Has no other complaints, no other pain complaints Goals of care discussion -Patient is adamant that she is DNR/DNI, she does not want to have life-sustaining measures -Does not want to have pacemaker, or externally paced -[facility], pain control here above all, agreeable to medical interventions that are nonaggressive Attestations Medical Necessity Statement*: Patient requires hospitalization for afib, subdural hematom, subarachnoid hemmorhage Diagnoses Acute UTI N39.0 Facial hematoma S00.83XA SDH (subdural hematoma) S06.5XAA Subarachnoid bleed I60.9 Closed head injury S09.90XA Dementia F03.90 Hypertension I10 Type 2 diabetes mellitus E11.9 Traumatic hematoma of face S00.83XA Midline shift of brain R90.89 Goals of care, counseling/discussion Z71.89 Subarachnoid hemorrhage following injury with moderate (1-24 hours) loss of consciousness S06.6X9A Sinus pause I45.5
[2023-04-02 16:35] LABS: Glucose Point of Care 175 mg/dL (70-110)
[2023-04-02] MEDS: cefTRIAXone 1,000 MG in sodium chloride 0.9% (plus) 50 ML 100 MG IV (17:17)
[2023-04-02 19:32] LABS: Glucose Point of Care 193 mg/dL (70-110)
[2023-04-02] MEDS: donepezil 5 MG Tablet 10 MG PO (20:42)
[2023-04-03] VITALS (22 sets, daily range): BP systolic 117–178; BP diastolic 54–96; PULSE 73–126; RESP 17–30; TEMP 36.8–37; O2SAT 83–95
[2023-04-03 04:48] LABS: Basophils % 0.4 %; Eosinophils # 0.1 10^3/uL (0.0-0.8); Eosinophils % 1.6 %; Lymphocytes # 1.6 10^3/uL (0.8-4.8); Lymphocytes % 18.9 %; Mean Corpuscular HGB Conc 31.4 g/dL (30-55); Mean Corpuscular Hemoglobin 30.3 pg (27-33); Mean Corpuscular Volume 96.4 fl (85-98); Mean Platelet Volume 10.7 fL (7.4-10.4); Monocytes # 0.7 10^3/uL (0.2-0.9); Monocytes % 8.4 %; Neutrophils # 5.97 10^3/uL (1.8-7.7); Neutrophils % 69.8 %; Nucleated Red Blood Cells % 0 %; Platelet Count 221 10^3/cmm (157-399); Red Blood Count 3.63 10^6/uL (3.85-5.65); Red Cell Distribution Width 12.8 % (12.1-15.1); White Blood Count 8.56 10^3/uL (3.29-11.43)
[2023-04-03 05:10] LABS: Alanine Aminotransferase 25 U/L (0-33); Alkaline Phosphatase 65 U/L (35-105); Aspartate Amino Transferase 18 U/L (0-32); Blood Urea Nitrogen 12 mg/dL (8-23); Calcium 8.6 mg/dL (8.5-10.5); Carbon Dioxide 27 mmol/L (22-29); Chloride 104 mmol/L (98-107); Creatinine Clr Calc Pharmacy 53.3087; Globulin 2.7 g/dL (1.3-4.6); Glucose 188 mg/dL (65-115); Osmolality Calculated 293 mOsm/kg (285-295); Sodium 139 mmol/L (136-145); Total Bilirubin 0.4 mg/dL (0.15-1.2); Total Protein 5.7 g/dL (6.6-8.7)
[2023-04-03 05:11] LABS: Anion Gap 11.5 (5-19); Potassium 3.5 mmol/L (3.5-5.1)
[2023-04-03] MEDS: metoprolol tartrate 25 mg Tablet 50 MG PO ×2 (05:32→17:59)
[2023-04-03 07:23] LABS: Glucose Point of Care 161 mg/dL (70-110)
[2023-04-03] MEDS: amiodarone 200 mg Tablet 400 MG PO ×2 (08:03→17:58)
[2023-04-03] MEDS: levETIRAcetam 500 mg Tablet PO ×2 (08:03→20:13)
[2023-04-03] MEDS: pantoprazole 40 mg SDV IVP ×2 (08:03→20:13)
[2023-04-03] MEDS: insulin lispro 100 unit/1 mL SUBCUT ×3 (08:04→17:56)
[2023-04-03 12:48] LABS: Glucose Point of Care 214 mg/dL (70-110)
--- NOTE | 2023-04-03 15:14 | PC.NURSE ---
Report called to [facility] on second floor, patient to go to room 277-2. Patient transferred via bed. Patient resting with no requests or complains,on room air. Belongings at bedside, glasses in hand. Patient oriented to room and call light, bed alarm set, side rails up for patient safety. Patient chart left with staff at [facility] and staff notified of patient arrival.
--- NOTE | 2023-04-03 15:15 | PM.PN ---
Subjective Subjective: Patient was seen this morning, she is alert awake, follows all commands, denies any fevers, chills, no cough no chest pain Vitals/I&O/Wt Last Vital Signs Temp 98.0 F 04/01/23 21:00 Pulse 95 04/03/23 14:15 Resp 20 H 04/03/23 13:00 BP 153/96 04/03/23 13:00 Pulse Ox 91 04/03/23 13:00 O2 Del Method Room Air 04/03/23 13:00 O2 Flow Rate 2 04/02/23 08:00 04/03/23 04/03/23 04/03/23 06:59 14:59 22:59 Intake Total 180 / 1050 444 / 444 Output Total 400 / 750 Balance -220 / 300 444 / 444 Physical Exam Const: COMMON NORMALS: no acute distress and patient oriented x3 HENMT: OTHER: Right brow, swelling, hematoma Resp: COMMON NORMALS: normal respiratory effort, No retractions, No use of accessory muscles and clear to auscultation bilaterally AUSCULTATION: clear to auscultation bilaterally Cardio: COMMON NORMALS: regular rate, regular rhythm, S1 normal heart sound present and S2 normal heart sound present RATE: regular rate RHYTHM: regular rhythm HEART SOUNDS: S1 normal heart sound present and S2 normal heart sound present GI: COMMON NORMALS: Normal to inspection, nondistended, normoactive bowel sounds present and non-tender Extremity: COMMON NORMALS: no pedal edema Neuro: COMMON NORMALS: patient oriented x3 Psych: COMMON NORMALS: mental status grossly normal Urinary Catheter Management: Mckinley: Cath Placed During This Visit: yes Reason for Continuing Indwelling Catheter: Accurate Measurement of Urinary Output in Critically Ill Patients Urinary Catheter Date of Insertion: 03/25/23 Urinary Catheter Time of Insertion: 21:35 Data 04/03/23 04:17 04/03/23 04:17 A&P Assessment and plan (1) Acute UTI: (2) Facial hematoma: (3) SDH (subdural hematoma): (4) Subarachnoid bleed: (5) Closed head injury: (6) Dementia: (7) Hypertension: (8) Type 2 diabetes mellitus: (9) Traumatic hematoma of face: (10) Midline shift of brain: (11) Goals of care, counseling/discussion: (12) Subarachnoid hemorrhage following injury with moderate (1-24 hours) loss of consciousness: (13) Sinus pause: Plan Difficult to control atrial fibrillation with rapid ventricular response, with 7-second sinus pauses -Patient declines aggressive interventions, is a DNR/DNI, does not want to be externally paced, nor does she want to have a pacemaker, she tells me that if her heart stops, let me go ? Is off dopamine drip ? Continue amiodarone 400 mg twice daily, increase metoprolol to 50 ? No anticoagulation Acute right subdural hematoma, with subarachnoid hemorrhage MPRESSION: 1.? No evidence of new or progressed hemorrhage. 2.? Stable RIGHT frontal parietal temporal subdural hematoma with acute and chronic components 3.? Stable RIGHT frontoparietal junction subarachnoid hemorrhage 4.? Stable RIGHT to LEFT midline shift measuring 5 mm. 5.? No hydrocephalus. -Neurochecks every hour -Avoid all blood thinners - status post 2 units platelets -Status post 4 doses of mannitol, as subdural hematoma and subarachnoid bleed look stable, on repeat CT scans will hold off on further doses, clinically she denies any headache, blurry vision, -Aim for systolic blood pressure less than 140, systolics are in the 150s add on hydralazine 10 every 6 hours - Keppra 1000 mg IV every 12 hours for seizure prophylaxis -Monitor right orbital hematoma, right pupil equal round reactive to light, more visible, -Head of bed elevation -Continue home blood pressure medications Subarachnoid bleed/hemorrhage -As above Large soft tissue hematoma right facial bone, right orbit -Continue to conservatively manage Has epidural hematoma I UTI -Rocephin We will order troponin series Has no other complaints, no other pain complaints Goals of care discussion -Patient is adamant that she is DNR/DNI, she does not want to have life-sustaining measures -Does not want to have pacemaker, or externally paced -Agreeable to hospice at longterm facility, pain control here above all, agreeable to medical interventions that are nonaggressive Plan for today, moved to [facility] [place], stop Rocephin, continue telemetry monitoring, Attestations Medical Necessity Statement*: Patient requires hospitalization for A-fib, subarachnoid hemorrhage, subdural hematoma Diagnoses Acute UTI N39.0 Facial hematoma S00.83XA SDH (subdural hematoma) S06.5XAA Subarachnoid bleed I60.9 Closed head injury S09.90XA Dementia F03.90 Hypertension I10 Type 2 diabetes mellitus E11.9 Traumatic hematoma of face S00.83XA Midline shift of brain R90.89 Goals of care, counseling/discussion Z71.89 Subarachnoid hemorrhage following injury with moderate (1-24 hours) loss of consciousness S06.6X9A Sinus pause I45.5
[2023-04-03 16:56] LABS: Glucose Point of Care 167 mg/dL (70-110)
[2023-04-03] MEDS: donepezil 5 MG Tablet 10 MG PO (20:13)
[2023-04-03 20:22] LABS: Glucose Point of Care 107 mg/dL (70-110)
[2023-04-04] VITALS (17 sets, daily range): BP systolic 116–165; BP diastolic 72–85; PULSE 88–147; RESP 16–18; TEMP 36.7–37.1; O2SAT 92–96
[2023-04-04 05:11] LABS: Basophils % 0.2 %; Eosinophils # 0.1 10^3/uL (0.0-0.8); Eosinophils % 0.7 %; Hematocrit 33.3 % (36-47); Lymphocytes % 20.8 %; Mean Corpuscular HGB Conc 32.1 g/dL (30-55); Mean Corpuscular Hemoglobin 30.7 pg (27-33); Mean Corpuscular Volume 95.4 fl (85-98); Monocytes # 0.8 10^3/uL (0.2-0.9); Monocytes % 8.5 %; Neutrophils # 6.56 10^3/uL (1.8-7.7); Neutrophils % 68.8 %; Nucleated Red Blood Cells % 0 %; Platelet Count 223 10^3/cmm (157-399); Red Blood Count 3.49 10^6/uL (3.85-5.65); Red Cell Distribution Width 12.9 % (12.1-15.1); White Blood Count 9.55 10^3/uL (3.29-11.43)
[2023-04-04 05:35] LABS: Alanine Aminotransferase 21 U/L (0-33); Alkaline Phosphatase 75 U/L (35-105); Blood Urea Nitrogen 10 mg/dL (8-23); Calcium 8.6 mg/dL (8.5-10.5); Carbon Dioxide 28 mmol/L (22-29); Chloride 105 mmol/L (98-107); Creatinine Clr Calc Pharmacy 53.3087; Globulin 2.3 g/dL (1.3-4.6); Glucose 143 mg/dL (65-115); Magnesium 1.9 mg/dL (1.7-2.3); Osmolality Calculated 292 mOsm/kg (285-295); Phosphorus 2.5 mg/dL (2.5-4.5); Sodium 140 mmol/L (136-145); Total Bilirubin 0.6 mg/dL (0.15-1.2); Total Protein 5.3 g/dL (6.6-8.7)
[2023-04-04 05:40] LABS: Aspartate Amino Transferase 20 U/L (0-32)
[2023-04-04] MEDS: metoprolol tartrate 25 mg Tablet 50 MG PO ×2 (05:44→17:29)
--- NOTE | 2023-04-04 06:33 | PC.NURSE ---
Dr. Reardon notified last night that patient's heart rate kept briefly jumping up to the 140's-150's for about 15 seconds at a time but would go right back to 80s. Dr. Reardon said to keep her po metoprolol as scheduled and only intervene if sustained.
[2023-04-04 06:48] LABS: Glucose Point of Care 140 mg/dL (70-110)
[2023-04-04] MEDS: levETIRAcetam 500 mg Tablet PO ×2 (08:13→19:55)
[2023-04-04] MEDS: pantoprazole 40 mg SDV IVP ×2 (08:13→20:35)
[2023-04-04] MEDS: amiodarone 200 mg Tablet 400 MG PO ×2 (08:13→17:29)
[2023-04-04 11:40] LABS: Glucose Point of Care 362 mg/dL (70-110)
[2023-04-04] MEDS: insulin lispro 100 unit/1 mL SUBCUT (12:03)
--- NOTE | 2023-04-04 13:08 | P.PN_ITS ---
Subjective Subjective: Patient was seen this morning, she has no complaints, Vitals/I&O/Wt Last Vital Signs Temp 98.8 F 04/04/23 11:00 Pulse 147 H 04/04/23 11:00 Resp 18 04/04/23 11:00 BP 128/85 04/04/23 11:00 Pulse Ox 95 04/04/23 08:00 O2 Del Method Room Air 04/04/23 07:23 O2 Flow Rate 2 04/02/23 08:00 04/03/23 04/04/23 04/04/23 23:59 06:59 14:59 Intake Total 120 / 120 Output Total Balance 120 / 120 Physical Exam Const: COMMON NORMALS: no acute distress and patient oriented x3 Resp: COMMON NORMALS: normal respiratory effort, No retractions, No use of accessory muscles and clear to auscultation bilaterally AUSCULTATION: clear to auscultation bilaterally Cardio: COMMON NORMALS: regular rhythm, S1 normal heart sound present and S2 normal heart sound present RATE: tachycardic RHYTHM: regular rhythm HEART SOUNDS: S1 normal heart sound present and S2 normal heart sound present GI: COMMON NORMALS: Normal to inspection, nondistended, normoactive bowel sounds present and non-tender Extremity: COMMON NORMALS: no pedal edema Neuro: COMMON NORMALS: patient oriented x3 Psych: COMMON NORMALS: mental status grossly normal Urinary Catheter Management: Mckinley: Cath Placed During This Visit: yes Reason for Continuing Indwelling Catheter: Other Urinary Catheter Date of Insertion: 03/25/23 Urinary Catheter Time of Insertion: 21:35 Data 04/04/23 04:37 04/04/23 04:37 A&P Assessment and plan (1) Acute UTI: (2) Facial hematoma: (3) SDH (subdural hematoma): (4) Subarachnoid bleed: (5) Closed head injury: (6) Dementia: (7) Hypertension: (8) Type 2 diabetes mellitus: (9) Traumatic hematoma of face: (10) Midline shift of brain: (11) Goals of care, counseling/discussion: (12) Subarachnoid hemorrhage following injury with moderate (1-24 hours) loss of consciousness: (13) Sinus pause: Plan Difficult to control atrial fibrillation with rapid ventricular response, with 7-second sinus pauses -Patient declines aggressive interventions, is a DNR/DNI, does not want to be externally paced, nor does she want to have a pacemaker, she tells me that if her heart stops, let me go ? Is off dopamine drip ? Continue amiodarone 400 mg twice daily, increase metoprolol to 50 ? No anticoagulation Acute right subdural hematoma, with subarachnoid hemorrhage MPRESSION: 1.? No evidence of new or progressed hemorrhage. 2.? Stable RIGHT frontal parietal temporal subdural hematoma with acute and pediatric immunologist maxine components 3.? Stable RIGHT frontoparietal junction subarachnoid hemorrhage 4.? Stable RIGHT to LEFT midline shift measuring 5 mm. 5.? No hydrocephalus. -Neurochecks every hour -Avoid all blood thinners - status post 2 units platelets -Status post 4 doses of mannitol, as subdural hematoma and subarachnoid bleed look stable, on repeat CT scans will hold off on further doses, clinically she denies any headache, blurry vision, -Aim for systolic blood pressure less than 140, systolics are in the 150s add on hydralazine 10 every 6 hours - Keppra 1000 mg IV every 12 hours for seizure prophylaxis -Monitor right orbital hematoma, right pupil equal round reactive to light, more visible, -Head of bed elevation -Continue home blood pressure medications Subarachnoid bleed/hemorrhage -As above Large soft tissue hematoma right facial bone, right orbit -Continue to conservatively manage Has epidural hematoma I UTI -Rocephin We will order troponin series Has no other complaints, no other pain complaints Goals of care discussion -Patient is adamant that she is DNR/DNI, she does not want to have life- sustaining measures -Does not want to have pacemaker, or externally paced -Agreeable to hospice at senior living facility, pain control here above all, agreeable to medical interventions that are nonaggressive Plan for today, moved to [facility], heart rates remain in the 120s to 140s and on Cardizem 30 every 6 hours Attestations Medical Necessity Statement*: Patient requires hospitalization for A-fib, requiring rate control Diagnoses Acute UTI N39.0 Facial hematoma S00.83XA SDH (subdural hematoma) S06.5XAA Subarachnoid bleed I60.9 Closed head injury S09.90XA Dementia F03.90 Hypertension I10 Type 2 diabetes mellitus E11.9 Traumatic hematoma of face S00.83XA Midline shift of brain R90.89 Goals of care, counseling/discussion Z71.89 Subarachnoid hemorrhage following injury with moderate (1-24 hours) loss of consciousness S06.6X9A Sinus pause I45.5
[2023-04-04] MEDS: dilTIAZem 30 mg Tablet PO ×2 (13:43→19:55)
[2023-04-04 17:23] LABS: Glucose Point of Care 140 mg/dL (70-110)
[2023-04-04] MEDS: donepezil 5 MG Tablet 10 MG PO (20:02)
[2023-04-04 21:30] LABS: Glucose Point of Care 117 mg/dL (70-110)
[2023-04-05] VITALS (7 sets, daily range): BP systolic 115–150; BP diastolic 69–88; PULSE 69–130; RESP 17–18; TEMP 36.5–37.2; O2SAT 94–96
[2023-04-05] MEDS: dilTIAZem 30 mg Tablet PO ×2 (00:29→06:28)
[2023-04-05 03:36] LABS: Alanine Aminotransferase 17 U/L (0-33); Albumin Level 2.8 g/dL (3.5-5.2); Alkaline Phosphatase 65 U/L (35-105); Aspartate Amino Transferase 16 U/L (0-32); Blood Urea Nitrogen 9 mg/dL (8-23); Calcium 8.2 mg/dL (8.5-10.5); Carbon Dioxide 28 mmol/L (22-29); Chloride 102 mmol/L (98-107); Creatinine Clr Calc Pharmacy 53.3087; Globulin 2.3 g/dL (1.3-4.6); Glucose 113 mg/dL (65-115); Magnesium 1.9 mg/dL (1.7-2.3); Osmolality Calculated 287 mOsm/kg (285-295); Phosphorus 2.4 mg/dL (2.5-4.5); Sodium 139 mmol/L (136-145); Total Bilirubin 0.6 mg/dL (0.15-1.2); Total Protein 5.1 g/dL (6.6-8.7)
[2023-04-05 03:37] LABS: Anion Gap 12.6 (5-19); Potassium 3.6 mmol/L (3.5-5.1)
[2023-04-05 03:51] LABS: Basophils % 0.4 %; Eosinophils # 0.1 10^3/uL (0.0-0.8); Hematocrit 36.9 % (36-47); Lymphocytes % 21.8 %; Mean Corpuscular HGB Conc 29.8 g/dL (30-55); Mean Corpuscular Hemoglobin 30.1 pg (27-33); Mean Corpuscular Volume 100.8 fl (85-98); Monocytes # 0.9 10^3/uL (0.2-0.9); Monocytes % 9.4 %; Neutrophils # 6.03 10^3/uL (1.8-7.7); Neutrophils % 66.2 %; Nucleated Red Blood Cells % 0 %; Platelet Count 140 10^3/cmm (157-399); Red Blood Count 3.66 10^6/uL (3.85-5.65); Red Cell Distribution Width 12.6 % (12.1-15.1); White Blood Count 9.12 10^3/uL (3.29-11.43)
[2023-04-05] MEDS: metoprolol tartrate 25 mg Tablet 50 MG PO (06:28)
[2023-04-05 07:14] LABS: Glucose Point of Care 151 mg/dL (70-110)
[2023-04-05] MEDS: levETIRAcetam 500 mg Tablet PO (08:12)
[2023-04-05] MEDS: amiodarone 200 mg Tablet 400 MG PO (08:12)
[2023-04-05] MEDS: insulin lispro 100 unit/1 mL SUBCUT ×2 (08:12→12:04)
[2023-04-05] MEDS: pantoprazole 40 mg SDV IVP (09:03)
--- NOTE | 2023-04-05 10:54 | P.DS_ITS ---
Discharge Providers Date of Admission: 03/25/23 17:37 Date of Discharge: April 05, 2023 Attending Provider at Admission: Can Chowdhury MD Attending Provider at Discharge: Can Chowdhury MD Primary Care Provider: Yuri Jerome MD Diagnoses at Discharge Discharge Diagnosis (1) Acute UTI: Status: Acute (2) Facial hematoma: Status: Acute (3) SDH (subdural hematoma): Status: Acute (4) Subarachnoid bleed: Status: Acute (5) Closed head injury: Status: Acute (6) Dementia: Status: Acute (7) Hypertension: Status: Acute (8) Type 2 diabetes mellitus: Status: Acute (9) Traumatic hematoma of face: Status: Acute (10) Midline shift of brain: Status: Acute (11) Goals of care, counseling/discussion: Status: Acute (12) Subarachnoid hemorrhage following injury with moderate (1-24 hours) loss of consciousness: Status: Acute (13) Sinus pause: Status: Acute Reason for Visit Reason for Visit: fall Hospital Course Hospital Course Geneva Pizarro is a 87 year old female with a past medical history of atrial fibrillation not on anticoagulation due to risk of falls on Plavix, history of chronic anemia, history of CAD, history of prior CVA, history of recurrent falls, history of syncope, history of type 2 diabetes mellitus, history of UTIs, who presents to [facility] for follow-up.? Currently patient is alert and oriented x3, follows commands, her biggest complaint is a severe headache.? Patient tells me that she has a history of recurrent falls, she lives at home by herself, she lives at the big home, built in the , her many years ago, she tells me that she does have 2 sons here in town, but they never speak, they never check up on her, and she has issues with one of her sons wives.? She tells me that she fell sometime this morning, but she does not remember when, she thinks that she slipped in the bathroom, she thinks she lost consciousness, but she does not exactly remember when or for how long, does report a crushing headache when she woke up, she tells me that the worst headache she has ever had, and continues to have this headache, no focal weakness, no slurring of her words, just feels weak all over, no trouble swallowing, no blurry vision, she cannot see out of her right eye as it was swollen, her closest neighbor, was concerned as they did not hear from her, so they checked up on her and she was found on the ground.? She tells me that she has had a hip fracture, from the her fall in the past.? She was found to have large hematoma, right orbit, face, right scalp, eye is swollen shut, no lip or tongue swelling, she is on Plavix, hemoglobin is 315.6, INR is pending she does have a UTI, concerning is on her head CT she was found to have acute right subdural hematoma 4.3 mm, with subarachnoid blood, with several millimeters midline shift to the left, she is complaining of severe headaches currently.? She also has an epidural hematoma along the posterior right parietal lobe which appears chronic in nature, ER physician had an extensive discussion with patient about transferring to tertiary level center for neurology and neurosurgery evaluation, however patient refuses to be evaluated, refuses any surgery, refuses to be transferred, she denies any pain anywhere else, no hip pain, no back pain,, no leg pain, -The following discussion was made with patient, in front of nursing staff -I had extensive discussion with patient -about the morbidity mortality associated with Her current condition -I highly recommend for her to be transferred to tertiary level center for neurology and neurosurgery evaluation, and consultation -Even if they offer no significant surgical intervention, their expertise in managing subdural hematoma subarachnoid bleeding is important, for her clinical outcome, headache and the difference between life and , and it can mean the difference between significant complications -I advised her that I am not a neurosurgeon nor I am a neurologist, and I personally do not feel comfortable managing her here at [facility], I would recommend for her to be transferred to tertiary level center -I am worried about the morbidity and mortality associated with her condition, I am worried about complications, and nor do I have the expertise in managing these complications, let alone the expertise to manage her clinical condition cu rrently -I advised her that it takes highly skilled team of physicians and nurses, that have managed her current clinical conditions, would mean the difference between a good clinical outcome, would mean the difference between life and -However patient refuses to be transferred -She refuses to have neurosurgical evaluation, or neurology evaluation -She refuses any significant interventions -She tells me that she is ready to , and if she gets worse, she is ready to pass away -She tells me that she lives at home by herself, she does not have a good quality of life, there is no one to come to check up on her, she has no close family members, is not close with her sons, she tells me she is ready to -She denies any suicidal ideation, denies any homicidal ideation, denies feeling down or depressed or sad, -She tells me she does not have a good quality of life, -I advised her that transferring up to [place] for neurology and neurosurgical evaluation, could give her back: Potentially, could avoid complications such as including but not limited to brain swelling, seizures, and paralysis, headaches, visual deficits, and ultimately life and -However she tells me that she is okay with all those complications, she is okay with any complications, at that point she tells me she would just want to be on hospice, she would just want to be comfortable for us to ease her pain and ease her suffering and allow her to pass away comfortably -Again I implored her to be transferred, to be evaluated by specialist, that she could have the life that she had before her fall, and potentially a better life based upon interventions that they could offer her however she has declined again -I have concurred this with the ER physician, that this is her wishes and that the wishes that she has voiced to him -ER physician did speak to neurosurgery, who again have recommended for her to be transferred as a standard of care however if patient refuses, they recommended blood pressure management if systolic less than 140, 2 units of platelets, repeat head CT in 6 hours, and seizure medication prophylaxis -I went over this in detail with patient -She again wants to remain here at [facility], does not want to have aggressive inventions, but is okay with medical interventions -She understands the morbidity and mortality associate with her condition, she understands we do not have the expertise to manage her here, she accepts the risks of staying here at [facility] without having the expertise to manage her, without having neurology and neurosurgery, or the expertise to manage intracranial hemorrhage, and subdural bleeds, she accepts the complications -After discussing the risk and benefits, she voiced understanding of all questions answered, she adamant that she wants to stay here, she accepts complications, she has accepts risks, she has sepsis and morbidity and mortality -We will do for her is here is give her 2 units of platelets, monitor her very closely in the ICU monitor neurologic status, aim for systolic blood pressure less than 140, stop all blood thinners, will consider mannitol based on her repeat head CT, she does have severe headaches, likely from subarachnoid bleeding, we will try to control her headaches, placed on seizure prophylaxis, Patient was admitted to [facility] for acute right subdural hematoma with subarachnoid hemorrhage, managed in the intensive care unit, received mannitol, 2 units of platelets, seizure prophylaxis, overall patient clinically remained stable, she had intermittent alterations of her mentation, intermittent episodes of headache, but those resolved, she is alert awake, following all commands no focal weakness, her repeat head CT 1.? No evidence of new or progressed hemorrhage. 2.? Stable RIGHT frontal parietal temporal subdural hematoma with acute and chronic components 3.? Stable RIGHT frontoparietal junction subarachnoid hemorrhage 4.? Stable RIGHT to LEFT midline shift measuring 5 mm. 5.? No hydrocephalus. -She will be discharged to [facility] facility, ?, Continue seizure prophylaxis Keppra, 500 mg twice daily ? Monitor blood pressures, aim for systolic less than 140, diastolic less than 80 ? Discharged on meToprol 50 twice daily, ? She will be discharged to [facility] facility, with a follow-up with neurosurgery for repeat CT head in 2 weeks, ? Patient tells me that if her clinical condition deteriorates, if she continues to have recurrent bleeding, any difficult life-threatening complications, she does not want any surgeries, she did not want to have aggressive inventions, she does not want surgical intervention, she is agreeable to comfort care, she is DNR/DNI Patient's hospital course was complicated with A-fib with RVR, requiring close monitoring, she will be discharged on metoprolol 50 mg twice daily, and a tapering dose of amiodarone, Cardizem, with a close follow-up with cardiology as outpatient, Patient's hospital course was complicated with bradycardia, sinus pauses as long as 7 seconds, requiring dopamine drip ICU monitoring, possibly related to her subarachnoid bleed, subdural hematoma, polypharmacy. Patient has declined pacemaker placement, she understands morbidity and mortality associated, for now she just wants conservative intervention. She has not had any recurrent sinus bradycardia or sinus pauses. Continue to monitor as outpatient, discharged on medications as above. UTI received antibiotic therapy Patient continues to have large soft tissue hematoma over the right brow, multiple superficial bruising, and hematomas, which will take time to resolve, In terms of anticoagulation, for her atrial fibrillation, given her subdural hematoma, subarachnoid hemorrhage, and that she had these episodes of bleeding on Plavix therapy. I have recommended no antiplatelet therapy and anticoagulant therapy for now, and likely indefinitely no anticoagulant or antiplatelet therapy. I had extensive discussion with her, as she has had life-threatening complications from her fall and her bleeding, she does not want to be put back on antiplatelet or anticoagulant therapy. On the other hand she does have significant risk of strokes given her atrial fibrillation. I had shared decision making with her, discussed risk and benefits of all options, she voiced understanding, all questions answered, for now she is declined any antiplatelet or anticoagulant therapy. Physical Exam Const: COMMON NORMALS: no acute distress and patient oriented x3 Resp: COMMON NORMALS: normal respiratory effort, No retractions, No use of accessory muscles and clear to auscultation bilaterally AUSCULTATION: clear to auscultation bilaterally Cardio: COMMON NORMALS: regular rate, regular rhythm, S1 normal heart sound present and S2 normal heart sound present RATE: regular rate RHYTHM: regular rhythm HEART SOUNDS: S1 normal heart sound present and S2 normal heart sound present GI: COMMON NORMALS: Normal to inspection, nondistended, normoactive bowel sounds present and non-tender Extremity: COMMON NORMALS: no pedal edema Neuro: COMMON NORMALS: patient oriented x3 Psych: COMMON NORMALS: mental status grossly normal Urinary Catheter Management: [place]: Cath Placed During This Visit: yes, but has since been removed by the nurse Reason for Continuing Indwelling Catheter: Decision to DC Catheter Urinary Catheter Date of Insertion: 03/25/23 Urinary Catheter Time of Insertion: 21:35 Date Urinary Catheter Removed: 04/04/23 Time Urinary Catheter Discontinued: 10:58 Discharge Data Studies Completed and Pending Completed Studies During Hospitalization Category Date Time Status CT cervical spin wo con* [id number] Stat Cat Scan 03/25/23 15:[address] facial bones wo con* [id number] Stat Cat Scan 03/25/23 15:[address] head wo con* [id number] Routine Cat Scan 03/26/23 18:[address] head wo con* [id number] Routine Cat Scan 03/27/23 16:[address] head wo con* [id number] Routine Cat Scan 03/28/23 09:[address] head wo con* [id number] Routine Cat Scan 03/29/23 09:[address] head wo con* [id number] Routine Cat Scan 03/30/23 09:[address] head wo con* [id number] Stat Cat Scan 03/25/23 15:[address] head wo con* [id number] Stat Cat Scan 03/25/23 23:[address] head wo con* [id number] Stat Cat Scan 03/26/23 08:00 Completed XR chest 1V portable [id number] Stat Exams 03/25/23 15:22 Completed XR hip BI 2V wo/w pel [id number] Routine Exams 03/28/23 09:24 Completed XR knee RT 1-2V [id number] Routine Exams 03/28/23 09:25 Completed XR lumbar spine 2-3V* [id number] Routine Exams 03/28/23 09:24 Completed Pending at discharge Category Date Time Status Complete Blood Count w/Auto AM LABS Lab 04/06/23 04:00 Ordered Comprehensive Metabolic Panel AM LABS Lab 04/06/23 04:00 Ordered Magnesium AM LABS Lab 04/06/23 04:00 Ordered Phosphorus AM LABS Lab 04/06/23 04:00 Ordered Radiology Impressions Hip/Pelvis X-Ray 03/28/23 09:24 IMPRESSION: 1. Postoperative changes left hip as above. 2. Mild right hip primary osteoarthritis. Lumbar Spine X-Ray 03/28/23 09:24 IMPRESSION: 1. Degenerative changes as above. 2. No acute lumbar spinal bony injury identified. Knee X-Ray 03/28/23 09:25 IMPRESSION: 1. Mild degenerative changes as above. 2. No acute bony injury identified. Laboratory Results WBC 9.12 10^3/uL (3.29-11.43) 04/05/23 02:56 RBC 3.66 10^6/uL (3.85-5.65) L 04/05/23 02:56 Hgb 11.00 g/dL (11.27-16.99) L 04/05/23 02:56 Hct 36.9 % (36-47) 04/05/23 02:56 MCV 100.8 fl (85-98) H D 04/05/23 02:56 MCH 30.1 pg (27-33) 04/05/23 02:56 MCHC 29.8 g/dL (30-55) L D 04/05/23 02:56 RDW 12.6 % (12.1-15.1) 04/05/23 02:56 Plt Count 140 10^3/cmm (157-399) L D 04/05/23 02:56 MPV 11.0 fL (7.4-10.4) H 04/05/23 02:56 Neut % (Auto) 66.2 % 04/05/23 02:56 Lymph % (Auto) 21.8 % 04/05/23 02:56 [place] % (Auto) 9.4 % 04/05/23 02:56 Eos % (Auto) 1.0 % 04/05/23 02:56 Baso % (Auto) 0.4 % 04/05/23 02:56 Neut # (Auto) 6.03 10^3/uL (1.8-7.7) 04/05/23 02:56 Lymph # (Auto) 2.0 10^3/uL (0.8-4.8) 04/05/23 02:56 [place] # (Auto) 0.9 10^3/uL (0.2-0.9) 04/05/23 02:56 Eos # (Auto) 0.1 10^3/uL (0.0-0.8) 04/05/23 02:56 Baso # (Auto) 0.0 10^3/uL (0.0-0.1) 04/05/23 02:56 Nucleated RBC % (auto) 0 % 04/05/23 02:56 Nucleated RBCs # 0.0 /100WBC 04/05/23 02:56 PT 12.50 SECONDS (12.1-14.9) 03/25/23 18:45 INR 0.91 (0.8-1.2) 03/25/23 18:45 APTT 19.4 SECONDS (23.9-36.7) L 03/25/23 18:45 Sodium 139 mmol/L (136-145) 04/05/23 02:56 Potassium 3.6 mmol/L (3.5-5.1) 04/05/23 02:56 Chloride 102 mmol/L (98-107) 04/05/23 02:56 Carbon Dioxide 28 mmol/L (22-29) 04/05/23 02:56 Anion Gap 12.6 (5-19) 04/05/23 02:56 BUN 9 mg/dL (8-23) 04/05/23 02:56 Creatinine 0.7 mg/dL (0.5-0.9) 04/05/23 02:56 GFR Calculation Not Reportable 04/05/23 02:56 Glucose 113 mg/dL (65-115) 04/05/23 02:56 POC Glucose 151 mg/dL (70-110) H 04/05/23 07:11 Serum Osmolality 287 mOsm/kg (278-305) 03/27/23 03:59 Calculated Osmolality 287 mOsm/kg (285-295) 04/05/23 02:56 Lactic Acid 1.0 mmol/L (0.5-2.2) 03/25/23 18:45 Calcium 8.2 mg/dL (8.5-10.5) L 04/05/23 02:56 Phosphorus 2.4 mg/dL (2.5-4.5) L 04/05/23 02:56 Magnesium 1.9 mg/dL (1.7-2.3) 04/05/23 02:56 Total Bilirubin 0.6 mg/dL (0.15-1.2) 04/05/23 02:56 AST 16 U/L (0-32) 04/05/23 02:56 ALT 17 U/L (0-33) 04/05/23 02:56 Alkaline Phosphatase 65 U/L (35-105) 04/05/23 02:56 C-Reactive Protein 3.0 mg/L (0.0-4.9) 03/25/23 18:45 Total Protein 5.1 g/dL (6.6-8.7) L 04/05/23 02:56 Albumin 2.8 g/dL (3.5-5.2) L 04/05/23 02:56 Globulin 2.3 g/dL (1.3-4.6) 04/05/23 02:56 Procalcitonin 0.02 ng/mL (0-0.5) 03/25/23 18:45 TSH 1.96 uIU/mL (0.27-4.20) 03/25/23 18:45 Urine Color Yellow (Yellow) 03/25/23 15:43 Urine Appearance Hazy (CLEAR) A 03/25/23 15:43 Urine pH 5 (5-7) 03/25/23 15:43 Ur Specific [place] 1.015 (1.005-1.030) 03/25/23 15:43 Urine Protein 1+ (Negative) H 03/25/23 15:43 Urine Glucose (UA) Norm (Normal) 03/25/23 15:43 Urine Ketones Negative (Negative) 03/25/23 15:43 Urine Blood 3+ (Negative) H 03/25/23 15:43 Urine Nitrate Positive (Negative) H 03/25/23 15:43 Urine Bilirubin Neg (Negative) 03/25/23 15:43 Urine Urobilinogen Norm mg/dL (Negative) 03/25/23 15:43 Ur Leukocyte Esterase 2+ (Negative) H 03/25/23 15:43 Urine RBC 5-10 /hpf (0-2) H 03/25/23 15:43 Urine WBC >100 /hpf (0-5) H 03/25/23 15:43 Ur Squamous Epith Cells 0-4 /hpf (0-5) H 03/25/23 15:43 Amorphous Sediment Not Reportable 03/25/23 15:43 Urine Bacteria 3+ /hpf (NONE) H 03/25/23 15:43 Urine Osmolality 544 mOsm/kg (50-1200) 03/26/23 23:13 Blood Type A Positive 03/25/23 18:45 Rho(D) Type Positive 03/25/23 18:45 Vitals Last Vital Signs Temp 97.8 F 04/05/23 07:48 Pulse 76 04/05/23 10:07 Resp 18 04/05/23 07:48 BP 136/75 04/05/23 07:48 Pulse Ox 95 04/05/23 10:07 O2 Del Method Room Air 04/05/23 10:07 O2 Flow Rate 2 04/02/23 08:00 Discharge Plan Discharge Patient Disposition: Xfer SNF Condition: Stable Prescriptions: New Pacerone 200 mg Tablet See Rx Instructions .ROUTE .COMPLEX Qty: 45 0RF Rx Instructions: 1 tab bid for 15 days, then 1 tab daily levetiracetam 500 mg Tablet 500 mg PO Q12H 30 Days Qty: 60 0RF Cardizem LA 120 mg tablet extended release 24 hr 120 mg PO DAILY 30 Days Qty: 30 0RF Novolog FlexPen U-100 Insulin 100 unit/mL (3 mL) insulin pen See Rx Instructions .ROUTE .COMPLEX Qty: 15 0RF Rx Instructions: Inject, subcu, 3 times daily, after meals, based on sliding scale provided Continued donepezil 10 mg tablet 10 mg PO BEDTIME 90 Days Qty: 90 1RF metoprolol tartrate 50 mg tablet 50 mg PO BID Discontinued clopidogrel [Plavix] 75 mg tablet 75 mg PO DAILY 90 Days Qty: 90 1RF losartan 100 mg tablet 100 mg PO DAILY 90 Days Qty: 90 1RF sotalol 80 mg tablet 80 mg PO BID 90 Days Qty: 180 0RF amlodipine 5 mg tablet 5 mg PO DAILY 90 Days Qty: 90 1RF potassium chloride 8 mEq tablet extended release 16 meq PO DAILY Discharge Orders: Discharge Order (Routine); Ordered 04/05/23 Ordered By: Can Chowdhury Referrals: [facility] [Other] Ramin Kiran MD [Referring] - 2 weeks [place] MD [Referring] - 2 weeks Yuri Jerome MD [Primary Care Provider] - Discharge Diet: Cardiac Discharge Activity: Resume usual activity Patient Instructions: Diltiazem (By mouth), Amiodarone (By mouth), Levetiracetam (By mouth), Insulin Aspart, Recombinant (By injection), Opioid Safety Activity Restrictions/Additional Instructions: - Please follow-up with neurosurgery in [address] of the head -Please monitor mentation closely -No blood thinners, no antiplatelet agents, due to your subarachnoid hemorrhage and subdural hematoma ? For your atrial fibrillation, take medications as prescribed, follow-up cardiology, NO BLOOD THINNER OR ANTIPLATELET AGENTS ? Please ambulate with care, -Please monitor your blood sugars closely -Monitor your blood sugars 3 times daily as after meals -Please record your blood sugars, and a blood sugar log -For your NovoLog -Please inject blood sugar after meals based on sliding scale provided -Do not inject insulin if you do not eat as hypoglycemia kills -This is a NovoLog sliding scale -Insulin sliding ?fingerstick? Insulin ?141-180?0 units/sq 181-220?2 units/sq ?221-260?4 units/sq ?261-300 6 units/sq ?301-350?8 units/sq ?351-400 10 units/sq ?401-450?12 units/sq >450? 14units/sq -If your blood sugar is greater than 500 go to the emergency room -If your blood sugar is less than 60 or at anytime you feel lightheaded or dizzy or diaphoretic or have chest palpitations check your blood sugar, and eat a hard candy or drink orange juice and go immediately to the emergency room -Remember hypoglycemia kills, so if his blood sugar is less than 60 we have to increase it by taking in a sugary meal such as a hard candy or orange juice and go to the emergency room -If you have any questions please call us where here to help Discharge Attestations Time Spent in Discharge Care*: greater than 30 min Quality Metrics Clinical Quality Measures [ No reported AMI, CVA or VTE this stay] Coding Level of Care Code 70576 Total time (in minutes) for Discharge: 45 Diagnoses Acute UTI N39.0 Facial hematoma S00.83XA SDH (subdural hematoma) S06.5XAA Subarachnoid bleed I60.9 Closed head injury S09.90XA Dementia F03.90 Hypertension I10 Type 2 diabetes mellitus E11.9 Traumatic hematoma of face S00.83XA Midline shift of brain R90.89 Goals of care, counseling/discussion Z71.89 Subarachnoid hemorrhage following injury with moderate (1-24 hours) loss of consciousness S06.6X9A Sinus pause I45.5
--- NOTE | 2023-04-05 11:06 | PC.SOCIAL ---
IMM Updated Updated pt on IMM. No questions voiced. Provided pt a copy. Initialed, dated, & timed copy in chart.
[2023-04-05 11:08] LABS: Glucose Point of Care 211 mg/dL (70-110)
--- NOTE | 2023-04-05 12:16 | PC.NURSE ---
This nurse called report to Kaci at [place] and updated on patients current condition and history. All questions addressed and answered.
[2023-04-05 12:48] LABS: SARS Covid-2 Antigen negative (Negative)
== END 2023-04-05 13:35 | disposition skilled nursing facility (03) | DRG 83 ==
LOC: ER 17:11 → ICU 17:57 → MEDSURG 03-27 15:06 → CSU 03-29 12:33 → ICU 03-30 04:40 → MEDSURG 04-03 15:00
PROVIDERS: Admitting Provider Family Medicine; Emergency Provider Emergency Medicine; PCP Radiology Neuroradiology; Visit Provider Family Medicine
DX: S06.5X9A Traumatic subdural hemorrhage with loss of consciousness of unspecified duration, initial encounter (principal); G93.40 Encephalopathy, unspecified; N39.0 Urinary tract infection, site not specified; R47.01 Aphasia; W01.0XXA Fall on same level from slipping, tripping and stumbling without subsequent striking against object, initial encounter; S00.83XA Contusion of other part of head, initial encounter; F03.90 Unspecified dementia, unspecified severity, without behavioral disturbance, psychotic disturbance, mood disturbance, and anxiety; I48.0 Paroxysmal atrial fibrillation; D63.1 Anemia in chronic kidney disease; E11.22 Type 2 diabetes mellitus with diabetic chronic kidney disease; I12.9 Hypertensive chronic kidney disease with stage 1 through stage 4 chronic kidney disease, or unspecified chronic kidney disease; N18.9 Chronic kidney disease, unspecified; Z86.73 Personal history of transient ischemic attack (TIA), and cerebral infarction without residual deficits; Z87.440 Personal history of urinary (tract) infections; I45.5 Other specified heart block; Z66 Do not resuscitate; K21.9 Gastro-esophageal reflux disease without esophagitis; I25.10 Atherosclerotic heart disease of native coronary artery without angina pectoris
CPT/HCPCS: 36415; 36416; 36430; 51701; 51702; 70450; 70486; 71045; 72100; 72125; 73521; 73560; 80048; 80053; 81001; 82962; 83605; 83735; 83930; 83935; 84100; 84145; 84443; 85025; 85610; 85730; 86140; 86900; 87077; 87086; 87186; 87426; 92523; 92610; 93005; 94664; 96365; 96367; 96372; 96375; 96376; 97116; 97163; 97166; 97530; 97535; 99285; C9113; J0360; J0461; J0696; J1265; J1815; J1953; J2060; J2270; J2405; J2550; J2597; J3490; J7030; J7799; P9035

== ENCOUNTER → 2023-09-28 16:02 | Outpatient (BNVA) | payer MEDICARE, SELFPAY | PROVIDERS: PCP Family Medicine; Visit Provider Family Medicine | DX: R60.9 Edema, unspecified (principal); E11.9 Type 2 diabetes mellitus without complications; I10 Essential (primary) hypertension; R07.89 Other chest pain | CPT/HCPCS: 80053; 80061; 83036; 84443; 85025 ==